=== PATIENT | female | born 1945 | race Caucasian/White ===

== ENCOUNTER 2022-07-08 09:14 | Outpatient (OUT) | payer MEDICARE, SELFPAY ==
--- NOTE | 2022-07-08 09:35 | XR_ITS ---
[place] [id number] Patient Name: ANGELA ROBB MRN: [id number] date: 1945 Sex: F Assigned Patient Location: [facility] Current Patient Location: [facility] Accession/Order Number: [id number] Exam Date: 07/08/2022 09:45 Report Date: 07/08/2022 11:05 At the request of: RADHA KNOTT Procedure: XR lumbar spine 6V w bending EXAMINATION: XR lumbar spine 6V w bending HISTORY: Spondylolisthesis Of Lumbar Region M43.16 ; follow-up low back pain COMPARISON: XR L-spine 07/05/2022, 01/14/2021 FINDINGS: BONES: Moderate left convex curvature of lumbar spine. 9 mm anterior listhesis of L4 on 5; no appreciable change during flexion and extension. Moderate degenerative facet arthropathy L4-5, L5-S1. No visible pars interarticularis defects. No compression fracture. DISC SPACES: Marked disc space collapse along right side of L2-3. PARASPINOUS: Negative. No paraspinous abnormality is seen. OTHER: Negative. IMPRESSION: 1. Multilevel degenerative changes with slight progression of anterior listhesis of L4 on 5 (currently 8-9 mm; previously 7 mm). Electronically authenticated by: JELANI FAIR Date: 07/08/2022 11:05
== END 2022-07-08 09:15 ==
LOC: RAD 09:20
PROVIDERS: PCP Nurse Practitioner; Visit Provider Nurse Practitioner
DX: M43.16 Spondylolisthesis, lumbar region (principal); M47.816 Spondylosis without myelopathy or radiculopathy, lumbar region
CPT/HCPCS: 72114

== ENCOUNTER 2022-07-29 08:55 | Outpatient (OUT) | payer MEDICARE, SELFPAY ==
--- NOTE | 2022-07-29 09:03 | XR_ITS ---
[address] [address] Patient Name: ANGELA ROBB MRN: [id number] date: 1945 Sex: F Assigned Patient Location: [facility] Current Patient Location: [facility] Accession/Order Number: [id number] Exam Date: 07/29/2022 09:10 Report Date: 07/29/2022 09:25 At the request of: RADHA KNOTT Procedure: XR chest 2V EXAMINATION: XR chest 2V HISTORY: Abnormal chest x-ray R93.89 COMPARISON: 01/19/2021 TECHNIQUE: PA and lateral FINDINGS: LUNGS: No significant pulmonary parenchymal abnormalities. VASCULATURE: No increased pulmonary vasculature. PLEURA: No pneumothorax, effusion, or pleural thickening. CARDIAC: No cardiomegaly or cardiac silhouette abnormality. MEDIASTINUM: Stable 1.8 cm density projects of the right hilumAortic atherosclerosis BONES: No fracture or visible bone lesion. Rotatory levocurvature of the lumbar spine centered at L2-L3 OTHER: Negative. IMPRESSION: Stable density projects of the right hilum, indeterminate. Possibly a calcified lymph node or prominent vessel Electronically authenticated by: BLOSSOM QUIROZ Date: 07/29/2022 09:25
== END 2022-07-29 08:56 | disposition home or self-care (01) ==
LOC: RAD 08:57
PROVIDERS: PCP Nurse Practitioner; Visit Provider Nurse Practitioner
DX: R93.89 Abnormal findings on diagnostic imaging of other specified body structures (principal)
CPT/HCPCS: 71046

== ENCOUNTER 2022-08-04 08:45 | Outpatient (OUT) | payer MEDICARE, SELFPAY ==
--- NOTE | 2022-08-04 09:25 | XR_ITS ---
[address] [address] Patient Name: ANGELA ROBB MRN: [id number] date: 1945 Sex: F Assigned Patient Location: [facility] Current Patient Location: [facility] Accession/Order Number: [id number] Exam Date: 08/04/2022 09:15 Report Date: 08/04/2022 09:48 At the request of: RADHA KNOTT Procedure: XR lumbar spine 6V w bending EXAMINATION: XR lumbar spine 6V w bending HISTORY: SPONDYLOLISTHESIS M43.10 COMPARISON: 07/08/2022 FINDINGS: BONES: 15 degrees of rotatory levoscoliosis from L1 to L4. Mild diffuse degenerative spondylosis and moderate facet osteoarthropathy. 9 mm anterolisthesis of L4 in relation L5, stable with flexion and extension DISC SPACES: Moderate to severe multilevel disc space narrowing with endplate sclerosis and vacuum disc L to L3 PARASPINOUS: Negative. No paraspinous abnormality is seen. OTHER: Negative. IMPRESSION: Levoscoliosis with mild to moderate degenerative changes Grade 2 anterolisthesis of L4 and L5 with no dynamic instability Electronically authenticated by: BLOSSOM QUIROZ Date: 08/04/2022 09:48
== END 2022-08-04 08:46 | disposition home or self-care (01) ==
LOC: RAD 08:46
PROVIDERS: PCP Nurse Practitioner; Visit Provider Nurse Practitioner
DX: M43.16 Spondylolisthesis, lumbar region (principal)
CPT/HCPCS: 72114

== ENCOUNTER 2022-08-29 07:18 | Outpatient (OUT) | payer MEDICARE, SELFPAY ==
--- NOTE | 2022-08-29 07:28 | MR_ITS ---
[address] [address] Patient Name: ANGELA ROBB MRN: [id number] date: 1945 Sex: F Assigned Patient Location: MRI Current Patient Location: MRI Accession/Order Number: [id number] Exam Date: 08/29/2022 07:45 Report Date: 08/29/2022 09:29 At the request of: RADHA KNOTT Procedure: MR lumbar spine wo con EXAMINATION: MR lumbar spine wo con HISTORY: Spondylolisthesis M43.10 ; low back pain COMPARISON: XR lumbar spine 08/04/2022 TECHNIQUE: A variety of imaging planes and parameters were utilized for visualization of suspected pathology. FINDINGS: For the purposes of numbering, sagittal T2 image # 8 extends from the T9 vertebral body superiorly to the S3 level inferiorly. PARASPINAL AREA: Normal with no visible mass. BONES: Left convex curvature of lumbar spine. 4 mm anterior listhesis of L4 on 5. No fracture or bone lesion. CORD/CAUDA EQUINA: Normal caliber, contour, and signal intensity. DISC LEVELS: T10-11: Mild central canal and moderate bilateral foramen narrowing secondary to moderate diffuse disc bulging. 12-L1: Early degenerative disc disease is present without focal protrusion or neural impingement. L1-L2: Early degenerative disc disease is present without focal protrusion or neural impingement. L2-L3: Moderate right foramen narrowing without significant central canal or left foramen narrowing. Moderate diffuse disc bulging eccentric to the right and mild right facet hypertrophy and ligamentum flavum thickening. Moderate disc height reduction. L3-L4: Early degenerative disc disease is present without focal protrusion or neural impingement. L4-L5: Moderate central canal and left foramen narrowing. Mild right foramen narrowing. Grade 1 anterolisthesis of L4 on 5 and moderate bilateral degenerative facet arthropathy and ligamentum flavum thickening. Descending L5 nerve roots appear to be compressed between the disc and facet joints and thickened ligamentum flavum bilaterally. L5-S1: Early degenerative disc disease is present without focal protrusion or neural impingement. MR/MR lumbar spine wo con IMPRESSION: 1. Multilevel mild-moderate degenerative changes, moderate scoliotic curvature, and L4-5 grade 1 anterolisthesis. 2. Impingement of the bilateral descending L5 nerve roots posterior to L4-5 secondary to disc bulging, bilateral facet hypertrophy, and ligamentum flavum thickening; likely contributing to patient's symptoms. Electronically authenticated by: JELANI FAIR Date: 08/29/2022 09:29
== END 2022-08-29 07:19 | disposition home or self-care (01) ==
LOC: MRI 07:18
PROVIDERS: PCP Nurse Practitioner; Visit Provider Nurse Practitioner
DX: M43.16 Spondylolisthesis, lumbar region (principal); M51.16 Intervertebral disc disorders with radiculopathy, lumbar region; M47.26 Other spondylosis with radiculopathy, lumbar region; M24.28 Disorder of ligament, vertebrae
CPT/HCPCS: 72148

== ENCOUNTER 2022-09-21 09:23 | Outpatient (OUT) | payer MEDICARE, SELFPAY ==
--- NOTE | 2022-09-21 | CONS_ITS ---
PROCEDURE DATE: ??09/21/2022 Outpatient procedure note, performed in the office. PROCEDURE:? Trigger point injection right adductor desiree muscle. PREOPERATIVE DIAGNOSIS:? Spasm right adductor desiree leading to pain. POSTOPERATIVE DIAGNOSIS:? Spasm right adductor desiree leading to pain. SOLUTION USED FOR INJECTION:? 2 mL of 2% lidocaine, 2 mL of 0.25% Marcaine.? No steroid was used throughout the procedure. IMMEDIATE COMPLICATIONS:? None. PROCEDURE:? After informed consent was obtained from the patient, placed in the supine position.? Skin overlying the area was prepped with alcohol.? A 25 gauge, 1 ?? needle was inserted into the substance of the right adductor desiree muscle.? Needle tip was advanced until there was a twitch response.? There was no indication of intravascular or intraneural needle tip placement.? 2 mL was injected. ?No indication of intravascular or intraneural injection was noted as well.? Post procedurally, needle was removed and she reports at least 70% reduction in her right leg pain.? YESENIA
--- NOTE | 2022-09-21 | CONS_ITS ---
CONSULTATION DATE: ??09/21/2022 TO:? Lakshmi Newell CNP CHIEF COMPLAINT:? Includes right buttock pain, hip pain, right groin pain and leg pain.? HISTORY OF PRESENT ILLNESS:? Review of systems, past medical/surgical history were obtained and documented on the health questionnaire and is available upon request. She is a 76-year-old female who reports she had had pain since February of 2022.? It occurred suddenly.? She was unable to determine what movement exacerbated her pain symptoms, but she denies any injury.? She reports the pain as being 1-7/10 pain, sharp in character, with deep soreness component.? Increased with activities such as standing, walking and performing transitioning maneuvers.? She feels most comfortable in the semi-recumbent position.? Denies any change in bowel and bladder habits or new sensorimotor changes in the lower extremities.? EXAM:? Notable for patient having no clinical radiculopathy or myelopathy involving the lower extremities.? Patient did have positive right sided FABERs sign, suggestive of right hip joint related pain clinically, severe myofascial spasm of the right adductor desiree muscle.? She also had dysesthesia and hyperesthesia overlying the distribution of the right superior gluteal nerve.? This is associated with myofascial dysfunction and spasm of the right gluteus medius as well.? IMPRESSION: Our impression is patient appears to have chronic pain secondary to multiple etiologies: 1.? Involving the right superior gluteal nerve. 2.? Right hip joint related pain, unclear etiology. 3.? Myofascial spasm of the right adductor desiree muscle. RECOMMENDATIONS:? I have recommended proceeding with trigger point injection of the right adductor desiree muscle, proceeding with a diagnostic right superior gluteal nerve injection under fluoroscopic guidance, aquatic therapy, placed her on baclofen 5 mg pills, half a pill b.i.d. and an MRI of her right hip.? On note, status post right adductor desiree trigger point injection, patient reports 70% reduction in leg pain.? The procedure was performed without the use of any corticosteroids, secondary to her glaucoma.? As part of providing excellent, safe, comprehensive care, the following was completed at our patient's visit: 1. A medication reconciliation and review to ensure accurate knowledge of current/active medications, including asking our patients to inform us about any vpma-pmp-blgehkp medications or herbal remedies/nutritional supplements/alternative remedies. 2. A review to specifically ensure our patients have had annual screening for: elevated body mass index (BMI, see intake chart for exact total), tobacco use, screening for depression, and screening for unhealthy alcohol use.? When screening is concerning, patients are provided with education and the specific recommendation to discuss the concerning health issue and treatment options with their primary care provider. YESENIA
== END 2022-09-21 09:24 | disposition home or self-care (01) ==
LOC: PM 09:24
PROVIDERS: PCP Nurse Practitioner; Visit Provider Anesthesiology Pain Medicine
DX: M62.838 Other muscle spasm (principal); G89.29 Other chronic pain; M25.551 Pain in right hip
CPT/HCPCS: 20552

== ENCOUNTER 2022-09-29 09:00 | Outpatient (OUT) | payer MEDICARE, SELFPAY ==
[2022-09-29 09:49] LABS: Thyroid Stimulating Hormone 0.357 uIU/mL (0.358-3.740)
[2022-09-29 12:03] LABS: Free T4 1.32 ng/dL (0.76-1.46)
== END 2022-09-29 09:01 | disposition home or self-care (01) ==
LOC: LAB 09:01
PROVIDERS: PCP Nurse Practitioner; Visit Provider Nurse Practitioner
DX: E03.9 Hypothyroidism, unspecified (principal)
CPT/HCPCS: 36415; 84439; 84443

== ENCOUNTER 2022-10-25 10:49 | Day surgery (SDC) | payer MEDICARE, SELFPAY ==
[2022-10-25 11:30] VITALS: BP 166/79; PULSE 64; RESP 16; TEMP 36.2; O2SAT 99
[2022-10-25 11:38] LABS: Glucometer 114 mg/dL (74-106)
[2022-10-25] MEDS: BUPIVACAINE HCL 0.25% PF 25 MG/10 ML VIAL INJ (12:27)
--- NOTE | 2022-10-25 12:40 | W.PM.PROCNOT ---
Date of procedure: 10/25/22 Pre-op diagnosis: Right gluteal neuritis Post-op diagnosis: same as pre-op Procedure: Right Superior Gluteal nerve injection, diagnostic Performed under fluoroscopic guidance Immediate complications none Anesthesia: none Solution used for injection: In each syringe, 2 milliliters 0.25% Marcaine 2.5 mL is used for injection for each side Time out process compliant After informed consent obtained patient was brought to the procedure room placed in the prone position skin overlying the area was prepped and draped in a sterile fashion using betadine. 25 gauge spinal needle Insert over each of the target areas identified in fluoroscopy corresponding needles were advanced Under fluoroscopic guidance until the target/targets encountered , no indication of intravascular or Intraneuronal needle tip placement. Solution injected .needles removed post procedurally. patient transferred to recovery room in stable condition to be discharged home after meeting criteria Anesthesia: Local Surgeon: Lalo Stubbs Condition: stable
[2022-10-25 13:39] VITALS: BP 192/87; BP 204/98; PULSE 62; PULSE 64; RESP 18; O2SAT 96; O2SAT 97
== END 2022-10-25 12:35 | disposition home or self-care (01) ==
LOC: SURGOUT 10:49
PROVIDERS: PCP Nurse Practitioner; Visit Provider Anesthesiology Pain Medicine
DX: G57.91 Unspecified mononeuropathy of right lower limb (principal); Z79.82 Long term (current) use of aspirin; Z79.899 Other long term (current) drug therapy; Z79.84 Long term (current) use of oral hypoglycemic drugs
CPT/HCPCS: 36415; 36416; 64450; 77002; 82948

== ENCOUNTER 2022-10-31 08:50 | Outpatient (OUT) | payer MEDICARE, SELFPAY ==
[2022-10-31 10:13] LABS: Free T3 1.74 pg/mL (2.18-3.98); Thyroid Stimulating Hormone 0.631 uIU/mL (0.358-3.740)
[2022-10-31 10:31] LABS: Free T4 1.27 ng/dL (0.76-1.46)
== END 2022-10-31 08:51 | disposition home or self-care (01) ==
PROVIDERS: PCP Nurse Practitioner; Visit Provider Nurse Practitioner
DX: E03.9 Hypothyroidism, unspecified (principal)
CPT/HCPCS: 36415; 84439; 84443; 84481

== ENCOUNTER 2022-11-16 09:01 | Outpatient (OUT) | payer MEDICARE, SELFPAY ==
--- NOTE | 2022-11-16 09:03 | P.CN_ITS ---
Consult Note: HPI Data of Consult Patient: known to practice within the last 3 years Requesting Physician: Cinthya Valle NP Primary Care Provider: Lakshmi Newell Consult Narrative Reason for consult: f/u Narrative: Shelley Sanchez a pleasant 76 year old female presents for evaluation of chronic right buttock and superior gluteal nerve. Recently had Right Superior Gluteal nerve injection diagnostic injection with > 80% pain relief and functional improvement ongoing. Pain today 1-2/10 in right buttock and groin. Since injection she has noticed improvement in ambulation and ability to walk further distances. cc:: CC: Cinthya Valle NP Review of Systems ROS Status of ROS 10 or more systems reviewed and unremarkable except as noted in history and below Musculoskeletal Reports: joint pain (right hip pain) PFSH PFSH Medical History Acid reflux ?K21.9 - Gastro-esophageal reflux disease without esophagitis (ICD-10) Anemia ?D64.9 - Anemia, unspecified (ICD-10) Diabetes ?E11.9 - Type 2 diabetes mellitus without complications (ICD-10) Former smoker ?Z87.891 - Personal history of nicotine dependence (ICD-10) Glaucoma ?H40.9 - Unspecified glaucoma (ICD-10) Hearing deficit ?H91.90 - Unspecified hearing loss, unspecified ear (ICD-10) Heart murmur ?R01.1 - Cardiac murmur, unspecified (ICD-10) High cholesterol ?E78.00 - Pure hypercholesterolemia, unspecified (ICD-10) Hypertension ?I10 - Essential (primary) hypertension (ICD-10) Hypothyroid ?E03.9 - Hypothyroidism, unspecified (ICD-10) Irregular heart beat ?I49.9 - Cardiac arrhythmia, unspecified (ICD-10) Low back pain ?M54.50 - Low back pain, unspecified (ICD-10) Neck pain ?M54.2 - Cervicalgia (ICD-10) Osteoarthritis ?M19.90 - Unspecified osteoarthritis, unspecified site (ICD-10) Surgical History H/O carotid endarterectomy ?Z98.890 - Other specified postprocedural states (ICD-10) H/O tubal ligation ?Z98.51 - Tubal ligation status (ICD-10) History of carpal tunnel release ?Z98.890 - Other specified postprocedural states (ICD-10) Meds Home Medications and Allergies Home Medications Medication Instructions Recorded Confirmed Type alendronate 70 mg tablet 70 mg PO QWEEK 09/21/22 10/25/22 History aspirin 81 mg capsule 81 mg PO DAILY 09/21/22 10/25/22 History atorvastatin 40 mg tablet 40 mg PO DAILY 09/21/22 10/25/22 History baclofen 5 mg tablet 5 mg PO DAILY 09/21/22 10/25/22 History carvedilol 25 mg tablet 25 mg PO BID 09/21/22 10/25/22 History duloxetine 30 mg capsule,delayed 30 mg PO DAILY 09/21/22 10/25/22 History release levothyroxine 100 mcg capsule 100 mcg PO DAILY 09/21/22 10/25/22 History losartan 100 mg tablet 100 mg PO DAILY 09/21/22 10/25/22 History meloxicam 15 mg tablet 15 mg PO DAILY 09/21/22 10/25/22 History metformin 500 mg tablet 500 mg PO BID 09/21/22 10/25/22 History omeprazole 20 mg capsule,delayed 20 mg PO DAILY 09/21/22 10/25/22 History release Allergies Allergy/AdvReac Type Severity Reaction Status Date / Time No Known Drug Allergies Allergy Verified 10/25/22 11:41 Exam Constitutional Documenting provider has reviewed patient's vital signs: yes Common normals: no apparent distress, oriented x3, healthy appearing, alert and well nourished General appearance: cooperative HENHI Common normals: normocephalic, hearing grossly normal bilaterally and moist oral mucous membranes Head and scalp: normocephalic Eye Common normals: PERRL Pupil: PERRL Neck & C-Spine Common normals: full ROM General: normal visual inspection Chest Common normals: inspection of chest normal Respiratory Common normals: normal respiratory effort, no retractions and no use of accessory muscles Back & Pelvis Pelvis: no pain with lateral compression Sacroiliac joints: SI joint(s) abnormal (pain over right superior gluteal nerve and LCIH nerve upon exam) SI joint details: tender to palpation Other: chronic right hip pain, negative thigh thrust internal and external rotation Extremity Common normals: normal to inspection and full ROM Neuro Common normals: oriented x3, CN's II-XII intact bilaterally, moves all extremities, no focal motor deficits, no sensory deficits noted, deep tendon reflexes 2+ bilaterally and gait normal Sensorium/orientation: alert Motor exam: strength 5/5 throughout and no movement abnormalities noted Psych Common normals: mental status grossly normal, thought process normal, cooperative, affect normal, speech normal and activity/motor behavior normal Speech: normal speech Thought process: normal thought process Results Additional Findings Additional findings: I have checked an [place] report on this patient today and there are no aberrancies noted in the prescribing history.?? A drug screen was completed and reviewed within the last year, and if there has not been a drug screen completed we ordered one today to monitor higher risk, state monitored pain medication use. As part of providing excellent, safe, comprehensive care, the following was completed at our patient's visit: 1. A medication reconciliation and review to ensure accurate knowledge of current/active medications, including asking our patients to inform us about any ptha-gti-mqmzjxe medications or herbal remedies/nutritional supplements/alternative remedies. 2. A review to specifically ensure our patients have had annual screening for: elevated body mass index (BMI), tobacco use, screening for depression, and screening for unhealthy alcohol use. When screening is concerning, patients are provided with education and the specific recommendation to discuss the [facility] health issue and treatment options with their primary care provider. Assessment and Plan Assessment and Plan (1) Neuritis: Assessment and Plan: right superior gluteal neuritis, well controlled since diagnostic injection. Greater than 80% pain relief and functional improvement ongoing (2) Right hip pain: Assessment and Plan: declining PT, previously ordered MRI of hip denied by insurance as she has not completed PT patient has transportation issues and is not interested in PT Plan discussed weaning mobic, patient on 15mg QD through PCP continue duloxetine through PCP f/u 3 months to evaluate and manage pain, sooner if needed
== END 2022-11-16 09:02 | disposition home or self-care (01) ==
LOC: PM 09:01
PROVIDERS: PCP Nurse Practitioner; Visit Provider Nurse Practitioner
DX: M79.2 Neuralgia and neuritis, unspecified (principal); M25.551 Pain in right hip
CPT/HCPCS: G0463

== ENCOUNTER 2022-12-15 10:58 | Outpatient (OUT) | payer MEDICARE, SELFPAY ==
--- NOTE | 2022-12-15 10:59 | MM_ITS ---
Patient Name: ANGELA ROBB MR#: [id number] : 1945 Exam Date: 12/15/2022 Ordering Doctor: GIRISH Newell CNP RADIOLOGY REPORT PROCEDURE: MM TOMOSYNTHESIS SCREENING BI COMPARISON: MG MAMM SCREEN 3D JESSE CAD, 12/09/2021. MG MAMM LT DIAG FU, 12/07/2020. MG MAMM SCREEN 3D JESSE CAD, 11/19/2020. MG MAMM LT UNI W CAD DIG, 08/06/2012. INDICATIONS: Screening Calculator Name NCI Breast Cancer Risk Assessment Tool 5 Year Breast Cancer Risk 1.50% Lifetime Breast Cancer Risk 2.90% Personal Breast Cancer No Personal Ovarian Cancer No Treatments None Family Cancers Cousin-maternal with breast cancer at age 35. LOCATION: [facility] BREAST COMPOSITION: Scattered areas fibroglandular density. FINDINGS: DIAGNOSTIC CATEGORY 2--BENIGN FINDING: RIGHT BREAST: No significant suspicious finding. Scattered benign-appearing lymph nodes are present. No significant change has occurred. LEFT BREAST: No significant suspicious finding. Stable biopsy marker clip. No significant change has occurred. RECOMMENDATIONS: ROUTINE MAMMOGRAM AND CLINICAL EVALUATION IN 12 MONTHS. PLEASE NOTE: A NORMAL MAMMOGRAM DOES NOT EXCLUDE THE POSSIBILITY OF BREAST CANCER. A CLINICALLY SUSPICIOUS PALPABLE LUMP SHOULD BE BIOPSIED. Dictated by: Johnathan Hopkins M.D. on 12/15/2022 at 12:06 Approved by: Johnathan Hopkins M.D. on 12/15/2022 at 12:17
== END 2022-12-15 10:59 | disposition home or self-care (01) ==
LOC: MAMMO 10:58
PROVIDERS: PCP Nurse Practitioner; Visit Provider Nurse Practitioner
DX: Z12.31 Encounter for screening mammogram for malignant neoplasm of breast (principal); Z80.3 Family history of malignant neoplasm of breast
CPT/HCPCS: 77063; 77067

== ENCOUNTER 2023-03-06 08:54 | Outpatient (OUT) | payer MEDICARE, SELFPAY ==
--- OUTSIDE RECORDS SUMMARY | 2023-03-06 09:00 | XMS_ITS | CCD ---
Author Name Unknown Address [address] [place] [address] Organization [facility] Care Team Providers Care Detail Technician Name Role Phone JACE CABAN Unavailable Unavailable JOSÉ LUIS HORAN Unavailable Unavailable José Luis Horan Primary Care Unavailable Eddy Rapp Attending Unavailable REQUEST, DR MUÑOZ LISTED Primary Care Unavaila ble PAY ., DR MANDUJANO Admitting Unavailable PAY ., DR MANDUJANO Consulting Unavailable PAY ., DR MANDUJANO Attending Unavailable AICHHOLZ, DERRICK BOAT OPERATOR RADHA Admitting Unavailable AICHHOLZ, DERRICK BOAT OPERATOR RADHA Primary Care Unavailable AICHHOLZ, DERRICK BOAT OPERATOR RADHA Attending Unavailable RICHIE, DR BLOSSOM Diaz Consulting Unavailable AICHHOLZ, DERRICK BOAT OPERATOR RADHA Consulting Unavailable HOY ., DR ORDONEZ Admitting Unavailable HOY ., DR ORDONEZ Primary Care Unavailable HOY ., DR ORDONEZ Consulting Unavailable HOY ., DR ORDONEZ Attending Unavailable WEST, DR BLOSSOM Diaz Consulting Unavailable AICHHOLZ, RADHA Attending Unavailable Problems Active Problems Problem Classification Problem Date Documented Da te Episodic/Chronic Abdominal pain (3 sources) Right lower quadrant pain; Translations: [RIGHT LOWER QUADRANT PAIN] Onset: 05-06-2022 Episodic Diabetes mellitus without complication (2 sources) Type 2 diabetes mellitus without complications; Translations: [TYPE 2 DM WITHOUT COMPLICATIONS] Onset: 07-06-2022 Chronic E Codes: Natural/environment (1 source) Exposure to other specified factors, initial encounter; Translations: [EXPOSURE OTHER SPEC FACTORS INITIAL] Onset: 05-09-2022 Episodic Menopausal disorders (1 source) Hormone replacement therapy; Translations: [HORMONE REPLACEMENT THERAPY] Onset: 05-09-2022 Episodic Occlusion or stenosis of precerebral arteries (1 source) Occlusion and stenosis of right carotid artery; Translations: [Occlusion and stenosis of right carotid artery] Onset: 08-01-2016 Chronic Other acquired deformities (1 source) Spondylolisthesis, lumbar region; Translations: [SPONDYLOLISTHESIS LUMBAR REGION] Onset: 07-06-2022 Episodic Other aftercare (1 source) 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 (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; Translations: [TAX CREDIT LEASING CONSULTANT CURRENT USE OF ASPIRIN] Onset: 05-09-2022 Episodic Other aftercare (1 source) Other intermediate designer (current) drug therapy; Translations: [OTH FPC CURRENT DRUG THERAPY] Onset: 05-09-2022 Episodic Other aftercare (1 source) 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 (current) use of oral hypoglycemic drugs; Translations: [TAX CREDIT LEASING CONSULTANT USE ORAL HYPOGLYCEMIC DX] Onset: 05-09-2022 Episodic Other non-traumatic joint disorders (1 source) Other specified joint disorders, right hip; Translations: [OTHER SPECIFIED JOINT D/O RT HIP] Onset: 07-06-2022 Episodic Screening and history of mental health and substance abuse codes (1 source) Personal history of nicotine dependence; Translations: [PERSONAL HISTORY OF NICOTINE DEPEND] Onset: 05-09-2022 Episodic Spondylosis; intervertebral disc disorders; other back problems (1 source) Spondylosis without myelopathy or radiculopathy, lumbar region; Translations: [SPONDYLS W/O MYELO-/RADICULOP LUMB] Onset: 07-06-2022 Chronic Sprains and strains (1 source) Strain of muscle, fascia and tendon of abdomen, initial encounter; Translations: [STRAIN MUSC FASCIA TENDON ABD INIT] Onset: 05-09-2022 Episodic Thyroid disorders (2 sources) Hypothyroidism, unspecified; Translations: [HYPOTHYROIDISM UNSPECIFIED] Onset: 07-06-2022 Chronic Unclassified (3 sources) LOW BACK PAIN, UNSPECIFIED; Translations: [LOW BACK PAIN, UNSPECIFIED] Onset: 07-06-2022 Past or Other Problems Problem Classification Problem Date Documented Da te Episodic/Chronic Other screening for suspected conditions (not mental disorders or infectious disease) (4 sources) Encounter for screening mammogram for malignant neoplasm of breast; Translations: [ENC SCR MAMMO MALIG NEOPLASM BREAST] Onset: 12-09-2021 Episodic Residual codes; unclassified (1 source) Family history of malignant neoplasm of breast; Translations: [FAMILY HX MALIG NEOPLASM OF BREAST] Onset: 12-13-2021 Episodic Unclassified (1 source) LOW BACK PAIN, UNSPECIFIED; Translations: [LOW BACK PAIN, UNSPECIFIED] Onset: 07-05-2022 Results Test Name Value Interpretation Reference Range Facility CBC AUTO DIFFon 07-05-2022 BASO # 0.0 103/ul Normal 0.0-0.1 [facility] Comment on above: Performed By: #### C MP, TSH, LIPID, FT3 #### [facility] [address] [place] [address] Dr. Ryan Martin Basophils/100 WBC (Bld) 0.3 % Normal 0.2-2.0 [facility] Comment on above: Performed By: #### C MP, TSH, LIPID, FT3 #### [facility] [address] [place] [address] Dr. Ryan Martin EO # 0.1 103/ul Normal 0.0-0.7 [facility] Comment on above: Performed By: #### C MP, TSH, LIPID, FT3 #### [facility] [address] [place] [address] Dr. Ryan Martin Eosinophils/100 WBC (Bld) 1.6 % Normal 0.9-7.0 [facility] Comment on above: Performed By: #### C MP, TSH, LIPID, FT3 #### [facility] [address] [place] [address] Dr. Ryan Martin Erythrocyte distribution width (RBC) [Ratio] 13.6 % Normal 11.0-15.0 [facility] Comment on above: Performed By: #### C MP, TSH, LIPID, FT3 #### [facility] [address] [place] [address] Dr. Ryan Martin Hematocrit (Bld) [Volume fraction] 34.7 % Critically low 36.0-48.0 [facility] Comment on above: Performed By: #### C MP, TSH, LIPID, FT3 #### [facility] [address] [place] [address] Dr. Ryan Martin Hemoglobin (Bld) [Mass/Vol] 12.1 g/dL Normal 12.0-16.0 [facility] Comment on above: Performed By: #### C MP, TSH, LIPID, FT3 #### [facility] [address] [place] [address] Dr. Ryan Martin IG # 0.02 10e3/ul Normal 0.00-0.03 [facility] Comment on above: Performed By: #### C MP, TSH, LIPID, FT3 #### [facility] [address] [address] [address] Ryan Martin IG % 0.3 % Normal 0.0-0.5 [facility] Comment on above: Performed By: #### C MP, TSH, LIPID, FT3 #### [facility] [address] [place] [address] Dr. Ryan Martin LYMPH # 1.1 103/ul Critically low 1.2-3.8 [facility] Comment on above: Performed By: #### C MP, TSH, LIPID, FT3 #### [facility] [address] [place] [address] Dr. Ryan Martin Lymphocytes/100 WBC (Bld) 14.7 % Critically low 20.5-60.0 [facility] Comment on above: Performed By: #### C MP, TSH, LIPID, FT3 #### [facility] [address] [place] [address] Dr. Ryan Martin MANUAL DIFF REQ NO Normal [facility] Comment on above: Performed By: #### C MP, TSH, LIPID, FT3 #### [facility] [address] [place] [address] Dr. Ryan Martin MCH (RBC) [Entitic mass] 31.4 pg Normal 26.7-34.0 [facility] Comment on above: Performed By: #### C MP, TSH, LIPID, FT3 #### [facility] [address] [place] [address] Dr. Ryan Martin MCHC (RBC) [Mass/Vol] 34.9 g/dL Normal 29.9-35.2 [facility] Comment on above: Performed By: #### C MP, TSH, LIPID, FT3 #### [facility] [address] [place] [address] Dr. Ryan Martin MCV (RBC) [Entitic vol] 90.1 fL Normal 81.0-99.0 [facility] Comment on above: Performed By: #### C MP, TSH, LIPID, FT3 #### [facility] [address] [place] [address] Dr. Ryan Martin MONO # 0.5 103/ul Normal 0.3-0.8 [facility] Comment on above: Performed By: #### C MP, TSH, LIPID, FT3 #### [facility] [address] [place] [address] Dr. Ryan Martin Monocytes/100 WBC (Bld) 6.4 % Normal 1.7-12.0 [facility] Comment on above: Performed By: #### C MP, TSH, LIPID, FT3 #### [facility] [address] [place] [address] Dr. Ryan Martin NEUT # 5.9 103/ul Normal 1.4-6.5 [facility] Comment on above: Performed By: #### C MP, TSH, LIPID, FT3 #### [facility] [address] [place] [address] Dr. Ryan Martin Neutrophils/100 WBC (Bld) 76.7 % Critically high 43.0-75.0 [facility] Comment on above: Performed By: #### C MP, TSH, LIPID, FT3 #### [facility] [address] [place] [address] Dr. Ryan Martin Platelet mean volume (Bld) [Entitic vol] 9.4 fL Critically low 9.5-13.5 [facility] Comment on above: Performed By: #### C MP, TSH, LIPID, FT3 #### [facility] [address] [place] [address] Dr. Ryan Martin PLT 277 103/ul Normal 150-450 [facility] Comment on above: Performed By: #### C MP, TSH, LIPID, FT3 #### [facility] [address] [place] [address] Dr. Ryan Martin RBC 3.85 106/ul Critically low 4.20-5.40 [facility] Comment on above: Performed By: #### C MP, TSH, LIPID, FT3 #### [facility] [address] [address] [address] Ryan Martin WBC 7.6 103/ul Normal 4.0-11.0 [facility] Comment on above: Performed By: #### C MP, TSH, LIPID, FT3 #### [facility] [address] [address] [address] Ryan Martin FREE T3on 07-05-2022 FREE T3 2.04 pg/mlL Critically low 2.18-3.98 [facility] Comment on above: Performed By: #### C MP, TSH, LIPID, FT3 #### [facility] [address] [address] [address] Ryan Martin FREE T4on 07-05-2022 Free T4 [Mass/Vol] 1.14 ng/dL Normal 0.76-1.46 [facility] Comment on above: Performed By: #### C MP, TSH, LIPID, FT3 #### [facility] [address] [address] [address] Ryan Martin GLYCOHEMOGLOBIN A1Con 2022 ADA RECOMMENDATION SEE BELOW Normal [facility] Comment on above: Result Comment: ADA RECOMMENDED LIMIT 4.0 - 6.0 ADA THERAPEUTIC TARGET < 7.0 ACTION SUGGESTED > 7.0 Performed By: #### A 1C #### [facility] [address] [place] [address] Dr. Ryan Martin Glucose [Mass/Vol] 105 mg/dL Normal [facility] Comment on above: Performed By: #### A 1C #### [facility] [address] [place] [address] Dr. Ryan Martin HbA1c (Bld) [Mass fraction] 5.3 % Normal 4.5-6.2 [facility] Comment on above: Performed By: #### A 1C #### [facility] [address] [place] [address] Dr. Ryan Martin LIPID PROFILEon 07-05-2022 CHOL-HDL RATIO NORM SEE BELOW Normal [facility] Comment on above: Result Comment: 3.3 - 4.4 LOW RISK 4.4 - 7.1 AVERAGE RISK 7.1 - 11.0 MODERATE RISK >11.0 HIGH RISK Performed By: #### C MP, TSH, LIPID, FT3 #### [facility] [address] [place] [address] Dr. Ryan Martin Cholesterol [Mass/Vol] 159 mg/dL Normal <=200 [facility] Comment on above: Performed By: #### C MP, TSH, LIPID, FT3 #### [facility] [address] [place] [address] Dr. Ryan Martin Cholesterol in HDL [Mass/Vol] 87 mg/dL Critically high 40-60 [facility] Comment on above: Performed By: #### C MP, TSH, LIPID, FT3 #### [facility] [address] [place] [address] Dr. Ryan Martin Cholesterol in LDL [Mass/Vol] 57.2 mg/dL Normal [facility] Comment on above: Performed By: #### C MP, TSH, LIPID, FT3 #### [facility] [address] [place] [address] Dr. Ryan Martin Cholesterol.total/Ch olesterol in HDL [Mass ratio] 1.8 {ratio} Normal [facility] Comment on above: Performed By: #### C MP, TSH, LIPID, FT3 #### [facility] [address] [place] [address] Dr. Ryan Martin HDL NORMAL > or = 60 mg/dl - LO W CARDIOVASCULAR RISK <40 mg/dl - HIGH CARDIOVASCULAR RISK Normal [facility] Comment on above: Performed By: #### C MP, TSH, LIPID, FT3 #### [facility] [address] [place] [address] Dr. Ryan Martin LDL CALC NORMAL SEE BELOW Normal [facility] Comment on above: Result Comment: <100 mg/dl OPTIMAL 100 - 129 mg/dl NEAR OR ABOVE OPTIMAL 130 - 159 mg/dl BORDERLINE HIGH 160 - 189 mg/dl HIGH >190 mg/dl VERY HIGH Performed By: #### C MP, TSH, LIPID, FT3 #### [facility] [address] [place] [address] Dr. Ryan Martin Triglyceride [Mass/Vol] 74 mg/dL Normal <=150 [facility] Comment on above: Performed By: #### C MP, TSH, LIPID, FT3 #### [facility] [address] [place] [address] Dr. Ryan Martin VLDL CALC 14.8 mg/dL Normal [facility] Comment on above: Performed By: #### C MP, TSH, LIPID, FT3 #### [facility] [address] [place] [address] Dr. Ryan Martin MICROALBUMIN, RAND URon 05 mALB <1.3 Normal <=30.0 [facility] Comment on above: Performed By: #### C MP, TSH, LIPID, FT3 #### [facility] [address] [place] [address] Dr. Ryan Martin PROF 14(COMP METB)on 023 Albumin [Mass/Vol] 4.2 g/dL Normal 3.4-5.0 [facility] Comment on above: Performed By: #### C MP, TSH, LIPID, FT3 #### [facility] [address] [place] [address] Dr. Ryan Martin Albumin/Globulin [Mass ratio] 0.9 {ratio} Normal [facility] Comment on above: Performed By: #### C MP, TSH, LIPID, FT3 #### [facility] [address] [place] [address] Dr. Ryan Martin ALP [Catalytic activity/Vol] 93 U/L Normal 46-116 [facility] Comment on above: Performed By: #### C MP, TSH, LIPID, FT3 #### [facility] [address] [place] [address] Dr. Ryan Martin ALT [Catalytic activity/Vol] 21 U/L Normal 14-59 [facility] Comment on above: Performed By: #### C MP, TSH, LIPID, FT3 #### [facility] [address] [place] [address] Dr. Ryan Martin Anion gap [Moles/Vol] 15.4 mmol/L Normal [facility] Comment on above: Performed By: #### C MP, TSH, LIPID, FT3 #### [facility] [address] [place] [address] Dr. Ryan Martin AST [Catalytic activity/Vol] 21 U/L Normal 15-37 [facility] Comment on above: Performed By: #### C MP, TSH, LIPID, FT3 #### [facility] [address] [place] [address] Dr. Ryan Martin Bilirubin [Mass/Vol] 0.7 mg/dL Normal 0.2-1.0 [facility] Comment on above: Performed By: #### C MP, TSH, LIPID, FT3 #### [facility] [address] [place] [address] Dr. Ryan Martin Calcium [Mass/Vol] 9.9 mg/dL Normal 8.5-10.1 [facility] Comment on above: Performed By: #### C MP, TSH, LIPID, FT3 #### [facility] [address] [place] [address] Dr. Ryan Martin Chloride [Moles/Vol] 101 mmol/L Normal 98-107 [facility] Comment on above: Performed By: #### C MP, TSH, LIPID, FT3 #### [facility] [address] [place] [address] Dr. Ryan Martin CO2 [Moles/Vol] 26.7 mmol/L Normal 21.0-32.0 [facility] Comment on above: Performed By: #### C MP, TSH, LIPID, FT3 #### [facility] [address] [place] [address] Dr. Ryan Martin Creatinine [Mass/Vol] 1.13 mg/dL Critically high 0.55-1.02 [facility] Comment on above: Performed By: #### C MP, TSH, LIPID, FT3 #### [facility] [address] [place] [address] Dr. Ryan Martin EGFR-AF COLOMBIAN 57 mL/min/1.73m2 Critically low >=60 [facility] Comment on above: Performed By: #### C MP, TSH, LIPID, FT3 #### [facility] [address] [address] [address] Ryan Martin EGFR-NON AF COLOMBIAN 47 mL/min/1.73m2 Critically low >=60 [facility] Comment on above: Performed By: #### C MP, TSH, LIPID, FT3 #### [facility] [address] [address] [address] Ryan Martin Globulin (S) [Mass/Vol] 4.5 g/dL Normal [facility] Comment on above: Performed By: #### C MP, TSH, LIPID, FT3 #### [facility] [address] [address] [address] Ryan Martin Glucose [Mass/Vol] 119 mg/dL Critically high 74-106 [facility] Comment on above: Performed By: #### C MP, TSH, LIPID, FT3 #### [facility] [address] [place] [address] Dr. Ryan Martin Potassium [Moles/Vol] 5.1 mmol/L Normal 3.5-5.1 [facility] Comment on above: Performed By: #### C MP, TSH, LIPID, FT3 #### [facility] [address] [address] [address] Ryan Martin Protein [Mass/Vol] 8.7 g/dL Critically high 6.4-8.2 [facility] Comment on above: Performed By: #### C MP, TSH, LIPID, FT3 #### [facility] [address] [place] [address] Dr. Ryan Martin Sodium [Moles/Vol] 138 mmol/L Normal 136-145 [facility] Comment on above: Performed By: #### C MP, TSH, LIPID, FT3 #### [facility] [address] [place] [address] Dr. Ryan Martin Urea nitrogen [Mass/Vol] 17.0 mg/dL Normal 7.0-18.0 [facility] Comment on above: Performed By: #### C MP, TSH, LIPID, FT3 #### [facility] [address] [place] [address] Dr. Ryan Martin Urea nitrogen/Creatinine [Mass ratio] 15.0 mg/mg Normal [facility] Comment on above: Performed By: #### C MP, TSH, LIPID, FT3 #### [facility] [address] [place] [address] Dr. Ryan Martin TSHon 07-05-2022 TSH 5.282 uIU/mL Critically high 0.358-3.740 [facility] Comment on above: Performed By: #### C MP, TSH, LIPID, FT3 #### [facility] [address] [place] [address] Dr. Ryan Martin UA RANDOM W/MICROSCOPICon BACTERIA TRACE Abnormal NONE SEEN [facility] Comment on above: Performed By: #### U AMIC #### [facility] [address] [place] [address] Dr. Ryan Martin Bilirubin Ql (U) Negative Normal NEGATIVE [facility] Comment on above: Performed By: #### U AMIC #### [facility] [address] [place] [address] Dr. Ryan Martin CAST NONE SEEN Normal NONE SEEN [facility] Comment on above: Performed By: #### U AMIC #### [facility] [address] [place] [address] Dr. Ryan Martin Clarity (U) CLEAR Normal CLEAR [facility] Comment on above: Performed By: #### U AMIC #### [facility] [address] [place] [address] Dr. Ryan Martin Color (U) LT. YELLOW Normal YELLOW [facility] Comment on above: Performed By: #### U AMIC #### [facility] [address] [place] [address] Dr. Ryan Martin Crystals LM Nom (Urine sed) NONE SEEN Normal NONE SEEN [facility] Comment on above: Performed By: #### U AMIC #### [facility] [address] [place] [address] Dr. Ryan Martin Epithelial cells LM Ql (Urine sed) RARE Normal NONE SEEN /RARE [facility] Comment on above: Performed By: #### U AMIC #### [facility] [address] [address] [address] Ryan Martin Glucose Ql (U) Negative Normal NEGATIVE [facility] Comment on above: Performed By: #### U AMIC #### [facility] [address] [address] [address] Ryan Martin Hemoglobin Ql (U) Negative Normal NEGATIVE [facility] Comment on above: Performed By: #### U AMIC #### [facility] [address] [address] [address] Ryan Martin Ketones Ql (U) Negative Normal NEGATIVE [facility] Comment on above: Performed By: #### U AMIC #### [facility] [address] [address] [address] Ryan Martin LEUKOCYTES TRACE Abnormal NEGATIVE [facility] Comment on above: Performed By: #### U AMIC #### [facility] [address] [place] [address] Dr. Ryan Martin MUCOUS NONE SEEN Normal NONE SEEN [facility] Comment on above: Performed By: #### U AMIC #### [facility] [address] [address] [address] Ryan Martin Nitrite Ql (U) Negative Normal NEGATIVE [facility] Comment on above: Performed By: #### U AMIC #### [facility] [address] [place] [address] Dr. Ryan Martin pH (U) 6.0 [pH] Normal 5-9 [facility] Comment on above: Performed By: #### U AMIC #### [facility] [address] [place] [address] Dr. Ryan Martin RBC 0-2 Normal 0-2 [facility] Comment on above: Performed By: #### U AMIC #### [facility] [address] [place] [address] Dr. Ryan Martin SPEC GRAVITY 1.010 Normal 1.005-<=1.025 [facility] Comment on above: Performed By: #### U AMIC #### [facility] [address] [place] [address] Dr. Ryan Martin UA PROTEIN Negative Normal NEGATIVE/ TRACE [facility] Comment on above: Performed By: #### U AMIC #### [facility] [address] [address] [address] Ryan Martin Urobilinogen Qn (U) 0.2 {Michelle'U}/dL Normal 0.2 - 1. 0 [facility] Comment on above: Performed By: #### U AMIC #### [facility] [address] [address] [address] Ryan Martin WBC 2-5 Abnormal NONE SEEN [facility] Comment on above: Performed By: #### U AMIC #### [facility] [address] [address] [address] Ryan Martin XR LSPINE 2_3 VIEWSon 2022 XR LSPINE 2_3 VIEWS EXAMINATION: XR LSPINE 2_3 VIEWS HISTORY: Low back pain COMPARISON: No relevant comparison available. FINDINGS: BONES: 8 mm anterolisthesis of L4 in relation to L5. Levocurvature with disc collapse along the right L2-L3 level, associated endplate sclerosis. Mild degenerative spondylosis. Moderate facet osteoarthropathy DISC SPACES: Normal. No significant disc height narrowing, subluxation, or endplate abnormality. PARASPINOUS: Negative. No paraspinous abnormality is seen. OTHER: Negative. IMPRESSION: Stable degenerative changes most significant right L2-L3 level Stable 8 mm anterolisthesis of L4 on L5 Electronically authenticated by: BLOSSOM QUIROZ Date: 2022-07-05 13:11 Normal [facility] MAMM SCREEN 3D JESSE CADon 12-09-2021 MG MAMM SCREEN 3D JESSE CAD Patient: SHELLEY SANCHEZ Exam Date: 12/09/2021 : 1945 Gender:F Ordering : DR JOSÉ LUIS HORAN . Admission #: [id number] Family : Order #: [id number] CLICK HERE TO VIEW EXAM RADIOLOGY REPORT PROCEDURE: MAMMOGRAM SCREENING 3D BILATERAL CAD COMPARISON: MG MAMM SCREEN 3D JESSE CAD, 11/19/2020. MG MAMM LT DIAG FU, 12/07/2020. INDICATIONS: Calculator Name NCI Breast Cancer Risk Assessment Tool 5 Year Breast Cancer Risk 1.50% Lifetime Breast Cancer Risk 3.10% Personal Breast Cancer No Personal Ovarian Cancer No Treatments None Family Cancers Cousin-maternal with breast cancer at age 35. LOCATION: [facility] BREAST COMPOSITION: Scattered areas fibroglandular density. FINDINGS: DIAGNOSTIC CATEGORY 2--BENIGN FINDING. NO CHANGE FROM COMPARISON. Scattered benign-appearing nodules are present. Scattered benign-appearing calcifications are present. Scattered benign-appearing lymph nodes are present. RIGHT BREAST: No significant suspicious finding. LEFT BREAST: No significant suspicious finding. RECOMMENDATIONS: ROUTINE MAMMOGRAM AND CLINICAL EVALUATION IN 12 MONTHS. PLEASE NOTE: A NORMAL MAMMOGRAM DOES NOT EXCLUDE THE POSSIBILITY OF BREAST CANCER. A CLINICALLY SUSPICIOUS PALPABLE LUMP SHOULD BE BIOPSIED. Dictated by: Blossom Quiroz MD on 12/09/2021 at 13:36 Approved by: Blossom Quiroz MD on 12/09/2021 at 13:38 Normal [facility] Ambulatory Clinical Summaryo n 06-30-2020 Ambulatory Clinical Summary {[id number]}CD:[id number] Normal [facility] Ambulatory Clinical Summary {[id number]}CD:[id number] Normal [facility] General Surgery Office/Clini c Noteon 06-30-2020 General Surgery Office/Clinic Note Chief Complaint post operative visit. HPI Staff 13 day post operative visit following Colonoscopy with polypectomy. Denies symptoms of abdominal pain or rectal bleeding. Taking Tylenol PRN for pain. History of Present Illness f/u after colonoscopy due to occult blood in stools; found mild diverticulosis or sigmoid colon, and small hyperplastic rectal polyp that was removed; doing well, no blood ini stools or abdominal pain. Review of Systems ROS - Provider Constitutional: no fever, no sweats, no weight loss. Eyes: no glasses, no blurred vision, no visual loss. ENMT: no dentures, no hoarseness, no swallowing difficulties, no hearing loss, no ear infection(s), no nose bleeds. Cardiovascular: normal blood pressure, no chest pain, regular heartbeat, no heart murmur. Respiratory: no shortness of breath, no cough, no asthma, no wheezing. Gastrointestinal: no nausea, no vomiting, no diarrhea, no constipation, no blood in stool, no change in bowel habits, no abdominal pain, no hepatitis. Genitourinary: no kidney stones, no urine infection, no dysuria. Musculoskeletal: mild pain, no weakness. Skin: no changing moles, no rash, no skin lumps. Neurologic: no seizures, no epilepsy, no headache. Psychiatric: no emotional or psychiatric problem. Heme/Lymph: no bleeding problems, no anemia, no blood clots, no transfusions. Allergy/Immunologic: no swollen lymph nodes/glands, no IV drug abuse. Other: Additional ROS info: Except as noted in the above Review of Systems and in the History of Present Illness, all other systems have been reviewed and are negative or noncontributory. Physical Exam Vitals & Measurements T: 36.9 ?C (Tympanic) Assessment/Plan 1. Sigmoid diverticulosis (K57.30: Diverticulosis of large intestine without perforation or abscess without bleeding) recommend high fiber diet and daily fiber supplement 2. Hyperplastic rectal polyp (K62.1: Rectal polyp) follow up colonoscopy in 10 years for screening, if able to tolerate anesthesia/procedure. Follow-up With When Contact Information SILKE RICE, NANCY Serrano Only if needed [address] [place] [address]- Additional Instructions: Problem List/Past Medical History Ongoing Cardiac murmur Carotid bruit Fecal occult blood test positive Hyperplastic rectal polyp Palpitations Positive occult stool blood test Sigmoid diverticulosis Tricuspid regurgitation Historical No qualifying data Procedure/Surgical History Carotid endarterectomy (04/07/2015), Appendectomy, Breast biopsy and related procedures, Tubal ligation. Medications alendronate 70 mg oral tablet, 70 mg= 1 tab(s), Oral, Aspirin 81 mg Tab-EC, 81 mg= 1 tab(s), Oral, Daily atorvastatin 40 mg Tab, 40 mg= 1 tab(s), Oral, Once a day (at bedtime) calcium citrate, 400 mg, Oral, BID Coreg 6.25 mg Tab, 6.25 mg= 1 tab(s), Oral, BID irbesartan 150 mg Tab, 150 mg= 1 tab(s), Oral, Daily levothyroxine 88 mcg (0.088 mg) Tab, 88 mcg= 1 tab(s), Oral, Daily metformin 500 mg Tab, 500 mg= 1 tab(s), Oral, BID Multivitamins and Minerals, 1 tab, Oral, Daily omeprazole 20 mg Cap-EC, 1 cap(s), Oral, Daily Allergies Dust (Sneezing) Social History Alcohol - Denies Alcohol Use, 03/24/2015 Substance Abuse - Denies Substance Abuse, 03/24/2015 Tobacco - Denies Tobacco Use, 03/24/2015 Former smoker, quit more than 30 days ago Tobacco Use:. Never Smokeless Tobacco Use:. Cigarettes, Stopped age 53 Years., 06/30/2020 Family History Acute myocardial infarction: Sister. Diabetes mellitus type 1: Mother and Sister. Diabetes mellitus type 2: Brother. Heart failure: Sister. Hypertension: Mother, Father, Sister and Brother. Stroke: Mother and Father. [facility] Comment on above: Result Comment: Elec tronically Signed By: SILKE RICE, Eddy Gonzalez\Date and Time Signed: 06/30/20 14:15 EDT Outside Colonoscopyon 2020 Outside Colonoscopy [id number] .00CD:127 [facility] Pathology Noteon 06-19-2020 Pathology Note [id number] .00CD:127 [facility] Lab Reportson 06-15-2020 Lab Reports [id number] .00CD:127 [facility] Pre-Certification Formon Pre-Certification Form [id number] .00CD:127 [facility] Consent for Procedure/Surger yon 05-28-2020 Consent for Procedure/Surgery [id number] .00CD:127 [facility] Provider Letter FTon 05-28 Provider Letter [facility] [place] Luis Horan, [address] [place] [address] [place] [address] Re: SHELLEY SANCHEZ Date of : 1945 Thank you for your referral of Shelley Sanchez who was seen on consultation on May 27, 2020, for positive occult stool. A colonoscopy is planned. I have enclosed my consultation report for your review. I will be happy to follow Shelley. Sincerely, Eddy Hernandez MD General Surgery [facility] Ambulatory Clinical Summaryo n 05-27-2020 Ambulatory Clinical Summary {[id number]}CD:[id number] Normal [facility] Physician Referralon 021 Physician Referral [id number] .[id number]:127 Normal [facility] Basic Metabolic Panelon Calcium mass conc 9.6 mg/dL Normal 8.2-10.2 [facility] Comment on above: Performed By: #### B MP, MG, TSH3 #### [facility] [address] Chloride molar conc 108 mmol/L Normal 95-114 [facility] Comment on above: Performed By: #### B MP, MG, TSH3 #### [facility] [address] CO2 molar conc 23.0 mmol/L Normal 22.0-30.0 [facility] Comment on above: Performed By: #### B MP, MG, TSH3 #### [facility] [address] [place] [address] [place] Creatinine mass conc 58.0322124687 mg/dL Normal [facility] Comment on above: Performed By: #### B MP, MG, TSH3 #### [facility] [address] [place] [id number] [place] Creatinine mass conc 0.81 mg/dL Normal 0.44-1.03 [facility] Comment on above: Performed By: #### B MP, MG, TSH3 #### [facility] [address] [place] [address] [place] Estimated GFR ( Delisa > 60 Normal [facility] Comment on above: Result Comment: GFR estimated reference range: According to KDOQI guidelines, <60 ml/min/1.73m2 is sufficient to diagnose a patient with chronic kidney disease. Performed By: #### B MP, MG, TSH3 #### [address] Estimated GFR (Non- Am > 60 Normal [facility] Comment on above: Performed By: #### B MP, MG, TSH3 #### [address] Glucose mass conc 143 mg/dL High 70-100 [facility] Comment on above: Result Comment: [facility] Glucose Reference Range is dependent on time and content of last meal. Glucose of more than 200 mg/dL in a nonstressed, ambulatory subject supports the diagnosis of Diabetes Mellitus. ADA recommended reference range Performed By: #### B MP, MG, TSH3 #### [address] Potassium molar conc 4.1 mmol/L Normal 3.5-5.1 [facility] Comment on above: Performed By: #### B MP, MG, TSH3 #### [address] Sodium molar conc 141 mmol/L Normal 136-146 [facility] Comment on above: Performed By: #### B MP, MG, TSH3 #### [address] Urea nitrogen mass conc 24 mg/dL High 9-23 [facility] Comment on above: Performed By: #### B MP, MG, TSH3 #### [address] Complete Blood Count Auto Di ffon 03-17-2018 Basophils #/vol (Bld) 0.0 10*3/uL Normal 0.0-0.2 [facility] Comment on above: Result Comment: PERF ORMED BY: [place] [address] PATHOLOGIST LOCK PLATER ONEL PLASENCIA M.D. Performed By: #### C BC, CK, CKMB, TROP, PT, PTT #### [address] Basophils/100 WBC (Bld) 0.5 % Normal . [facility] Comment on above: Performed By: #### C BC, CK, CKMB, TROP, PT, PTT #### [address] Eosinophils #/vol (Bld) 0.1 10*3/uL Normal 0.0-0.45 [facility] Comment on above: Performed By: #### C BC, CK, CKMB, TROP, PT, PTT #### [address] Eosinophils/100 WBC (Bld) 1.7 % Normal . [facility] Comment on above: Performed By: #### C BC, CK, CKMB, TROP, PT, PTT #### [address] Erythrocyte distribution width Ratio (RBC) 13.5 % Normal 11.9-15.3 [facility] Comment on above: Performed By: #### C BC, CK, CKMB, TROP, PT, PTT #### [address] Hematocrit Volume Fraction (Bld) 42.0 % Normal 34.0-46.4 [facility] Comment on above: Performed By: #### C BC, CK, CKMB, TROP, PT, PTT #### [address] Hemoglobin mass conc (Bld) 14.3 g/dL Normal 11.8-15.4 [facility] Comment on above: Performed By: #### C BC, CK, CKMB, TROP, PT, PTT #### [address] Lymphocytes #/vol (Bld) 2.2 10*3/uL Normal 1.00-4.8 [facility] Comment on above: Performed By: #### C BC, CK, CKMB, TROP, PT, PTT #### [address] Lymphocytes/100 WBC (Bld) 24.9 % Normal . [facility] Comment on above: Performed By: #### C BC, CK, CKMB, TROP, PT, PTT #### [facility] [address] MCH Entitic mass (RBC) 31.6 pg Normal 24.7-34.3 [facility] Comment on above: Performed By: #### C BC, CK, CKMB, TROP, PT, PTT #### [address] MCH Entitic mass (RBC) 34.1 g/dL Normal 32.0-35.0 [facility] Comment on above: Performed By: #### C BC, CK, CKMB, TROP, PT, PTT #### [address] MCV Entitic volume (RBC) 92.7 fL Normal 80-100 [facility] Comment on above: Performed By: #### C BC, CK, CKMB, TROP, PT, PTT #### [address] Monocytes #/vol (Bld) 0.9 10*3/uL High 0.0-0.8 [facility] Comment on above: Performed By: #### C BC, CK, CKMB, TROP, PT, PTT #### [address] Monocytes/100 WBC (Bld) 9.6 % Normal . [facility] Comment on above: Performed By: #### C BC, CK, CKMB, TROP, PT, PTT #### [address] Neutrophils #/vol (Bld) 5.7 10*3/uL Normal 1.8-7.7 [facility] Comment on above: Performed By: #### C BC, CK, CKMB, TROP, PT, PTT #### [address] Neutrophils/100 WBC (Bld) 63.3 % Normal . [facility] Comment on above: Performed By: #### C BC, CK, CKMB, TROP, PT, PTT #### [address] Nucleated RBC/100 WBC Ratio (Bld) 0.1 % High 0-0 [facility] Comment on above: Performed By: #### C BC, CK, CKMB, TROP, PT, PTT #### [address] Platelet mean volume Entitic volume (Bld) 8.5 fL Normal 6.3-10.7 [facility] Comment on above: Performed By: #### C BC, CK, CKMB, TROP, PT, PTT #### [address] Platelets #/vol (Bld) 258 10*3/uL Normal 150-450 [facility] Comment on above: Performed By: #### C BC, CK, CKMB, TROP, PT, PTT #### [address] RBC #/vol (Bld) 4.53 10*6/uL Normal 3.60-5.00 [facility] Comment on above: Performed By: #### C BC, CK, CKMB, TROP, PT, PTT #### [address] WBC #/vol (Bld) 9.0 10*3/uL Normal 4.5-11.0 [facility] Comment on above: Performed By: #### C BC, CK, CKMB, TROP, PT, PTT #### [address] Creatine Kinaseon 03-17-2018 CK enzyme act/vol 91 U/L Normal 22-269 [facility] Comment on above: Performed By: #### C BC, CK, CKMB, TROP, PT, PTT #### [address] Creatinine Kinase MBon 03-17 CK.MB mass conc 3.0 ng/mL High 0.00-2.50 [facility] Comment on above: Performed By: #### C BC, CK, CKMB, TROP, PT, PTT #### [facility] [address] CK.MB mass conc 2.8 ng/mL Normal 0.6-6.3 [facility] Comment on above: Performed By: #### C BC, CK, CKMB, TROP, PT, PTT #### [facility] [address] ECG 12 lead ECGon 03-17-2018 ECG 12 lead ECG [facility] [place] [address] [place] [address] Electrocardiograph Report Signed Patient: Shelley Sanchez MR#: [id number] : 1945 Acct:[id number] Age/Sex: 72 / F ADM Date: 03/16/18 Loc: ER Room: Type: [facility] ER Attending Dr: Ordering Provider: Eddy Rapp MD Date of Service: 03/16/18 ECG/ECG 12 lead ECG: DYSRHYTHMIA Copies to: Test Reason : Blood Pressure : 132/094 mmHG Vent. Rate : 153 BPM Atrial Rate : 150 BPM P-R Int : 000 ms QRS Dur : 078 ms QT Int : 284 ms P-R-T Axes : 000 059 237 degrees QTc Int : 453 ms Atrial fibrillation with rapid ventricular response Marked ST abnormality, possible inferior subendocardial injury Abnormal ECG No previous ECGs available Confirmed by EDDY RAPP MD ([id number]) on 03/17/2018 6:41:38 AM Referred By: Electronically Signed By:EDDY RAPP MD Transcribed By: MUS Dictated By: Eddy Rapp MD 03/16/18 2334 Signed By: 03/17/18 0641 Normal [facility] Magnesiumon 03-17-2018 Magnesium mass conc 1.2 mg/dL Low 1.6-2.6 [facility] Comment on above: Performed By: #### B MP, MG, TSH3 #### [address] Partial Thromboplastin Timeo n 03-17-2018 aPTT Coag time (Bld) 34.7 s Normal 23.0-35.0 [facility] Comment on above: Result Comment: PERF ORMED BY: [place] [address] PATHOLOGIST LOCK PLATER ONEL PLASENCIA M.D. Performed By: #### C BC, CK, CKMB, TROP, PT, PTT #### [address] Prothrombin Time INRon 03-17 INR Coag RelTime (PPP) 1.0 {INR} Normal [facility] Comment on above: Result Comment: INR Therapeutic Range A) Pre- and Peroperative OAT started two weeks before surgery. NOT HIP SURGERY: 1.5 - 2.5 HIP SURGERY: 2 - 3 B) Primary and secondary prevention of venous THROMBOSIS: 2 - 3 C) Active venous thrombosis, pulmonary embolism and prevention of recurrent venous thrombosis: 2 - 3 D) Prevention of arterial thromboembolism including patients with mechanical heart valves: 3 - 4.5 Performed By: #### C BC, CK, CKMB, TROP, PT, PTT #### [facility] [address] Prothrombin time (PT) Coag time (PPP) 11.0 s Normal 9.0-12.9 [facility] Comment on above: Performed By: #### C BC, CK, CKMB, TROP, PT, PTT #### [address] Thyroid Stimulating Hormoneo n 03-17-2018 Thyrotropin Qn 4.53 u[iU]/mL Normal 0.45-5.33 [facility] Comment on above: Result Comment: PERF ORMED BY: [place] [address] PATHOLOGIST LOCK PLATER ONEL PLASENCIA M.D. Performed By: #### B MP, MG, TSH3 #### [address] Troponin I(TnI)on 03-17-2018 Troponin I.cardiac mass conc ng/mL Normal 0-0.02 [facility] Comment on above: Result Comment: CRISS HI Cut off value > or equal to 0.03 ng/mL in conjunction with clinical conditions of myocardial infarction. (www.escardio.org/guidelines) PERFORMED BY: [place] [address] PATHOLOGIST LOCK PLATER ONEL PLASENCIA M.D. Performed By: #### C BC, CK, CKMB, TROP, PT, PTT #### [address] XR chest 1V portableon 03-17 XR chest 1V portable [facility] [place] [address] [place] [address] XRay Report Signed Patient: Shelley Sanchez MR#: [id number] : 1945 Acct:[id number] Age/Sex: 72 / F ADM Date: 03/16/18 Loc: ER Room: Type: [facility] ER Attending Dr: Ordering Provider: Eddy Rapp MD Date of Service: 03/17/18 XR/XR chest 1V portable: DYSRHYTHMIA Copies to: Eddy Rapp MD Single view chest COMPARISON: None HISTORY: Dysrhythmia. Borderline prominent cardiac silhouette identified. No mediastinal abnormality seen. Atherosclerosis noted. Nonspecific interstitial lung prominence is present. No pleural effusion or pneumothorax is seen. Bony structures intact. XR/XR chest 1V portable IMPRESSION: Nonspecific interstitial prominence. Impression dictated by: Raymundo Nelson M.D.03/17/2018 9:07 AM Dictation Location: [id number] Transcribed By: LUCAS 03/17/18906 Dictated By: Raymundo Nelson DO 03/17/18 0904 Signed By: 03/17/18 0907 Normal [facility] Encounters Encounter Date Encounter Type Care Provider Facility Start: 02-20-2023 End: 02-20-2023 ambulatory RADHA KNOTT Not Available Start: 07-05-2022 End: 07-06-2022 ambulatory GIRISH KNOTT Facility:[facility] Start: 05-06-2022 End: 05-06-2022 ambulatory NONE LISTED REQUEST Facility: Start: 12-09-2021 End: 12-10-[address] JOSÉ LUIS HORAN . Facility: Start: 03-17-2018 End: 03-17-2018 Emergency department patient visit José Luis Kelly Geesantos Facility:[facility] Start: 08-01-2016 End: 08-03-2016 Ambulatory JACE CABAN [facility] Payers Date Payer Category Payer Medicare [id number] 2018 Self-pay 2018 Unknown [id number] 1959 Medicare [id number] 1945 Unknown [id number] 2.16.84 [id number] 1945 Unknown [id number] 2.16.84 [id number] 1945 Unknown [id number] 2.16.84 [id number] 1945 Unknown [id number] 2.16.84 [id number] Unknown [id number] Clinical Note 07-05-2022 Note Date & Type Note Facility 07-05-2022 Note PROCEDURE: XR SACROI LIAC JOINT 3 VIEWS COMPARISON: None. HISTORY: Low back pain FINDINGS: SACRUM: No fracture, disruption of the sacral ala line, or cortical irregularity. COCCYX: No fracture or suspicious alignment. SOFT TISSUES: No widening of the sacroiliac joints. No radiopaque foreign body. OTHER: IMPRESSION: No acute abnormality Electronically authenticated by: BLOSSOM QUIROZ Date: 2022-07-05 14:21 [facility] Clinical Note 07-05-2022 Note Date & Type Note Facility 07-05-2022 Note PROCEDURE: XR HIP RT 2 3V WO PELVIS COMPARISON: None. HISTORY: Low back pain FINDINGS: BONES:No acute fracture or dislocation. Joint space narrowing. SOFT TISSUES:Negative. No visible soft tissue swelling. EFFUSION:None visible. OTHER: Negative. IMPRESSION: Joint space narrowing Electronically authenticated by: BLOSSOM QUIROZ Date: 2022-07-05 14:20 [facility] Clinical Note 05-27-2020 Note Date & Type Note Facility 05-27-2020 Note HPI Staff 74 year old female on consultation from Dr. Horan for occult positive stools. Denies visible blood in the stool, diarrhea and constipation but complains of chronic back pain. Patient has never had a colonoscopy and denies family history of colon cancer. Patient takes 81 mg aspirin daily. History of Present Illness 74 yo female with h/o DMII, htn, hypothyroidism, GERD, PVD, referred for positive fecal occult blood; denies change in bms or gross blood in stools, no abdominal complaints; no previous colonoscopy; abdominal operations significant for appendectomy and tubal ligation; on baby asa daily, no NSAIDs, no SBE prophylaxis; no fmhx of GI malignancy or IBD. Review of Systems PHQ Score Initial Depression Screen Score: 0 ROS - Provider Constitutional: no fever, no sweats, no weight loss. Eyes: yes glasses, no blurred vision, no visual loss. ENMT: no dentures, no hoarseness, no swallowing difficulties, no hearing loss, no ear infection(s), no nose bleeds. Cardiovascular: high blood pressure, no chest pain, regular heartbeat, yes heart murmur. Respiratory: no shortness of breath, no cough, no asthma, no wheezing. Gastrointestinal: no nausea, no vomiting, no diarrhea, no constipation, no blood in stool, no change in bowel habits, no abdominal pain, no hepatitis. Genitourinary: no kidney stones, no urine infection, no dysuria. Musculoskeletal: mild pain, no weakness. Skin: no changing moles, no rash, no skin lumps. Neurologic: no seizures, no epilepsy, no headache. Psychiatric: no emotional or psychiatric problem. Heme/Lymph: no bleeding problems, no anemia, no blood clots, no transfusions. Allergy/Immunologic: no swollen lymph nodes/glands, no IV drug abuse. Other: Additional ROS info: Except as noted in the above Review of Systems and in the History of Present Illness, all other systems have been reviewed and are negative or noncontributory. Physical Exam Vitals & Measurements BP: 144/78 HT: 157.5 cm HT: 157.48 cm WT: 70.3 kg WT: 70.30 kg BMI: 28.35 HEENT: normal conjunctiva, sclera clear, no scleral icterus, EOM intact, PERRLA, oral mucosa moist without lesions. Neck: trachea midline, no mass, symmetric, no thyromegaly or nodules, no adenopathy Respiratory: lungs CTA, respirations non labored. Cardiovascular: regular rate and rhythm, mild murmur, no pedal edema or varicosities. Gastrointestinal: obese, soft, non distended, no tenderness, no masses, no palpable hernias, diastasis recti no, no hepatosplenomegaly; normal bs Lymphatic: no cervical adenopathy, no axillary adenopathy, Musculoskeletal: normal gait, digits and nails without infection, nodes, cyanosis, clubbing. Skin: no rashes, no lesions, no ulcers, no subcutaneous nodules, induration. Psychiatric/Neuro: oriented to time, place, person, judgement normal, affect appropriate for age, insight intact, no focal deficits. Tests: , review of old records completed, Discussed surgical options, risks, and possible complications with patient. Assessment/Plan 1. Fecal occult blood test positive (R19.5: Other fecal abnormalities) plan colonoscopy under anesthesia, informed consent obtained. Orders: Body Mass Index (BMI) documented 3008F Follow-up No qualifying data available Problem List/Past Medical History Ongoing Cardiac murmur Carotid bruit Fecal occult blood test positive Palpitations Positive occult stool blood test Tricuspid regurgitation Historical No qualifying data Procedure/Surgical History Carotid endarterectomy (04/07/2015), Appendectomy, Breast biopsy and related procedures, Tubal ligation. Medications alendronate 70 mg oral tablet, 70 mg= 1 tab(s), Oral, Aspirin 81 mg Tab-EC, 81 mg= 1 tab(s), Oral, Daily atorvastatin 40 mg Tab, 40 mg= 1 tab(s), Oral, Once a day (at bedtime) calcium citrate, 400 mg, Oral, BID Coreg 6.25 mg Tab, 6.25 mg= 1 tab(s), Oral, BID irbesartan 150 mg Tab, 150 mg= 1 tab(s), Oral, Daily levothyroxine 88 mcg (0.088 mg) Tab, 88 mcg= 1 tab(s), Oral, Daily metformin 500 mg Tab, 500 mg= 1 tab(s), Oral, BID Multivitamins and Minerals, 1 tab, Oral, Daily omeprazole 20 mg Cap-EC, 1 cap(s), Oral, Daily Allergies Dust (Sneezing) Social History Alcohol - Denies Alcohol Use, 03/24/2015 Substance Abuse - Denies Substance Abuse, 03/24/2015 Tobacco - Denies Tobacco Use, 03/24/2015 Former smoker, quit more than 30 days ago Tobacco Use:. Never Smokeless Tobacco Use:. Cigarettes, Stopped age 53 Years., 05/27/2020 Family History Acute myocardial infarction: Sister. Diabetes mellitus type 1: Mother and Sister. Diabetes mellitus type 2: Brother. Heart failure: Sister. Hypertension: Mother, Father, Sister and Brother. Stroke: Mother and Father. [facility] Comment on above: Result Comment: Elec tronically Signed By: SILKE RICE, Eddy Gonzalez\Date and Time Signed: 05/27/20 14:32 EDT Summary Purpose Family History No Family History Records FoundNo Family History Records FoundNo Family History Records FoundNo Family History Records FoundNo Family History Records Found Advance Directives No Advanced Directives Records FoundNo Advanced Directives Records FoundNo Advanced Directives Records FoundNo Advanced Directives Records FoundNo Advanced Directives Records Found Additional Source Comments INFORMATION SOURCE (unrecogn ized section and content) DATE CREATED AUTHOR 08/02/2017 [facility] DATE CREATED AUTHOR AUTHOR'S ORGANIZ ATION 03/28/2018 [facility] DATE CREATED AUTHOR AUTHOR'S ORGANIZ ATION 07/02/2020 [facility] DATE CREATED AUTHOR AUTHOR'S ORGANIZ ATION 07/15/2022 [facility] DATE CREATED AUTHOR AUTHOR'S ORGANIZ ATION 02/20/2023 [facility] FOR RECORDS PERTAINING TO PATIENTS WHO ARE OR HAVE BEEN ENROLLED IN A CHEMICAL DEPENDENCY/SUBSTANCEABUSE PROGRAM, SOME INFORMATION MAY BE OMITTED. This clinical summary was aggregated from multiple sources. Caution should be exercised in using it in the provision of clinical care. This summary normalizes information from multiple sources, and as a consequence, information in this document may materially change the coding, format and clinical context of patient data. In addition, data may be omitted in some cases. CLINICAL DECISIONS SHOULD BE BASED ON THE PRIMARY CLINICAL RECORDS. [facility] provides no warranty or guarantee of the accuracy or completeness of information in this document.
[2023-03-06 09:29] LABS: Basophils Percent Auto 0.8 % (0.2-2.0); Eosinophils Absolute Auto 0.2 10^3/uL (0.0-0.7); Eosinophils Percent Auto 4.1 % (0.9-7.0); Hematocrit 35.3 % (36.0-48.0); Hemoglobin 11.9 g/dL (12.0-16.0); Immature Granulocytes Abs Auto 0.03 10^3/uL (0.00-0.03); Immature Granulocytes Pct Auto 0.6 % (0.0-0.5); Lymphocytes Percent Auto 20.7 % (20.5-60.0); Mean Corpuscular HGB Conc 33.7 g/dL (29.9-35.2); Mean Corpuscular Hemoglobin 30.7 pg (26.7-34.0); Mean Corpuscular Volume 91.2 fL (81.0-99.0); Mean Platelet Volume 9.9 fL (9.5-13.5); Monocytes Absolute Auto 0.5 10^3/uL (0.3-0.8); Monocytes Percent Auto 9.9 % (1.7-12.0); Neutrophils Absolute Auto 3.1 10^3/uL (1.4-6.5); Neutrophils Percent Auto 63.9 % (43.0-75.0); Platelet Count 279 10^3/uL (150-450); Red Blood Count 3.87 10^6/uL (4.20-5.40); Red Cell Distribution Width 13.7 % (11.0-15.0); White Blood Count 4.8 10^3/uL (4.0-11.0)
[2023-03-06 09:48] LABS: Bilirubin Urine SMALL (NEGATIVE); Blood Urine NEGATIVE (NEGATIVE); Clarity Urine CLEAR (CLEAR); Color Urine YELLOW (YELLOW); Glucose Urine UA NEGATIVE (NEGATIVE); Ketones Urine TRACE mg/dL (NEGATIVE); Leukocyte Esterase Urine NEGATIVE (NEGATIVE); Nitrite Urine NEGATIVE (NEGATIVE); Protein Urine NEGATIVE (NEG/TRACE); Specific Gravity Urine >=1.030 (1.005-1.025); Urine Microscopic Indicated NO; Urobilinogen Urine 0.2 EU/dL (0.2-1.0)
[2023-03-06 09:56] LABS: Creatinine Urine Random 264.08 mg/dL (20.00-300.00); Microalbumin Urine Random <1.3 mg/dL (<=30.0)
[2023-03-06 10:08] LABS: Estimated Average Glucose 105 mg/dL; Glycohemoglobin A1C 5.3 % (4.5-6.2)
[2023-03-06 11:19] LABS: Alanine Aminotransferase 19 U/L (14-59); Alkaline Phosphatase 61 U/L (46-116); Anion Gap 12.8; Aspartate Amino Transferase 15 U/L (15-37); BUN Creatinine Ratio 22.1; Bilirubin Total 0.6 mg/dL (0.2-1.0); Calcium 9.1 mg/dL (8.5-10.1); Carbon Dioxide 25.9 mmol/L (21.0-32.0); Chloride 103 mmol/L (98-107); Chol HDL Ratio 1.8; Cholesterol 149 mg/dL (<=200); Estimated GFR (African America 48 (>=60); Estimated GFR (Non-African Ame 39 (>=60); Globulin 4.1 g/dL; Glucose 129 mg/dL (74-106); HDL Cholesterol 85 mg/dL (40-60); Potassium 4.7 mmol/L (3.5-5.1); Sodium 137 mmol/L (136-145); TSH W/ REFLEX FT4 2.326 uIU/mL (0.358-3.740); Total Protein 8.1 g/dL (6.4-8.2); Triglycerides 53 mg/dL (<=150); VLDL CHOLESTEROL 10.6 mg/dL
== END 2023-03-06 08:55 | disposition home or self-care (01) ==
LOC: LAB 08:58
PROVIDERS: PCP Nurse Practitioner; Visit Provider Nurse Practitioner
DX: E61.1 Iron deficiency (principal); I10 Essential (primary) hypertension; E03.9 Hypothyroidism, unspecified; F41.9 Anxiety disorder, unspecified; E78.00 Pure hypercholesterolemia, unspecified; E11.9 Type 2 diabetes mellitus without complications
CPT/HCPCS: 36415; 80053; 80061; 81003; 82043; 82570; 83036; 84443; 85025

== ENCOUNTER 2023-04-07 09:04 | Outpatient (OUT) | payer MEDICARE, SELFPAY ==
--- OUTSIDE RECORDS SUMMARY | 2023-04-07 09:13 | XMS_ITS | CCD ---
Author Name Unknown Address [address] [place] [address] [address] [place] [id number] Organization [facility] Care Team Providers Care Radiotelegraphist Name Role Phone JACE CABAN Unavailable Unavailable JOSÉ LUIS HORAN Unavailable Unavailable José Luis Horan Primary Care Unavailable Eddy Rapp Attending Unavailable REQUEST, DR MUÑOZ LISTED Primary Care Unavaila ble PAY ., DR MANDUJANO Admitting Unavailable PAY ., DR MANDUJANO Consulting Unavailable PAY ., DR MANDUJANO Attending Unavailable AICHHOLZ, GIRISH LAKSHMI Admitting Unavailable AICHHOLZ, GIRISH LAKSHMI Primary Care Unavailable AICHHOLMarline, GIRISH GARCIA Attending Unavailable RICHIE, DR BLOSSOM Diaz Consulting Unavailable AICHHOLZ, GIRISH GARCIA Consulting Unavailable HOY ., DR ORDONEZ Admitting Unavailable HOY ., DR ORDONEZ Primary Care Unavailable HOY ., DR ORDONEZ Consulting Unavailable JAMEEL ., DR ORDONEZ Attending Unavailable RICHIE, DR BLOSSOM Diaz Consulting Unavailable Avinash Blair MD Primary Care Provider AICMARK CHICASA Attending Unavailable AICHHOLZ, LAKSHMI Attending Unavailable Medications Current Medications Medication Drug Class(es) Dates Sig (Normalized) Sig (Original) acetaminophen 325 mg oral tablet (1 source) take 1 tablet by mouth in the morning acetaminophen (Tylenol) 325 MG tablet Take 325 mg by mouth in the morning and 325 mg before bedtime. 0 Active alendronic acid 70 mg oral tablet (1 source) Bisphosphonate take 1 tablet by mouth in the morning alendronate (Fosamax) 70 MG tablet Take 70 mg by mouth every 7 (seven) days Take in the morning with a full glass of water, on an empty stomach, and do not take anything else by mouth or lie down for the next 30 min. 0 Active amLODIPine 5 mg oral tablet (1 source) Dihydropyridine Calcium Channel Mayco Start: 02-20-2023 End: 03-22-2023 take 1 tablet by mouth in the morning amLODIPine (Norvasc) 5 MG tablet Indications: Primary hypertension (CMS/HCC) Take 1 tablet (5 mg) by mouth in the morning. 30 tablet 2 02/20/2023 03/22/2023 Active aspirin 81 mg delayed release oral tablet (1 source) Platelet Aggregation Inhibitor, Nonsteroidal Anti-inflammatory Drug take 1 tablet by mouth in the morning aspirin 81 MG EC tablet Take 81 mg by mouth in the morning. 0 Active atorvastatin 40 mg oral tablet (1 source) HMG-CoA Reductase Inhibitor take 1 tablet by mouth in the morning atorvastatin (Lipitor) 40 MG tablet Take 40 mg by mouth in the morning. 0 Active baclofen 10 mg oral tablet (1 source) gamma-Aminobutyric Acid-ergic Agonist take 2 tablets by mouth at bedtime baclofen (Lioresal) 10 MG tablet Take 20 mg by mouth at bedtime 0 Active Calcium Carb-Cholecalcifero l (CALCIUM 500 +D PO) (1 source) Calcium Carb-Cholecalcifer ol (CALCIUM 500 +D PO) Take 1,000 mg by mouth 1 (one) time each day 0 Active carvedilol 25 mg oral tablet (2 sources) alpha-Adrenergic Mayco, beta-Adrenergic Mayco Start: 03-15-2023 End: 06-13-2023 take 1 tablet by mouth in the morning carvedilol (Coreg) 25 MG tablet Indications: Essential (primary) hypertension (CMS/HCC) Take 1 tablet (25 mg) by mouth in the morning and 1 tablet (25 mg) before bedtime. 180 tablet 1 03/15/2023 06/13/2023 Active DULoxetine 30 mg delayed release oral capsule (2 sources) Serotonin and Norepinephrine Reuptake Inhibitor Start: 03-15-2023 End: 06-13-2023 take 1 capsule by mouth at bedtime DULoxetine (Cymbalta) [address] capsule Indications: Anxiety disorder, unspecified Take 1 capsule (30 mg) by mouth at bedtime 90 capsule 1 03/15/2023 06/13/2023 Active ferrous sulfate 325 mg oral tablet (1 source) take 1 tablet by mouth at mealtime ferrous sulfate 325 (65 Fe) MG tablet Take 325 mg by mouth in the morning. Take with meals. 0 Active levothyroxine sodium 0.1 mg oral tablet (2 sources) l-Thyroxine Start: 03-15-2023 End: 06-13-2023 take 1 tablet by mouth in the morning levothyroxine (Synthroid, Levoxyl) 100 MCG tablet Indications: Hypothyroidism, unspecified (CMS/HCC) Take 1 tablet (100 mcg) by mouth in the morning. 90 tablet 1 03/15/2023 06/13/2023 Active losartan potassium 100 mg oral tablet (2 sources) Angiotensin 2 Receptor Mayco Start: 03-15-2023 End: 06-13-2023 take 1 tablet by mouth in the morning losartan (Cozaar) 100 MG tablet Indications: Essential (primary) hypertension (CMS/HCC) Take 1 tablet (100 mg) by mouth in the morning. 90 tablet 1 03/15/2023 06/13/2023 Active meloxicam 15 mg oral tablet (2 sources) Nonsteroidal Anti-inflammatory Drug Start: 03-15-2023 End: 06-13-2023 take 1 tablet by mouth in the morning meloxicam (Mobic) 15 MG tablet Indications: Spondylosis without myelopathy or radiculopathy, lumbosacral region Take 1 tablet (15 mg) by mouth in the morning. Take with food.. 90 tablet 1 03/15/2023 06/13/2023 Active metFORMIN hydrochloride 500 mg oral tablet (1 source) Biguanide take 1 tablet by mouth in the morning metFORMIN (Glucophage) 500 MG tablet Take 500 mg by mouth in the morning and 500 mg before bedtime. 0 Active omeprazole 20 mg delayed release oral capsule (1 source) Proton Pump Inhibitor take 1 capsule by mouth before mealtime omeprazole (PriLOSEC) [address] capsule Take 20 mg by mouth in the morning. Take before meals. Do not crush or chew.. 0 Active timolol 2.5 mg/ml ophthalmic solution (1 source) beta-Adrenergic Mayco take 1 drop(s) into the eye(s) in the morning timolol (Betimol) 0.25 % ophthalmic solution Administer 1 drop into the right eye in the morning. 0 Active Problems Active Problems Problem Classification Problem Date Documented Date Episodic/Chronic Abdominal pain (3 sources) Right lower quadrant pain; Translations: [RIGHT LOWER QUADRANT PAIN] Onset: 05-06-2022 Episodic Anxiety disorders (3 sources) Anxiety disorder; Translations: [Anxiety disorder, unspecified] Onset: 02-20-2023 03-14-2023 Chronic Diabetes mellitus without complication (3 sources) Type 2 diabetes mellitus without complications; Translations: [Type 2 diabetes mellitus] Onset: 07-06-2022 02-20-2023 Chronic Disorders of lipid metabolism (1 source) Hypercholesterolemia; Translations: [Pure hypercholesterolemia, unspecified] Onset: 02-20-2023 02-20-2023 Chronic E Codes: Natural/environment (1 source) Exposure to other specified factors, initial encounter; Translations: [EXPOSURE OTHER SPEC FACTORS INITIAL] Onset: 05-09-2022 Episodic Esophageal disorders (1 source) Gastroesophageal reflux disease; Translations: [Gastro-esophageal reflux disease without esophagitis] Onset: 02-20-2023 02-20-2023 Chronic Essential hypertension (3 sources) Essential hypertension; Translations: [Essential (primary) hypertension] Onset: 02-20-2023 03-14-2023 Chronic Menopausal disorders (1 source) Hormone replacement therapy; Translations: [HORMONE REPLACEMENT THERAPY] Onset: 05-09-2022 Episodic Nutritional deficiencies (1 source) Iron deficiency; Translations: [Iron deficiency] Onset: 02-20-2023 02-20-2023 Episodic Occlusion or stenosis of precerebral arteries (1 source) Occlusion and stenosis of right carotid artery; Translations: [Occlusion and stenosis of right carotid artery] Onset: 08-01-2016 Chronic Other acquired deformities (1 source) Spondylolisthesis, lumbar region; Translations: [SPONDYLOLISTHESIS LUMBAR REGION] Onset: 07-06-2022 Episodic Other aftercare (1 source) ad terminal makeup operator (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; Translations: [USP CURRENT USE OF ASPIRIN] Onset: 05-09-2022 Episodic Other aftercare (1 source) Other terminal operations manager (current) drug therapy; Translations: [OTH USP CURRENT DRUG THERAPY] Onset: 05-09-2022 Episodic Other aftercare (1 source) half-way (current) use of oral hypoglycemic drugs; Translations: [LONG GOODS DRIER USE ORAL HYPOGLYCEMIC DX] Onset: 05-09-2022 Episodic Other non-traumatic joint disorders (1 source) Other specified joint disorders, right hip; Translations: [OTHER SPECIFIED JOINT D/O RT HIP] Onset: 07-06-2022 Episodic Screening and history of mental health and substance abuse codes (1 source) Personal history of nicotine dependence; Translations: [PERSONAL HISTORY OF NICOTINE DEPEND] Onset: 05-09-2022 Episodic Spondylosis; intervertebral disc disorders; other back problems (2 sources) Spondylosis without myelopathy or radiculopathy, lumbar region; Translations: [Lumbosacral spondylosis without myelopathy] Onset: 07-06-2022 03-14-2023 Chronic Spondylosis; intervertebral disc disorders; other back problems (2 sources) Low back pain; Translations: [Lumbar back pain] Onset: 02-20-2023 03-15-2023 Episodic Sprains and strains (1 source) Strain of muscle, fascia and tendon of abdomen, initial encounter; Translations: [STRAIN MUSC FASCIA TENDON ABD INIT] Onset: 05-09-2022 Episodic Thyroid disorders (5 sources) Hypothyroidism, unspecified; Translations: [Hypothyroidism] Onset: 07-06-2022 03-14-2023 Chronic Unclassified (3 sources) LOW BACK PAIN, [...] 07-05-2022 BASO # 0.0 103/ul Normal 0.0-0.1 [facility] Comment on above: Performed By: #### C MP, TSH, LIPID, FT3 #### [facility] [address] [address] [address] Ryan Martin Basophils/100 WBC (Bld) 0.3 % Normal 0.2-2.0 [facility] Comment on above: Performed By: #### C MP, TSH, LIPID, FT3 #### [facility] [address] [address] [address] Ryan Martin EO # 0.1 103/ul Normal 0.0-0.7 [facility] Comment on above: Performed By: #### C MP, TSH, LIPID, FT3 #### [facility] [address] [place] [address] Dr. Ryan Martin Eosinophils/100 WBC (Bld) 1.6 % Normal 0.9-7.0 [facility] Comment on above: Performed By: #### C MP, TSH, LIPID, FT3 #### [facility] [address] [place] [address] Dr. Ryan Martin Erythrocyte distribution width (RBC) [Ratio] 13.6 % Normal 11.0-15.0 [facility] Comment on above: Performed By: #### C MP, TSH, LIPID, FT3 #### [facility] [address] [place] [address] Dr. Ryan Martin Hematocrit (Bld) [Volume fraction] 34.7 % Critically low 36.0-48.0 [facility] Comment on above: Performed By: #### C MP, TSH, LIPID, FT3 #### [facility] [address] [place] [address] Dr. Ryan Martin Hemoglobin (Bld) [Mass/Vol] 12.1 g/dL Normal 12.0-16.0 [facility] Comment on above: Performed By: #### C MP, TSH, LIPID, FT3 #### [facility] [address] [place] [address] Dr. Ryan Martin IG # 0.02 10e3/ul Normal 0.00-0.03 [facility] Comment on above: Performed By: #### C MP, TSH, LIPID, FT3 #### [facility] [address] [place] [address] Dr. Ryan Martin IG % 0.3 % Normal 0.0-0.5 [facility] Comment on above: Performed By: #### C MP, TSH, LIPID, FT3 #### [facility] [address] [place] [address] Dr. Ryan Martin LYMPH # 1.1 103/ul Critically low 1.2-3.8 [facility] Comment on above: Performed By: #### C MP, TSH, LIPID, FT3 #### [facility] [address] [place] [address] Dr. Ryan Martin Lymphocytes/100 WBC (Bld) 14.7 % Critically low 20.5-60.0 [facility] Comment on above: Performed By: #### C MP, TSH, LIPID, FT3 #### [facility] [address] [place] [address] Dr. Ryan Martin MANUAL DIFF REQ NO Normal [facility] Comment on above: Performed By: #### C MP, TSH, LIPID, FT3 #### [facility] [address] [place] [address] Dr. Ryan Martin MCH (RBC) [Entitic mass] 31.4 pg Normal 26.7-34.0 [facility] Comment on above: Performed By: #### C MP, TSH, LIPID, FT3 #### [facility] [address] [place] [address] Dr. Ryan Martin MCHC (RBC) [Mass/Vol] 34.9 g/dL Normal 29.9-35.2 [facility] Comment on above: Performed By: #### C MP, TSH, LIPID, FT3 #### [facility] [address] [place] [address] Dr. Ryan Martin MCV (RBC) [Entitic vol] 90.1 fL Normal 81.0-99.0 [facility] Comment on above: Performed By: #### C MP, TSH, LIPID, FT3 #### [facility] [address] [place] [address] Dr. Ryan Martin MONO # 0.5 103/ul Normal 0.3-0.8 [facility] Comment on above: Performed By: #### C MP, TSH, LIPID, FT3 #### [facility] [address] [place] [address] Dr. Ryan Martin Monocytes/100 WBC (Bld) 6.4 % Normal 1.7-12.0 [facility] Comment on above: Performed By: #### C MP, TSH, LIPID, FT3 #### [facility] [address] [place] [address] Dr. Ryan Martin NEUT # 5.9 103/ul Normal 1.4-6.5 [facility] Comment on above: Performed By: #### C MP, TSH, LIPID, FT3 #### [facility] [address] [place] [address] Dr. Ryan Martin Neutrophils/100 WBC (Bld) 76.7 % Critically high 43.0-75.0 [facility] Comment on above: Performed By: #### C MP, TSH, LIPID, FT3 #### [facility] [address] [place] [address] Dr. Ryan Martin Platelet mean volume (Bld) [Entitic vol] 9.4 fL Critically low 9.5-13.5 [facility] Comment on above: Performed By: #### C MP, TSH, LIPID, FT3 #### [facility] [address] [place] [address] Dr. Ryan Martin PLT 277 103/ul Normal 150-450 [facility] Comment on above: Performed By: #### C MP, TSH, LIPID, FT3 #### [facility] [address] [place] [address] Dr. Ryan Martin RBC 3.85 106/ul Critically low 4.20-5.40 [facility] Comment on above: Performed By: #### C MP, TSH, LIPID, FT3 #### [facility] [address] [place] [address] Dr. Ryan Martin WBC 7.6 103/ul Normal 4.0-11.0 [facility] Comment on above: Performed By: #### C MP, TSH, LIPID, FT3 #### [facility] [address] [place] [address] Dr. Ryan Martin FREE T3on 07-05-2022 FREE T3 2.04 pg/mlL Critically low 2.18-3.98 [facility] Comment on above: Performed By: #### C MP, TSH, LIPID, FT3 #### [facility] [address] [address] [address] Ryan Martin FREE T4on 07-05-2022 Free T4 [Mass/Vol] 1.14 ng/dL Normal 0.76-1.46 [facility] Comment on above: Performed By: #### C MP, TSH, LIPID, FT3 #### [facility] [address] [place] [address] Dr. Ryan Martin GLYCOHEMOGLOBIN A1Con 2022 ADA RECOMMENDATION SEE BELOW Normal [facility] Comment on above: Result Comment: ADA RECOMMENDED LIMIT 4.0 - 6.0 ADA THERAPEUTIC TARGET < 7.0 ACTION SUGGESTED > 7.0 Performed By: #### A 1C #### [facility] [address] [place] [address] Dr. Ryan Martin Glucose [Mass/Vol] 105 mg/dL Normal [facility] Comment on above: Performed By: #### A 1C #### [facility] [address] [place] [address] Dr. Ryan Martin HbA1c (Bld) [Mass fraction] 5.3 % Normal 4.5-6.2 [facility] Comment on above: Performed By: #### A 1C #### [facility] [address] [place] [address] Dr. Ryan Martin LIPID PROFILEon 07-05-2022 CHOL-HDL RATIO NORM SEE BELOW Normal [facility] Comment on above: Result Comment: 3.3 - 4.4 LOW RISK 4.4 - 7.1 AVERAGE RISK 7.1 - 11.0 MODERATE RISK >11.0 HIGH RISK Performed By: #### C MP, TSH, LIPID, FT3 #### [facility] [address] [place] [address] Dr. Ryan Martin Cholesterol [Mass/Vol] 159 mg/dL Normal <=200 [facility] Comment on above: Performed By: #### C MP, TSH, LIPID, FT3 #### [facility] [address] [place] [address] Dr. Ryan Martin Cholesterol in HDL [Mass/Vol] 87 mg/dL Critically high 40-60 [facility] Comment on above: Performed By: #### C MP, TSH, LIPID, FT3 #### [facility] [address] [address] [address] Ryan Martin Cholesterol in LDL [Mass/Vol] 57.2 mg/dL Normal [facility] Comment on above: Performed By: #### C MP, TSH, LIPID, FT3 #### [facility] [address] [address] [address] Ryan Martin Cholesterol.total/Ch olesterol in HDL [Mass ratio] 1.8 {ratio} Normal [facility] Comment on above: Performed By: #### C MP, TSH, LIPID, FT3 #### [facility] [address] [address] [address] Ryan Martin HDL NORMAL > or = 60 mg/dl - LO W CARDIOVASCULAR RISK <40 mg/dl - HIGH CARDIOVASCULAR RISK Normal [facility] Comment on above: Performed By: #### C MP, TSH, LIPID, FT3 #### [facility] [address] [address] [address] Ryan Martin LDL CALC NORMAL SEE BELOW Normal [facility] Comment on above: Result Comment: <100 mg/dl OPTIMAL 100 - 129 mg/dl NEAR OR ABOVE OPTIMAL 130 - 159 mg/dl BORDERLINE HIGH 160 - 189 mg/dl HIGH >190 mg/dl VERY HIGH Performed By: #### C MP, TSH, LIPID, FT3 #### [facility] [address] [address] [address] Ryan Martin Triglyceride [Mass/Vol] 74 mg/dL Normal <=150 [facility] Comment on above: Performed By: #### C MP, TSH, LIPID, FT3 #### [facility] [address] [address] [address] Ryan Martin VLDL CALC 14.8 mg/dL Normal [facility] Comment on above: Performed By: #### C MP, TSH, LIPID, FT3 #### [facility] [address] [address] [address] Ryan Martin MICROALBUMIN, RAND URon 05-3 0-2022 mALB <1.3 Normal <=30.0 [facility] Comment on above: Performed By: #### C MP, TSH, LIPID, FT3 #### [facility] [address] [address] [address] Ryan Martin PROF 14(COMP METB)on 023 Albumin [Mass/Vol] 4.2 g/dL Normal 3.4-5.0 [facility] Comment on above: Performed By: #### C MP, TSH, LIPID, FT3 #### [facility] [address] [place] [address] Dr. Ryan Martin Albumin/Globulin [Mass ratio] 0.9 {ratio} Normal [facility] Comment on above: Performed By: #### C MP, TSH, LIPID, FT3 #### [facility] [address] [place] [address] Dr. Ryan Martin ALP [Catalytic activity/Vol] 93 U/L Normal 46-116 [facility] Comment on above: Performed By: #### C MP, TSH, LIPID, FT3 #### [facility] [address] [place] [address] Dr. Ryan Martin ALT [Catalytic activity/Vol] 21 U/L Normal 14-59 [facility] Comment on above: Performed By: #### C MP, TSH, LIPID, FT3 #### [facility] [address] [place] [address] Dr. Ryan Martin Anion gap [Moles/Vol] 15.4 mmol/L Normal [facility] Comment on above: Performed By: #### C MP, TSH, LIPID, FT3 #### [facility] [address] [place] [address] Dr. Ryan Martin AST [Catalytic activity/Vol] 21 U/L Normal 15-37 [facility] Comment on above: Performed By: #### C MP, TSH, LIPID, FT3 #### [facility] [address] [place] [address] Dr. Ryan Martin Bilirubin [Mass/Vol] 0.7 mg/dL Normal 0.2-1.0 [facility] Comment on above: Performed By: #### C MP, TSH, LIPID, FT3 #### [facility] [address] [address] [address] Ryan Martin Calcium [Mass/Vol] 9.9 mg/dL Normal 8.5-10.1 [facility] Comment on above: Performed By: #### C MP, TSH, LIPID, FT3 #### [facility] [address] [place] [address] Dr. Ryan Martin Chloride [Moles/Vol] 101 mmol/L Normal 98-107 [facility] Comment on above: Performed By: #### C MP, TSH, LIPID, FT3 #### [facility] [address] [place] [address] Dr. Ryan Martin CO2 [Moles/Vol] 26.7 mmol/L Normal 21.0-32.0 [facility] Comment on above: Performed By: #### C MP, TSH, LIPID, FT3 #### [facility] [address] [place] [address] Dr. Ryan Martin Creatinine [Mass/Vol] 1.13 mg/dL Critically high 0.55-1.02 [facility] Comment on above: Performed By: #### C MP, TSH, LIPID, FT3 #### [facility] [address] [place] [address] Dr. Ryan Martin EGFR-AF PARAGUAYAN 57 mL/min/1.73m2 Critically low >=60 [facility] Comment on above: Performed By: #### C MP, TSH, LIPID, FT3 #### [facility] [address] [place] [address] Dr. Ryan Martin EGFR-NON AF PARAGUAYAN 47 mL/min/1.73m2 Critically low >=60 [facility] Comment on above: Performed By: #### C MP, TSH, LIPID, FT3 #### [facility] [address] [place] [address] Dr. Ryan Martin Globulin (S) [Mass/Vol] 4.5 g/dL Normal [facility] Comment on above: Performed By: #### C MP, TSH, LIPID, FT3 #### [facility] [address] [place] [address] Dr. Ryan Martin Glucose [Mass/Vol] 119 mg/dL Critically high 74-106 [facility] Comment on above: Performed By: #### C MP, TSH, LIPID, FT3 #### [facility] [address] [place] [address] Dr. Ryan aMrtin Potassium [Moles/Vol] 5.1 mmol/L Normal 3.5-5.1 [facility] Comment on above: Performed By: #### C MP, TSH, LIPID, FT3 #### [facility] [address] [place] [address] Dr. Ryan Martin Protein [Mass/Vol] 8.7 g/dL Critically high 6.4-8.2 [facility] Comment on above: Performed By: #### C MP, TSH, LIPID, FT3 #### [facility] [address] [place] [address] Dr. Ryan Martin Sodium [Moles/Vol] 138 mmol/L Normal 136-145 [facility] Comment on above: Performed By: #### C MP, TSH, LIPID, FT3 #### [facility] [address] [place] [address] Dr. Ryan Martin Urea nitrogen [Mass/Vol] 17.0 mg/dL Normal 7.0-18.0 [facility] Comment on above: Performed By: #### C MP, TSH, LIPID, FT3 #### [facility] [address] [place] [address] Dr. Ryan Martin Urea nitrogen/Creatinine [Mass ratio] 15.0 mg/mg Normal [facility] Comment on above: Performed By: #### C MP, TSH, LIPID, FT3 #### [facility] [address] [place] [address] Dr. Ryan Martin TSHon 07-05-2022 TSH 5.282 uIU/mL Critically high 0.358-3.740 [facility] Comment on above: Performed By: #### C MP, TSH, LIPID, FT3 #### [facility] [address] [place] [address] Dr. Ryan Martin UA RANDOM W/MICROSCOPICon BACTERIA TRACE Abnormal NONE SEEN [facility] Comment on above: Performed By: #### U AMIC #### [facility] [address] [place] [address] Dr. Ryan Martin Bilirubin Ql (U) Negative Normal NEGATIVE [facility] Comment on above: Performed By: #### U AMIC #### [facility] [address] [place] [address] Dr. Ryan Martin CAST NONE SEEN Normal NONE SEEN [facility] Comment on above: Performed By: #### U AMIC #### [facility] [address] [place] [address] Dr. Ryan Martin Clarity (U) CLEAR Normal CLEAR [facility] Comment on above: Performed By: #### U AMIC #### [facility] [address] [place] [address] Dr. Ryan Martin Color (U) LT. YELLOW Normal YELLOW [facility] Comment on above: Performed By: #### U AMIC #### [facility] [address] [place] [address] Dr. Ryan Martin Crystals LM Nom (Urine sed) NONE SEEN Normal NONE SEEN [facility] Comment on above: Performed By: #### U AMIC #### [facility] [address] [place] [address] Dr. Ryan Martin Epithelial cells LM Ql (Urine sed) RARE Normal NONE SEEN /RARE [facility] Comment on above: Performed By: #### U AMIC #### [facility] [address] [place] [address] Dr. Ryan Martin Glucose Ql (U) Negative Normal NEGATIVE [facility] Comment on above: Performed By: #### U AMIC #### [facility] [address] [place] [address] Dr. Ryan Martin Hemoglobin Ql (U) Negative Normal NEGATIVE [facility] Comment on above: Performed By: #### U AMIC #### [facility] [address] [place] [address] Dr. Ryan Martin Ketones Ql (U) Negative Normal NEGATIVE [facility] Comment on above: Performed By: #### U AMIC #### [facility] [address] [address] [address] Ryan Martin LEUKOCYTES TRACE Abnormal NEGATIVE [facility] Comment on above: Performed By: #### U AMIC #### [facility] [address] [address] [address] Ryan Martin MUCOUS NONE SEEN Normal NONE SEEN [facility] Comment on above: Performed By: #### U AMIC #### [facility] [address] [address] [address] Ryan Martin Nitrite Ql (U) Negative Normal NEGATIVE [facility] Comment on above: Performed By: #### U AMIC #### [facility] [address] [place] [address] Dr. Ryan Martin pH (U) 6.0 [pH] Normal 5-9 [facility] Comment on above: Performed By: #### U AMIC #### [facility] [address] [place] [address] Dr. Ryan Martin RBC 0-2 Normal 0-2 [facility] Comment on above: Performed By: #### U AMIC #### [facility] [address] [place] [address] Dr. Ryan Martin SPEC GRAVITY 1.010 Normal 1.005-<=1.025 [facility] Comment on above: Performed By: #### U AMIC #### [facility] [address] [place] [address] Dr. Ryan Martin UA PROTEIN Negative Normal NEGATIVE/ TRACE [facility] Comment on above: Performed By: #### U AMIC #### [facility] [address] [place] [address] Dr. Ryan Martin Urobilinogen Qn (U) 0.2 {Michelle'U}/dL Normal 0.2 - 1. 0 [facility] Comment on above: Performed By: #### U AMIC #### [facility] [address] [place] [address] Dr. Ryan Martin WBC 2-5 Abnormal NONE SEEN [facility] Comment on above: Performed By: #### U AMIC #### [facility] [address] [address] [address] Ryan Martin XR LSPINE 2_3 VIEWSon [...] BLOSSOM QUIROZ Date: 2022-07-05 13:11 Normal [facility] MAMM SCREEN 3D JESSE CADon 12-09-2021 MG MAMM SCREEN 3D JESSE CAD Patient: SHELLEY SANCHEZ Exam Date: 12/09/2021 : 1945 Gender:F Ordering : DR JOSÉ LUIS HORAN . Admission #: [id number] Family : Order #: [id number] CLICK HERE TO VIEW EXAM RADIOLOGY REPORT [...] breast cancer at age 35. LOCATION: [facility] BREAST COMPOSITION: Scattered areas fibroglandular density. [...] Quiroz MD on 12/09/2021 at 13:38 Normal [facility] Ambulatory Clinical Summaryo n 06-30-2020 Ambulatory Clinical Summary {[id number] Normal [facility] Ambulatory Clinical Summary {[id number] Normal [facility] General Surgery Office/Clini c Noteon 06-30-2020 General [...] Serrano Only if needed [address] [place] [address]- Additional Instructions: Problem List/Past Medical [...] Sister and Brother. Stroke: Mother and Father. [facility] Comment on above: Result Comment: Elec tronically Signed By: SILKE RICE, Eddy Estrada\.br\Date and Time Signed: 06/30/20 14:15 EDT Outside Colonoscopyon 2020 Outside Colonoscopy [id number] .00CD:127 [facility] Pathology Noteon 06-19-2020 Pathology Note [id number] .00CD:127 [facility] Lab Reportson 06-15-2020 Lab Reports [id number] .00CD:127 [facility] Pre-Certification Formon Pre-Certification Form [id number] .[id number]:127 [facility] Consent for Procedure/Surger yon 05-28-2020 Consent for Procedure/Surgery [id number] .[id number]:127 [facility] Provider Letter FTMCon 05-28 Provider Letter [facility] José Luis Horan, [facility] [place] [address] Re: SHELLEY SANCHEZ Date of : 1945 Thank you for your referral of Shelley Sanchez who was seen on consultation on May 27, 2020, for positive occult stool. A colonoscopy is planned. I have enclosed my consultation report for your review. I will be happy to follow Shelley. Sincerely, Eddy Hernandez MD General Surgery [facility] Ambulatory Clinical Summaryo n 05-27-2020 Ambulatory Clinical Summary {[id number]}CD:[id number] [facility] Physician Referralon 021 Physician Referral [id number] .[id number]:127 Normal [facility] Basic Metabolic Panelon 02-0 Calcium mass conc 9.6 mg/dL Normal 8.2-10.2 [facility] Comment on above: Performed By: #### B MP, MG, TSH3 #### [facility] [address] Chloride molar conc 108 mmol/L Normal 95-114 [facility] Comment on above: Performed By: #### B MP, MG, TSH3 #### [facility] [address] CO2 molar conc 23.0 mmol/L Normal 22.0-30.0 [facility] Comment on above: Performed By: #### B MP, MG, TSH3 #### [facility] [address] Creatinine mass conc 58.3959325803 mg/dL [facility] Comment on above: Performed By: #### B MP, MG, TSH3 #### [facility] [address] Creatinine mass conc 0.81 mg/dL Normal 0.44-1.03 [facility] Comment on above: Performed By: #### B MP, MG, TSH3 #### [facility] [address] Estimated GFR ( Delisa > 60 [facility] Comment on above: Result Comment: GFR estimated reference range: According to KDOQI guidelines, <60 ml/min/1.73m2 is sufficient to diagnose a patient with chronic kidney disease. Performed By: #### B MP, MG, TSH3 #### [facility] [address] Estimated GFR (Non- Am > 60 [facility] Comment on above: Performed By: #### B MP, MG, TSH3 #### [facility] [address] [id number] [place] Glucose mass conc 143 mg/dL High 70-100 [facility] Comment on above: Result Comment: [place] om Glucose Reference Range is dependent on time and content of last meal. Glucose of more than 200 mg/dL in a nonstressed, ambulatory subject supports the diagnosis of Diabetes Mellitus. ADA recommended reference range Performed By: #### B MP, MG, TSH3 #### [address] Potassium molar conc 4.1 mmol/L Normal 3.5-5.1 [facility] Comment on above: Performed By: #### B MP, MG, TSH3 #### [address] Sodium molar conc 141 mmol/L Normal 136-146 [facility] Comment on above: Performed By: #### B MP, MG, TSH3 #### [address] Urea nitrogen mass conc 24 mg/dL High 9-23 [facility] Comment on above: Performed By: #### B MP, MG, TSH3 #### [address] Complete Blood Count Auto Di ffon 03-17-2018 Basophils #/vol (Bld) 0.0 10*3/uL Normal 0.0-0.2 [facility] Comment on above: Result Comment: PERF ORMED BY: [place] [address] PATHOLOGIST CARE TRANSITION MANAGER ONEL PLASENCIA M.D. Performed By: #### C BC, CK, CKMB, TROP, PT, PTT #### [address] Basophils/100 WBC (Bld) 0.5 % Normal . [facility] Comment on above: Performed By: #### C BC, CK, CKMB, TROP, PT, PTT #### [address] Eosinophils #/vol (Bld) 0.1 10*3/uL Normal 0.0-0.45 [facility] Comment on above: Performed By: #### C BC, CK, CKMB, TROP, PT, PTT #### [address] Eosinophils/100 WBC (Bld) 1.7 % Normal . [facility] Comment on above: Performed By: #### C BC, CK, CKMB, TROP, PT, PTT #### [address] Erythrocyte distribution width Ratio (RBC) 13.5 % Normal 11.9-15.3 [facility] Comment on above: Performed By: #### C BC, CK, CKMB, TROP, PT, PTT #### [address] Hematocrit Volume Fraction (Bld) 42.0 % Normal 34.0-46.4 [facility] Comment on above: Performed By: #### C BC, CK, CKMB, TROP, PT, PTT #### [address] Hemoglobin mass conc (Bld) 14.3 g/dL Normal 11.8-15.4 [facility] Comment on above: Performed By: #### C BC, CK, CKMB, TROP, PT, PTT #### [address] Lymphocytes #/vol (Bld) 2.2 10*3/uL Normal 1.00-4.8 [facility] Comment on above: Performed By: #### C BC, CK, CKMB, TROP, PT, PTT #### [address] Lymphocytes/100 WBC (Bld) 24.9 % Normal . [facility] Comment on above: Performed By: #### C BC, CK, CKMB, TROP, PT, PTT #### [address] MCH Entitic mass (RBC) 31.6 pg Normal 24.7-34.3 [facility] Comment on above: Performed By: #### C BC, CK, CKMB, TROP, PT, PTT #### [address] MCH Entitic mass (RBC) 34.1 g/dL Normal 32.0-35.0 [facility] Comment on above: Performed By: #### C BC, CK, CKMB, TROP, PT, PTT #### [facility] [address] MCV Entitic volume (RBC) 92.7 fL Normal 80-100 [facility] Comment on above: Performed By: #### C BC, CK, CKMB, TROP, PT, PTT #### [facility] [address] Monocytes #/vol (Bld) 0.9 10*3/uL High 0.0-0.8 [facility] Comment on above: Performed By: #### C BC, CK, CKMB, TROP, PT, PTT #### [address] Monocytes/100 WBC (Bld) 9.6 % Normal . [facility] Comment on above: Performed By: #### C BC, CK, CKMB, TROP, PT, PTT #### [address] Neutrophils #/vol (Bld) 5.7 10*3/uL Normal 1.8-7.7 [facility] Comment on above: Performed By: #### C BC, CK, CKMB, TROP, PT, PTT #### [address] Neutrophils/100 WBC (Bld) 63.3 % Normal . [facility] Comment on above: Performed By: #### C BC, CK, CKMB, TROP, PT, PTT #### [address] Nucleated RBC/100 WBC Ratio (Bld) 0.1 % High 0-0 [facility] Comment on above: Performed By: #### C BC, CK, CKMB, TROP, PT, PTT #### [address] Platelet mean volume Entitic volume (Bld) 8.5 fL Normal 6.3-10.7 [facility] Comment on above: Performed By: #### C BC, CK, CKMB, TROP, PT, PTT #### [facility] [address] Platelets #/vol (Bld) 258 10*3/uL Normal 150-450 [facility] Comment on above: Performed By: #### C BC, CK, CKMB, TROP, PT, PTT #### [facility] [address] RBC #/vol (Bld) 4.53 10*6/uL Normal 3.60-5.00 [facility] Comment on above: Performed By: #### C BC, CK, CKMB, TROP, PT, PTT #### [facility] [address] WBC #/vol (Bld) 9.0 10*3/uL Normal 4.5-11.0 [facility] Comment on above: Performed By: #### C BC, CK, CKMB, TROP, PT, PTT #### [facility] [address] Creatine Kinaseon 03-17-2018 CK enzyme act/vol 91 U/L Normal 22-269 [facility] Comment on above: Performed By: #### C BC, CK, CKMB, TROP, PT, PTT #### [address] Creatinine Kinase MBon 03-17 CK.MB mass conc 3.0 ng/mL High 0.00-2.50 [facility] Comment on above: Performed By: #### C BC, CK, CKMB, TROP, PT, PTT #### [address] CK.MB mass conc 2.8 ng/mL Normal 0.6-6.3 [facility] Comment on above: Performed By: #### C BC, CK, CKMB, TROP, PT, PTT #### [address] ECG 12 lead ECGon 03-17-2018 ECG 12 lead ECG [facility] [place] [address] [place] [address] Electrocardiograph Report Signed Patient: Shelley Sanchez MR#: [id number] : 1945 Acct:[id number] Age/Sex: 72 / F ADM Date: 03/16/18 Loc: ER Room: Type: [facility] Attending Dr: Ordering Provider: Eddy Rapp MD [...] MD 03/16/18 2334 Signed By: 03/17/18 0641 [facility] Magnesiumon 03-17-2018 Magnesium mass conc 1.2 mg/dL Low 1.6-2.6 [facility] Comment on above: Performed By: #### B MP, MG, TSH3 #### [facility] [address] [place] [address] [place] Partial Thromboplastin Timeo n 03-17-2018 aPTT Coag time (Bld) 34.7 s Normal 23.0-35.0 [facility] Comment on above: Result Comment: PERF ORMED BY: [place] [address] PATHOLOGIST CARE TRANSITION MANAGER ONEL PLASENCIA M.D. Performed By: #### C BC, CK, CKMB, TROP, PT, PTT #### [facility] [address] [place] [address] [place] Prothrombin Time INRon 03-17 INR Coag RelTime (PPP) 1.0 {INR} [facility] Comment on above: Result Comment: INR [...] BC, CK, CKMB, TROP, PT, PTT #### [address] Prothrombin time (PT) Coag time (PPP) 11.0 s Normal 9.0-12.9 [facility] Comment on above: Performed By: #### C BC, CK, CKMB, TROP, PT, PTT #### [address] Thyroid Stimulating Hormoneo n 03-17-2018 Thyrotropin Qn 4.53 u[iU]/mL Normal 0.45-5.33 [facility] Comment on above: Result Comment: PERF ORMED BY: [place] [address] PATHOLOGIST CARE TRANSITION MANAGER ONEL PLASENCIA M.D. Performed By: #### B MP, MG, TSH3 #### [address] Troponin I(TnI)on 03-17-2018 Troponin I.cardiac mass conc ng/mL Normal 0-0.02 [facility] Comment on above: Result Comment: CRISS ND Cut off value > or equal to 0.03 ng/mL in conjunction with clinical conditions of myocardial infarction. ([email or web address].org/guidelines) PERFORMED BY: [place] [address] PATHOLOGIST CARE TRANSITION MANAGER ONEL PLASENCIA M.D. Performed By: #### C BC, CK, CKMB, TROP, PT, PTT #### [address] XR chest 1V portableon 03-17 XR chest 1V portable [facility] [place] [address] XRay Report Signed Patient: Shelley Sanchez MR#: [id number] : 1945 Acct:[id number] Age/Sex: 72 / F ADM Date: 03/16/18 Loc: ER Room: Type: [facility] ER Attending Dr: Ordering Provider: Eddy Rapp [...] Raymundo Nelson M.D.03/17/2018 9:07 AM Dictation Location: [id number] Transcribed By: LUCAS 03/17/18906 Dictated By: Raymundo Nelson DO 03/17/18 0904 Signed By: 03/17/18 0907 [facility] Encounters Encounter Date Encounter Type Care Provider Facility Start: 03-28-2023 End: 03-28-2023 ambulatory LAKSHMI AICHZACHERYZ Not Available Start: 03-14-2023 Refill Lakshmi Truongz 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 Phone: [facility] Comment on above: Primary hypertension (CMS/HCC) (Primary Dx); Essential (primary) hypertension (CMS/HCC); Spondylosis without myelopathy or radiculopathy, lumbosacral region; Anxiety disorder, unspecified; Hypothyroidism, unspecified (CMS/HCC); Hypothyroidism, adult (CMS/HCC); Lumbar back pain; Anxiety Start: 02-20-2023 End: 02-20-2023 ambulatory LAKSHMI AICHHOLZ Not Available Start: 07-05-2022 End: 07-06-2022 ambulatory GIRISH NEWELL Facility: Start: 05-06-2022 End: 05-06-2022 ambulatory NONE LISTED REQUEST Facility: Start: 12-09-2021 End: 12-10-[address] JOSÉ LUIS HORAN . Facility:[facility] Start: 03-17-2018 End: 03-17-2018 Emergency department patient visit José Luis Horan Facility:[facility] Start: 08-01-2016 End: 08-03-2016 Ambulatory JACE CABAN [facility] Plan of Treatment Date Care Activity Detail Author Start: 07-06-2023 Urine screening for protein Diabetes: Urine Protein Screening [facility] Start: 03-28-2023 End: 03-28-2023 Patient encounter procedure 03/28/2023 10:00 AM EST Office Visit [facility] [address] [place] [address] Lakshmi Newell, MYLENE [address] [place] [id number] [facility] Start: 10-05-2022 Hemoglobin A1c measurement Diabetes: Hemoglobin A1C [facility] Start: 12-09-1955 Glaucoma screening Diabetes: R etinopathy Screening [facility] Start: 1945 Medicare Annual Well ness (AWV) Medicare Annual Wellness (AWV) [facility] Payers Date Payer Category Payer Medicare AETNA MEDICARE A DVANTAGE AETNA MEDICARE REPLACEMENT [id number] 2021-Present [address] [place] [address] [id number] 2018 Medicare [id number] 2018 Self-pay 2018 Unknown [id number] 1959 Medicare [id number] 1945 Unknown [id number] 1945 Unknown [id number] 1945 Unknown [id number] 1945 Unknown [id number] 1945 Unknown [id number] Unknown [id number] Social History Date Type Detail Facility Start: 02-20-2023 [facility] History of tobacco use Current smoker [facility] History of tobacco use Cigarette Smoker [facility] Start: 02-20-2023 Tobacco use and exposure Smokeless t obacco non-user [facility] Start: 02-20-2023 Alcohol intake Ex-drinker (finding) [facility] Start: 02-20-2023 History of Social function [facility] Start: 02-20-2023 Tobacco use panel [facility] Start: 1945 Sex Assigned At Not on file [facility] Clinical Note 07-05-2022 Note Date & Type [...] authenticated by: BLOSSOM QUIROZ Date: 2022-07-05 14:21 [facility] Clinical Note 07-05-2022 Note Date & Type Note Facility 07-05-2022 Note PROCEDURE: XR HIP RT 2 3V WO PELVIS COMPARISON: None. HISTORY: Low back pain FINDINGS: BONES:No acute fracture or dislocation. Joint space narrowing. SOFT TISSUES:Negative. No visible soft tissue swelling. EFFUSION:None visible. OTHER: Negative. IMPRESSION: Joint space narrowing Electronically authenticated by: BLOSSOM QUIROZ Date: 2022-07-05 14:20 [facility] Clinical Note 05-27-2020 Note Date & Type [...] Sister and Brother. Stroke: Mother and Father. [facility] Comment on above: Result Comment: Elec tronically Signed By: SILKE RICE, Eddy Gonzalez\Date and Time Signed: 05/27/20 14:32 EDT Evaluation note Note Date & Type Note Facility Evaluation note Diagnosis Primary hypertension (CMS/HCC)- Primary Unspecified essential hypertension Essential (primary) hypertension (CMS/HCC) Unspecified essential hypertension Spondylosis without myelopathy or radiculopathy, lumbosacral region Anxiety disorder, unspecified Hypothyroidism, unspecified (CMS/HCC) Hypothyroidism, adult (CMS/HCC) Other specified acquired hypothyroidism Lumbar back pain Lumbago Anxiety Anxiety state, unspecified documented in this encounter [facility] Summary Purpose Family History No Family History Records FoundNo Family History Records FoundNo Family History Records FoundNo Family History Records FoundNo Family History Records Found Advance Directives No Advanced Directives Records FoundNo Advanced Directives Records FoundNo Advanced Directives Records FoundNo Advanced Directives Records FoundNo Advanced Directives Records Found Additional Source Comments INFORMATION SOURCE (unrecogn ized section and content) DATE CREATED AUTHOR 08/02/2017 [facility] DATE CREATED AUTHOR AUTHOR'S ORGANIZ ATION 03/28/2018 [facility] DATE CREATED AUTHOR AUTHOR'S ORGANIZ ATION 07/02/2020 [facility] DATE CREATED AUTHOR AUTHOR'S ORGANIZ ATION 07/15/2022 [facility] DATE CREATED AUTHOR AUTHOR'S ORGANIZ ATION 03/29/2023 [facility] EPIC Reason for Visit (unrecogniz ed section and content) Reason Comments Med Refill Care Teams (unrecognized sec tion and content) Radiotelegraphist Relationship Specialty Start Date End Date Avinash Blair MD PCP - General Family Medicine 07/29/22 FOR RECORDS PERTAINING TO PATIENTS WHO ARE [...] BE BASED ON THE PRIMARY CLINICAL RECORDS. [facility] [employer] [facility]. provides no warranty or guarantee of the accuracy or completeness of information in this document.
[2023-04-07 10:38] LABS: Calcium 9.3 mg/dL (8.5-10.1); Carbon Dioxide 28.3 mmol/L (21.0-32.0); Chloride 106 mmol/L (98-107); Estimated GFR (African America 55 (>=60); Estimated GFR (Non-African Ame 46 (>=60); Glucose 117 mg/dL (74-106); Potassium 5.3 mmol/L (3.5-5.1); Sodium 141 mmol/L (136-145)
== END 2023-04-07 09:05 | disposition home or self-care (01) ==
LOC: LAB 09:05
PROVIDERS: PCP Nurse Practitioner; Visit Provider Nurse Practitioner
DX: N18.30 Chronic kidney disease, stage 3 unspecified (principal)
CPT/HCPCS: 36415; 80048

== ENCOUNTER 2023-06-28 08:58 | Outpatient (OUT) | payer MEDICARE, SELFPAY ==
--- OUTSIDE RECORDS SUMMARY | 2023-06-28 09:22 | XMS_ITS | CCD ---
Author Organization [facility] Care Team Providers Care Icer Hand Name Role Phone JILLIANSTEPH JACE Unavailable Unavailable JOSÉ LUIS HORAN Unavailable Unavailable José Luis Horan Primary Care Unavailable Eddy Rapp Attending Unavailable REQUEST, DR MUÑOZ LISTED Primary Care Unavaila ble PAY ., DR MANDUJANO Admitting Unavailable PAY ., DR MANDUJANO Consulting Unavailable PAY ., DR MANDUJANO Attending Unavailable AICHHOLZ, TANK CAR CLEANER LAKSHMI Admitting Unavailable AICHHOLZ, TANK CAR CLEANER LAKSHMI Primary Care Unavailable AICHHOLZ, GIRISH LAKSHMI Attending Unavailable RICHIE, DR BLOSSOM Diaz Consulting Unavailable AICHHOLZ, GIRISH GARCIA Consulting Unavailable HOY ., DR ORDONEZ Admitting Unavailable HOY ., DR ORDONEZ Primary Care Unavailable HOY ., DR ORDONEZ Consulting Unavailable HOY ., DR ORDONEZ Attending Unavailable RICHIE, DR BLOSSOM Diaz Consulting Unavailable Avinash Blair MD Primary Care Provider AICHHOLZ LAKSHMI Attending Unavailable AICHHOLZ, LAKSHMI Attending Unavailable AICHHOLZ, LAKSHMI Attending Unavailable Medications [...] Onset: 07-06-2022 Episodic Other aftercare (1 source) 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; Translations: [DETENTION CURRENT USE OF ASPIRIN] Onset: 05-09-2022 Episodic Other aftercare (1 source) Other jail (current) drug therapy; Translations: [OTH DETENTION CURRENT DRUG THERAPY] Onset: 05-09-2022 Episodic Other aftercare (1 source) care home (current) use of oral hypoglycemic drugs; Translations: [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 Ryan Martin Basophils/100 WBC (Bld) 0.3 % Normal 0.2-2.0 [facility] Comment on above: Performed By: #### C MP, TSH, LIPID, FT3 #### [facility] [address] [address] [address] Ryan Martin EO # 0.1 103/ul Normal 0.0-0.7 [facility] Comment on above: Performed By: #### C MP, TSH, LIPID, FT3 #### [facility] [address] [address] [address] Ryan Martin Eosinophils/100 WBC (Bld) 1.6 % Normal 0.9-7.0 [facility] Comment on above: Performed By: #### C MP, TSH, LIPID, FT3 #### [facility] [address] [place] [address] Dr. Ryan Martin Erythrocyte distribution width (RBC) [Ratio] 13.6 % Normal 11.0-15.0 [facility] Comment on above: Performed By: #### C MP, TSH, LIPID, FT3 #### [facility] [address] [place] [address] Dr. Ryan Martin Hematocrit (Bld) [Volume fraction] 34.7 % Critically low 36.0-48.0 [facility] Comment on above: Performed By: #### C MP, TSH, LIPID, FT3 #### [facility] [address] [place] [address] Dr. Ryan Martin Hemoglobin (Bld) [Mass/Vol] 12.1 g/dL Normal 12.0-16.0 [facility] Comment on above: Performed By: #### C MP, TSH, LIPID, FT3 #### [facility] [address] [place] [address] Dr. Ryan Martin IG # 0.02 10e3/ul Normal 0.00-0.03 [facility] Comment on above: Performed By: #### C MP, TSH, LIPID, FT3 #### [facility] [address] [place] [address] Dr. Ryan Martin IG % 0.3 % Normal 0.0-0.5 [facility] Comment on above: Performed By: #### C MP, TSH, LIPID, FT3 #### [facility] [address] [place] [address] Dr. Ryan Martin LYMPH # 1.1 103/ul Critically low 1.2-3.8 [facility] Comment on above: Performed By: #### C MP, TSH, LIPID, FT3 #### [facility] [address] [place] [address] Dr. Ryan Martin Lymphocytes/100 WBC (Bld) 14.7 % Critically low 20.5-60.0 [facility] Comment on above: Performed By: #### C MP, TSH, LIPID, FT3 #### [facility] [address] [place] [address] Dr. Ryan Martin MANUAL DIFF REQ NO Normal [facility] Comment on above: Performed By: #### C MP, TSH, LIPID, FT3 #### [facility] [address] [place] [address] Dr. Ryan Martin MCH (RBC) [Entitic mass] 31.4 pg Normal 26.7-34.0 [facility] Comment on above: Performed By: #### C MP, TSH, LIPID, FT3 #### [facility] [address] [place] [address] Dr. Ryan Martin MCHC (RBC) [Mass/Vol] 34.9 g/dL Normal 29.9-35.2 [facility] Comment on above: Performed By: #### C MP, TSH, LIPID, FT3 #### [facility] [address] [place] [address] Dr. Ryan Martin MCV (RBC) [Entitic vol] 90.1 fL Normal 81.0-99.0 [facility] Comment on above: Performed By: #### C MP, TSH, LIPID, FT3 #### [facility] [address] [place] [address] Dr. Ryan Martin MONO # 0.5 103/ul Normal 0.3-0.8 [facility] Comment on above: Performed By: #### C MP, TSH, LIPID, FT3 #### [facility] [address] [place] [address] Dr. Ryan Martin Monocytes/100 WBC (Bld) 6.4 % Normal 1.7-12.0 [facility] Comment on above: Performed By: #### C MP, TSH, LIPID, FT3 #### [facility] [address] [place] [address] Dr. Ryan Martin NEUT # 5.9 103/ul Normal 1.4-6.5 [facility] Comment on above: Performed By: #### C MP, TSH, LIPID, FT3 #### [facility] [address] [place] [address] Dr. Ryan Martin Neutrophils/100 WBC (Bld) 76.7 % Critically high 43.0-75.0 [facility] Comment on above: Performed By: #### C MP, TSH, LIPID, FT3 #### [facility] [address] [place] [address] Dr. Ryan Martin Platelet mean volume (Bld) [Entitic vol] 9.4 fL Critically low 9.5-13.5 [facility] Comment on above: Performed By: #### C MP, TSH, LIPID, FT3 #### [facility] [address] [place] [address] Dr. Ryan Martin PLT 277 103/ul Normal 150-450 [facility] Comment on above: Performed By: #### C MP, TSH, LIPID, FT3 #### [facility] [address] [place] [address] Dr. Ryan Martin RBC 3.85 106/ul Critically low 4.20-5.40 [facility] Comment on above: Performed By: #### C MP, TSH, LIPID, FT3 #### [facility] [address] [place] [address] Dr. Rayn Martin WBC 7.6 103/ul Normal 4.0-11.0 [facility] Comment on above: Performed By: #### C MP, TSH, LIPID, FT3 #### [facility] [address] [place] [address] Dr. Ryan Martin FREE T3on 07-05-2022 FREE T3 2.04 pg/mlL Critically low 2.18-3.98 [facility] Comment on above: Performed By: #### C MP, TSH, LIPID, FT3 #### [facility] [address] [place], [place] [id number] Dr. Ryan Martin FREE T4on 07-05-2022 Free T4 [Mass/Vol] 1.14 ng/dL Normal 0.76-1.46 [facility] Comment on above: Performed By: #### C MP, TSH, LIPID, FT3 #### [facility] [address] [place] [address] Dr. Ryan Martin GLYCOHEMOGLOBIN A1Con 2022 ADA RECOMMENDATION SEE BELOW Normal [facility] Comment on above: Result Comment: ADA RECOMMENDED LIMIT 4.0 - 6.0 ADA THERAPEUTIC TARGET < 7.0 ACTION SUGGESTED > 7.0 Performed By: #### A 1C #### [facility] [address] [place] [address] Dr. Ryan Martin Glucose [Mass/Vol] 105 mg/dL Normal [facility] Comment on above: Performed By: #### A 1C #### [facility] [address] [place] [address] Dr. Ryan Martin HbA1c (Bld) [Mass fraction] 5.3 % Normal 4.5-6.2 [facility] Comment on above: Performed By: #### A 1C #### [facility] [address] [place] [address] Dr. Ryan Martin LIPID PROFILEon 07-05-2022 CHOL-HDL RATIO NORM SEE BELOW Normal [facility] Comment on above: Result Comment: 3.3 - 4.4 LOW RISK 4.4 - 7.1 AVERAGE RISK 7.1 - 11.0 MODERATE RISK >11.0 HIGH RISK Performed By: #### C MP, TSH, LIPID, FT3 #### [facility] [address] [place] [address] Dr. Ryan Martin Cholesterol [Mass/Vol] 159 mg/dL Normal <=200 [facility] Comment on above: Performed By: #### C MP, TSH, LIPID, FT3 #### [facility] [address] [place] [address] Dr. Ryan Martin Cholesterol in HDL [Mass/Vol] 87 mg/dL Critically high 40-60 [facility] Comment on above: Performed By: #### C MP, TSH, LIPID, FT3 #### [facility] [address] [address] [address] Ryan Martin Cholesterol in LDL [Mass/Vol] 57.2 mg/dL Normal [facility] Comment on above: Performed By: #### C MP, TSH, LIPID, FT3 #### [facility] [address] [address] [address] Ryan Martin Cholesterol.total/Ch olesterol in HDL [Mass ratio] 1.8 {ratio} Normal [facility] Comment on above: Performed By: #### C MP, TSH, LIPID, FT3 #### [facility] [address] [address] [address] Ryan Martin HDL NORMAL > or = 60 mg/dl - LO W CARDIOVASCULAR RISK <40 mg/dl - HIGH CARDIOVASCULAR RISK Normal [facility] Comment on above: Performed By: #### C MP, TSH, LIPID, FT3 #### [facility] [address] [address] [address] Ryan Martin LDL CALC NORMAL SEE BELOW Normal [facility] Comment on above: Result Comment: <100 mg/dl OPTIMAL 100 - 129 mg/dl NEAR OR ABOVE OPTIMAL 130 - 159 mg/dl BORDERLINE HIGH 160 - 189 mg/dl HIGH >190 mg/dl VERY HIGH Performed By: #### C MP, TSH, LIPID, FT3 #### [facility] [address] [address] [address] Ryan Martin Triglyceride [Mass/Vol] 74 mg/dL Normal <=150 [facility] Comment on above: Performed By: #### C MP, TSH, LIPID, FT3 #### [facility] [address] [address] [address] Ryan Martin VLDL CALC 14.8 mg/dL Normal [facility] Comment on above: Performed By: #### C MP, TSH, LIPID, FT3 #### [facility] [address] [address] [address] Ryan Martin MICROALBUMIN, RAND URon 05-3 0-2022 mALB <1.3 Normal <=30.0 [facility] Comment on above: Performed By: #### C MP, TSH, LIPID, FT3 #### [facility] [address] [place] [address] Dr. Ryan Martin PROF 14(COMP METB)on 023 Albumin [Mass/Vol] 4.2 g/dL Normal 3.4-5.0 [facility] Comment on above: Performed By: #### C MP, TSH, LIPID, FT3 #### [facility] [address] [place] [address] Dr. Ryan Martin Albumin/Globulin [Mass ratio] 0.9 {ratio} Normal [facility] Comment on above: Performed By: #### C MP, TSH, LIPID, FT3 #### [facility] [address] [place] [address] Dr. Ryan Martin ALP [Catalytic activity/Vol] 93 U/L Normal 46-116 [facility] Comment on above: Performed By: #### C MP, TSH, LIPID, FT3 #### [facility] [address] [place] [address] Dr. Ryan Martin ALT [Catalytic activity/Vol] 21 U/L Normal 14-59 [facility] Comment on above: Performed By: #### C MP, TSH, LIPID, FT3 #### [facility] [address] [place] [address] Dr. Ryan Martin Anion gap [Moles/Vol] 15.4 mmol/L Normal [facility] Comment on above: Performed By: #### C MP, TSH, LIPID, FT3 #### [facility] [address] [place] [address] Dr. Ryan Martin AST [Catalytic activity/Vol] 21 U/L Normal 15-37 [facility] Comment on above: Performed By: #### C MP, TSH, LIPID, FT3 #### [facility] [address] [place] [address] Dr. Ryan Martin Bilirubin [Mass/Vol] 0.7 mg/dL Normal 0.2-1.0 [facility] Comment on above: Performed By: #### C MP, TSH, LIPID, FT3 #### [facility] [address] [place] [address] Dr. Ryan Martin Calcium [Mass/Vol] 9.9 mg/dL Normal 8.5-10.1 [facility] Comment on above: Performed By: #### C MP, TSH, LIPID, FT3 #### [facility] [address] [address] [address] Ryan Martin Chloride [Moles/Vol] 101 mmol/L Normal 98-107 [facility] Comment on above: Performed By: #### C MP, TSH, LIPID, FT3 #### [facility] [address] [place] [address] Dr. Ryan Martin CO2 [Moles/Vol] 26.7 mmol/L Normal 21.0-32.0 [facility] Comment on above: Performed By: #### C MP, TSH, LIPID, FT3 #### [facility] [address] [place] [address] Dr. Ryan Martin Creatinine [Mass/Vol] 1.13 mg/dL Critically high 0.55-1.02 [facility] Comment on above: Performed By: #### C MP, TSH, LIPID, FT3 #### [facility] [address] [place] [address] Dr. Ryan Martin EGFR-AF MONGOLIAN 57 mL/min/1.73m2 Critically low >=60 [facility] Comment on above: Performed By: #### C MP, TSH, LIPID, FT3 #### [facility] [address] [place] [address] Dr. Ryan Martin EGFR-NON AF MONGOLIAN 47 mL/min/1.73m2 Critically low >=60 [facility] Comment on above: Performed By: #### C MP, TSH, LIPID, FT3 #### [facility] [address] [place] [address] Dr. Ryan Martin Globulin (S) [Mass/Vol] 4.5 g/dL Normal [facility] Comment on above: Performed By: #### C MP, TSH, LIPID, FT3 #### [facility] [address] [place] [address] Dr. Ryan Martin Glucose [Mass/Vol] 119 mg/dL Critically high 74-106 [facility] Comment on above: Performed By: #### C MP, TSH, LIPID, FT3 #### [facility] [address] [place] [address] Dr. Ryan Martin Potassium [Moles/Vol] 5.1 mmol/L Normal 3.5-5.1 [facility] Comment on above: Performed By: #### C MP, TSH, LIPID, FT3 #### [facility] [address] [place] [address] Dr. Ryan Martin Protein [Mass/Vol] 8.7 g/dL Critically high 6.4-8.2 [facility] Comment on above: Performed By: #### C MP, TSH, LIPID, FT3 #### [facility] [address] [place] [address] Dr. Ryan Martin Sodium [Moles/Vol] 138 mmol/L Normal 136-145 [facility] Comment on above: Performed By: #### C MP, TSH, LIPID, FT3 #### [facility] [address] [place] [address] Dr. Ryan Martin Urea nitrogen [Mass/Vol] 17.0 mg/dL Normal 7.0-18.0 [facility] Comment on above: Performed By: #### C MP, TSH, LIPID, FT3 #### [facility] [address] [place] [address] Dr. Ryan Martin Urea nitrogen/Creatinine [Mass ratio] 15.0 mg/mg Normal [facility] Comment on above: Performed By: #### C MP, TSH, LIPID, FT3 #### [facility] [address] [place] [address] Dr. Ryan Martin TSHon 07-05-2022 TSH 5.282 uIU/mL Critically high 0.358-3.740 [facility] Comment on above: Performed By: #### C MP, TSH, LIPID, FT3 #### [facility] [address] [place] [address] Dr. Ryan Martin UA RANDOM W/MICROSCOPICon BACTERIA TRACE Abnormal NONE SEEN [facility] Comment on above: Performed By: #### U AMIC #### [facility] [address] [address] [address] Ryan Martin Bilirubin Ql (U) Negative Normal NEGATIVE [facility] Comment on above: Performed By: #### U AMIC #### [facility] [address] [place] [address] Dr. Ryan Martin CAST NONE SEEN Normal NONE SEEN [facility] Comment on above: Performed By: #### U AMIC #### [facility] [address] [address] [address] Ryan Martin Clarity (U) CLEAR Normal CLEAR [facility] Comment on above: Performed By: #### U AMIC #### [facility] [address] [place] [address] Dr. Ryan Martin Color (U) LT. YELLOW Normal YELLOW [facility] Comment on above: Performed By: #### U AMIC #### [facility] [address] [place] [address] Dr. Ryan Martin Crystals LM Nom (Urine sed) NONE SEEN Normal NONE SEEN [facility] Comment on above: Performed By: #### U AMIC #### [facility] [address] [place] [address] Dr. Ryan Martin Epithelial cells LM Ql (Urine sed) RARE Normal NONE SEEN /RARE [facility] Comment on above: Performed By: #### U AMIC #### [facility] [address] [place] [address] Dr. Ryan Martin Glucose Ql (U) Negative Normal NEGATIVE [facility] Comment on above: Performed By: #### U AMIC #### [facility] [address] [address] [address] Ryan Martin Hemoglobin Ql (U) Negative Normal NEGATIVE [facility] Comment on above: Performed By: #### U AMIC #### [facility] [address] [place] [address] Dr. Ryan Martin Ketones Ql (U) Negative Normal NEGATIVE [facility] Comment on above: Performed By: #### U AMIC #### [facility] [address] [address] [address] Ryan Martin LEUKOCYTES TRACE Abnormal NEGATIVE [facility] Comment on above: Performed By: #### U AMIC #### [facility] [address] [address] [address] Ryan Martin MUCOUS NONE SEEN Normal NONE SEEN [facility] Comment on above: Performed By: #### U AMIC #### [facility] [address] [address] [address] Ryan Martin Nitrite Ql (U) Negative Normal NEGATIVE [facility] Comment on above: Performed By: #### U AMIC #### [facility] [address] [place] [address] Dr. Ryan Martin pH (U) 6.0 [pH] Normal 5-9 [facility] Comment on above: Performed By: #### U AMIC #### [facility] [address] [place] [address] Dr. Ryan Martin RBC 0-2 Normal 0-2 [facility] Comment on above: Performed By: #### U AMIC #### [facility] [address] [address] [address] Ryan Martin SPEC GRAVITY 1.010 Normal 1.005-<=1.025 [facility] Comment on above: Performed By: #### U AMIC #### [facility] [address] [place] [address] Dr. Ryan Martin UA PROTEIN Negative Normal NEGATIVE/ TRACE [facility] Comment on above: Performed By: #### U AMIC #### [facility] [address] [place] [address] Dr. Ryan Martin Urobilinogen Qn (U) 0.2 {Michelle'U}/dL Normal 0.2 - 1. 0 [facility] Comment on above: Performed By: #### U AMIC #### [facility] [address] [place] [address] Dr. Ryan Martin WBC 2-5 Abnormal NONE SEEN [facility] Comment on above: Performed By: #### U AMIC #### [facility] [address] [address] [address] Ryan Martin XR LSPINE 2_3 VIEWSon [...] BLOSSOM QUIROZ Date: 2022-07-05 13:11 Normal [facility] MAMM SCREEN 3D JESSE CADon 12-09-2021 MG MAMM SCREEN 3D JESSE CAD Patient: SHELLEY SANCHEZ Exam Date: 12/09/2021 : 1945 Gender:F Ordering : DR JOSÉ LUIS HORAN . Admission #: [id number] Family : Order #: [id number] CLICK HERE TO VIEW EXAM RADIOLOGY REPORT [...] breast cancer at age 35. LOCATION: [facility] BREAST COMPOSITION: Scattered areas fibroglandular density. [...] Quiroz MD on 12/09/2021 at 13:38 Normal [facility] Ambulatory Clinical Summaryo n 06-30-2020 Ambulatory Clinical Summary {[id number]}CD:[id number] Normal [facility] Ambulatory Clinical Summary {[id number]}CD:[id number] Normal [facility] General Surgery Office/Clini c Noteon 06-30-2020 [...] RICE, NANCY Serrano Only if needed [address] [place] [address]- Additional Instructions: Problem List/Past Medical [...] Sister and Brother. Stroke: Mother and Father. [facility] Comment on above: Result Comment: Elec tronically Signed By: SILKE RICE, Eddy Salazar.thai\Date and Time Signed: 06/30/20 14:15 EDT Outside Colonoscopyon 2020 Outside Colonoscopy [id number] .00CD:127 [facility] Pathology Noteon 06-19-2020 Pathology Note [id number] .00CD:127 [facility] Lab Reportson 06-15-2020 Lab Reports [id number] .00CD:127 [facility] Pre-Certification Formon Pre-Certification Form [id number] .00CD:127 [facility] Consent for Procedure/Surger yon 05-28-2020 Consent for Procedure/Surgery [id number] .00CD:127 [facility] Provider Letter FTon 05-28 Provider Letter [facility] [place] José Luis Horan, [facility] [place] [address] Re: SHELLEY SANCHEZ Date of : 1945 Thank you for your referral of Shelley Sanchez who was seen on consultation on May 27, 2020, for positive occult stool. A colonoscopy is planned. I have enclosed my consultation report for your review. I will be happy to follow Shelley. Sincerely, Eddy Hernandez MD General Surgery [facility] Ambulatory Clinical Summaryo n 05-27-2020 Ambulatory Clinical Summary {[id number]}CD:[id number] [facility] Physician Referralon 021 Physician Referral [id number] .[id number]:127 Normal [facility] Basic Metabolic Panelon -0 Calcium mass conc 9.6 mg/dL Normal 8.2-10.2 [facility] Comment on above: Performed By: #### B MP, MG, TSH3 #### [facility] [address] Chloride molar conc 108 mmol/L Normal 95-114 [facility] Comment on above: Performed By: #### B MP, MG, TSH3 #### [facility] [address] [id number] [facility] CO2 molar conc 23.0 mmol/L Normal 22.0-30.0 [facility] Comment on above: Performed By: #### B MP, MG, TSH3 #### [facility] [address] Creatinine mass conc 58.4587454906 mg/dL Normal [facility] Comment on above: Performed By: #### B MP, MG, TSH3 #### [facility] [address] Creatinine mass conc 0.81 mg/dL Normal 0.44-1.03 [facility] Comment on above: Performed By: #### B MP, MG, TSH3 #### [facility] [address] [id number] [facility] Estimated GFR ( Delisa > 60 [facility] Comment on above: Result Comment: GFR estimated reference range: According to KDOQI guidelines, <60 ml/min/1.73m2 is sufficient to diagnose a patient with chronic kidney disease. Performed By: #### B MP, MG, TSH3 #### [facility] [address] [id number] [place] Estimated GFR (Non- Am > 60 [facility] Comment on above: Performed By: #### B MP, MG, TSH3 #### [facility] [address] [id number] [place] Glucose mass conc 143 mg/dL High 70-100 [facility] Comment on above: Result Comment: [place] om Glucose Reference Range is dependent on time and content of last meal. Glucose of more than 200 mg/dL in a nonstressed, ambulatory subject supports the diagnosis of Diabetes Mellitus. ADA recommended reference range Performed By: #### B MP, MG, TSH3 #### [address] Potassium molar conc 4.1 mmol/L Normal 3.5-5.1 [facility] Comment on above: Performed By: #### B MP, MG, TSH3 #### [address] Sodium molar conc 141 mmol/L Normal 136-146 [facility] Comment on above: Performed By: #### B MP, MG, TSH3 #### [address] Urea nitrogen mass conc 24 mg/dL High 9-23 [facility] Comment on above: Performed By: #### B MP, MG, TSH3 #### [address] Complete Blood Count Auto Di ffon 03-17-2018 Basophils #/vol (Bld) 0.0 10*3/uL Normal 0.0-0.2 [facility] Comment on above: Result Comment: PERF ORMED BY: [place] [address] PATHOLOGIST MEDICAL SECRETARY ONEL PLASENCIA M.D. Performed By: #### C BC, CK, CKMB, TROP, PT, PTT #### [address] Basophils/100 WBC (Bld) 0.5 % Normal . [facility] Comment on above: Performed By: #### C BC, CK, CKMB, TROP, PT, PTT #### [address] Eosinophils #/vol (Bld) 0.1 10*3/uL Normal 0.0-0.45 [facility] Comment on above: Performed By: #### C BC, CK, CKMB, TROP, PT, PTT #### [place] [address] [place] Eosinophils/100 WBC (Bld) 1.7 % Normal . [facility] Comment on above: Performed By: #### C BC, CK, CKMB, TROP, PT, PTT #### [address] Erythrocyte distribution width Ratio (RBC) 13.5 % Normal 11.9-15.3 [facility] Comment on above: Performed By: #### C BC, CK, CKMB, TROP, PT, PTT #### [address] Hematocrit Volume Fraction (Bld) 42.0 % Normal 34.0-46.4 [facility] Comment on above: Performed By: #### C BC, CK, CKMB, TROP, PT, PTT #### [address] Hemoglobin mass conc (Bld) 14.3 g/dL Normal 11.8-15.4 [facility] Comment on above: Performed By: #### C BC, CK, CKMB, TROP, PT, PTT #### [address] Lymphocytes #/vol (Bld) 2.2 10*3/uL Normal 1.00-4.8 [facility] Comment on above: Performed By: #### C BC, CK, CKMB, TROP, PT, PTT #### [address] Lymphocytes/100 WBC (Bld) 24.9 % Normal . [facility] Comment on above: Performed By: #### C BC, CK, CKMB, TROP, PT, PTT #### [address] MCH Entitic mass (RBC) 31.6 pg Normal 24.7-34.3 [facility] Comment on above: Performed By: #### C BC, CK, CKMB, TROP, PT, PTT #### [address] [facility] Entitic mass (RBC) 34.1 g/dL Normal 32.0-35.0 [facility] Comment on above: Performed By: #### C BC, CK, CKMB, TROP, PT, PTT #### [address] MCV Entitic volume (RBC) 92.7 fL Normal 80-100 [facility] Comment on above: Performed By: #### C BC, CK, CKMB, TROP, PT, PTT #### [address] Monocytes #/vol (Bld) 0.9 10*3/uL High 0.0-0.8 [facility] Comment on above: Performed By: #### C BC, CK, CKMB, TROP, PT, PTT #### [address] Monocytes/100 WBC (Bld) 9.6 % Normal . [facility] Comment on above: Performed By: #### C BC, CK, CKMB, TROP, PT, PTT #### [address] Neutrophils #/vol (Bld) 5.7 10*3/uL Normal 1.8-7.7 [facility] Comment on above: Performed By: #### C BC, CK, CKMB, TROP, PT, PTT #### [address] Neutrophils/100 WBC (Bld) 63.3 % Normal . [facility] Comment on above: Performed By: #### C BC, CK, CKMB, TROP, PT, PTT #### [address] Nucleated RBC/100 WBC Ratio (Bld) 0.1 % High 0-0 [facility] Comment on above: Performed By: #### C BC, CK, CKMB, TROP, PT, PTT #### [address] Platelet mean volume Entitic volume (Bld) 8.5 fL Normal 6.3-10.7 [facility] Comment on above: Performed By: #### C BC, CK, CKMB, TROP, PT, PTT #### [facility] [address] Platelets #/vol (Bld) 258 10*3/uL Normal 150-450 [facility] Comment on above: Performed By: #### C BC, CK, CKMB, TROP, PT, PTT #### [facility] [address] RBC #/vol (Bld) 4.53 10*6/uL Normal 3.60-5.00 [facility] Comment on above: Performed By: #### C BC, CK, CKMB, TROP, PT, PTT #### [address] WBC #/vol (Bld) 9.0 10*3/uL Normal 4.5-11.[address] [facility] Comment on above: Performed By: #### C BC, CK, CKMB, TROP, PT, PTT #### [address] Creatine Kinaseon 03-17-2018 CK enzyme act/vol 91 U/L Normal 22-269 [facility] Comment on above: Performed By: #### C BC, CK, CKMB, TROP, PT, PTT #### [address] Creatinine Kinase MBon 03-17 CK.MB mass conc 3.0 ng/mL High 0.00-2.50 [facility] Comment on above: Performed By: #### C BC, CK, CKMB, TROP, PT, PTT #### [address] CK.MB mass conc 2.8 ng/mL Normal 0.6-6.3 [facility] Comment on above: Performed By: #### C BC, CK, CKMB, TROP, PT, PTT #### [address] ECG 12 lead ECGon 03-17-2018 ECG 12 lead ECG [facility] [place] [address] Electrocardiograph Report Signed Patient: Shelley Sanchez MR#: [id number] : 1945 Acct:[id number] Age/Sex: 72 / F ADM Date: 03/16/18 Loc: ER Room: Type: [facility] ER Attending Dr: Ordering Provider: [...] MD 03/16/18 2334 Signed By: 03/17/18 0641 [facility] Magnesiumon 03-17-2018 Magnesium mass conc 1.2 mg/dL Low 1.6-2.6 [facility] Comment on above: Performed By: #### B MP, MG, TSH3 #### [facility] [address] [place] [address] [place] Partial Thromboplastin Timeo n 03-17-2018 aPTT Coag time (Bld) 34.7 s Normal 23.0-35.0 [facility] Comment on above: Result Comment: PERF ORMED BY: [place] [address] PATHOLOGIST MEDICAL SECRETARY ONEL PLASENCIA M.D. Performed By: #### C BC, CK, CKMB, TROP, PT, PTT #### [facility] [address] [place] [address] [place] Prothrombin Time INRon 03-17 INR Coag RelTime (PPP) 1.0 {INR} Normal [facility] Comment on above: Result Comment: INR Therapeutic [...] BC, CK, CKMB, TROP, PT, PTT #### [address] Prothrombin time (PT) Coag time (PPP) 11.0 s Normal 9.0-12.9 [facility] Comment on above: Performed By: #### C BC, CK, CKMB, TROP, PT, PTT #### [address] Thyroid Stimulating Hormoneo n 03-17-2018 Thyrotropin Qn 4.53 u[iU]/mL Normal 0.45-5.33 [facility] Comment on above: Result Comment: PERF ORMED BY: [place] [address] PATHOLOGIST MEDICAL SECRETARY ONEL PLASENCIA M.D. Performed By: #### B MP, MG, TSH3 #### [address] Troponin I(TnI)on 03-17-2018 Troponin I.cardiac mass conc ng/mL Normal 0-0.02 [facility] Comment on above: Result Comment: [place] Cut off value > or equal to 0.03 ng/mL in conjunction with clinical conditions of myocardial infarction. (www.escardio.org/guidelines) PERFORMED BY: [place] [address] PATHOLOGIST MEDICAL SECRETARY ONEL PLASENCIA M.D. Performed By: #### C BC, CK, CKMB, TROP, PT, PTT #### [address] XR chest 1V portableon 03-17 XR chest 1V portable [facility] [address] [place] [address] XRay Report Signed Patient: Shelley Sanchez MR#: [id number] : 1945 Acct:[id number] Age/Sex: 72 / F ADM Date: 03/16/18 Loc: ER Room: Type: [facility] ER Attending Dr: Ordering Provider: Eddy Rapp [...] Raymundo Nelson M.D.03/17/2018 9:07 AM Dictation Location: [id number] Transcribed By: LUCAS 03/17/18906 Dictated By: Raymundo Nelson DO 03/17/1804 Signed By: 03/17/18 0907 [facility] Encounters Encounter Date Encounter Type Care Provider Facility Start: 06-26-2023 End: 06-26-2023 ambulatory LAKSHMI AICHHOLZ Not Available Start: 03-28-2023 End: 03-28-2023 ambulatory LAKSHMI AICHHOLZ Not Available Start: 03-14-2023 Refill Lakshmi Aichholz CANCER 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 MANAGER Work Phone: [facility] Comment on above: Primary hypertension (CMS/HCC) (Primary Dx); Essential (primary) hypertension (CMS/HCC); Spondylosis without myelopathy or radiculopathy, lumbosacral region; Anxiety disorder, unspecified; Hypothyroidism, unspecified (CMS/HCC); Hypothyroidism, adult (CMS/HCC); Lumbar back pain; Anxiety Start: 02-20-2023 End: 02-20-2023 ambulatory LAKSHMI AICHHOLZ Not Available Start: 07-05-2022 End: 07-06-2022 ambulatory [employer] LAKSHMI AICHHOLZ Facility: Start: 05-06-2022 End: 05-06-[address] NONE LISTED REQUEST Facility: Start: 12-09-2021 End: 12-10-[address] JOSÉ LUIS HORAN . Facility: Start: 03-17-2018 End: 03-17-2018 Emergency department patient visit José Luis Horan Facility:[facility] Start: 08-01-2016 End: 08-03-2016 Ambulatory JACE CABAN [facility] Plan of Treatment Date Care Activity Detail Author Start: 07-06-2023 Urine screening for protein Diabetes: Urine Protein Screening [facility] Start: 03-28-2023 End: 03-28-2023 Patient encounter procedure 03/28/2023 10:00 AM EST Office Visit [facility] [address] [place] [id number] Lakshmi Newell NP [address] [place] [id number] [facility] Start: 10-05-2022 Hemoglobin A1c measurement Diabetes: Hemoglobin A1C [facility] Start: 12-09-1955 Glaucoma screening Diabetes: R etinopathy Screening [facility] Start: 1945 Medicare Annual Well ness (AWV) Medicare Annual Wellness (AWV) [facility] Payers Date Payer Category Payer Medicare AETNA MEDICARE A DVANTAGE AETNA MEDICARE REPLACEMENT [id number] 2021-Present [address] [place] [address] [id number] 2018 Medicare [id number] 2018 Self-pay 2018 Unknown [id number] 1959 Medicare [id number] 1945 Unknown [id number] 1945 Unknown [id number] 1945 Unknown [id number] 1945 Unknown [id number] 1945 Unknown [id number] 1945 Unknown [id number] Unknown [id number] Social History Date Type Detail Facility Start: 02-20-2023 Tobacco smoking stat [facility] Ex-smoker [facility] History of tobacco use Current smoker [facility] History of tobacco use Cigarette Smoker [facility] Start: 02-20-2023 Tobacco use and exposure Smokeless t obacco non-user [facility] Start: 02-20-2023 Alcohol intake Ex-drinker (finding) [facility] Start: 02-20-2023 History of Social function [facility] Start: 02-20-2023 Tobacco use panel [facility] Start: 1945 Sex Assigned At Not on file N [facility] Clinical Note 07-05-2022 Note Date & [...] authenticated by: BLOSSOM QUIROZ Date: 2022-07-05 14:21 [facility] Clinical Note 07-05-2022 Note Date & Type Note Facility 07-05-2022 Note PROCEDURE: XR HIP RT 2 3V WO PELVIS COMPARISON: None. HISTORY: Low back pain FINDINGS: BONES:No acute fracture or dislocation. Joint space narrowing. SOFT TISSUES:Negative. No visible soft tissue swelling. EFFUSION:None visible. OTHER: Negative. IMPRESSION: Joint space narrowing Electronically authenticated by: BLOSSOM QUIROZ Date: 2022-07-05 14:20 [facility] Clinical Note 05-27-2020 Note Date & Type [...] Sister and Brother. Stroke: Mother and Father. [facility] Comment on above: Result Comment: Elec [...] section and content) DATE CREATED AUTHOR 08/02/2017 [facility] DATE CREATED AUTHOR AUTHOR'S ORGANIZ ATION 03/28/2018 [facility] DATE CREATED AUTHOR AUTHOR'S ORGANIZ ATION 07/02/2020 [facility] DATE CREATED AUTHOR AUTHOR'S ORGANIZ ATION 07/15/2022 [facility] DATE CREATED AUTHOR AUTHOR'S ORGANIZ ATION 06/27/2023 [facility] dical Specialists EPIC Reason for Visit (unrecogniz ed section and content) Reason Comments Med Refill Care Teams (unrecognized sec tion and content) Icer Hand Relationship Specialty Start Date End Date Avinash [...] BE BASED ON THE PRIMARY CLINICAL RECORDS. [employer] [facility]. provides no warranty or guarantee of the accuracy or completeness of information in this document.
[2023-06-28 10:26] LABS: BUN Creatinine Ratio 21.2; Calcium 9.6 mg/dL (8.5-10.1); Carbon Dioxide 23.9 mmol/L (21.0-32.0); Chloride 105 mmol/L (98-107); Estimated GFR (African America 54 (>=60); Estimated GFR (Non-African Ame 44 (>=60); Glucose 124 mg/dL (74-106); Potassium 4.9 mmol/L (3.5-5.1); Sodium 140 mmol/L (136-145)
[2023-06-28 10:47] LABS: Estimated Average Glucose 111 mg/dL; Glycohemoglobin A1C 5.5 % (4.5-6.2)
[2023-06-29 05:07] LABS: HCV Antibody Non Reactive (Non Reactive)
== END 2023-06-28 08:59 | disposition home or self-care (01) ==
LOC: LAB 08:59
PROVIDERS: PCP Nurse Practitioner; Visit Provider Nurse Practitioner
DX: I12.9 Hypertensive chronic kidney disease with stage 1 through stage 4 chronic kidney disease, or unspecified chronic kidney disease (principal); N18.30 Chronic kidney disease, stage 3 unspecified; E11.9 Type 2 diabetes mellitus without complications; Z11.59 Encounter for screening for other viral diseases; Z91.89 Other specified personal risk factors, not elsewhere classified
CPT/HCPCS: 36415; 80048; 83036; 86803

== ENCOUNTER 2023-10-02 08:55 | Outpatient (OUT) | payer MEDICARE, SELFPAY ==
--- NOTE | 2023-10-02 09:08 | XR_ITS ---
The [address] [address] Patient Name: ANGELA ROBB MRN: [id number] date: 1945 Sex: F Assigned Patient Location: LAB Current Patient Location: Accession/Order Number: [id number] Exam Date: 10/02/2023 09:15 Report Date: 10/03/2023 06:01 At the request of: RADHA KNOTT Procedure: XR hip LT min 2V PROCEDURE: XR hip LT min 2V HISTORY: Left Hip Pain M25.552 COMPARISON: None. FINDINGS: BONES:No fracture, acute abnormality, or significant arthropathy of the left hip joint. Irregular sclerosis of right margin of the symphysis pubis.. SOFT TISSUES:No visible soft tissue swelling. EFFUSION:None visible. OTHER: Negative. XR/XR hip LT min 2V IMPRESSION: 1. No acute bone abnormality or significant degenerative changes of the left hip joint. 2. Irregularity and sclerosis of right symphysis, incompletely evaluated on today's study. Radiographs of the pelvis recommended for further evaluation. Electronically authenticated by: JELANI FAIR Date: 10/03/2023 06:01
[2023-10-02 09:59] LABS: Anion Gap 13.7; BUN Creatinine Ratio 18.3; Calcium 9.1 mg/dL (8.5-10.1); Carbon Dioxide 24.3 mmol/L (21.0-32.0); Chloride 107 mmol/L (98-107); Estimated GFR (African America 55 (>=60); Estimated GFR (Non-African Ame 46 (>=60); Glucose 128 mg/dL (74-106); Sodium 140 mmol/L (136-145)
== END 2023-10-02 08:56 | disposition home or self-care (01) ==
LOC: LAB 08:57
PROVIDERS: PCP Nurse Practitioner; Visit Provider Nurse Practitioner
DX: E11.22 Type 2 diabetes mellitus with diabetic chronic kidney disease (principal); N18.31 Chronic kidney disease, stage 3a
CPT/HCPCS: 36415; 73502; 80048

== ENCOUNTER 2023-10-09 09:00 | Outpatient (OUT) | payer MEDICARE, SELFPAY ==
--- NOTE | 2023-10-09 | XR_ITS ---
The [address] [address] Patient Name: ANGELA ROBB MRN: [id number] date: 1945 Sex: F Assigned Patient Location: [facility] Current Patient Location: Accession/Order Number: [id number] Exam Date: 10/09/2023 09:25 Report Date: 10/10/2023 06:57 At the request of: RADHA KNOTT Procedure: XR pelvis min 3V PROCEDURE: XR pelvis min 3V HISTORY: left hip pain COMPARISON: XR hip left 10/02/2023, XR hip right 07/05/2022 FINDINGS: BONES:Fracture of the superior and inferior RIGHT pubic rami. Disruption of the symphysis pubis with 8 mm anterior offset of the right symphysis compared to the left, with adjacent bone fragments. SOFT TISSUES:No visible soft tissue swelling. EFFUSION:None visible. OTHER: Negative. XR/XR pelvis min 3V IMPRESSION: 1. History states LEFT hip pain. No appreciable acute abnormality or significant degenerative changes of the left hip. 2. Disruption of the symphysis pubis without appreciable widening of the sacroiliac joints or fracture of the posterior pelvis. 3. Fracture of the superior and inferior RIGHT pubic rami. Findings are age indeterminant, but are new compared to 07/05/2022. Sclerosis within these regions suggests subacute to chronic. Electronically authenticated by: JELANI FAIR Date: 10/10/2023 06:57
--- OUTSIDE RECORDS SUMMARY | 2023-10-09 09:08 | XMS_ITS | CCD ---
Author Organization [facility] Care Team Providers Care Ship Cleaner Name Role Phone JACE CABAN Unavailable Unavailable JOSÉ LUIS HORAN Unavailable Unavailable José Luis Horan Primary Care Unavailable Eddy Rapp Attending Unavailable REQUEST, DR TONI LISTED Primary Care Unavaila ble PAY ., DR MANDUJANO Admitting Unavailable PAY ., DR MANDUJANO Consulting Unavailable PAY ., DR MANDUJANO Attending Unavailable AICHHOLZ, GIRISH LAKSHMI Admitting Unavailable AICHHOLZ, GIRISH LAKSHMI Primary Care Unavailable AICHHOLZ, GIRISH LAKSHMI Attending Unavailable WEST, DR BLOSSOM Diaz Consulting Unavailable AICHHOLZ, GIRISH GARCIA Consulting Unavailable HOY ., DR ORDONEZ Admitting Unavailable HOY ., DR ORDONEZ Primary Care Unavailable HOY ., DR ORDONEZ Consulting Unavailable HOY ., DR ORDONEZ Attending Unavailable WEST, DR BLOSSOM Diaz Consulting Unavailable Avinash Blair MD Primary Care Provider [phone] AICHHOLZ LAKSHMI Attending Unavailable AICHHOLZ, LAKSHMI Attending [...] Onset: 07-06-2022 Episodic Other aftercare (1 source) 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; Translations: [RESIDENTIAL CURRENT USE OF ASPIRIN] Onset: 05-09-2022 Episodic Other aftercare (1 source) Other longterm (current) drug therapy; Translations: [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 Ryan Martin Basophils/100 WBC (Bld) 0.3 % Normal 0.2-2.0 [facility] Comment on above: Performed By: #### C MP, TSH, LIPID, FT3 #### [facility] [address] [address] [address] Ryan Martin EO # 0.1 103/ul Normal 0.0-0.7 [facility] Comment on above: Performed By: #### C MP, TSH, LIPID, FT3 #### [facility] [address] [place] [address] Dr. Ryan Martin Eosinophils/100 WBC (Bld) 1.6 % Normal 0.9-7.0 [facility] Comment on above: Performed By: #### C MP, TSH, LIPID, FT3 #### [facility] [address] [place] [address] Dr. Ryan Martin Erythrocyte distribution width (RBC) [Ratio] 13.6 % Normal 11.0-15.0 [facility] Comment on above: Performed By: #### C MP, TSH, LIPID, FT3 #### [facility] [address] [place] [address] Dr. Ryan Martin Hematocrit (Bld) [Volume fraction] 34.7 % Critically low 36.0-48.0 [facility] Comment on above: Performed By: #### C MP, TSH, LIPID, FT3 #### [facility] [address] [place] [address] Dr. Ryan Martin Hemoglobin (Bld) [Mass/Vol] 12.1 g/dL Normal 12.0-16.0 [facility] Comment on above: Performed By: #### C MP, TSH, LIPID, FT3 #### [facility] [address] [place] [address] Dr. Ryan Martin IG # 0.02 10e3/ul Normal 0.00-0.03 [facility] Comment on above: Performed By: #### C MP, TSH, LIPID, FT3 #### [facility] [address] [place] [address] Dr. Ryan Martin IG % 0.3 % Normal 0.0-0.5 [facility] Comment on above: Performed By: #### C MP, TSH, LIPID, FT3 #### [facility] [address] [place] [address] Dr. Ryan Martin LYMPH # 1.1 103/ul Critically low 1.2-3.8 [facility] Comment on above: Performed By: #### C MP, TSH, LIPID, FT3 #### [facility] [address] [place] [address] Dr. Ryan Martin Lymphocytes/100 WBC (Bld) 14.7 % Critically low 20.5-60.0 [facility] Comment on above: Performed By: #### C MP, TSH, LIPID, FT3 #### [facility] [address] [place] [address] Dr. Ryan Martin MANUAL DIFF REQ NO Normal [facility] Comment on above: Performed By: #### C MP, TSH, LIPID, FT3 #### [facility] [address] [place] [address] Dr. Ryan Martin MCH (RBC) [Entitic mass] 31.4 pg Normal 26.7-34.0 [facility] Comment on above: Performed By: #### C MP, TSH, LIPID, FT3 #### [facility] [address] [place] [address] Dr. Ryan Martin MCHC (RBC) [Mass/Vol] 34.9 g/dL Normal 29.9-35.2 [facility] Comment on above: Performed By: #### C MP, TSH, LIPID, FT3 #### [facility] [address] [place] [address] Dr. Ryan Martin MCV (RBC) [Entitic vol] 90.1 fL Normal 81.0-99.0 [facility] Comment on above: Performed By: #### C MP, TSH, LIPID, FT3 #### [facility] [address] [place] [address] Dr. Ryan Martin MONO # 0.5 103/ul Normal 0.3-0.8 [facility] Comment on above: Performed By: #### C MP, TSH, LIPID, FT3 #### [facility] [address] [place] [address] Dr. Ryan Martin Monocytes/100 WBC (Bld) 6.4 % Normal 1.7-12.0 [facility] Comment on above: Performed By: #### C MP, TSH, LIPID, FT3 #### [facility] [address] [place] [address] Dr. Ryan Martin NEUT # 5.9 103/ul Normal 1.4-6.5 [facility] Comment on above: Performed By: #### C MP, TSH, LIPID, FT3 #### [facility] [address] [place] [address] Dr. Ryan Martin Neutrophils/100 WBC (Bld) 76.7 % Critically high 43.0-75.0 [facility] Comment on above: Performed By: #### C MP, TSH, LIPID, FT3 #### [facility] [address] [place] [address] Dr. Ryan Martin Platelet mean volume (Bld) [Entitic vol] 9.4 fL Critically low 9.5-13.5 [facility] Comment on above: Performed By: #### C MP, TSH, LIPID, FT3 #### [facility] [address] [place] [address] Dr. Ryan Martin PLT 277 103/ul Normal 150-450 [facility] Comment on above: Performed By: #### C MP, TSH, LIPID, FT3 #### [facility] [address] [place] [address] Dr. Ryan Martin RBC 3.85 106/ul Critically low 4.20-5.40 [facility] Comment on above: Performed By: #### C MP, TSH, LIPID, FT3 #### [facility] [address] [place] [address] Dr. Ryan Martin WBC 7.6 103/ul Normal 4.0-11.0 [facility] Comment on above: Performed By: #### C MP, TSH, LIPID, FT3 #### [facility] [address] [place] [address] Dr. Ryan Martin FREE T3on 07-05-2022 FREE T3 2.04 pg/mlL Critically low 2.18-3.98 [facility] Comment on above: Performed By: #### C MP, TSH, LIPID, FT3 #### [facility] [address] [place] [address] Dr. Ryan Martin FREE T4on 07-05-2022 Free T4 [Mass/Vol] 1.14 ng/dL Normal 0.76-1.46 [facility] Comment on above: Performed By: #### C MP, TSH, LIPID, FT3 #### [facility] [address] [address] [address] Ryan Martin GLYCOHEMOGLOBIN A1Con 2022 ADA RECOMMENDATION SEE BELOW Normal [facility] Comment on above: Result Comment: ADA RECOMMENDED LIMIT 4.0 - 6.0 ADA THERAPEUTIC TARGET < 7.0 ACTION SUGGESTED > 7.0 Performed By: #### A 1C #### [facility] [address] [address] [address] Ryan Martin Glucose [Mass/Vol] 105 mg/dL Normal [facility] Comment on above: Performed By: #### A 1C #### [facility] [address] [address] [address] Ryan Martin HbA1c (Bld) [Mass fraction] 5.3 % Normal 4.5-6.2 [facility] Comment on above: Performed By: #### A 1C #### [facility] [address] [address] [address] Ryan Martin LIPID PROFILEon 07-05-2022 CHOL-HDL RATIO NORM SEE BELOW Normal [facility] Comment on above: Result Comment: 3.3 - 4.4 LOW RISK 4.4 - 7.1 AVERAGE RISK 7.1 - 11.0 MODERATE RISK >11.0 HIGH RISK Performed By: #### C MP, TSH, LIPID, FT3 #### [facility] [address] [address] [address] Ryan Martin Cholesterol [Mass/Vol] 159 mg/dL Normal <=200 [facility] Comment on above: Performed By: #### C MP, TSH, LIPID, FT3 #### [facility] [address] [address] [address] Ryan Martin Cholesterol in HDL [Mass/Vol] 87 mg/dL Critically high 40-60 [facility] Comment on above: Performed By: #### C MP, TSH, LIPID, FT3 #### [facility] [address] [address] [address] Ryan Martin Cholesterol in LDL [Mass/Vol] 57.2 mg/dL Normal [facility] Comment on above: Performed By: #### C MP, TSH, LIPID, FT3 #### [facility] [address] [address] [address] Ryan Martin Cholesterol.total/Ch olesterol in HDL [Mass ratio] 1.8 {ratio} Normal [facility] Comment on above: Performed By: #### C MP, TSH, LIPID, FT3 #### [facility] [address] [address] [address] Ryan Martin HDL NORMAL > or = 60 mg/dl - LO W CARDIOVASCULAR RISK <40 mg/dl - HIGH CARDIOVASCULAR RISK Normal [facility] Comment on above: Performed By: #### C MP, TSH, LIPID, FT3 #### [facility] [address] [place] [address] Dr. Ryan Martin LDL CALC NORMAL SEE BELOW Normal [facility] Comment on above: Result Comment: <100 mg/dl OPTIMAL 100 - 129 mg/dl NEAR OR ABOVE OPTIMAL 130 - 159 mg/dl BORDERLINE HIGH 160 - 189 mg/dl HIGH >190 mg/dl VERY HIGH Performed By: #### C MP, TSH, LIPID, FT3 #### [facility] [address] [address] [address] Ryan Martin Triglyceride [Mass/Vol] 74 mg/dL Normal <=150 [facility] Comment on above: Performed By: #### C MP, TSH, LIPID, FT3 #### [facility] [address] [address] [address] Ryan Martin VLDL CALC 14.8 mg/dL Normal [facility] Comment on above: Performed By: #### C MP, TSH, LIPID, FT3 #### [facility] [address] [place] [address] Dr. Ryan Martin MICROALBUMIN, RAND URon 05-3 0-2022 mALB <1.3 Normal <=30.0 [facility] Comment on above: Performed By: #### C MP, TSH, LIPID, FT3 #### [facility] [address] [place] [address] Dr. Ryan Martin PROF 14(COMP METB)on 023 Albumin [Mass/Vol] 4.2 g/dL Normal 3.4-5.0 [facility] Comment on above: Performed By: #### C MP, TSH, LIPID, FT3 #### [facility] [address] [place] [address] Dr. Ryan Martin Albumin/Globulin [Mass ratio] 0.9 {ratio} Normal [facility] Comment on above: Performed By: #### C MP, TSH, LIPID, FT3 #### [facility] [address] [place] [address] Dr. Ryan Martin ALP [Catalytic activity/Vol] 93 U/L Normal 46-116 [facility] Comment on above: Performed By: #### C MP, TSH, LIPID, FT3 #### [facility] [address] [place] [address] Dr. Ryan Martin ALT [Catalytic activity/Vol] 21 U/L Normal 14-59 [facility] Comment on above: Performed By: #### C MP, TSH, LIPID, FT3 #### [facility] [address] [place] [address] Dr. Ryan Martin Anion gap [Moles/Vol] 15.4 mmol/L Normal [facility] Comment on above: Performed By: #### C MP, TSH, LIPID, FT3 #### [facility] [address] [place] [address] Dr. Ryan Martin AST [Catalytic activity/Vol] 21 U/L Normal 15-37 [facility] Comment on above: Performed By: #### C MP, TSH, LIPID, FT3 #### [facility] [address] [place] [address] Dr. Ryan Martin Bilirubin [Mass/Vol] 0.7 mg/dL Normal 0.2-1.0 [facility] Comment on above: Performed By: #### C MP, TSH, LIPID, FT3 #### [facility] [address] [address] [address] Ryan Martin Calcium [Mass/Vol] 9.9 mg/dL Normal 8.5-10.1 [facility] Comment on above: Performed By: #### C MP, TSH, LIPID, FT3 #### [facility] [address] [address] [address] Ryan Martin Chloride [Moles/Vol] 101 mmol/L Normal 98-107 [facility] Comment on above: Performed By: #### C MP, TSH, LIPID, FT3 #### [facility] [address] [address] [address] Ryan Martin CO2 [Moles/Vol] 26.7 mmol/L Normal 21.0-32.0 [facility] Comment on above: Performed By: #### C MP, TSH, LIPID, FT3 #### [facility] [address] [place] [address] Dr. Ryan Martin Creatinine [Mass/Vol] 1.13 mg/dL Critically high 0.55-1.02 [facility] Comment on above: Performed By: #### C MP, TSH, LIPID, FT3 #### [facility] [address] [address] [address] Ryan Martin EGFR-AF FIJIAN 57 mL/min/1.73m2 Critically low >=60 [facility] Comment on above: Performed By: #### C MP, TSH, LIPID, FT3 #### [facility] [address] [address] [address] Ryan Martin EGFR-NON AF FIJIAN 47 mL/min/1.73m2 Critically low >=60 [facility] Comment on above: Performed By: #### C MP, TSH, LIPID, FT3 #### [facility] [address] [address] [address] Ryan Martin Globulin (S) [Mass/Vol] 4.5 g/dL Normal [facility] Comment on above: Performed By: #### C MP, TSH, LIPID, FT3 #### [facility] [address] [address] [address] Ryan Martin Glucose [Mass/Vol] 119 mg/dL Critically high 74-106 [facility] Comment on above: Performed By: #### C MP, TSH, LIPID, FT3 #### [facility] [address] [place] [address] Dr. Ryan Martin Potassium [Moles/Vol] 5.1 mmol/L Normal 3.5-5.1 [facility] Comment on above: Performed By: #### C MP, TSH, LIPID, FT3 #### [facility] [address] [place] [address] Dr. Ryan Martin Protein [Mass/Vol] 8.7 g/dL Critically high 6.4-8.2 [facility] Comment on above: Performed By: #### C MP, TSH, LIPID, FT3 #### [facility] [address] [place] [address] Dr. Ryan Martin Sodium [Moles/Vol] 138 mmol/L Normal 136-145 [facility] Comment on above: Performed By: #### C MP, TSH, LIPID, FT3 #### [facility] [address] [place] [address] Dr. Ryan Martin Urea nitrogen [Mass/Vol] 17.0 mg/dL Normal 7.0-18.0 [facility] Comment on above: Performed By: #### C MP, TSH, LIPID, FT3 #### [facility] [address] [place] [address] Dr. Ryan Martin Urea nitrogen/Creatinine [Mass ratio] 15.0 mg/mg Normal [facility] Comment on above: Performed By: #### C MP, TSH, LIPID, FT3 #### [facility] [address] [place] [address] Dr. Ryan Martin TSHon 07-05-2022 TSH 5.282 uIU/mL Critically high 0.358-3.740 [facility] Comment on above: Performed By: #### C MP, TSH, LIPID, FT3 #### [facility] [address] [place] [address] Dr. Ryan Martin UA RANDOM W/MICROSCOPICon BACTERIA TRACE Abnormal NONE SEEN [facility] Comment on above: Performed By: #### U AMIC #### [facility] [address] [address] [address] Ryan Martin Bilirubin Ql (U) Negative Normal NEGATIVE [facility] Comment on above: Performed By: #### U AMIC #### [facility] [address] [address] [address] Ryan Martin CAST NONE SEEN Normal NONE SEEN [facility] Comment on above: Performed By: #### U AMIC #### [facility] [address] [address] [address] Ryan Martin Clarity (U) CLEAR Normal CLEAR [facility] Comment on above: Performed By: #### U AMIC #### [facility] [address] [place] [address] Dr. Ryan Martin Color (U) LT. YELLOW Normal YELLOW [facility] Comment on above: Performed By: #### U AMIC #### [facility] [address] [address] [address] Ryan Martin Crystals LM Nom (Urine sed) NONE SEEN Normal NONE SEEN [facility] Comment on above: Performed By: #### U AMIC #### [facility] [address] [address] [address] Ryan Martin Epithelial cells LM Ql (Urine sed) RARE Normal NONE SEEN /RARE [facility] Comment on above: Performed By: #### U AMIC #### [facility] [address] [place] [address] Dr. Ryan Martin Glucose Ql (U) Negative Normal NEGATIVE [facility] Comment on above: Performed By: #### U AMIC #### [facility] [address] [address] [address] Ryan Martin Hemoglobin Ql (U) Negative Normal NEGATIVE [facility] Comment on above: Performed By: #### U AMIC #### [facility] [address] [address] [address] Ryan Martin Ketones Ql (U) Negative Normal NEGATIVE [facility] Comment on above: Performed By: #### U AMIC #### [facility] [address] [address] [address] Ryan Martin LEUKOCYTES TRACE Abnormal NEGATIVE [facility] Comment on above: Performed By: #### U AMIC #### [facility] [address] [address] [address] Ryan Martin MUCOUS NONE SEEN Normal NONE SEEN [facility] Comment on above: Performed By: #### U AMIC #### [facility] [address] [address] [address] Ryan Martin Nitrite Ql (U) Negative Normal NEGATIVE [facility] Comment on above: Performed By: #### U AMIC #### [facility] [address] [address] [address] Ryan Martin pH (U) 6.0 [pH] Normal 5-9 [facility] Comment on above: Performed By: #### U AMIC #### [facility] [address] [place] [address] Dr. Ryan Martin RBC 0-2 Normal 0-2 [facility] Comment on above: Performed By: #### U AMIC #### [facility] [address] [address] [address] Ryan Martin SPEC GRAVITY 1.010 Normal 1.005-<=1.025 [facility] Comment on above: Performed By: #### U AMIC #### [facility] [address] [place] [address] Dr. Ryan Martin UA PROTEIN Negative Normal NEGATIVE/ TRACE [facility] Comment on above: Performed By: #### U AMIC #### [facility] [address] [place] [address] Dr. Ryan Martin Urobilinogen Qn (U) 0.2 {Michelle'U}/dL Normal 0.2 - 1. 0 [facility] Comment on above: Performed By: #### U AMIC #### [facility] [address] [address] [address] Ryan Martin WBC 2-5 Abnormal NONE SEEN [facility] Comment on above: Performed By: #### U AMIC #### [facility] [address] [address] [address] Ryan Martin XR LSPINE 2_3 VIEWSon [...] BLOSSOM QUIROZ Date: 2022-07-05 13:11 Normal [facility] MAMM SCREEN 3D JESSE CADon 12-09-2021 MG MAMM SCREEN 3D JESSE CAD Patient: SHELLEY SANCHEZ Exam Date: 12/09/2021 : 1945 Gender:F Ordering : DR JOSÉ LUIS HORAN . Admission #: [id number] Family : Order #: [id number] CLICK HERE TO VIEW EXAM RADIOLOGY REPORT PROCEDURE: MAMMOGRAM SCREENING 3D BILATERAL CAD COMPARISON: MAMM SCREEN 3D JESSE CAD, 11/19/2020. MG MAMM LT DIAG FU, 12/07/2020. INDICATIONS: Calculator Name NCI Breast Cancer Risk Assessment Tool 5 Year Breast Cancer Risk 1.50% Lifetime Breast Cancer Risk 3.10% Personal Breast Cancer No Personal Ovarian Cancer No Treatments None Family Cancers Cousin-maternal with breast cancer at age 35. LOCATION: [facility] BREAST COMPOSITION: Scattered areas fibroglandular density. FINDINGS: [...] Quiroz MD on 12/09/2021 at 13:38 Normal [facility] Ambulatory Clinical Summaryo n 06-30-2020 Ambulatory Clinical Summary {[id number]}CD:[id number] Normal [facility] Ambulatory Clinical Summary {[id number]}CD:[id number] Normal [facility] General Surgery Office/Clini c Noteon [...] Follow-up With When Contact Information SILKE RICE, Eddy Estrada, NANCY Only if needed [address] [place] [address]- Additional Instructions: Problem List/Past Medical [...] and Brother. Stroke: Mother and Father. [facility] Comment on above: Result Comment: Elec tronically Signed By: SILKE RICE, Eddy Gonzalez\Date and Time Signed: 06/30/20 14:15 EDT Outside Colonoscopyon 2020 Outside Colonoscopy [id number] .00CD:127 [facility] Pathology Noteon 06-19-2020 Pathology Note [id number] .00CD:127 [facility] Lab Reportson 06-15-2020 Lab Reports [id number] .00CD:127 [facility] Pre-Certification Formon Pre-Certification Form [id number] .00CD:127 [facility] Consent for Procedure/Surger yon 05-28-2020 Consent for Procedure/Surgery [id number] .00CD:127 [facility] Provider Letter FTon 05-28 Provider Letter [facility] [place] Horan, [facility] [place] [address] Re: SHELLEY SANCHEZ Date of : 1945 Thank you for your referral of Shelley Sanchez who was seen on consultation on May 27, 2020, for positive occult stool. A colonoscopy is planned. I have enclosed my consultation report for your review. I will be happy to follow Shelley. Sincerely, Eddy Hernandez MD General Surgery [facility] Ambulatory Clinical Summaryo n 05-27-2020 Ambulatory Clinical Summary {[id number] [facility] Physician Referralon 021 Physician Referral [id number]:127 Normal [facility] Basic Metabolic Panelon 02-0 Calcium mass conc 9.6 mg/dL Normal 8.2-10.2 [facility] Comment on above: Performed By: #### B MP, MG, TSH3 #### [facility] [address] Chloride molar conc 108 mmol/L Normal 95-114 [facility] Comment on above: Performed By: #### B MP, MG, TSH3 #### [facility] [address] CO2 molar conc 23.0 mmol/L Normal 22.0-30.0 [facility] Comment on above: Performed By: #### B MP, MG, TSH3 #### [facility] [address] Creatinine mass conc 58.3275790988 mg/dL Normal [facility] Comment on above: Performed By: #### B MP, MG, TSH3 #### [facility] [address] Creatinine mass conc 0.81 mg/dL Normal 0.44-1.03 [facility] Comment on above: Performed By: #### B MP, MG, TSH3 #### [facility] [address] Estimated GFR ( Delisa > 60 [facility] Comment on above: Result Comment: GFR estimated reference range: According to KDOQI guidelines, <60 ml/min/1.73m2 is sufficient to diagnose a patient with chronic kidney disease. Performed By: #### B MP, MG, TSH3 #### [facility] [address] [place] [address] [place] Estimated GFR (Non- Am > 60 [facility] Comment on above: Performed By: #### B MP, MG, TSH3 #### [facility] [address] [place] [address] [place] Glucose mass conc 143 mg/dL High 70-100 [facility] Comment on above: Result Comment: [place] Glucose Reference Range is dependent on time and content of last meal. Glucose of more than 200 mg/dL in a nonstressed, ambulatory subject supports the diagnosis of Diabetes Mellitus. ADA recommended reference range Performed By: #### B MP, MG, TSH3 #### [address] Potassium molar conc 4.1 mmol/L Normal 3.5-5.1 [facility] Comment on above: Performed By: #### B MP, MG, TSH3 #### [address] Sodium molar conc 141 mmol/L Normal 136-146 [facility] Comment on above: Performed By: #### B MP, MG, TSH3 #### [address] Urea nitrogen mass conc 24 mg/dL High 9-23 [facility] Comment on above: Performed By: #### B MP, MG, TSH3 #### [address] Complete Blood Count Auto Di ffon 03-17-2018 Basophils #/vol (Bld) 0.0 10*3/uL Normal 0.0-0.2 [facility] Comment on above: Result Comment: PERF ORMED BY: [place] [address] PATHOLOGIST EXHAUST MACHINE OPERATOR ONEL PLASENCIA M.D. Performed By: #### C BC, CK, CKMB, TROP, PT, PTT #### [address] Basophils/100 WBC (Bld) 0.5 % Normal . [facility] Comment on above: Performed By: #### C BC, CK, CKMB, TROP, PT, PTT #### [place] [address] [place] Eosinophils #/vol (Bld) 0.1 10*3/uL Normal 0.0-0.45 [facility] Comment on above: Performed By: #### C BC, CK, CKMB, TROP, PT, PTT #### [place] [address] [place] Eosinophils/100 WBC (Bld) 1.7 % Normal . [facility] Comment on above: Performed By: #### C BC, CK, CKMB, TROP, PT, PTT #### [address] Erythrocyte distribution width Ratio (RBC) 13.5 % Normal 11.9-15.3 [facility] Comment on above: Performed By: #### C BC, CK, CKMB, TROP, PT, PTT #### [address] Hematocrit Volume Fraction (Bld) 42.0 % Normal 34.0-46.4 [facility] Comment on above: Performed By: #### C BC, CK, CKMB, TROP, PT, PTT #### [address] Hemoglobin mass conc (Bld) 14.3 g/dL Normal 11.8-15.4 [facility] Comment on above: Performed By: #### C BC, CK, CKMB, TROP, PT, PTT #### [address] Lymphocytes #/vol (Bld) 2.2 10*3/uL Normal 1.00-4.8 [facility] Comment on above: Performed By: #### C BC, CK, CKMB, TROP, PT, PTT #### [address] Lymphocytes/100 WBC (Bld) 24.9 % Normal . [facility] Comment on above: Performed By: #### C BC, CK, CKMB, TROP, PT, PTT #### [address] MCH Entitic mass (RBC) 31.6 pg Normal 24.7-34.3 [facility] Comment on above: Performed By: #### C BC, CK, CKMB, TROP, PT, PTT #### [address] MCH Entitic mass (RBC) 34.1 g/dL Normal 32.0-35.0 [facility] Comment on above: Performed By: #### C BC, CK, CKMB, TROP, PT, PTT #### [facility] [address] [place] [address] MCV Entitic volume (RBC) 92.7 fL Normal 80-100 [facility] Comment on above: Performed By: #### C BC, CK, CKMB, TROP, PT, PTT #### [facility] [address] Monocytes #/vol (Bld) 0.9 10*3/uL High 0.0-0.8 [facility] Comment on above: Performed By: #### C BC, CK, CKMB, TROP, PT, PTT #### [address] Monocytes/100 WBC (Bld) 9.6 % Normal . [facility] Comment on above: Performed By: #### C BC, CK, CKMB, TROP, PT, PTT #### [address] Neutrophils #/vol (Bld) 5.7 10*3/uL Normal 1.8-7.7 [facility] Comment on above: Performed By: #### C BC, CK, CKMB, TROP, PT, PTT #### [address] Neutrophils/100 WBC (Bld) 63.3 % Normal . [facility] Comment on above: Performed By: #### C BC, CK, CKMB, TROP, PT, PTT #### [address] Nucleated RBC/100 WBC Ratio (Bld) 0.1 % High 0-0 [facility] Comment on above: Performed By: #### C BC, CK, CKMB, TROP, PT, PTT #### [address] Platelet mean volume Entitic volume (Bld) 8.5 fL Normal 6.3-10.7 [facility] Comment on above: Performed By: #### C BC, CK, CKMB, TROP, PT, PTT #### [facility] [address] Platelets #/vol (Bld) 258 10*3/uL Normal 150-450 [facility] Comment on above: Performed By: #### C BC, CK, CKMB, TROP, PT, PTT #### [facility] [address] RBC #/vol (Bld) 4.53 10*6/uL Normal 3.60-5.00 [facility] Comment on above: Performed By: #### C BC, CK, CKMB, TROP, PT, PTT #### [facility] [address] WBC #/vol (Bld) 9.0 10*3/uL Normal 4.5-11.0 [facility] Comment on above: Performed By: #### C BC, CK, CKMB, TROP, PT, PTT #### [address] Creatine Kinaseon 03-17-2018 CK enzyme act/vol 91 U/L Normal 22-269 [facility] Comment on above: Performed By: #### C BC, CK, CKMB, TROP, PT, PTT #### [address] Creatinine Kinase MBon 03-17 CK.MB mass conc 3.0 ng/mL High 0.00-2.50 [facility] Comment on above: Performed By: #### C BC, CK, CKMB, TROP, PT, PTT #### [address] CK.MB mass conc 2.8 ng/mL Normal 0.6-6.3 [facility] Comment on above: Performed By: #### C BC, CK, CKMB, TROP, PT, PTT #### [address] ECG 12 lead ECGon 03-17-2018 ECG 12 lead ECG [facility] [address] [place] [address] [place] [address] Electrocardiograph Report Signed Patient: Shelley Sanchez MR#: [id number] : 1945 Acct:[id number] Age/Sex: 72 / F ADM Date: 03/16/18 Loc: ER Room: Type: [employer] Attending Dr: Ordering Provider: Eddy Rapp MD [...] MD 03/16/18 2334 Signed By: 03/17/18 0641 [facility] Magnesiumon 03-17-2018 Magnesium mass conc 1.2 mg/dL Low 1.6-2.6 [facility] Comment on above: Performed By: #### B MP, MG, TSH3 #### [facility] [address] [place] [address] [place] Partial Thromboplastin Timeo n 03-17-2018 aPTT Coag time (Bld) 34.7 s Normal 23.0-35.0 [facility] Comment on above: Result Comment: PERF ORMED BY: [place] [address] PATHOLOGIST EXHAUST MACHINE OPERATOR ONEL PLASENCIA M.D. Performed By: #### C BC, CK, CKMB, TROP, PT, PTT #### [facility] [address] [place] [address] [place] Prothrombin Time INRon 03-17 INR Coag RelTime (PPP) 1.0 {INR} Normal [facility] Comment on above: Result Comment: INR [...] BC, CK, CKMB, TROP, PT, PTT #### [address] Prothrombin time (PT) Coag time (PPP) 11.0 s Normal 9.0-12.9 [facility] Comment on above: Performed By: #### C BC, CK, CKMB, TROP, PT, PTT #### [address] Thyroid Stimulating Hormoneo n 03-17-2018 Thyrotropin Qn 4.53 u[iU]/mL Normal 0.45-5.33 [facility] Comment on above: Result Comment: PERF ORMED BY: [place] [address] PATHOLOGIST EXHAUST MACHINE OPERATOR ONEL PLASENCIA M.D. Performed By: #### B MP, MG, TSH3 #### [address] Troponin I(TnI)on 03-17-2018 Troponin I.cardiac mass conc ng/mL Normal 0-0.02 [facility] Comment on above: Result Comment: [place] Cut off value > or equal to 0.03 ng/mL in conjunction with clinical conditions of myocardial infarction. (www.escardio.org/guidelines) PERFORMED BY: [place] [address] PATHOLOGIST EXHAUST MACHINE OPERATOR ONEL PLASENCIA M.D. Performed By: #### C BC, CK, CKMB, TROP, PT, PTT #### [address] XR chest 1V portableon 03-17 XR chest 1V portable [facility] [address] [place] [address] XRay Report Signed Patient: Shelley Sanchez MR#: [id number] : 1945 Acct:[id number] Age/Sex: 72 / F ADM Date: 03/16/18 Loc: ER Room: Type: [facility] ER Attending Dr: Ordering Provider: Eddy [...] Raymundo Nelson M.D.03/17/2018 9:07 AM Dictation Location: [facility] Transcribed By: [facility] 03/17/18906 Dictated By: Raymundo Nelson DO 03/17/18903 Signed By: 03/17/18 0907 [facility] Encounters Encounter Date Encounter Type Care Provider Facility Start: 09-26-2023 End: 09-26-2023 ambulatory LAKSHMI AICHHOLZ Not Available Start: 06-26-2023 End: 06-26-2023 ambulatory LAKSHMI AICHHOLZ Not Available Start: 03-28-2023 End: 03-28-2023 ambulatory LAKSHMI AICHHOLZ Not Available Start: 03-14-2023 Refill Lakshmi Aichholz DECORATOR MANNEQUIN Work Phone: [facility] Comment on above: Primary hypertension (CMS/HCC) (Primary Dx); Essential (primary) hypertension (CMS/HCC); Spondylosis without myelopathy or radiculopathy, lumbosacral region; Anxiety disorder, unspecified; Hypothyroidism, unspecified (CMS/HCC); Hypothyroidism, adult (CMS/HCC); Lumbar back pain; Anxiety Start: 02-20-2023 End: 02-20-2023 ambulatory LAKSHMI AICHHOLZ Not Available Start: 07-05-2022 End: 07-06-2022 ambulatory [employer] LAKSHMI AICHHOLZ Facility: Start: 05-06-2022 End: 05-06-[address] MUÑOZ LISTED REQUEST Facility:[facility] Start: 12-09-2021 End: 12-10-[address] JOSÉ LUIS HORAN . Facility: Start: 03-17-2018 End: 03-17-2018 Emergency department patient visit José Luis Horan Facility:[facility] Start: 08-01-2016 End: 08-03-2016 Ambulatory JACELAZ CABAN [facility] Plan of Treatment Date Care Activity Detail Author Start: 07-06-2023 Urine screening for protein Diabetes: Urine Protein Screening [facility] Start: 03-28-2023 End: 03-28-2023 Patient encounter procedure 03/28/2023 10:00 AM EST Office Visit [facility] [address] [place] [id number] Lakshmi Newell NP [address] [place] [id number] [facility] Start: 10-05-2022 Hemoglobin A1c measurement Diabetes: Hemoglobin A1C [facility] Start: 12-09-1955 Glaucoma screening Diabetes: R etinopathy Screening [facility] Start: 1945 Medicare Annual Well ness (AWV) Medicare Annual Wellness (AWV) [facility] Payers Date Payer Category Payer Medicare AETNA MEDICARE A DVANTAGE AETNA MEDICARE REPLACEMENT [id number] 2021-Present [address] [place] [address] [id number] 2018 Medicare [id number] 2018 Self-pay 2018 Unknown [id number] 1959 Medicare [id number] 1945 Unknown [id number] 1945 Unknown [id number] 1945 Unknown [id number] 1945 Unknown [id number] 1945 Unknown [id number] 1945 Unknown [id number] 1945 Unknown [id number] Unknown [id number] Social History Date Type Detail Facility Start: 02-20-2023 Tobacco smoking stat [facility] Ex-smoker [facility] History of tobacco use Current smoker [facility] History of tobacco use Cigarette Smoker [facility] Start: 02-20-2023 Tobacco use and exposure Smokeless t obacco non-user [facility] Start: 02-20-2023 Alcohol intake Ex-drinker (finding) [facility] Start: 02-20-2023 History of Social function [facility] Start: 02-20-2023 Tobacco use panel [facility] Start: 1945 Sex Assigned At Not on file N [facility] Clinical Note 07-05-2022 Note Date & [...] authenticated by: BLOSSOM QUIROZ Date: 2022-07-05 14:21 [facility] Clinical Note 07-05-2022 Note Date & Type Note Facility 07-05-2022 Note PROCEDURE: XR HIP RT 2 3V WO PELVIS COMPARISON: None. HISTORY: Low back pain FINDINGS: BONES:No acute fracture or dislocation. Joint space narrowing. SOFT TISSUES:Negative. No visible soft tissue swelling. EFFUSION:None visible. OTHER: Negative. IMPRESSION: Joint space narrowing Electronically authenticated by: BLOSSOM QUIROZ Date: 2022-07-05 14:20 [facility] Clinical Note 05-27-2020 Note Date & Type [...] Sister and Brother. Stroke: Mother and Father. [facility] Comment on above: Result Comment: [...] section and content) DATE CREATED AUTHOR 08/02/2017 [facility] DATE CREATED AUTHOR AUTHOR'S ORGANIZ ATION 03/28/2018 [facility] DATE CREATED AUTHOR AUTHOR'S ORGANIZ ATION 07/02/2020 [facility] DATE CREATED AUTHOR AUTHOR'S ORGANIZ ATION 07/15/2022 [facility] DATE CREATED AUTHOR AUTHOR'S ORGANIZ ATION 09/27/2023 [facility] Specialists EPIC Reason for Visit (unrecogniz ed section and content) Reason Comments Med Refill Care Teams (unrecognized sec tion and content) Ship Cleaner Relationship Specialty Start Date End Date Avinash [...] BE BASED ON THE PRIMARY CLINICAL RECORDS. [employer] provides no warranty or guarantee of the accuracy or completeness of information in this document.
== END 2023-10-09 09:01 | disposition home or self-care (01) ==
LOC: RAD 09:01
PROVIDERS: PCP Nurse Practitioner; Visit Provider Nurse Practitioner
DX: M25.552 Pain in left hip (principal); S32.591A Other specified fracture of right pubis, initial encounter for closed fracture
CPT/HCPCS: 72190

== ENCOUNTER 2024-01-22 10:23 | Outpatient (OUT) | payer MEDICARE, SELFPAY ==
[2024-01-22 11:03] LABS: Basophils Percent Auto 0.5 % (0.2-2.0); Eosinophils Absolute Auto 0.2 10^3/uL (0.0-0.7); Eosinophils Percent Auto 2.2 % (0.9-7.0); Hematocrit 34.8 % (36.0-48.0); Hemoglobin 11.9 g/dL (12.0-16.0); Immature Granulocytes Abs Auto 0.03 10^3/uL (0.00-0.03); Immature Granulocytes Pct Auto 0.4 % (0.0-0.5); Lymphocytes Absolute Auto 1.3 10^3/uL (1.2-3.8); Lymphocytes Percent Auto 17.9 % (20.5-60.0); Mean Corpuscular HGB Conc 34.2 g/dL (29.9-35.2); Mean Corpuscular Hemoglobin 31.1 pg (26.7-34.0); Mean Corpuscular Volume 90.9 fL (81.0-99.0); Mean Platelet Volume 9.8 fL (9.5-13.5); Monocytes Absolute Auto 0.7 10^3/uL (0.3-0.8); Monocytes Percent Auto 9.3 % (1.7-12.0); Neutrophils Absolute Auto 5.2 10^3/uL (1.4-6.5); Neutrophils Percent Auto 69.7 % (43.0-75.0); Platelet Count 328 10^3/uL (150-450); Red Blood Count 3.83 10^6/uL (4.20-5.40); Red Cell Distribution Width 14.1 % (11.0-15.0); White Blood Count 7.4 10^3/uL (4.0-11.0)
[2024-01-22 11:21] LABS: Alanine Aminotransferase 16 U/L (14-59); Albumin Level 3.9 g/dL (3.4-5.0); Alkaline Phosphatase 86 U/L (46-116); Anion Gap 12.9; Aspartate Amino Transferase 17 U/L (15-37); BUN Creatinine Ratio 16.1; Bilirubin Total 0.6 mg/dL (0.2-1.0); Calcium 9.3 mg/dL (8.5-10.1); Carbon Dioxide 27.4 mmol/L (21.0-32.0); Chloride 107 mmol/L (98-107); Cholesterol 158 mg/dL (<=200); Estimated GFR (African America 57 (>=60 mL/min/1.73m^2); Estimated GFR (Non-African Ame 47 (>=60 mL/min/1.73m^2); Globulin 3.8 g/dL; Glucose 117 mg/dL (74-106); HDL Cholesterol 81 mg/dL (40-60); Potassium 4.3 mmol/L (3.5-5.1); Sodium 143 mmol/L (136-145); Thyroid Stimulating Hormone 0.858 uIU/mL (0.358-3.740); Total Protein 7.7 g/dL (6.4-8.2); Triglycerides 76 mg/dL (<=150); VLDL CHOLESTEROL 15.2 mg/dL
[2024-01-22 11:23] LABS: Microalbumin Urine Random <1.3 mg/dL (<=30.0)
[2024-01-22 11:42] LABS: Bilirubin Urine NEGATIVE (NEGATIVE); Blood Urine NEGATIVE (NEGATIVE); Clarity Urine CLEAR (CLEAR); Color Urine LT. YELLOW (YELLOW); Glucose Urine UA NEGATIVE (NEGATIVE); Ketones Urine NEGATIVE (NEGATIVE); Leukocyte Esterase Urine NEGATIVE (NEGATIVE); Nitrite Urine NEGATIVE (NEGATIVE); Protein Urine NEGATIVE (NEG/TRACE); Specific Gravity Urine 1.015 (1.005-1.025); Urobilinogen Urine 0.2 EU/dL (0.2-1.0); pH Urine 6.5 (5.0-9.0)
[2024-01-22 11:43] LABS: Estimated Average Glucose 114 mg/dL; Glycohemoglobin A1C 5.6 % (4.5-6.2)
[2024-01-22 11:50] LABS: Free T4 1.16 ng/dL (0.76-1.46)
[2024-01-22 12:16] LABS: Urine Microscopic Indicated NO
== END 2024-01-22 10:24 | disposition home or self-care (01) ==
LOC: LAB 10:27
PROVIDERS: PCP Nurse Practitioner; Visit Provider Nurse Practitioner
DX: K21.9 Gastro-esophageal reflux disease without esophagitis (principal); N18.31 Chronic kidney disease, stage 3a; E11.9 Type 2 diabetes mellitus without complications; E78.00 Pure hypercholesterolemia, unspecified; E03.9 Hypothyroidism, unspecified; E61.1 Iron deficiency; M81.0 Age-related osteoporosis without current pathological fracture; I12.9 Hypertensive chronic kidney disease with stage 1 through stage 4 chronic kidney disease, or unspecified chronic kidney disease
CPT/HCPCS: 36415; 80053; 80061; 81003; 82043; 82306; 82570; 83036; 83540; 84439; 84443; 85025

== ENCOUNTER 2024-11-12 09:28 | Outpatient (OUT) | payer MEDICARE, SELFPAY ==
--- OUTSIDE RECORDS SUMMARY | 2024-11-12 09:33 | XMS_ITS | Encounter Summary ---
Author Organization [facility] Address [address] [place] [address] Care Team Providers Care Mold Maker Apprentice Name Role Phone Avinash Blair MD Primary Care Provider [phone] Avinash Blair MD Primary Care Provider [phone] Lakshmi Newell SANITATION SUPERINTENDENT Unavailable [phone] Encounter Details Date Type Department Care Team (Late st Contact Info) Description 02/19/2023 Abstract [facility] [address] [place] [address] Lakshmi Newell, MYLENE [address] [place] [address] Social History Tobacco Use Types Packs/Day Years Used Date Smoking Tobacco: Former Cigarettes Tobacco Cessation:Counseling Given: Not Answered Alcohol Use Standard Drinks/Week Comments Not Currently 0 (1 standard drink = 0.6 oz pur e alcohol) Comments Unknown Sex and Gender Information Value Date Recorded Sex Assigned at Not on file Legal Sex Female 6:49 PM EDT Gender Identity Not on file Sexual Orientation Not on file documented as of this encounter Plan of Treatment Not on file documented as of this encounter Visit Diagnoses Not on filedocumented in this encounter Care Teams Mold Maker Apprentice Relationship Specialty Start Date End Date Avinash Blair MD PCP - General Family Medicine 07/29/22 03/27/23 Avinash Blair MD PCP - General Family Medicine 03/28/23 Lakshmi Newell NP Nurse Practitioner Family Medicine 03/28/23 documented as of this encounter
--- OUTSIDE RECORDS SUMMARY | 2024-11-12 09:33 | XMS_ITS | Encounter Summary ---
Author Organization [facility] Address [address] [place] [address] Care Team Providers Care Hyster Driver Name Role Phone Avinash Blair MD Primary Care Provider [phone] Lakshmi Newell NP Unavailable [phone] Encounter Details Date Type Department Care Team (Late st Contact Info) Description 08/23/2024 External Result Encounter [facility] External Department Unsolicited Lakshmi Newell NP [address] [place] [address] Social History Tobacco Use Types Packs/Day Years Used Date Smoking Tobacco: Former Cigarettes Smokeless Tobacco: Never Alcohol Use Standard Drinks/Week Comments Not Currently 0 (1 standard drink = 0.6 oz pur e alcohol) Humiliation, Afraid, Rape, and Kick questionnair e Answer Date Recorded Within the last year, have y ou been afraid of your partner or ex-partner? No 03/28/2023 Within the last year, have y ou been humiliated or emotionally abused in other ways by your partner or ex-partner? No Within the last year, have y ou been kicked, hit, slapped, or otherwise physically hurt by your partner or ex-partner? No 03/28/2023 Within the last year, have y ou been raped or forced to have any kind of sexual activity by your partner or ex-partner? No 03/28/2023 Social Connection and Isolation Panel [NHANES] A nswer Date Recorded In a typical week, how many times do you talk on the phone with family, friends, or neighbors? Once a week 03/28/2023 How often do you get together with friends or re latives? Never 03/28/2023 How often do you attend uatsdin or shinto serv ices? Never 03/28/2023 Do you belong to any clubs o r organizations such as uatsdin groups, unions, fraternal or athletic groups, or school groups? No 03/28/2023 How often do you attend meet ings of the clubs or organizations you belong to? Never 03/28/2023 Are you , , di vorced, , never , or living with a partner? 03/28/2023 AUDIT-C Answer Date Recorded Q1: How often do you have a drink containing alcohol? Never 03/28/2023 Q2: How many drinks containi ng alcohol do you have on a typical day when you are drinking? Patient does not drink Q3: How often do you have si x or more drinks on one occasion? Never 03/28/2023 Overall Financial Resource Strain (CARDIA) Answe r Date Recorded How hard is it for you to pa y for the very basics like food, housing, medical care, and heating? Somewhat hard 03/28/2023 PHQ-2 Answer Date Recorded Patient Health Questionnaire-2 Score 0 07/11/2024 [facility] - Occupational Stress Questionnaire Answer Date Recorded Do you feel stress - tense, restless, nervous, or anxious, or unable to sleep at night because your mind is troubled all the time - these days? Not at all 03/28/2023 Exercise Vital Sign Answer Date Recorde d On average, how many days pe r week do you engage in moderate to strenuous exercise (like a brisk walk)? 0 days 03/28/2023 On average, how many minutes do you engage in exercise at this level? 0 min 03/28/2023 Hunger Vital Sign Answer Date Recorded Within the past 12 months, y ou worried that your food would run out before you got the money to buy more. Sometimes true Within the past 12 months, t he food you bought just didn't last and you didn't have money to get more. Sometimes true PRAPARE - Transportation Answer Date Re corded In the past 12 months, has l ack of transportation kept you from medical appointments or from getting medications? No 03/10 In the past 12 months, has l ack of transportation kept you from meetings, work, or from getting things needed for daily living? No 03/28/2023 Housing Stability Vital Sign Answer Robert e Recorded In the last 12 months, was t here a time when you were not able to pay the mortgage or rent on time? No 03/28/2023 In the last 12 months, how many places have you lived? 1 03/28/2023 In the last 12 months, was t here a time when you did not have a steady place to sleep or slept in a senior living (including now)? No 03/28/2023 Comments Unknown Sex and Gender Information Value Date Recorded Sex Assigned at Not on file Legal Sex Female 6:49 PM EDT Gender Identity Not on file Sexual Orientation Not on file documented as of this encounter Plan of Treatment Not on file documented as of this encounter Procedures Procedure Name Priority Date/Time Associated Diagnosis Comments BI MAMMOGRAM SCREENING TOMOSYNTHESIS BILATERAL 08/23/2024 2:33 PM EDT documented in this encounter Results * Bilateral screening mammogram with tomosynthesis (08/23/2024 2:33 PM EDT) Anatomical Region Laterality Modality Breast Bilateral Mammography 08/23/2024 2:33 PM EDT Impressions 08/23/2024 2:59 PM EDT NO MAMMOGRAPHIC EVIDENCE OF MALIGNANCY. ROUTINE FOLLOW-UP IS RECOMMENDED IN ONE YEAR. RESULT CODE: 1 Negative DENSITY CODE: 2 (approximately 25-50% glandular) There are scattered areas of fibroglandular density. FOLLOW UP: 1YR The false-negative rate of mammography is approximately 10-percent. Management of a palpable abnormality must be based on clinical grounds. Patient was entered into a reminder system with a target due date for the next mammogram. Impression dictated by: Francisco Eng M.D. 08/23/2024 2:57 PM Dictation Location: [id number] Dictated By: Francisco Eng MD 08/23/24 1433 Signed By: <Electronically signed by Francisco Eng MD in OV> 08/23/24 1457 Narrative 08/23/2024 2:59 PM EDT [facility] [address] [place] [address] Mammography Report Signed Patient: Shelley Sanchez MR#: [id number] 7 : 1945 Acct:[id number] Age/Sex: 78 / F Adm Date: 08/23/24 Loc: [place] Room: Type: REG CLI Attending Dr: Lakshmi Newell Ordering Provider: MAN Decker Date of Service: 08/23/24 Procedure(s): MM screening mammo BI w/CAD Accession Number(s): ([id number]) MM/MM screening mammo BI w/CAD: SCREENING Copies to: MD Lakshmi Gillespie, MAN CLINICAL DATA: Screening for malignancy. SCREENING MAMMOGRAM - FULL FIELD DIGITAL WITH TOMOSYNTHESIS AND CAD COMPARISON:Dating back to 2011 Tomosynthesis craniocaudal and mediolateral oblique views of both breasts were obtained using low- dose digital technique. This examination was reviewed with the aid of CAD. The breast tissue is composed of scattered fibroglandular densities. There are no dominant masses, typically malignant calcifications or architectural distortion. There has been no significant interval change. MM/MM screening mammo BI w/CAD Procedure Note Radiology, Radiologist, - 08/23/2024 [facility] [place] [address] Mammography Report Signed Patient: Shelley Sanchez CMR#: [id number] 7 : 1945cct:[id number] Age/Sex: 78 / FAdm Date: 08/23/24 Loc: [place] Room:Type: REG CLI Attending Dr: Lakshmi Newell Ordering Provider: MAN Decker Date of Service: 08/23/24 Procedure(s): MM screening mammo BI w/CAD Accession Number(s): ([id number]) MM/MM screening mammo BI w/CAD:SCREENING Copies to: MD Lakshmi Gillespie, NIB ADJUSTER-C CLINICAL DATA: Screening for malignancy. SCREENING MAMMOGRAM - FULL FIELD DIGITAL WITH TOMOSYNTHESIS AND CAD COMPARISON:Dating back to 2011 Tomosynthesis craniocaudal and mediolateral oblique views of both breastswere obtained using low- dose digital technique. This examination was reviewed with the aid ofCAD. The breast tissue is composed of scattered fibroglandular densities.There are no dominant masses, typically malignant calcifications or architectural distortion. There hasbeen no significant interval change. MM/MM screening mammo BI w/CAD IMPRESSION: NO MAMMOGRAPHIC EVIDENCE OF MALIGNANCY. ROUTINE FOLLOW-UP IS RECOMMENDED IN ONE YEAR. RESULT CODE: 1 Negative DENSITY CODE: 2 (approximately 25-50% glandular) There are scattered areasof fibroglandular density. FOLLOW UP: 1YR The false-negative rate of mammography is approximately 10-percent. Management of a palpable abnormality must be based on clinical grounds. Patient was entered into a reminder system with a target due date for thenext mammogram. Impression dictated by: Francisco Eng M.D. 08/23/2024 2:57 PM Dictation Location: [facility] Dictated By: Francisco Eng MD 08/23/24 1433 Signed By: <Electronically signed by Francisco Eng MD in OV> 08/23/24 1457 Lakshmi Newell NP IMG BI PROCEDURES Final Result documented in this encounter Visit Diagnoses Not on filedocumented in this encounter Additional Health Concerns Assessment Noted Time PHQ-9 Depression Total Score: 4 07/12/19 25 11:02 AM EDT documented as of this encounter Care Teams Hyster Driver Relationship Specialty Start Date End Date Avinash Blair MD PCP - General Family Medicine 03/28/23 Lakshmi Newell NP Nurse Practitioner Family Medicine 03/28/23 documented as of this encounter
--- OUTSIDE RECORDS SUMMARY | 2024-11-12 09:33 | XMS_ITS | Encounter Summary ---
Author Organization [facility] Address [address] [facility] [place] [address] Care Team Providers Care Restaurant Shift Supervisor Name Role Phone Avinash Blair MD Primary Care Provider [phone] Lakshim Newell NP Unavailable [phone] Encounter Details Date Type Department Care Team (Late st Contact Info) Description 12/25/2023 Orders Only [facility] [address] [place] [id number] Jama Horan MD [address] [place] [phone] Social History Tobacco Use Types Packs/Day Years [...] Never 03/28/2023 How often do you attend religion or orthodox serv ices? Never 03/28/2023 Do you belong to any clubs o r organizations such as religion groups, unions, fraternal or athletic groups, or [...] Date Recorded Patient Health Questionnaire-2 Score 0 09/26/2023 [facility] - Occupational Stress [...] place to sleep or slept in a fpc (including now)? No 03/28/2023 Comments Unknown Sex and Gender Information Value Date Recorded Sex Assigned at Not on file Legal Sex Female 6:49 PM EDT Gender Identity Not on file Sexual Orientation Not on file documented as of this encounter Plan of Treatment Not on file documented as of this encounter Procedures Procedure Name Priority Date/Time Associated Diagnosis Comments DEXA BONE DENSITY Routine 12/25/2023 10:14 AM EST documented in this encounter Results * DEXA bone density (12/25/2023 10:14 AM EST) Anatomical Region Laterality Modality Body Radiographic Erin ging Jama Horan MD IMG DXA PROCEDURES Final Result documented in this encounter Visit Diagnoses Not on filedocumented in this encounter Additional Health Concerns Assessment Noted Time PHQ-9 Depression Total Score: 2 03/28/19 10:15 AM EST documented as of this encounter Care Teams Restaurant Shift Supervisor Relationship Specialty Start Date End Date Avinash Blair MD PCP - General Family Medicine 03/28/23 Lakshmi Newell NP Nurse Practitioner Family Medicine 03/28/23 documented as of this encounter
--- OUTSIDE RECORDS SUMMARY | 2024-11-12 09:33 | XMS_ITS | Clinical Summary ---
Author Organization [facility] Address [address] [place] [address] Care Team Providers Care Advertising Director Name Role Phone Jama Horan MD Primary Care Provider [phone] Allergies No known active allergies Medications levothyroxine (SYNTHROID) 88 mcg tablet Take 88 mcg by mouth once daily. 5 Active OMEPRAZOLE ORAL Take 20 mg by mouth once daily. Active atorvastatin (LIPITOR) 40 mg tabletIndications:M ixed hyperlipidemia Take 1 tablet by mouth once daily. 30 tablet 11 5 Active metFORMIN (GLUCOPHAGE) 500 mg tablet Take 500 mg by mouth twice daily with meals. Active MULTIVITAMIN ORAL Take 1 tablet by mouth once daily. Active aspirin, enteric coated (ASPIRIN, ENTERIC COATED) 81 mg EC tablet Take 81 mg by mouth once daily. Active lisinopril 2.5 mg tablet Take 2.5 mg by mouth once daily. Active alendronate (FOSAMAX) 70 mg tablet Take 70 mg by mouth once each week. Active CALCIUM CARBONATE (CALCIUM 500 ORAL) Take 1 tablet by mouth once daily. Active Active Problems No known active problems Family History Medical History Relation Comments Heart Brother 2 Hypertension Brother 3 Diabetes Brother 4 Stroke Father Coronary Artery Disease Mother Diabetes Mother Stroke Mother Diabetes Sister 5 Heart Sister 6 Hypertension Sister 7 Relation Status Comments Brother 1 Alive Brother 2 Brother 3 Brother 4 Father Mother Sister 1 Alive Sister 2 Alive Sister 3 Sister 4 Alive Sister 5 Sister 6 Sister 7 Social History Tobacco Use Types Packs/Day Years Used Date Smoking Tobacco: Former Cigarettes Q uit: 02/06/1999 Alcohol Use Standard Drinks/Week Comments No 0 (1 standard drink = 0.6 oz pur e alcohol) Comments No Sex and Gender Information Value Date Recorded Sex Assigned at Not on file Legal Sex Female 3:29 PM EST Gender Identity Not on file Sexual Orientation Not on file Last Filed Vital Signs Vital Sign Reading Time Taken Comments Blood Pressure 154/74 08/01/2016 9:39 AM EDT Pulse 89 08/01/2016 9:39 AM EDT Temperature 36.2 C (97.1 F) 02/26/2015 2:19 PM EST Respiratory Rate 16 08/01/2016 9:39 AM EDT Oxygen Saturation 97% 08/01/2016 9:39 AM EDT Inhaled Oxygen Concentration - - Weight 61.8 kg (136 lb 3.2 oz) 01/27/2016 9:18 A M EST Height 157.5 cm (5' 2 ) 02/26/2015 2:19 PM EST Body Mass Index 24.91 02/26/2015 2:19 PM EST Plan of Treatment Health Maintenance Due Date Last Done Comments Anxiety Screening 12/09/1963 Depression Screening 12/09/1963 Hepatitis C Screening 12/09/1963 DTaP,Tdap,Td Vaccine (1 - Tdap) 1964 Diabetes Screening 1990 Pneumococcal Vaccine: 50+ (1 of 1 - PCV) 12/09/1995 Shingrix Vaccine (1 of 2) 12/09/1995 Bone Density Screening 2010 RSV Vaccine (1 - 1-dose 75+ series) 2020 Advance Directive Discussion 02/07/2024 Influenza Vaccine (#1) 2024 Insurance MEDICARE Member Subscriber Plan / Payer (Ef fective 2010-Present) Name:Shelley Sanchez Member ID:[id number] Relation to Subscriber:Self Name:Shelley Sanchez Subscriber ID:[id number] Payer ID:Not on file Group ID:Not on file Type:Medicare Address: [facility] [address] Care Teams Advertising Director Relationship Specialty Start Date End Date Jama Horan MD PCP - General Family Medicine 01/06/15
--- OUTSIDE RECORDS SUMMARY | 2024-11-12 09:33 | XMS_ITS | Encounter Summary ---
Author Organization [facility] Address [address] [facility] [place] [address] Care Team Providers Care Career Representative Name Role Phone Avinash Blair MD Primary Care Provider [phone] Lakshmi Newell NP Unavailable [phone] Encounter Details Date Type Department Care Team (Late st Contact Info) Description 07/11/2024 Orders Only [facility] [address] [place] [address] Lakshmi Newell, CHILD SUPPORT SPECIALIST [address] [place] [address] Social History Tobacco Use Types Packs/Day Years [...] Never 03/28/2023 How often do you attend adventism or mu-ism serv ices? Never 03/28/2023 Do you belong to any clubs o r organizations such as adventism groups, unions, fraternal or athletic groups, or [...] Recorded Patient Health Questionnaire-2 Score 0 07/11/2024 [facility] - Occupational [...] place to sleep or slept in a skilled nursing (including now)? No 03/28/2023 Comments Unknown Sex and Gender Information Value Date Recorded Sex Assigned at Not on file Legal Sex Female 6:49 PM EDT Gender Identity Not on file Sexual Orientation Not on file documented as of this encounter Functional Status * Over the past 2 weeks, how often have you been bothered by any of the following problems? Question Answer Date of Assessment Author Little interest or pleasure in doing things Not at all 07/11/2024 11:02 AM Sunil Arauz MA Feeling down, depressed, or hopeless Not at all 07/11/2024 11:02 AM Sunil Arauz MA Patient Health Questionnaire-2 Score 0 07/11/2024 11:02 AM Magnolia Arauz MA * Question Answer Date of Assessment Author Trouble falling or staying asleep, or sleeping too much Not at all 07/11/2024 11:02 AM Amanda Gutierrez MA Feeling tired or having little energy Several days 07/11/2024 11:02 AM Sunil Arauz MA Poor appetite or overeating Several days 07/11/2024 11 :02 AM Amanda Arauz MA Feeling bad about yourself - or that you are a failure or have let yourself or your family down Several days 07/11/2024 11:02 AM Sunil Arauz MA Trouble concentrating on things, such as reading the newspaper or watching television Not at all 07/11/2024 11:02 AM EDT Sunil Diaz MA Moving or speaking so slowly that other people could have noticed? Or the opposite - being so fidgety or restless that you have been moving around a lot more than usual. Several days 07/11/2024 11:02 AM EDT Sunil Diaz MA Thoughts that you would be better off or hurting yourself in some way Not at all 07/11/2024 11:02 AM EDT Comfort Diaz MA Patient Health Questionnaire-9 Score 4 07/11/2024 11:02 AM EDT Magnolia Diaz MA * How difficult have these problems made it for you to do your work, take care of things at home, or get along with other people? Answer Date of Assessment Author Not difficult at all 07/11/2024 11:02 AM EDT Amanda West MA documented as of this encounter Plan of Treatment Not on file documented as of this encounter Procedures Procedure Name Priority Date/Time Associated Diagnosis Comments MR LUMBAR SPINE WO CONTRAST Routine 07/11/2024 3:34 PM EDT documented in this encounter Results * MR lumbar spine wo contrast (07/11/2024 3:34 PM EDT) Anatomical Region Laterality Modality Spine, L-spine Magnetic Resonan ce Lakshmi Newell NP IMG MRI PROCEDURES Final Result documented in this encounter Visit Diagnoses Not on filedocumented in this encounter Additional Health Concerns Assessment Noted Time PHQ-9 Depression Total Score: 4 07/12/19 25 11:02 AM EDT documented as of this encounter Care Teams Career Representative Relationship Specialty Start Date End Date Avinash Blair MD PCP - General Family Medicine 03/28/23 Lakshmi Newell NP Nurse Practitioner Family Medicine 03/28/23 documented as of this encounter
--- OUTSIDE RECORDS SUMMARY | 2024-11-12 09:33 | XMS_ITS | Encounter Summary ---
Author Organization [facility] Address [address] [facility] [place] [address] Care Team Providers Care Solar Sales Associate Name Role Phone Avinash Blair MD Primary Care Provider [phone] Lakshmi Newell NP Unavailable [phone] Reason for Visit * Reason Comments Med Refill Encounter Details Date Type Department Care Team (Late st Contact Info) Description 12/17/2023 Refill [facility] [address] [place] [address] Lakshmi Newell, CUSTOMER ACQUISITION MANAGER [address] [place] [address] Primary hypertension Social History Tobacco Use Types Packs/Day Years [...] Never 03/28/2023 How often do you attend anglican or anglican serv ices? Never 03/28/2023 Do you belong to any clubs o r organizations such as anglican groups, unions, fraternal or athletic groups, or [...] Recorded Patient Health Questionnaire-2 Score 0 09/26/2023 [facility] Occupat ional Health - Occupational Stress [...] place to sleep or slept in a alf (including now)? No 03/28/2023 Comments Unknown Sex and Gender Information Value Date Recorded Sex Assigned at Not on file Legal Sex Female 6:49 PM EDT Gender Identity Not on file Sexual Orientation Not on file documented as of this encounter Miscellaneous Notes * Telephone Encounter - Lakshmi Newell NP - 12/17/2023 8:03 PM EST Please make sure pt has a fu appt in the next month with me LA documented in this encounter Plan of Treatment Not on file documented as of this encounter Visit Diagnoses Diagnosis Primary hypertension Unspecified essential hypertension documented in this encounter Additional Health Concerns Assessment Noted Time PHQ-9 Depression Total Score: 2 03/28/19 10:15 AM EST documented as of this encounter Care Teams Solar Sales Associate Relationship Specialty Start Date End Date Avinash Blair MD PCP - General Family Medicine 03/28/23 Lakshmi Newell NP Nurse Practitioner Family Medicine 03/28/23 documented as of this encounter
--- OUTSIDE RECORDS SUMMARY | 2024-11-12 09:34 | XMS_ITS | Encounter Summary ---
Author Organization [facility] Address [address] [place] [address] Care Team Providers Care Examination Grader Name Role Phone Avinash Blair MD Primary Care Provider [phone] Lakshmi Newell NP Unavailable [phone] Encounter Details Date Type Department Care Team (Late st Contact Info) Description 10/10/2023 Clinisync Result Encounter [facility] External Department Unsolicited Lakshmi Newell NP [address] [place] [address] Social History Tobacco Use Types Packs/Day Years [...] How often do you attend anglican or sabianism serv ices? Never 03/28/2023 Do you belong [...] Recorded Patient Health Questionnaire-2 Score 0 09/26/2023 [facility] - Occupational Stress Questionnaire Answer Date Recorded [...] place to sleep or slept in a [facility] (including now)? No 03/28/2023 Comments Unknown Sex and Gender Information Value Date Recorded Sex Assigned at Not on file Legal Sex Female 6:49 PM EDT Gender Identity Not on file Sexual Orientation Not on file documented as of this encounter Plan of Treatment Not on file documented as of this encounter Procedures Procedure Name Priority Date/Time Associated Diagnosis Comments XR PELVIS 3+ VIEWS 10/10/2023 6: 57 AM EDT documented in this encounter Results * XR pelvis 3+ views (10/10/2023 6:57 AM EDT) Anatomical Region Laterality Modality Body, Pelvis Radiographic Erin ging 10/10/2023 6:57 AM EDT Narrative 10/10/2023 6:59 AM EDT [address] [address] XRay Report Signed Patient: SHELLEY SANCHEZ MR#: [id number] : 1945 Acct:[id number] Age/Sex: 77 / F ADM Date: 10/09/23 Loc: RAD Attending Dr: Lakshmi Newell NP Ordering Physician: Lakshmi Newell NP Date of Service: 10/09/23 Procedure(s): XR pelvis min 3V Accession Number(s): [id number] cc: Lakshmi Newell NP [address] [address] Patient Name: SHELLEY SANCHEZ MRN: [id number] date: 1945 Sex: F Assigned Patient Location: [facility] Current Patient Location: Accession/Order Number: [id number] Exam Date: 10/09/2023 09:25 Report Date: 10/10/2023 06:57 At the request of: LAKSHMI NEWELL Procedure: XR pelvis min 3V PROCEDURE: XR pelvis min 3V HISTORY: left hip pain COMPARISON: XR hip left 10/02/2023, XR hip right 07/05/2022 FINDINGS: BONES:Fracture of the superior and inferior RIGHT pubic rami. Disruption of the symphysis pubis with 8 mm anterior offset of the right symphysis compared to the left, with adjacent bone fragments. SOFT TISSUES:No visible soft tissue swelling. EFFUSION:None visible. OTHER: Negative. XR/XR pelvis min 3V IMPRESSION: 1. History states LEFT hip pain. No appreciable acute abnormality or significant degenerative changes of the left hip. 2. Disruption of the symphysis pubis without appreciable widening of the sacroiliac joints or fracture of the posterior pelvis. 3. Fracture of the superior and inferior RIGHT pubic rami. Findings are age indeterminant, but are new compared to 07/05/2022. Sclerosis within these regions suggests subacute to chronic. Electronically authenticated by: JELANI HOPKINS Date: 10/10/2023 06:57 Dictated By: Jelani Hopkins M.D. Signed By: 10/10/23 0659 DD/ 0657 TD/TT: Communications Tech: Procedure Note Radiology, Radiologist, MD - 10/10/2023 [place] [address] XRay Report Signed Patient: SHELLEY SANCHEZ CMR#: [id number] : 1945cct:[id number] Age/Sex: 77 / FADM Date: 10/09/23 Loc: [facility] Attending Dr: Lakshmi Newell NP Ordering Physician: Lakshmi Newell NP Date of Service: 10/09/23 Procedure(s): XR pelvis min 3V Accession Number(s): [id number] cc: Lakshmi Newell NP [address] [place] [address] Patient Name: SHELLEY SANCHEZ MRN: [id number] date: 1945 Sex: F Assigned Patient Location: [facility] Current Patient Location: Accession/Order Number: [id number] Exam Date: 10/09/2023 09:25 Report Date: 10/10/2023 06:57 At the request of: LAKSHMI NEWELL Procedure: XR pelvis min 3V PROCEDURE: XR pelvis min 3V HISTORY: left hip pain COMPARISON: XR hip left 10/02/2023, XR hip right 07/05/2022 FINDINGS: BONES:Fracture of the superior and inferior RIGHT pubic rami. Disruptionof the symphysis pubis with 8 mm anterior offset of the right symphysis comparedto the left, with adjacent bone fragments. SOFT TISSUES:No visible soft tissue swelling. EFFUSION:None visible. OTHER: Negative. XR/XR pelvis min 3V IMPRESSION: 1. History states LEFT hip pain. No appreciable acute abnormality or significant degenerative changes of the left hip. 2. Disruption of the symphysis pubis without appreciable widening of the sacroiliac joints or fracture of the posterior pelvis. 3. Fracture of the superior and inferior RIGHT pubic rami. Findings areage indeterminant, but are new compared to 07/05/2022. Sclerosis within these regions suggests subacute to chronic. Electronically authenticated by: JELANI HOPKINS Date: 10/10/2023 06:57 Dictated By: Jelani Hopkins M.D. Signed By:10/10/23 0659 DD/ 0657 TD/TT: Communications Tech: us Lakshmi Newell NP IMG XR PROCEDURES Final Result documented in this encounter Visit Diagnoses Not on filedocumented in this encounter Additional Health Concerns Assessment Noted Time PHQ-9 Depression Total Score: 2 03/28/19 24 10:15 AM EST documented as of this encounter Care Teams Examination Grader Relationship Specialty Start Date End Date Avinash Blair MD PCP - General Family Medicine 03/28/23 Lakshmi Newell NP Nurse Practitioner Family Medicine 03/28/23 documented as of this encounter
--- OUTSIDE RECORDS SUMMARY | 2024-11-12 09:34 | XMS_ITS | Encounter Summary ---
Author Organization [facility] Address [address] [facility] [place] [address] Care Team Providers Care Hog Cooler Name Role Phone Avinash Blair MD Primary Care Provider [phone] Lakshmi Newell NP Unavailable [phone] Encounter Details Date Type Department Care Team (Late st Contact Info) Description 10/03/2023 Orders Only [facility] [address] [place] [address] Lakshmi Newell, [facility] [address] [place] [address] Social History Tobacco Use Types Packs/Day Years [...] Never 03/28/2023 How often do you attend mu-ism or alevism serv ices? Never 03/28/2023 Do you belong to any clubs o r organizations such as mu-ism groups, unions, fraternal or athletic groups, or [...] Recorded Patient Health Questionnaire-2 Score 0 09/26/2023 [facility] - Occupational [...] Name Priority Date/Time Associated Diagnosis Comments XR HIP 2-3 VIEWS LT WO OR W PELVIS Routine 10/03/2023 11:06 AM EDT documented in this encounter Results * XR HIP 2-3 VIEWS LT WO OR W PELVIS (10/03/2023 11:06 AM EDT) Anatomical Region Laterality Modality Radiographic Erin ging Lakshmi Newell NP IMG XR PROCEDURES Final Result documented in this encounter Visit Diagnoses Not on filedocumented in this encounter Additional Health Concerns Assessment Noted Time PHQ-9 Depression Total Score: 2 03/28/19 10:15 AM EST documented as of this encounter Care Teams Hog Cooler Relationship Specialty Start Date End Date Avinash Blair MD PCP - General Family Medicine 03/28/23 Lakshmi Newell NP Nurse Practitioner Family Medicine 03/28/23 documented as of this encounter
--- OUTSIDE RECORDS SUMMARY | 2024-11-12 09:34 | XMS_ITS | Encounter Summary ---
Author Organization [facility] Address [address] [facility] [place] [address] Care Team Providers Care Production Sorter Name Role Phone Avinash Blair MD Primary Care Provider [phone] Lakshmi Newell NP Unavailable [phone] Encounter Details Date Type Department Care Team (Late st Contact Info) Description 10/10/2023 Orders Only [facility] [address] [place] [address] Lakshmi Newell, DRESSMAKING TEACHER [address] [place] [address] Social History Tobacco Use Types Packs/Day Years [...] Never 03/28/2023 How often do you attend temple or samaritan serv ices? Never 03/28/2023 Do you belong to any clubs o r organizations such as temple groups, unions, fraternal or athletic groups, or [...] Recorded Patient Health Questionnaire-2 Score 0 09/26/2023 [facility] - Occupational [...] place to sleep or slept in a intermediate (including now)? No 03/28/2023 Comments Unknown Sex and Gender Information Value Date Recorded Sex Assigned at Not on file Legal Sex Female 6:49 PM EDT Gender Identity Not on file Sexual Orientation Not on file documented as of this encounter Plan of Treatment Not on file documented as of this encounter Procedures Procedure Name Priority Date/Time Associated Diagnosis Comments XR PELVIS 3+ VIEWS Routine 10/10/2023 10:40 AM EDT documented in this encounter Results * XR pelvis 3+ views (10/10/2023 10:40 AM EDT) Anatomical Region Laterality Modality Body, Pelvis Radiographic Erin ging Lakshmi Newell DRESSMAKING TEACHER IMG XR PROCEDURES Final Result documented in this encounter Visit Diagnoses Not on filedocumented in this encounter Additional Health Concerns Assessment Noted Time PHQ-9 Depression Total Score: 2 03/28/19 10:15 AM EST documented as of this encounter Care Teams Production Sorter Relationship Specialty Start Date End Date Avinash Blair MD PCP - General Family Medicine 03/28/23 Lakshmi Newell NP Nurse Practitioner Family Medicine 03/28/23 documented as of this encounter
--- OUTSIDE RECORDS SUMMARY | 2024-11-12 09:34 | XMS_ITS | Clinical Summary ---
Author Organization [facility] Healthcare Address [address] [place] [address] Care Team Providers Care Electromechanical Technician Name Role Phone Avinash Blair MD Primary Care Provider [phone] Lakshmi Newell NP Unavailable [phone] Allergies No known active allergies Medications aspirin 81 MG EC tablet Take 81 mg by mouth in the morning. Active acetaminophen (Tylenol) 325 MG tablet Take 325 mg by mouth in the morning and 325 mg before bedtime. Active Calcium Carb-Cholecalcife rol (CALCIUM 500 +D PO) Take 1,000 mg by mouth 1 (one) time each day Active latanoprost (Xalatan) 0.005 % ophthalmic solution INSTILL 1 DROP IN BOTH EYES ONCE DAILY AT BEDTIME 4 Active timolol (Timoptic) 0.5 % ophthalmic solution INSTILL 1 DROP IN THE RIGHT EYE TWICE DAILY 4 Active Propylene Glycol (SYSTANE BALANCE OP) Administer into affected eye(s) Active Multiple Vitamin (multivitamin) capsule Take 1 capsule by mouth Daily Active FeroSul 325 (65 Fe) MG tablet Take 325 mg by mouth in the morning. Take with meals. 5 Active amLODIPine (Norvasc) 10 MG tabletIndications :Primary hypertension Take 1 tablet (10 mg) by mouth Daily 90 tablet 5 Active carvedilol (Coreg) 25 MG tabletIndications :Essential (primary) hypertension Take 1 tablet (25 mg) by mouth in the morning and 1 tablet (25 mg) before bedtime. 180 tablet 5 Active alendronate (Fosamax) 70 MG tabletIndications :Age-related osteoporosis without current pathological fracture Take 1 tablet (70 mg) by mouth every 7 (seven) days Take in the morning with a full glass of water, on an empty stomach, and do not take anything else by mouth or lie down for the next 30 min. 12 tablet 5 Active DULoxetine (Cymbalta) [address] capsuleIndication s:Anxiety disorder, unspecified Take 1 capsule (30 mg) by mouth at bedtime 90 capsule 5 Active baclofen (Lioresal) 10 MG tabletIndications :Pain of left hip Take 1 tablet (10 mg) by mouth as needed at bedtime for muscle spasms 30 tablet 1 5 Active losartan (Cozaar) 100 MG tabletIndications :Essential (primary) hypertension Take 1 tablet (100 mg) by mouth Daily 90 tablet 1 5 Active metFORMIN (Glucophage) 500 MG tabletIndications :Type 2 diabetes mellitus without complications (HCC) Take 1 tablet (500 mg) by mouth in the morning and 1 tablet (500 mg) in the evening. Take with meals. 180 tablet 1 5 Active levothyroxine (Synthroid, Levoxyl) 100 MCG tabletIndications :Hypothyroidism, unspecified Take 1 tablet (100 mcg) by mouth Daily 90 tablet 5 12/15/19 25 Active omeprazole (PriLOSEC) [address] capsuleIndication s:Gastro-esophage al reflux disease without esophagitis Take 1 capsule (20 mg) by mouth in the morning. Take before meals. 90 capsule 5 12/15/19 25 Active atorvastatin (Lipitor) 80 MG tabletIndications :Hyperlipidemia, unspecified Take 1 tablet (80 mg) by mouth at bedtime 90 tablet 5 12/16/19 25 Active Active Problems Problem Noted Date Diagnosed Date Encounter for screening mamm ogram for malignant neoplasm of breast 07/11/2024 Right carotid bruit 12/27/2023 Overview (08/27/2024): Carotid US: 08/27/24 left stenosis 50-69%, placque bilat mild to mod Age-related osteoporosis wit hout current pathological fracture 12/22/2023 Overview (09/02/2024): DEXA scan: 2017: DEXA scan 12/2016 : spine -2.2 osteopenia, left femur: -0.8 DEXA scan 09/02/24 -1.3 Assessment & Plan (07/11/2024 6:40 AM EDT): Continue with fosamax daily Order DEXA Assessment & Plan (12/27/2023 2:26 PM EST): Continue with fosamax daily Order DEXA Closed fracture of multiple pubic rami Assessment & Plan (10/25/2023 11:32 AM EDT): Continue with ortho Type 2 diabetes mellitus wit h diabetic chronic kidney disease 09/26/2023 Assessment & Plan (07/11/2024 11:20 AM EDT): Check blood sugars daily, notify if <70 or >200. Take medications (pills or insulin) as directed. Monitor for s/s of hypoglycemia (sweaty, dizziness, nausea, vomiting, or shakiness). Watch for increase in thirst, urination, or appetite. Inspect feet frequently monitoring for open wounds , and also recommend yearly eye exam. Pt should attempt to remain as physically active as chronic conditions allow, as well as trying to follow a diet low in carbohydrates, and simple sugars. Current meds: asa, arb, metformin, statin A1c: 5.7% 07/11/24 Assessment & Plan (09/26/2023 9:34 AM EDT): No med changes Pain of left hip 09/26/2023 Assessment & Plan (10/25/2023 11:32 AM EDT): Continue with ortho for upcoming injection Assessment & Plan (09/26/2023 9:33 AM EDT): Check xray Would like to trial some baclofen for this Encounter for hepatitis C vi marilou screening test for high risk patient 06/26/2023 Other specified glaucoma 06/26/2023 Assessment & Plan (06/26/2023 9:36 AM EDT): Continue with eye doctor Lumbar spondylosis 06/26/2023 Assessment & Plan (06/26/2023 9:38 AM EDT): Recommend she go back to pain mgmt, she declines states cannot afford to go to PT, does not want to go back to pain mgmt , and doesn't want to go back to see neurosurgeon either At this point I do not have a lot to offer her for her symptoms She will continue on and if she changes her mind she will call the office Overweight (BMI 25.0-29.9) 06/26/2023 Hyperkalemia 04/07/2023 Carpal tunnel syndrome of right wrist 03/28/2023 Encounter for subsequent [facility] wellness visit (AWV) in Medicare patient 03/28/2023 Assessment & Plan (07/11/2024 6:42 AM EDT): Reviewed Ht/Wt/BMI Recommend eye exam yearly Recommend dental exams twice a year Exercises is recommended most days of the week (appropriate as chronic conditions allow) Follow up yearly and prn Assessment & Plan (03/28/2023 11:11 AM EST): Reviewed Ht/Wt/BMI Recommend eye exam yearly Recommend dental exams twice a year Exercises is recommended most days of the week (appropriate as chronic conditions allow) Follow up yearly and prn Chronic kidney disease, stage 3a 03/28/2023 Assessment & Plan (07/11/2024 6:40 AM EDT): Monitor labs Control BP Assessment & Plan (12/27/2023 7:40 AM EST): Monitor labs Assessment & Plan (09/26/2023 9:32 AM EDT): Check labs Assessment & Plan (09/26/2023 9:16 AM EDT): >>ASSESSMENT AND PLAN FOR STAGE 3A CHRONIC KIDNEY DISEASE (HCC) (CMS/HCC) WRITTEN ON 03/28/2023 11:10 AM BY LAKSHMI NEWELL NP Will recheck chem 8 in a few weeks Likely related to both DM, and HTN Sister with CKD no hx of DM Reviewed which meds may influence this, she has been trying to cut back on her meloxicam Assessment & Plan (09/26/2023 9:16 AM EDT): >>ASSESSMENT AND PLAN FOR STAGE 3A CHRONIC KIDNEY DISEASE (HCC) (CMS/HCC) WRITTEN ON 06/26/2023 9:36 AM BY LAKSHMI NEWELL NP Check chem 8 HTN (hypertension) 02/20/2023 Assessment & Plan (07/11/2024 6:40 AM EDT): White coat hypertensions Please check blood pressure daily and record DASH diet Limit caffeine Take medication as directed Contact office if chest pain, pressure, dizziness, shortness of breath, swelling legs Recommend slow position changes Current meds: carvedilol, losartan, amlodipine Assessment & Plan (12/27/2023 2:12 PM EST): White coat hypertensions Please check blood pressure daily and record DASH diet Limit caffeine Take medication as directed Contact office if chest pain, pressure, dizziness, shortness of breath, swelling legs Recommend slow position changes No dose changes Assessment & Plan (10/25/2023 11:32 AM EDT): Continue current meds No changes blood pressure is significantly improved Suspect LE edema secondary to Amlodipine Assessment & Plan (09/26/2023 9:35 AM EDT): Check labs Increase amlodipine to 10mg Fu in 4 weeks Cont home blood pressure checks Assessment & Plan (06/26/2023 9:35 AM EDT): Stable at this time, no changes with meds/doses Check chem 8 Assessment & Plan (03/28/2023 11:08 AM EST): Stable on current meds, no changes Assessment & Plan (02/20/2023 9:35 AM EST): Will increase amlodipine to 5mg daily Fu in 4 weeks for recheck Gastroesophageal reflux dise ase, unspecified whether esophagitis present 02/20/2023 Assessment & Plan (07/11/2024 6:40 AM EDT): Recommendations: freq small meals, nothing to eat or drink at least 2 hours prior to bed, limit caffeine, alcohol, as well as spicy foods Meds to limit or avoid if possible: NSAIDS Elevate HOB if possible Current meds: PPI Assessment & Plan (12/27/2023 7:40 AM EST): Recommendations: freq small meals, nothing to eat or drink at least 2 hours prior to bed, limit caffeine, alcohol, as well as spicy foods Meds to limit or avoid if possible: NSAIDS Elevate HOB if possible Iron deficiency 02/20/2023 Assessment & Plan (12/27/2023 2:13 PM EST): Check labs Hypothyroidism, adult 02/20/2023 Assessment & Plan (07/11/2024 6:41 AM EDT): Currently taking levothyroxine Check labs yearly, prn dose changes, or changes in sxs Assessment & Plan (12/27/2023 7:41 AM EST): Cont thyroid replacement Check labs Assessment & Plan (09/26/2023 9:33 AM EDT): ,continue meds Assessment & Plan (03/28/2023 11:10 AM EST): stable High cholesterol 02/20/2023 Assessment & Plan (07/11/2024 6:43 AM EDT): On statin therapy Check labs yearly and prn dose changes Assessment & Plan (12/27/2023 7:42 AM EST): Continue statin Check labs Anxiety 02/20/2023 Assessment & Plan (12/27/2023 7:42 AM EST): Continue current meds Assessment & Plan (02/20/2023 9:35 AM EST): Stable on current meds Lumbar back pain 02/20/2023 Assessment & Plan (02/20/2023 9:36 AM EST): Discussed concerns with meloxicam, can take daily prn if she would like to try Resolved Problems Problem Noted Date Diagnosed Date Resolved Date Type 2 diabetes mellitus 02/20/2023 Assessment & Plan (12/27/2023 7:41 AM EST): Check blood sugars daily, notify if <70 or >200. Take medications (pills or insulin) as directed. Monitor for s/s of hypoglycemia (sweaty, dizziness, nausea, vomiting, or shakiness). Watch for increase in thirst, urination, or appetite. Inspect feet frequently monitoring for open wounds , and also recommend yearly eye exam. Pt should attempt to remain as physically active as chronic conditions allow, as well as trying to follow a diet low in carbohydrates, and simple sugars. On statin, ARB, and ASA Assessment & Plan (06/26/2023 9:36 AM EDT): Check blood sugars daily, notify if <70 or >200. Take medications (pills or insulin) as directed. Monitor for s/s of hypoglycemia (sweaty, dizziness, nausea, vomiting, or shakiness). Watch for increase in thirst, urination, or appetite. Inspect feet frequently monitoring for open wounds , and also recommend yearly eye exam. Pt should attempt to remain as physically active as chronic conditions allow, as well as trying to follow a diet low in carbohydrates, and simple sugars. Check A1c test Fu in 3 months Assessment & Plan (03/28/2023 11:10 AM EST): Check blood sugars daily, notify if <70 or >200. Take medications (pills or insulin) as directed. Monitor for s/s of hypoglycemia (sweaty, dizziness, nausea, vomiting, or shakiness). Watch for increase in thirst, urination, or appetite. Inspect feet frequently monitoring for open wounds , and also recommend yearly eye exam. Pt should attempt to remain as physically active as chronic conditions allow, as well as trying to follow a diet low in carbohydrates, and simple sugars. Reviewed a1c Assessment & Plan (02/20/2023 9:35 AM EST): Check labs Check blood sugars daily, notify if <70 or >200. Take medications (pills or insulin) as directed. Monitor for s/s of hypoglycemia (sweaty, dizziness, nausea, vomiting, or shakiness). Watch for increase in thirst, urination, or appetite. Inspect feet frequently monitoring for open wounds , and also recommend yearly eye exam. Pt should attempt to remain as physically active as chronic conditions allow, as well as trying to follow a diet low in carbohydrates, and simple sugars. Encounters Date Type Department Care Team Description 09/30/2024 Abstract [facility] [address] [address] Lakshmi Newell NP 09/16/2024 Refill [facility] [address] [facility] [address] Avinash Blair MD Hyperlipidemia, unspecified 09/13/2024 Refill [facility] [address] [place] [place] [address] Lakshmi Newell NP Hypothyroidism, unspecified ; Gastro-esophageal reflux disease without esophagitis 09/02/2024 Orders Only [facility] [address] [place] [address] Lakshmi Newell NP 08/28/2024 Refill [facility] [address] [facility] [place] [address] Lakshmi Newell NP Hyperlipidemia, unspecified 08/27/2024 External Result Encounter [facility] External Department Unsolicited Lakshmi Newell NP 08/23/2024 External Result Encounter [facility] External Department Unsolicited Lakshmi Newell NP from Last 3 Months Immunizations Immunization Administration Dates Next Due Influenza, High Dose Seasona l, Preservative Free 11/29/2023,11/11/2019,11/03/2017,10/05 Influenza, High-dose Seasona l, Quadrivalent, Preservative Free 11/29/2022,11/19/2021 Influenza, injectable, quadr ivalent, preservative free 11/13/2017 Influenza, trivalent, adjuvanted 11/06/2020,11/06 Moderna SARS-CoV-2 Vaccination 04/09/2020 Pfizer Purple Cap SARS-CoV-2 Vaccination 04/14/2020 Pneumococcal Conjugate PCV 13 01/20/2018 Pneumococcal Polysaccharide PPSV23 05/09/2017, Family History Medical History Relation Name Comments Breast cancer Cousin Heart disease Father Hypertension Father Stroke Father Diabetes Mother Heart disease Mother Hypertension Mother Stroke Mother Relation Name Status Comments Cousin Father Mother Social History Tobacco Use Types Packs/Day Years Used Date Smoking Tobacco: Former Cigarettes Smokeless Tobacco: Never Tobacco Cessation:Counseling Given: Not Answered Alcohol Use [...] Never 03/28/2023 How often do you attend scientologist or sabianism serv ices? Never 03/28/2023 Do you belong to any clubs o r organizations such as scientologist groups, unions, fraternal or athletic groups, or [...] Recorded Patient Health Questionnaire-2 Score 0 07/11/2024 [facility] - Occupational Stress [...] to sleep or slept in a senior care (including now)? No 03/28/2023 Comments Unknown Sex and Gender Information Value Date Recorded Sex Assigned at Not on file Legal Sex Female 6:49 PM EDT Gender Identity Not on file Sexual Orientation Not on file Last Filed Vital Signs Vital Sign Reading Time Taken Comments Blood Pressure 152/78 07/11/2024 10:58 AM EDT Pulse 58 07/11/2024 10:58 AM EDT Temperature 36.7 C (98.1 F) 07/11/2024 10:58 AM EDT Respiratory Rate 18 07/11/2024 10:58 AM EDT Oxygen Saturation 97% 07/11/2024 10:58 AM EDT Inhaled Oxygen Concentration - - Weight 69.5 kg (153 lb 3.2 oz) 07/11/2024 10:58 AM EDT Height 157.5 cm (5' 2 ) 12/27/2023 1:52 PM EST Body Mass Index 28.02 12/27/2023 1:52 PM EST Plan of Treatment Health Maintenance Due Date Last Done Comments Influenza Vaccine (#1) 2024 , 11/29/2022, 11/19/2021, Additional history exists Pneumococcal Vaccine: 65+ Years Completed 01/20/2018, 05/09/2017, 06/20/2016 Procedures Procedure Name Priority Date/Time Associated Diagnosis Comments SCANNED LABS Routine 09/02/2024 9:23 AM EDT SCANNED LABS Routine 09/02/2024 9:22 AM EDT VASC US CAROTID ARTERY DUPLEX BILATERAL 08/27/2024 7:52 AM EDT BI MAMMOGRAM SCREENING TOMOSYNTHESIS BILATERAL 08/23/2024 2:33 PM EDT from Last 3 Months Results * SCANNED LABS (09/02/2024 9:23 AM EDT) Only the most recent of2 resultswithin the time period is included. us Lakshmi Newell NP LAB CHG PERFORMABLES Final Resu lt * Vascular US carotid artery duplex bilateral (08/27/2024 7:52 AM EDT) Anatomical Region Laterality Modality Neck Ultrasound 08/27/2024 7:52 AM EDT Impressions 08/27/2024 7:56 AM EDT MILD TO MODERATE PLAQUE FORMATION IS NOTED BILATERAL EXTRACRANIAL CAROTID ARTERIES. MODERATE STENOSIS OF 50-69% WAS FOUND IN THE LEFT INTERNAL CAROTID ARTERY. The right carotid system was normal. Impression dictated by: Darrel Camp MD,FACS,FSVS 08/27/2024 7:53 AM Dictation Location: [place] [address] Tech: Onelia Foster Transcribed By: LUCAS 08/27/24 0753 Dictated By: Darrel Camp MD 08/27/24 0752 Signed By: <Electronically signed by Darrel Camp MD in OV> 08/27/24 0753 Narrative 08/27/2024 7:56 AM EDT [facility] [place] [address] Ultrasound Report Signed Patient: Shelley Sanchez MR#: [id number] 7 : 1945 Acct:[id number] Age/Sex: 78 / F ADM Date: 08/26/24 Loc: Room: Type: [facility] Attending Dr: Lakshmi Newell Ordering Provider: MAN Decker Date of Service: 08/26/24 US/US carotid doppler BI: E11.9, E78.00, R09.89 Copies to: MAN Decker CAROTID DUPLEX INDICATION: Right carotid bruit. PROCEDURE: Color-flow duplex scanning is used to interrogate the extracranial carotid arterial system, as well as both vertebral arteries. Both carotid bifurcations show mild to moderate heterogeneous plaque formation. The proximal right internal carotid artery shows a highest peak systolic velocity of 108 cm/s with an end-diastolic velocity of 18.9 cm/s . The mid internal carotid artery measures 108 cm/s peak systolic and 24.4 cm/s end diastolic. The distal segment measures 90.6 cm/s peak systolic with an end diastolic velocity of 23 cm/s . The velocities of the right common carotid artery are 107 cm/s peak systolic and 7.67 cm/s end- diastolic proximally and 123 cm/s peak systolic and 18.9 cm/s end diastolic distally. The peak systolic velocity ratio of the internal to the common carotid artery is 0.88. The right external carotid artery measures 125 cm/s peak systolic. The right vertebral artery is patent at 57.1 cm/s with antegrade flow. The proximal left internal carotid artery shows a highest peak systolic velocity of 329 cm/s with an end-diastolic velocity of 65.9 cm/s . The mid internal carotid artery measures 246 cm/s peak systolic and 43.3 cm/s end diastolic. The distal segment measures 73.7 cm/s peak systolic with an end diastolic velocity of 17.3 cm/s . The velocities of the left common carotid artery are 134 cm/s peak systolic and 17.3 cm/s end-diastolic proximally and 127 cm/s peak systolic and 26 cm/s end diastolic distally. The peak systolic velocity ratio of the internal to the common carotid artery is 2.59 . The left external carotid artery measures 153 cm/s peak systolic. The left vertebral artery is patent at 89.2 cm/s with antegrade flow. US/US carotid doppler BI Procedure Note Darrel Camp MD - 08/27/2024 [facility] [place] [address] Ultrasound Report Signed Patient: Shelley Sanchez CMR#: [id number] 7 : 6Acct:[id number] Age/Sex: 78 / FADM Date: 08/26/24 Loc: Room:Type: [facility] Attending Dr: Lakshmi Newell Ordering Provider: AMN Decker Date of Service: 08/26/24 US/US carotid doppler BI: E11.9, E78.00, R09.89 Copies to: MAN Decker CAROTID DUPLEX INDICATION: Right carotid bruit. PROCEDURE: Color-flow duplex scanning is used to interrogate theextracranial carotid arterial system, as well as both vertebral arteries. Both carotid bifurcationsshow mild to moderate heterogeneous plaque formation. The proximal right internal carotidartery shows a highest peak systolic velocity of 108 cm/s with an end-diastolic velocity of 18.9 cm/s. The mid internal carotid artery measures 108 cm/s peak systolic and 24.4 cm/s enddiastolic. The distal segment measures 90.6 cm/s peak systolic with an end diastolic velocity of 23 cm/s. The velocities of the right common carotid artery are 107 cm/s peak systolic and 7.67 cm/send- diastolic proximally and 123 cm/s peak systolic and 18.9 cm/s end diastolic distally. The peaksystolic velocity ratio of the internal to the common carotid artery is 0.88. The right externalcarotid artery measures 125 cm/s peak systolic. The right vertebral artery is patent at 57.1 cm/s withantegrade flow. The proximal left internal carotid artery shows a highest peak systolicvelocity of 329 cm/s with an end-diastolic velocity of 65.9 cm/s . The mid internal carotid arterymeasures 246 cm/s peak systolic and 43.3 cm/s end diastolic. The distal segment measures 73.7cm/s peak systolic with an end diastolic velocity of 17.3 cm/s . The velocities of the left commoncarotid artery are 134 cm/s peak systolic and 17.3 cm/s end-diastolic proximally and 127 cm/s peaksystolic and 26 cm/s end diastolic distally. The peak systolic velocity ratio of the internal tothe common carotid artery is 2.59 . The left external carotid artery measures 153 cm/s peaksystolic. The left vertebral artery is patent at 89.2 cm/s with antegrade flow. US/US carotid doppler BI IMPRESSION: MILD TO MODERATE PLAQUE FORMATION IS NOTED BILATERAL EXTRACRANIAL CAROTIDARTERIES. MODERATE STENOSIS OF 50-69% WAS FOUND IN THE LEFT INTERNAL CAROTID ARTERY. Theright carotid system was normal. Impression dictated by: Darrel Camp MD,FACS,FSVS 08/27/2024 7:53AM Dictation Location: [facility] Tech: Onelia Foster Transcribed By: PWS 08/27/24 0753 Dictated By: Darrel Camp MD 08/27/24 0752 Signed By: <Electronically signed by Darrel Camp MD inOV> 08/27/24 0753 Lakshmi Newell NP [facility] US PROCEDURES Final Result * Bilateral screening mammogram with tomosynthesis (08/23/2024 [...] Eng M.D. 08/23/2024 2:57 PM Dictation Location: [facility] Dictated By: Francisco Eng MD 08/23/24 1433 Signed By: <Electronically signed by Francisco Eng MD in OV> 08/23/24 1457 Narrative 08/23/2024 2:59 PM EDT [facility] [address] [place] [address] Mammography Report Signed Patient: Shelley Sanchez MR#: [id number] 7 : 1945 Acct:[id number] Age/Sex: 78 / F Adm Date: 08/23/24 Loc: [place] Room: Type: [facility] Attending Dr: Lakshmi Newell Ordering Provider: MAN Decker Date of Service: 08/23/24 Procedure(s): MM screening mammo BI w/CAD Accession Number(s): ([id number]) MM/MM screening mammo BI w/CAD: SCREENING Copies to: MD Lakshmi Gillespie NP-C CLINICAL DATA: Screening for malignancy. SCREENING MAMMOGRAM [...] mammo BI w/CAD Procedure Note Radiology, Radiologist, MD - 08/23/2024 [place] [address] Mammography Report Signed Patient: Shelley Sanchez CMR#: [id number] 7 : 6Acct:[id number] Age/Sex: 78 / FAdm Date: 08/23/24 Loc: [place] Room:Type: [facility] Attending Dr: Lakshmi Newell Ordering Provider: MAN Decker Date of Service: 08/23/24 Procedure(s): MM screening mammo BI w/CAD Accession Number(s): ([id number]) MM/MM screening mammo BI w/CAD:SCREENING Copies to: MD Lakshmi Gillespie NP-C CLINICAL DATA: Screening for malignancy. SCREENING MAMMOGRAM [...] Eng M.D. 08/23/2024 2:57 PM Dictation Location: [facility] Dictated By: Francisco Eng MD 08/23/24 1433 Signed By: <Electronically signed by Francisco Eng MD in OV> 08/23/24 1457 Lakshmi Newell NP IMG BI PROCEDURES Final Result from Last 3 Months Insurance [employer] MED[employer]ARE [employer]AGE Care Teams Electromechanical Technician Relationship Specialty Start Date End Date Avinash Blair MD PCP - General Family Medicine 03/28/23 Lakshmi Newell NP Nurse Practitioner Family Medicine 03/28/23
--- OUTSIDE RECORDS SUMMARY | 2024-11-12 09:34 | XMS_ITS | Encounter Summary ---
Author Organization [facility] Address [address] [place] [address] Care Team Providers Care Lead Pharmacy Technician Name Role Phone Avinash Blair MD Primary Care Provider [phone] Lakshmi Newell NP Unavailable [phone] Encounter Details Date Type Department Care Team (Late st Contact Info) Description 09/30/2024 Abstract [facility] [address] [facility] [place] [address] Lakshmi Newell, MYLENE [address] [place] [address] Social History Tobacco Use Types Packs/Day Years [...] Never 03/28/2023 How often do you attend restoration or sikh serv ices? Never 03/28/2023 Do you belong to any clubs o r organizations such as restoration groups, unions, fraternal or athletic groups, or [...] place to sleep or slept in a custodial (including now)? No 03/28/2023 Comments Unknown Sex [...] documented as of this encounter Care Teams Lead Pharmacy Technician Relationship Specialty Start Date End Date Avinash Blair MD PCP - General Family Medicine 03/28/23 Lakshmi Newell NP Nurse Practitioner Family Medicine 03/28/23 documented as of this encounter
--- OUTSIDE RECORDS SUMMARY | 2024-11-12 09:34 | XMS_ITS | Encounter Summary ---
Author Organization [facility] Address [address] [facility] [address] Care Team Providers Care Compositor Apprentice Name Role Phone Avinash Blair MD Primary Care Provider [phone] Lakshmi Newell NP Unavailable [phone] Encounter Details Date Type Department Care Team (Late st Contact Info) Description 09/02/2024 Orders Only [facility] [address] [place] [address] Lakshmi Newell, ROTATIONAL MOULDING OPERATOR [address] [place] [address] Social History Tobacco Use Types Packs/Day Years [...] Never 03/28/2023 How often do you attend faith or muslim serv ices? Never 03/28/2023 Do you belong to any clubs o r organizations such as faith groups, unions, fraternal or athletic groups, or [...] Recorded Patient Health Questionnaire-2 Score 0 07/11/2024 [facility] - Occupational [...] place to sleep or slept in a fdc (including now)? No 03/28/2023 Comments Unknown Sex [...] SCANNED LABS Routine 09/02/2024 9:22 AM EDT documented in this encounter Results * SCANNED LABS (09/02/2024 9:23 AM EDT) us Lakshmi Newell ROTATIONAL MOULDING OPERATOR LAB CHG PERFORMABLES Final Resu lt * SCANNED LABS (09/02/2024 9:22 AM EDT) us Lakshmi Newell ROTATIONAL MOULDING OPERATOR LAB CHG PERFORMABLES Final Resu lt documented in this encounter Visit Diagnoses Not on filedocumented in this encounter Additional Health Concerns Assessment Noted Time PHQ-9 Depression Total Score: 4 07/12/19 25 11:02 AM EDT documented as of this encounter Care Teams Compositor Apprentice Relationship Specialty Start Date End Date Avinash Blair MD PCP - General Family Medicine 03/28/23 Lakshmi Newell NP Nurse Practitioner Family Medicine 03/28/23 documented as of this encounter
--- OUTSIDE RECORDS SUMMARY | 2024-11-12 09:34 | XMS_ITS | Encounter Summary ---
Author Organization [facility] Address [address] [place] [address] Care Team Providers Care Assistant Manager/Embalmer Name Role Phone Avinash Blair MD Primary Care Provider [phone] Lakhsmi Newell NP Unavailable [phone] Encounter Details Date Type Department Care Team (Late st Contact Info) Description 10/19/2023 Orders [facility] [address] [place] [address] Lakshmi Newell, TRUCK LOADER AND UNLOADER [address] [place] [address] Social History Tobacco Use Types Packs/Day Years [...] Never 03/28/2023 How often do you attend mormon or yazdanism serv ices? Never 03/28/2023 Do you belong to any clubs o r organizations such as mormon groups, unions, fraternal or athletic groups, or [...] Recorded Patient Health Questionnaire-2 Score 0 09/26/2023 [facility] - Occupational Stress [...] place to sleep or slept in a correction (including now)? No 03/28/2023 Comments Unknown Sex [...] Diagnosis Comments XR PELVIS 3+ VIEWS Routine 10/19/2023 9:06 AM EDT documented in this encounter Results * XR pelvis 3+ views (10/19/2023 9:06 AM EDT) Anatomical Region Laterality Modality Body, Pelvis Radiographic Erin ging Lakshmi Newell TRUCK LOADER AND UNLOADER IMG XR PROCEDURES Final Result documented in this encounter Visit Diagnoses Not on filedocumented in this encounter Additional Health Concerns Assessment Noted Time PHQ-9 Depression Total Score: 2 03/28/19 10:15 AM EST documented as of this encounter Care Teams Assistant Manager/Embalmer Relationship Specialty Start Date End Date Avinash Blair MD PCP - General Family Medicine 03/28/23 Lakshmi Newell NP Nurse Practitioner Family Medicine 03/28/23 documented as of this encounter
--- OUTSIDE RECORDS SUMMARY | 2024-11-12 09:34 | XMS_ITS | Encounter Summary ---
Author Organization [facility] Address [address] [place] [address] Care Team Providers Care Utility Worker Film Processing Name Role Phone Avinash Blair MD Primary Care Provider Lakshmi Newell NP Unavailable [phone] Encounter Details Date Type Department Care Team (Late st Contact Info) Description 10/03/2023 Clinisync Result Encounter [facility] External Department Unsolicited Lakshmi Newell NP [address] [place] [address] Social History Tobacco Use Types Packs/Day Years [...] Never 03/28/2023 How often do you attend druze or yarsani serv ices? Never 03/28/2023 Do you belong to any clubs o r organizations such as druze groups, unions, fraternal or athletic groups, or [...] Recorded Patient Health Questionnaire-2 Score 0 09/26/2023 [facility] - Occupational Stress Questionnaire Answer Date Recorded [...] place to sleep or slept in a penitentiary (including now)? No 03/28/2023 Comments Unknown Sex and Gender Information Value Date Recorded Sex Assigned at Not on file Legal Sex Female 6:49 PM EDT Gender Identity Not on file Sexual Orientation Not on file documented as of this encounter Plan of Treatment Not on file documented as of this encounter Procedures Procedure Name Priority Date/Time Associated Diagnosis Comments XR HIP LT MIN 2V 10/03/2023 6:01 AM EDT documented in this encounter Results * XR HIP LT MIN 2V (10/03/2023 6:01 AM EDT) Anatomical Region Laterality Modality Other 10/03/2023 6:01 AM EDT Narrative 10/03/2023 6:03 AM EDT [address] [address] XRay Report Signed Patient: SHELLEY SANCHEZ MR#: [id number] : 1945 Acct:[id number] Age/Sex: 77 / F ADM Date: 10/02/23 Loc: LAB Attending Dr: Lakshmi Newell PULLBOAT ENGINEER Ordering Physician: Lakshmi Newell NP Date of Service: 10/02/23 Procedure(s): XR hip LT min 2V Accession Number(s): [id number] cc: Lakshmi Newell NP [address] [address] Patient Name: SHELLEY SANCHEZ MRN: [id number] date: 1945 Sex: F Assigned Patient Location: LAB Current Patient Location: Accession/Order Number: [id number] Exam Date: 10/02/2023 09:15 Report Date: 10/03/2023 06:01 At the request of: LAKSHMI NEWELL Procedure: XR hip LT min 2V PROCEDURE: XR hip LT min 2V HISTORY: Left Hip Pain M25.552 COMPARISON: None. FINDINGS: BONES:No fracture, acute abnormality, or significant arthropathy of the left hip joint. Irregular sclerosis of right margin of the symphysis pubis.. SOFT TISSUES:No visible soft tissue swelling. EFFUSION:None visible. OTHER: Negative. XR/XR hip LT min 2V IMPRESSION: 1. No acute bone abnormality or significant degenerative changes of the left hip joint. 2. Irregularity and sclerosis of right symphysis, incompletely evaluated on today's study. Radiographs of the pelvis recommended for further evaluation. Electronically authenticated by: JELANI HOPKINS Date: 10/03/2023 06:01 Dictated By: Jelani Hopkins M.D. Signed By: 10/03/23602 DD/ 0 TD/TT: [employer] Paralegal: Procedure Note Radiology, Radiologist, MD - 10/03/[address] [address] XRay Report Signed Patient: SHELLEY SANCHEZ CMR#: [id number] : 1945cct:[id number] Age/Sex: 77 / FADM Date: 10/02/23 Loc: LAB Attending Dr: Lakshmi Newell PULLBOAT ENGINEER Ordering Physician: Lakshmi Newell NP Date of Service: 10/02/23 Procedure(s): XR hip LT min 2V Accession Number(s): [id number] cc: Lakshmi Newell NP The [address] [address] Patient Name: SHELLEY SANCHEZ MRN: [id number] date: 1945 Sex: F Assigned Patient Location: LAB Current Patient Location: Accession/Order Number: [id number] Exam Date: 10/02/2023 09:15 Report Date: 10/03/2023 06:01 At the request of: LAKSHMI NEWELL Procedure: XR hip LT min 2V PROCEDURE: XR hip LT min 2V HISTORY: Left Hip Pain M25.552 COMPARISON: None. FINDINGS: BONES:No fracture, acute abnormality, or significant arthropathy of theleft hip joint. Irregular sclerosis of right margin of the symphysis pubis.. SOFT TISSUES:No visible soft tissue swelling. EFFUSION:None visible. OTHER: Negative. XR/XR hip LT min 2V IMPRESSION: 1. No acute bone abnormality or significant degenerative changes of theleft hip joint. 2. Irregularity and sclerosis of right symphysis, incompletely evaluatedon today's study. Radiographs of the pelvis recommended for furtherevaluation. Electronically authenticated by: JELANI HOPKINS Date: 10/03/2023 06:01 Dictated By: Jelani Hopkins M.D. Signed By:10/03/23602 DD/ 0 TD/TT: [employer] Paralegal: us Lakshmi Newell NP [facility] Final Result documented in this encounter Visit Diagnoses Not on filedocumented in this encounter Additional Health Concerns Assessment Noted Time PHQ-9 Depression Total Score: 2 03/28/19 10:15 AM EST documented as of this encounter Care Teams Utility Worker Film Processing Relationship Specialty Start Date End Date Avinash Blair MD PCP - General Family Medicine 03/28/23 Lakshmi Newell NP Nurse Practitioner Family Medicine 03/28/23 documented as of this encounter
--- OUTSIDE RECORDS SUMMARY | 2024-11-12 09:38 | XMS_ITS | CCD ---
Author Organization [facility] Care Team Providers Care Nut Sorter Operator Name Role Phone JACE CABAN Unavailable Unavailable JOSÉL UIS HORAN Unavailable Unavailable REQUEST, DR TONI LISTED Primary Care Unavaila ble PAY ., DR MANDUJANO Admitting Unavailable PAY ., DR MANDUJANO Consulting Unavailable PAY ., DR MANDUJANO Attending Unavailable AICHHOLZ, CHEMICAL TEST ENGINEER LAKSHMI Admitting Unavailable AICHHOLZ, GIRISH LAKSHMI Primary Care Unavailable AICJUAN FRANCISCO, GIRISH GARCIA Attending Unavailable RICHIE, DR BLOSSOM Diaz Consulting Unavailable AICHLYNDSAY, GIRISH GARCIA Consulting Unavailable JAMEEL ., DR ORDONEZ Admitting Unavailable HOY ., DR ORDONEZ Primary Care Unavailable HOY ., DR ORDONEZ Consulting Unavailable HOY ., DR ORDONEZ Attending Unavailable RICHIE, DR BLOSSOM Diaz Consulting Unavailable Avinash Blair MD Primary Care Provider Avinash Blair MD Primary Care Provider Reece CHAKRABORTY, Lakshmi Unavailable LAKSHMI NEWELL Attending Unavailable LAKSHMI NEWELL Attending Unavailable JAY GILBERT Attending Unavailable LAKSHMI NEWELL Attending Unavailable TYRON ZALDIVAR Attending Unavailable LAKSHMI NEWELL Attending Unavailable José Luis Horan MD Primary Care Provider [phone] Lakshmi Newell Attending Provider [phone] Lakshmi Newell Attending Unavailable José Luis Horan Primary Care Unavailable Lakshmi Newell Admitting Unavailable Lakshmi Newell Attending Unavailable José Luis Horan Primary Care Unavailable Lakshmi Newell Admitting Unavailable Medications Current Medications Medication Drug Class(es) Dates Sig (Normalized) Sig (Original) acetaminophen 325 mg oral tablet (20 sources) take 1 tablet by mouth in the morning acetaminophen (Tylenol) 325 MG tablet Take 325 mg by mouth in the morning and 325 mg before bedtime. Active alendronic acid 70 mg oral tablet (20 sources) Bisphosphonate Start: 12-22-2023 End: 09-10-2024 take 1 tablet by mouth in the morning alendronate (Fosamax) 70 MG tablet Indications: Age-related osteoporosis without current pathological fracture Take 1 tablet (70 mg) by mouth every 7 (seven) days Take in the morning with a full glass of water, on an empty stomach, and do not take anything else by mouth or lie down for the next 30 min. 12 tablet 06/18/2024 Active Start: 03-16-2018 take 1 tablet by jamal th every week take 1 tablet by jamal th in the morning alendronate (Fosamax) 70 MG tablet Take 70 mg by mouth every 7 (seven) days Take in the morning with a full glass of water, on an empty stomach, and do not take anything else by mouth or lie down for the next 30 min. Active amLODIPine 10 mg oral tablet (20 sources) Dihydropyridine Calcium Channel Mayco Start: 09-26-2023 End: 09-16-2024 take 1 tablet by mouth once daily amLODIPine (Norvasc) 10 MG tablet Indications: Primary hypertension Take 1 tablet (10 mg) by mouth Daily 90 tablet 06/18/2024 Active Start: 06-26-2023 End: 09-26-2023 take 1 tablet by mouth in the morning amLODIPine (Norvasc) 5 MG tablet Indications: Primary hypertension (CMS/HCC) Take 1 tablet (5 mg) by mouth in the morning. 90 tablet 1 06/26/2023 09/26/2023 Discontinued (Ineffective) Start: 02-20-2023 End: 03-22-2023 take 1 tablet by mouth in the morning amLODIPine (Norvasc) 5 MG tablet Indications: Primary hypertension (CMS/HCC) Take 1 tablet (5 mg) by mouth in the morning. 30 tablet 2 02/20/2023 03/22/2023 Active aspirin 81 mg delayed release oral tablet (20 sources) Platelet Aggregation Inhibitor, Nonsteroidal Anti-inflammatory Drug Start: 03-16-2018 take 1 tablet by mouth once daily atorvastatin 80 mg oral tablet (20 sources) HMG-CoA Reductase Inhibitor Start: 08-28-2024 End: 12-15-2024 take 1 tablet by mouth at bedtime atorvastatin (Lipitor) 80 MG tablet Indications: Hyperlipidemia, unspecified Take 1 tablet (80 mg) by mouth at bedtime 90 tablet 09/16/2024 12/15/2024 Active Start: 03-16-2018 End: 09-16-2024 take 1 tablet by mouth at bedtime atorvastatin (Lipitor) 40 MG tablet Indications: Hyperlipidemia, unspecified Take 1 tablet (40 mg) by mouth at bedtime 90 tablet 06/18/2024 08/28/2024 Discontinued (Reorder) baclofen 10 mg oral tablet (20 sources) gamma-Aminobutyric Acid-ergic Agonist Start: 09-26-2023 End: 08-10-2024 baclofen (Lioresal) 10 MG tablet Indications: Pain of left hip Take 1 tablet (10 mg) by mouth as needed at bedtime for muscle spasms 30 tablet 1 07/11/2024 Active End: 09-26-2023 take 2 tablets by mouth at bedtime baclofen (Lioresal) 10 MG tablet Take 20 mg by mouth at bedtime 09/26/2023 Discontinued (Therapy completed) Calcium Carb-Cholecalciferol (CALCIUM 500 +D PO) (20 sources) Calcium Carb-Cho lecalciferol (CALCIUM 500 +D PO) Take 1,000 mg by mouth 1 (one) time each day Active Calcium Carb-Cho lecalciferol (CALCIUM 500 +D PO) Take 1,000 mg by mouth 1 (one) time each day 0 Active calcium citrate 950 mg oral tablet (2 sources) Start: 03-16-2018 take 1 tablet by mouth twice daily carvedilol 25 mg oral tablet (20 sources) alpha-Adrenergi c Mayco, beta-Adrenergic Mayco Start: 06-26-2023 End: 09-16-2024 take 1 tablet by mouth in the morning carvedilol (Coreg) 25 MG tablet Indications: Essential (primary) hypertension Take 1 tablet (25 mg) by mouth in the morning and 1 tablet (25 mg) before bedtime. 180 tablet 06/18/2024 Active Start: 03-15-2023 End: 06-13-2023 take 1 tablet by mouth in the morning carvedilol (Coreg) 25 MG tablet Indications: Essential (primary) hypertension (CMS/HCC) Take 1 tablet (25 mg) by mouth in the morning and 1 tablet (25 mg) before bedtime. 180 tablet 1 03/15/2023 06/13/2023 Active Start: 03-16-2018 take 1 tablet by jamal twice daily dorzolamide 20 mg/ml ophthalmic solution (2 sources) Carbonic Anhydrase Inhibitor Start: 03-16-2018 take 1 drop(s) into the eye(s) three times daily DULoxetine 30 mg delayed release oral capsule (20 sources) Serotonin and Norepinephrine Reuptake Inhibitor Start: 06-26-2023 End: 09-16-2024 take 1 capsule by mouth at bedtime DULoxetine (Cymbalta) [address] capsule Indications: Anxiety disorder, unspecified Take 1 capsule (30 mg) by mouth at bedtime 90 capsule 06/18/2024 Active Start: 03-15-2023 End: 06-13-2023 take 1 capsule by mouth at bedtime DULoxetine (Cymbalta) [address] capsule Indications: Anxiety disorder, unspecified Take 1 capsule (30 mg) by mouth at bedtime 90 capsule 1 03/15/2023 06/13/2023 Active ferrous sulfate 325 mg oral tablet (20 sources) Start: 03-25-2024 take 1 tablet by mouth at mealtime FeroSul 325 (65 Fe) MG tablet Take 325 mg by mouth in the morning. Take with meals. 03/25/2024 Active Start: 10-26-2023 End: 01-24-2024 take 1 tablet by mouth at mealtime ferrous sulfate (FeroSul) 325 (65 Fe) MG tablet Indications: Iron deficiency Take 1 tablet (325 mg) by mouth in the morning. Take with meals. 90 tablet 1 10/26/2023 01/24/2024 Active latanoprost 0.05 mg/ml ophthalmic solution (20 sources) Prostaglandin Analog Start: 03-28-2023 take 1 drop(s) into the eye(s) once daily at bedtime latanoprost (Xalatan) 0.005 % ophthalmic solution INSTILL 1 DROP IN BOTH EYES ONCE DAILY AT BEDTIME 03/28/2023 Active Start: 03-16-2018 take 1 drop(s) into the eye(s) once daily in the evening levothyroxine sodium 0.1 mg oral tablet (20 sources) l-Thyroxine Start: 06-26-2023 End: 12-14-2024 take 1 tablet by mouth once daily levothyroxine (Synthroid, Levoxyl) 100 MCG tablet Indications: Hypothyroidism, unspecified Take 1 tablet (100 mcg) by mouth Daily 90 tablet 09/15/2024 12/14/2024 Active Start: 03-15-2023 End: 06-13-2023 take 1 tablet by mouth in the morning levothyroxine (Synthroid, Levoxyl) 100 MCG tablet Indications: Hypothyroidism, unspecified (CMS/HCC) Take 1 tablet (100 mcg) by mouth in the morning. 90 tablet 1 03/15/2023 06/13/2023 Active Start: 03-16-2018 take 1 capsule by [facility] once daily lisinopril 5 mg oral tablet (2 sources) Angiotensin Converting Enzyme Inhibitor Start: 03-16-2018 take 1 tablet by mouth once daily losartan potassium 100 mg oral tablet (20 sources) Angiotensin 2 Receptor Mayco Start: 06-26-2023 End: 10-09-2024 take 1 tablet by mouth once daily losartan (Cozaar) 100 MG tablet Indications: Essential (primary) hypertension Take 1 tablet (100 mg) by mouth Daily 90 tablet 1 07/11/2024 10/09/2024 Active Start: 03-15-2023 End: 06-13-2023 take 1 tablet by mouth in the morning losartan (Cozaar) 100 MG tablet Indications: Essential (primary) hypertension (CMS/HCC) Take 1 tablet (100 mg) by mouth in the morning. 90 tablet 1 03/15/2023 06/13/2023 Active meloxicam 15 mg oral tablet (20 sources) Nonsteroidal Anti-inflammatory Drug Start: 12-21-2023 End: 09-16-2024 take 1 tablet by mouth once daily as needed for pain meloxicam (Mobic) 15 MG tablet Indications: Spondylosis without myelopathy or radiculopathy, lumbosacral region Take 1 tablet (15 mg) by mouth Daily as needed for moderate pain 90 tablet 06/18/2024 09/16/2024 Active Start: 06-24-2023 End: 12-12-2023 take 1 tablet by mouth once daily as needed for pain meloxicam (Mobic) 15 MG tablet Indications: Spondylosis without myelopathy or radiculopathy, lumbosacral region Take 1 tablet (15 mg) by mouth Daily as needed for moderate pain 90 tablet 1 09/13/2023 12/12/2023 Active Start: 03-15-2023 End: 06-13-2023 take 1 tablet by mouth in the morning meloxicam (Mobic) 15 MG tablet Indications: Spondylosis without myelopathy or radiculopathy, lumbosacral region Take 1 tablet (15 mg) by mouth in the morning. Take with food.. 90 tablet 1 03/15/2023 06/13/2023 Active metFORMIN hydrochloride 500 mg oral tablet (20 sources) Biguanide Start: 03-16-2018 End: 10-09-2024 take 1 tablet by mouth in the morning metFORMIN (Glucophage) 500 MG tablet Indications: Type 2 diabetes mellitus without complications (HCC) Take 1 tablet (500 mg) by mouth in the morning and 1 tablet (500 mg) in the evening. Take with meals. 180 tablet 1 07/11/2024 10/09/2024 Active moxifloxacin 5 mg/ml ophthalmic solution (3 sources) Quinolone Antimicrobial Start: 09-21-2023 End: 09-26-2023 moxifloxacin (Vigamox) 0.5 % ophthalmic solution 09/21/2023 09/26/2023 Discontinued (Therapy completed) Multiple Vitamin (multivitamin) capsule (17 sources) take 1 capsule by mouth once daily Multiple Vitamin (multivitamin) capsule Take 1 capsule by mouth Daily Active Multivitamin Tablet (2 sources) Start: 03-16-2018 take 1 tablet by mouth once daily omeprazole 20 mg delayed release oral capsule (20 sources) Proton Pump Inhibitor Start: 03-16-2018 End: 12-14-2024 take 1 capsule by mouth before mealtime omeprazole (PriLOSEC) [address] capsule Indications: Gastro-esophageal reflux disease without esophagitis Take 1 capsule (20 mg) by mouth in the morning. Take before meals. 90 capsule 09/15/2024 12/14/2024 Active polyethylene glycol 400 4 mg/ml / propylene glycol 3 mg/ml ophthalmic solution (2 sources) Start: 03-16-2018 Propylene glycol (17 sources) Propylene Glycol (SYSTANE BALANCE OP) Administer into affected eye(s) Active 12 hr timolol 5 mg/ml ophthalmic solution (20 sources) beta-Adrenergic Mayco Start: 07-26-2023 take 1 drop(s) into the eye(s) twice daily timolol (Timoptic) 0.5 % ophthalmic solution INSTILL 1 DROP IN THE RIGHT EYE TWICE DAILY 07/26/2023 Active End: 09-26-2023 take 1 drop(s) into the eye(s) in the morning timolol (Betimol) 0.25 % ophthalmic solution Administer 1 drop into the right eye in the morning. 09/26/2023 Discontinued (Therapy completed) Completed/Discontinued Medications Medication Drug Class(es) Dates Sig (Normalized) Sig (Original) 1 ml methylPREDNISolone acetate 40 mg/ml injection (4 sources) Corticosteroid Start: End: methylPREDNISolone acetate (DEPO-Medrol) injection 40 mg Start: 10-31-2023 End: 10-31-2023 40 mg, Intra-articular, Once PRN Procedure, Starting on Mon10/31/23 at 1125, For 1 dose Problems Active Problems Problem Classification Problem Date Documented Date Episodic/Chronic Abdominal pain (3 sources) Right lower quadrant pain; Translations: [RIGHT LOWER QUADRANT PAIN] Onset: 05-06-2022 Episodic Anxiety disorders (20 sources) Anxiety disorder; Translations: [Anxiety disorder, unspecified] Onset: 02-20-2023 03-14-2023 Chronic Chronic kidney disease (20 sources) Chronic kidney disease stage 3A ; Translations: [Chronic kidney disease, stage 3a (HCC)] Onset: 03-28-2023 09-26-2023 Chronic Diabetes mellitus with complications (20 sources) Chronic kidney disease due to type 2 diabetes mellitus; Translations: [Type 2 diabetes mellitus with diabetic chronic kidney disease] Onset: 09-26-2023 09-26-2023 Chronic Disorders of lipid metabolism (20 sources) Hypercholesterolemia; Translations: [Pure hypercholesterolemia, unspecified] Onset: 02-20-2023 02-20-2023 Chronic E Codes: Natural/environment (1 source) Exposure to other specified factors, initial encounter; Translations: [EXPOSURE OTHER SPEC FACTORS INITIAL] Onset: 05-09-2022 Episodic Esophageal disorders (20 sources) Gastroesophageal reflux disease; Translations: [Gastro-esophageal reflux disease without esophagitis] Onset: 02-20-2023 02-20-2023 Chronic Essential hypertension (20 sources) Essential hypertension; Translations: [Essential (primary) hypertension] Onset: 02-20-2023 03-14-2023 Chronic Glaucoma (20 sources) Glaucoma; Translations: [Other specified glaucoma] Onset: 06-26-2023 06-26-2023 Chronic Menopausal disorders (1 source) Hormone replacement therapy; Translations: [HORMONE REPLACEMENT THERAPY] Onset: 05-09-2022 Episodic Occlusion or stenosis of precerebral arteries (1 source) Occlusion and stenosis of right carotid artery; Translations: [Occlusion and stenosis of right carotid artery] Onset: 08-01-2016 Chronic Osteoarthritis (2 sources) Arthritis of left hip; Translations: [Unilateral primary osteoarthritis, left hip] 10-31-2023 Chronic Osteoporosis (20 sources) Senile osteoporosis; Translations: [Age-related osteoporosis without current pathological fracture] Onset: 12-22-2023 12-27-2023 Chronic Other acquired deformities (1 source) Spondylolisthesis, lumbar region; Translations: [SPONDYLOLISTHESIS LUMBAR REGION] Onset: 07-06-2022 Episodic Other aftercare (1 source) terminal gauger (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; Translations: [TAPPET ADJUSTER CURRENT USE OF ASPIRIN] Onset: 05-09-2022 Episodic Other aftercare (1 source) Other terminal makeup operator (current) drug therapy; Translations: [OTH HALF-WAY CURRENT DRUG THERAPY] Onset: 05-09-2022 Episodic Other aftercare (1 source) terminal gauger (current) use of oral hypoglycemic drugs; Translations: [HALF-WAY USE ORAL HYPOGLYCEMIC DX] Onset: 05-09-2022 Episodic Other circulatory disease (1 source) Other specified symptoms and signs involving the circulatory and respiratory systems; Translations: [Other specified symptoms and signs involving the circulatory and respiratory systems] Onset: 08-26-2024 Episodic Other nervous system disorders (20 sources) Carpal tunnel syndrome of right wrist; Translations: [Carpal tunnel syndrome, right upper limb] Onset: 03-28-2023 03-28-2023 Chronic Other non-traumatic joint disorders (1 source) Other specified joint disorders, right hip; Translations: [OTHER SPECIFIED JOINT D/O RT HIP] Onset: 07-06-2022 Episodic Other screening for suspected conditions (not mental disorders or infectious disease) (12 sources) Encounter for screening mammogram for malignant neoplasm of breast; Translations: [Patient encounter status] Onset: 12-09-2021 Episodic Screening and history of mental health and substance abuse codes (1 source) Personal history of nicotine dependence; Translations: [PERSONAL HISTORY OF NICOTINE DEPEND] Onset: 05-09-2022 Episodic Spondylosis; intervertebral disc disorders; other back problems (20 sources) Spondylosis without myelopathy or radiculopathy, lumbar region; Translations: [Lumbosacral spondylosis without myelopathy] Onset: 07-06-2022 03-14-2023 Chronic Sprains and strains (3 sources) Strain of muscle, fascia and tendon of abdomen, initial encounter; Translations: [Strain of muscle of hip] Onset: 05-09-2022 10-24-2023 Episodic Thyroid disorders (20 sources) Hypothyroidism, unspecified; Translations: [Hypothyroidism] Onset: 07-06-2022 03-14-2023 Chronic Unclassified (3 sources) LOW BACK PAIN, UNSPECIFIED; Translations: [LOW BACK PAIN, UNSPECIFIED] Onset: 07-06-2022 Past or Other Problems Problem Classification Problem Date Documented Da te Episodic/Chronic Diabetes mellitus without complication (20 sources) Type 2 diabetes mellitus without complications; Translations: [Type 2 diabetes mellitus] Onset: 07-06-2022 Resolved: 04-03-2024 02-20-2023 Chronic Fluid and electrolyte disorders (20 sources) Hyperkalemia; Translations: [Hyperkalemia] Onset: 04-07-2023 04-07-2023 Episodic Immunizations and screening for infectious disease (20 sources) Patient encounter status; Translations: [Encounter for screening for other viral diseases] Onset: 06-26-2023 06-26-2023 Episodic Mood disorders (20 sources) Mood disorders Onset: 03-28-2023 Resolved: 07-11-2024 03-28-2023 Nutritional deficiencies (20 sources) Iron deficiency; Translations: [Iron deficiency] Onset: 02-20-2023 02-20-2023 Episodic Other circulatory disease (15 sources) Carotid bruit; Translations: [Other specified symptoms and signs involving the circulatory and respiratory systems] Onset: 12-27-2023 12-27-2023 Episodic Other fractures (20 sources) Fracture of multiple pubic rami; Translations: [Other specified fracture of unspecified pubis, initial encounter for closed fracture] Onset: 10-19-2023 10-19-2023 Episodic Other non-traumatic joint disorders (20 sources) Hip pain; Translations: [Pain in left hip] Onset: 09-26-2023 09-26-2023 Episodic Other nutritional; endocrine; and metabolic disorders (20 sources) Body mass index 25-29 - overweight; Translations: [Overweight] Onset: 06-26-2023 06-26-2023 Episodic Residual codes; unclassified (1 source) Family history of malignant neoplasm of breast; Translations: [FAMILY HX MALIG NEOPLASM OF BREAST] Onset: 12-13-2021 Episodic Spondylosis; intervertebral disc disorders; other back problems (20 sources) Low back pain; Translations: [Lumbar back pain] Onset: 02-20-2023 03-15-2023 Episodic Unclassified (1 source) LOW BACK PAIN, UNSPECIFIED; Translations: [LOW BACK PAIN, UNSPECIFIED] Onset: 07-05-2022 Results Test Name Value Interpretation Reference Range Facility US carotid doppler BIon 08-07 US carotid doppler BI [facility] [place] [address] Ultrasound Report Signed Patient: Shelley Sanchez MR#: [id number] 7 : 1945 Acct:[id number] Age/Sex: 78 / F ADM Date: 08/26/24 Loc: Room: Type: [facility] Attending Dr: Lakshmi Newell Ordering Provider: [...] 107 cm/s peak systolic and 7.67 cm/s end-diastolic proximally and 123 cm/s peak systolic and [...] Camp MD,FACS,FSVS 08/27/2024 7:53 AM Dictation Location: [place] [address] Tech: Onelia Foster Transcribed By: LUCAS 08/27/24 0753 Dictated By: Darrel Camp MD 08/27/24 0752 Signed By: 08/27/24 0753 Normal [facility] MM screening mammo BI w/CADo n 08-23-2024 MM screening mammo BI w/CAD [facility] [address] [place] [address] Mammography Report Signed Patient: Shelley Sanchez MR#: [id number] 7 : 1945 Acct:[id number] Age/Sex: 78 / F Adm Date: 08/23/24 Loc: [place] Room: Type: [facility] Attending Dr: Lakshmi Newell Ordering Provider: MAN Decker Date of Service: 08/23/24 Procedure(s): MM screening mammo BI w/CAD Accession Number(s): ([id number]) MM/MM screening mammo BI w/CAD: SCREENING Copies [...] Eng M.D. 08/23/2024 2:57 PM Dictation Location: [facility] Dictated By: Francisco Eng MD 08/23/24 1433 Signed By: 08/23/24 1457 Normal [facility] Mammography reportOrdered By : Francisco Eng on 08-23-2024 Diagnostic imaging study [facility] [address] [place] [address] Mammography Report Signed Patient: Shelley Sanchez MR#: [id number] : 1945 Acct:[id number] Age/Sex: 78 / F Adm Date: 5 Loc: [place] Room: Type: [facility] Attending Dr: Lakshmi Newell Ordering Provider: MAN Decker Date of Service: 08/23/24 Procedure(s): MM screening mammo BI w/CAD Accession Number(s): ([id number]) MM/MM screening mammo BI w/CAD: SCREENING Copies to: MD Lakshmi Gillespie NP-C~ CLINICAL DATA: Screening for malignancy. SCREENING MAMMOGRAM - FULL FIELD DIGITAL WITH TOMOSYNTHESIS AND CAD COMPARISON:Dating back to 2011 Tomosynthesis craniocaudal and mediolateral oblique views of both breasts were obtained using low-dose digital technique. This examination was reviewed with [...] Eng M.D. 08/23/2024 2:57 PM Dictation Location: [facility] Dictated By: Francisco Eng MD 08/23/24 1439 Signed By: 08/23/24 [facility] Work Phone: HbA1c (Bld) [Mass fraction]o n 07-11-2024 Interpretation and review of laboratory results Normal [facility] - Hematology and Cell countson 07-11-2024 HbA1c (Bld) [Mass fraction] 5.7 % [facility] ALL CBC WITH AUTO DIFFon BASOPHILS ABSOLUTE AUTO 0 [facility] Basophils/100 WBC (Bld) 0.5 % 0.2 - 2.0 % [facility] Eosinophils/100 WBC (Bld) 2.2 % 0.9 - 7.0 % [facility] Erythrocyte distribution width (RBC) [Ratio] 14.1 % 11.0 - 15.0 % [facility] Hematocrit (Bld) [Volume fraction] 34.8 % Low 36.0 - 48.0 % [facility] Hemoglobin (Bld) [Mass/Vol] 11.9 g/dL Low 12.0 - 16.0 g/dL [facility] IMMATURE GRANULOCYTES ABS AUTO 0.03 [facility] Immature granulocytes/100 WBC (Bld) 0.4 % 0.0 - 0.5 % [facility] Interpretation and review of laboratory results Abnormal [facility] LYMPHOCYTES ABSOLUTE AUTO 1.3 [facility] Lymphocytes/100 WBC (Bld) 17.9 % Low 20.5 - 60.0 % [facility] MCH (RBC) [Entitic mass] 31.1 pg 26.7 - 34.0 pg [facility] MCHC (RBC) [Mass/Vol] 34.2 g/dL 29.9 - 35.2 g/dL [facility] MCV (RBC) [Entitic vol] 90.9 fL 81.0 - 99.0 fL [facility] MONOCYTES ABSOLUTE AUTO 0.7 [facility] Monocytes/100 WBC (Bld) 9.3 % 1.7 - 12.0 % [facility] NEUTROPHILS ABSOLUTE AUTO 5.2 [facility] Neutrophils/100 WBC (Bld) 69.7 % 43.0 - 75.0 % [facility] Platelet mean volume (Bld) [Entitic vol] 9.8 fL 9.5 - 13.5 fL [facility] TBH EO # 0.2 [facility] PLT 328 [facility] RBC 3.83 Low [facility] WBC 7.4 [facility] No Panel Informationon 10-30 Tyron Zaldivar DO 11/01/2023 2:10 PM L Inj/Asp: L hip joint on 10/31/2023 11:25 AM Indications: pain and diagnostic evaluation Details: 20 G needle, ultrasound-guided anterolateral approach Medications: 40 mg methylPREDNISolone acetate 40 MG/ML Procedure, treatment alternatives, risks and benefits explained, specific risks discussed. Consent was given by the patient. [facility] ALL BASIC METABOLIC PANELon 10-02-2023 Anion gap [Moles/Vol] 13.7 mmol/L [facility] Calcium [Mass/Vol] 9.1 mg/dL 8.5 - 10. 1 mg/dL [facility] Chloride [Moles/Vol] 107 mmol/L 98 - 10 7 mmol/L [facility] CO2 [Moles/Vol] 24.3 mmol/L 21.0 - 32.0 mmol/L [facility] Creatinine [Mass/Vol] 1.15 mg/dL High 0.55 - 1.02 mg/dL [facility] GFR/1.73 sq M.predicted CKD-EPI (S/P/Bld) [Vol rate/Area] 55 Low 60 - PINF [facility] Glucose [Mass/Vol] 128 mg/dL High 74 - 106 mg/dL [facility] Interpretation and review of laboratory results Abnormal [facility] Potassium [Moles/Vol] 5.0 mmol/L 3.5 - 5.1 mmol/L [facility] Sodium [Moles/Vol] 140 mmol/L 136 - 145 mmol/L [facility] TBH EGFR-NON AF COMORAN 46 Low 60 - PINF [facility] Urea nitrogen [Mass/Vol] 21.0 mg/dL High 7.0 - 18.0 mg/dL [facility] Urea nitrogen/Creatinine [Mass ratio] 18.3 mg/mg [facility] [facility] CBC AUTO DIFFon 07-05-2022 BASO # 0.0 103/ul Normal 0.0-0.1 [facility] Comment on above: Performed By: #### C MP, TSH, LIPID, FT3 #### [facility] [address] [place] [address] Dr. Ryan Martin Basophils/100 WBC (Bld) 0.3 % Normal 0.2-2.0 [facility] Comment on above: Performed By: #### C MP, TSH, LIPID, FT3 #### [facility] [address] [address] [address] Ryan Martin EO # 0.1 103/ul Normal 0.0-0.7 [facility] Comment on above: Performed By: #### C MP, TSH, LIPID, FT3 #### [facility] [address] [address] [address] Ryan Martin Eosinophils/100 WBC (Bld) 1.6 % Normal 0.9-7.0 [facility] Comment on above: Performed By: #### C MP, TSH, LIPID, FT3 #### [facility] [address] [place] [address] Dr. Ryan Martin Erythrocyte distribution width (RBC) [Ratio] 13.6 % Normal 11.0-15.0 [facility] Comment on above: Performed By: #### C MP, TSH, LIPID, FT3 #### [facility] [address] [place] [address] Dr. Ryan Martin Hematocrit (Bld) [Volume fraction] 34.7 % Critically low 36.0-48.0 [facility] Comment on above: Performed By: #### C MP, TSH, LIPID, FT3 #### [facility] [address] [place] [address] Dr. Ryan Martin Hemoglobin (Bld) [Mass/Vol] 12.1 g/dL Normal 12.0-16.0 [facility] Comment on above: Performed By: #### C MP, TSH, LIPID, FT3 #### [facility] [address] [place] [address] Dr. Ryan Martin IG # 0.02 10e3/ul Normal 0.00-0.03 [facility] Comment on above: Performed By: #### C MP, TSH, LIPID, FT3 #### [facility] [address] [place] [address] Dr. Ryan Martin IG % 0.3 % Normal 0.0-0.5 [facility] Comment on above: Performed By: #### C MP, TSH, LIPID, FT3 #### [facility] [address] [place] [address] Dr. Ryan Martin LYMPH # 1.1 103/ul Critically low 1.2-3.8 [facility] Comment on above: Performed By: #### C MP, TSH, LIPID, FT3 #### [facility] [address] [place] [address] Dr. Ryan Martin Lymphocytes/100 WBC (Bld) 14.7 % Critically low 20.5-60.0 [facility] Comment on above: Performed By: #### C MP, TSH, LIPID, FT3 #### [facility] [address] [place] [address] Dr. Ryan Martin MANUAL DIFF REQ NO Normal [facility] Comment on above: Performed By: #### C MP, TSH, LIPID, FT3 #### [facility] [address] [place] [address] Dr. Ryan Martin MCH (RBC) [Entitic mass] 31.4 pg Normal 26.7-34.0 [facility] Comment on above: Performed By: #### C MP, TSH, LIPID, FT3 #### [facility] [address] [place] [address] Dr. Ryan Martin MCHC (RBC) [Mass/Vol] 34.9 g/dL Normal 29.9-35.2 [facility] Comment on above: Performed By: #### C MP, TSH, LIPID, FT3 #### [facility] [address] [place] [address] Dr. Ryan Martin MCV (RBC) [Entitic vol] 90.1 fL Normal 81.0-99.0 [facility] Comment on above: Performed By: #### C MP, TSH, LIPID, FT3 #### [facility] [address] [place] [address] Dr. Ryan Martin MONO # 0.5 103/ul Normal 0.3-0.8 [facility] Comment on above: Performed By: #### C MP, TSH, LIPID, FT3 #### [facility] [address] [place] [address] Dr. Ryan Martin Monocytes/100 WBC (Bld) 6.4 % Normal 1.7-12.0 [facility] Comment on above: Performed By: #### C MP, TSH, LIPID, FT3 #### [facility] [address] [place] [address] Dr. Ryan Martin NEUT # 5.9 103/ul Normal 1.4-6.5 [facility] Comment on above: Performed By: #### C MP, TSH, LIPID, FT3 #### [facility] [address] [place] [address] Dr. Ryan Martin Neutrophils/100 WBC (Bld) 76.7 % Critically high 43.0-75.0 [facility] Comment on above: Performed By: #### C MP, TSH, LIPID, FT3 #### [facility] [address] [address] [address] Ryan Martin Platelet mean volume (Bld) [Entitic vol] 9.4 fL Critically low 9.5-13.5 [facility] Comment on above: Performed By: #### C MP, TSH, LIPID, FT3 #### [facility] [address] [address] [address] Ryan Martin PLT 277 103/ul Normal 150-450 [facility] Comment on above: Performed By: #### C MP, TSH, LIPID, FT3 #### [facility] [address] [place] [address] Dr. Ryan Martin RBC 3.85 106/ul Critically low 4.20-5.40 [facility] Comment on above: Performed By: #### C MP, TSH, LIPID, FT3 #### [facility] [address] [address] [address] Ryan Martin WBC 7.6 103/ul Normal 4.0-11.0 [facility] Comment on above: Performed By: #### C MP, TSH, LIPID, FT3 #### [facility] [address] [place] [address] Dr. Ryan Martin FREE T3on 07-05-2022 FREE T3 2.04 pg/mlL Critically low 2.18-3.98 [facility] Comment on above: Performed By: #### C MP, TSH, LIPID, FT3 #### [facility] [address] [place] [address] Dr. Ryan Martin FREE T4on 07-05-2022 Free T4 [Mass/Vol] 1.14 ng/dL Normal 0.76-1.46 [facility] Comment on above: Performed By: #### C MP, TSH, LIPID, FT3 #### [facility] [address] [place] [address] Dr. Ryan Martin GLYCOHEMOGLOBIN A1Con 2022 ADA RECOMMENDATION SEE BELOW Normal [facility] Comment on above: Result Comment: ADA RECOMMENDED LIMIT 4.0 - 6.0 ADA THERAPEUTIC TARGET < 7.0 ACTION SUGGESTED > 7.0 Performed By: #### A 1C #### [facility] [address] [place] [address] Dr. Ryan Martin Glucose [Mass/Vol] 105 mg/dL Normal [facility] Comment on above: Performed By: #### A 1C #### [facility] [address] [place] [address] Dr. Ryan Martin HbA1c (Bld) [Mass fraction] 5.3 % Normal 4.5-6.2 [facility] Comment on above: Performed By: #### A 1C #### [facility] [address] [place] [address] Dr. Ryan Martin LIPID PROFILEon 07-05-2022 CHOL-HDL RATIO NORM SEE BELOW Normal [facility] Comment on above: Result Comment: 3.3 - 4.4 LOW RISK 4.4 - 7.1 AVERAGE RISK 7.1 - 11.0 MODERATE RISK >11.0 HIGH RISK Performed By: #### C MP, TSH, LIPID, FT3 #### [facility] [address] [place] [address] Dr. Ryan Martin Cholesterol [Mass/Vol] 159 mg/dL Normal <=200 [facility] Comment on above: Performed By: #### C MP, TSH, LIPID, FT3 #### [facility] [address] [place] [address] Dr. Ryan Martin Cholesterol in HDL [Mass/Vol] 87 mg/dL Critically high 40-60 [facility] Comment on above: Performed By: #### C MP, TSH, LIPID, FT3 #### [facility] [address] [place] [address] Dr. Ryan Martin Cholesterol in LDL [Mass/Vol] 57.2 mg/dL Normal [facility] Comment on above: Performed By: #### C MP, TSH, LIPID, FT3 #### [facility] [address] [place] [address] Dr. Ryan Martin Cholesterol.total/Ch olesterol in HDL [Mass ratio] 1.8 {ratio} Normal [facility] Comment on above: Performed By: #### C MP, TSH, LIPID, FT3 #### [facility] [address] [address] [address] Ryan Martin HDL NORMAL > or = 60 mg/dl - LO W CARDIOVASCULAR RISK <40 mg/dl - HIGH CARDIOVASCULAR RISK Normal [facility] Comment on above: Performed By: #### C MP, TSH, LIPID, FT3 #### [facility] [address] [address] [address] Ryan Martin LDL CALC NORMAL SEE BELOW Normal [facility] Comment on above: Result Comment: <100 mg/dl OPTIMAL 100 - 129 mg/dl NEAR OR ABOVE OPTIMAL 130 - 159 mg/dl BORDERLINE HIGH 160 - 189 mg/dl HIGH >190 mg/dl VERY HIGH Performed By: #### C MP, TSH, LIPID, FT3 #### [facility] [address] [address] [address] Ryan Martin Triglyceride [Mass/Vol] 74 mg/dL Normal <=150 [facility] Comment on above: Performed By: #### C MP, TSH, LIPID, FT3 #### [facility] [address] [place] [address] Dr. Ryan Martin VLDL CALC 14.8 mg/dL Normal [facility] Comment on above: Performed By: #### C MP, TSH, LIPID, FT3 #### [facility] [address] [place] [address] Dr. Ryan Martin MICROALBUMIN, RAND URon 06-08 mALB <1.3 Normal <=30.0 [facility] Comment on above: Performed By: #### C MP, TSH, LIPID, FT3 #### [facility] [address] [place] [address] Dr. Ryan Martin PROF 14(COMP METB)on 023 Albumin [Mass/Vol] 4.2 g/dL Normal 3.4-5.0 [facility] Comment on above: Performed By: #### C MP, TSH, LIPID, FT3 #### [facility] [address] [address] [address] Ryan Martin Albumin/Globulin [Mass ratio] 0.9 {ratio} Normal [facility] Comment on above: Performed By: #### C MP, TSH, LIPID, FT3 #### [facility] [address] [address] [address] Ryan Martin ALP [Catalytic activity/Vol] 93 U/L Normal 46-116 [facility] Comment on above: Performed By: #### C MP, TSH, LIPID, FT3 #### [facility] [address] [address] [address] Ryan Martin ALT [Catalytic activity/Vol] 21 U/L Normal 14-59 [facility] Comment on above: Performed By: #### C MP, TSH, LIPID, FT3 #### [facility] [address] [place] [address] Dr. Ryan Martin Anion gap [Moles/Vol] 15.4 mmol/L Normal [facility] Comment on above: Performed By: #### C MP, TSH, LIPID, FT3 #### [facility] [address] [address] [address] Ryan Martin AST [Catalytic activity/Vol] 21 U/L Normal 15-37 [facility] Comment on above: Performed By: #### C MP, TSH, LIPID, FT3 #### [facility] [address] [address] [address] Ryan Martin Bilirubin [Mass/Vol] 0.7 mg/dL Normal 0.2-1.0 [facility] Comment on above: Performed By: #### C MP, TSH, LIPID, FT3 #### [facility] [address] [address] [address] Ryan Martin Calcium [Mass/Vol] 9.9 mg/dL Normal 8.5-10.1 [facility] Comment on above: Performed By: #### C MP, TSH, LIPID, FT3 #### [facility] [address] [address] [address] Ryan Martin Chloride [Moles/Vol] 101 mmol/L Normal 98-107 [facility] Comment on above: Performed By: #### C MP, TSH, LIPID, FT3 #### [facility] [address] [place] [address] Dr. Ryan Martin CO2 [Moles/Vol] 26.7 mmol/L Normal 21.0-32.0 [facility] Comment on above: Performed By: #### C MP, TSH, LIPID, FT3 #### [facility] [address] [place] [address] Dr. Ryan Martin Creatinine [Mass/Vol] 1.13 mg/dL Critically high 0.55-1.02 [facility] Comment on above: Performed By: #### C MP, TSH, LIPID, FT3 #### [facility] [address] [place] [address] Dr. Ryan Martin EGFR-AF COMORAN 57 mL/min/1.73m2 Critically low >=60 [facility] Comment on above: Performed By: #### C MP, TSH, LIPID, FT3 #### [facility] [address] [place] [address] Dr. Ryan Martin EGFR-NON AF COMORAN 47 mL/min/1.73m2 Critically low >=60 [facility] Comment on above: Performed By: #### C MP, TSH, LIPID, FT3 #### [facility] [address] [place] [address] Dr. Ryan Martin Globulin (S) [Mass/Vol] 4.5 g/dL Normal [facility] Comment on above: Performed By: #### C MP, TSH, LIPID, FT3 #### [facility] [address] [place] [address] Dr. Ryan Martin Glucose [Mass/Vol] 119 mg/dL Critically high 74-106 [facility] Comment on above: Performed By: #### C MP, TSH, LIPID, FT3 #### [facility] [address] [place] [address] Dr. Ryan Martin Potassium [Moles/Vol] 5.1 mmol/L Normal 3.5-5.1 [facility] Comment on above: Performed By: #### C MP, TSH, LIPID, FT3 #### [facility] [address] [place] [address] Dr. Ryan Martin Protein [Mass/Vol] 8.7 g/dL Critically high 6.4-8.2 [facility] Comment on above: Performed By: #### C MP, TSH, LIPID, FT3 #### [facility] [address] [place] [address] Dr. Ryan Martin Sodium [Moles/Vol] 138 mmol/L Normal 136-145 [facility] Comment on above: Performed By: #### C MP, TSH, LIPID, FT3 #### [facility] [address] [place] [address] Dr. Ryan Martin Urea nitrogen [Mass/Vol] 17.0 mg/dL Normal 7.0-18.0 [facility] Comment on above: Performed By: #### C MP, TSH, LIPID, FT3 #### [facility] [address] [place] [address] Dr. Ryan Martin Urea nitrogen/Creatinine [Mass ratio] 15.0 mg/mg Normal [facility] Comment on above: Performed By: #### C MP, TSH, LIPID, FT3 #### [facility] [address] [place] [address] Dr. Ryan Martin TSHon 07-05-2022 TSH 5.282 uIU/mL Critically high 0.358-3.740 [facility] Comment on above: Performed By: #### C MP, TSH, LIPID, FT3 #### [facility] [address] [place] [address] Dr. Ryan Martin UA RANDOM W/MICROSCOPICon BACTERIA TRACE Abnormal NONE SEEN [facility] Comment on above: Performed By: #### U AMIC #### [facility] [address] [place] [address] Dr. Ryan Martin Bilirubin Ql (U) Negative Normal NEGATIVE [facility] Comment on above: Performed By: #### U AMIC #### [facility] [address] [place] [address] Dr. Ryan Martin CAST NONE SEEN Normal NONE SEEN [facility] Comment on above: Performed By: #### U AMIC #### [facility] [address] [place] [address] Dr. Ryan Martin Clarity (U) CLEAR Normal CLEAR [facility] Comment on above: Performed By: #### U AMIC #### [facility] [address] [place] [address] Dr. Ryan Martin Color (U) LT. YELLOW Normal YELLOW [facility] Comment on above: Performed By: #### U AMIC #### [facility] [address] [place] [address] Dr. Ryan Martin Crystals LM Nom (Urine sed) NONE SEEN Normal NONE SEEN [facility] Comment on above: Performed By: #### U AMIC #### [facility] [address] [place] [address] Dr. Ryan Martin Epithelial cells LM Ql (Urine sed) RARE Normal NONE SEEN /RARE [facility] Comment on above: Performed By: #### U AMIC #### [facility] [address] [place] [address] Dr. Ryan Martin Glucose Ql (U) Negative Normal NEGATIVE [facility] Comment on above: Performed By: #### U AMIC #### [facility] [address] [place] [address] Dr. Ryan Martin Hemoglobin Ql (U) Negative Normal NEGATIVE [facility] Comment on above: Performed By: #### U AMIC #### [facility] [address] [place] [address] Dr. Ryan Martin Ketones Ql (U) Negative Normal NEGATIVE [facility] Comment on above: Performed By: #### U AMIC #### [facility] [address] [place] [address] Dr. Ryan Martin LEUKOCYTES TRACE Abnormal NEGATIVE [facility] Comment on above: Performed By: #### U AMIC #### [facility] [address] [place] [address] Dr. Ryan Martin MUCOUS NONE SEEN Normal NONE SEEN [facility] Comment on above: Performed By: #### U AMIC #### [facility] [address] [address] [address] Ryan Martin Nitrite Ql (U) Negative Normal NEGATIVE [facility] Comment on above: Performed By: #### U AMIC #### [facility] [address] [place] [address] Dr. Ryan Martin pH (U) 6.0 [pH] Normal 5-9 [facility] Comment on above: Performed By: #### U AMIC #### [facility] [address] [place] [address] Dr. Ryan Martin RBC 0-2 Normal 0-2 [facility] Comment on above: Performed By: #### U AMIC #### [facility] [address] [place] [address] Dr. Ryan Martin SPEC GRAVITY 1.010 Normal 1.005-<=1.025 [facility] Comment on above: Performed By: #### U AMIC #### [facility] [address] [address] [address] Ryan Martin UA PROTEIN Negative Normal NEGATIVE/ TRACE [facility] Comment on above: Performed By: #### U AMIC #### [facility] [address] [place] [address] Dr. Ryan Martin Urobilinogen Qn (U) 0.2 {Michelle'U}/dL Normal 0.2 - 1. 0 [facility] Comment on above: Performed By: #### U AMIC #### [facility] [address] [address] [address] Ryan Martin WBC 2-5 Abnormal NONE SEEN [facility] Comment on above: Performed By: #### U AMIC #### [facility] [address] [place] [address] Dr. Ryan Martin XR LSPINE 2_3 VIEWSon 2022 XR LSPINE 2_3 VIEWS EXAMINATION: XR LSPI NE 2_3 VIEWS HISTORY: Low back pain COMPARISON: [...] by: BLOSSOM QUIROZ Date: 2022-07-05 13:11 Normal [facility] MAMM SCREEN 3D JESSE CADon 12-09-2021 MG MAMM SCREEN 3D JESSE CAD Patient: SHELLEY SANCHEZ Exam Date: 12/09/2021 : 1945 Gender:F Ordering : DR JOSÉ LUIS HORAN . Admission #: [id number] Family : Order #: [id number] CLICK HERE TO VIEW EXAM RADIOLOGY REPORT [...] breast cancer at age 35. LOCATION: [facility] BREAST COMPOSITION: Scattered areas fibroglandular density. [...] Quiroz MD on 12/09/2021 at 13:38 Normal [facility] Ambulatory Clinical Summaryo n 06-30-2020 Ambulatory Clinical Summary {[id number] Normal [facility] Ambulatory Clinical Summary {[id number]}CD:[id number] Normal [facility] General Surgery Office/Clini c Noteon 06-30-2020 General [...] Follow-up With When Contact Information SILKE RICE, Doug Estrada, NANCY Only if needed [address] [place] [address]- Additional Instructions: Problem List/Past Medical [...] Sister and Brother. Stroke: Mother and Father. Normal [facility] Comment on above: Result Comment: Elec tronically Signed By: Doug HERNANDEZ MD\.br\Date and Time Signed: 06/30/20 14:15 EDT Outside Colonoscopyon 2020 Outside Colonoscopy [id number] 0CD:127 [facility] Pathology Noteon 06-19-2020 Pathology Note [id number] 0CD:127 [facility] Lab Reportson 06-15-2020 Lab Reports [id number] 0CD:127 [facility] Pre-Certification Formon Pre-Certification Form [id number] 0CD:127 [facility] Consent for Procedure/Surger yon 05-28-2020 Consent for Procedure/Surgery [id number] 0CD:127 [facility] Provider Letter FTMCon 05-28 Provider Letter [facility] José Luis Horan, [employer] [place] [address] Re: SHELLEY SANCHEZ Date of : 1945 Thank you for your referral of Shelley Sanchez who was seen on consultation on May 27, 2020, for positive occult stool. A colonoscopy is planned. I have enclosed my consultation report for your review. I will be happy to follow Shelley. Sincerely, Doug Hernandez MD General Surgery [facility] Ambulatory Clinical Summaryo n 05-27-2020 Ambulatory Clinical Summary {[id number] }CD:[id number] [facility] Physician Referralon 021 Physician Referral [id number] 0CD:127 [facility] Vital Signs Date Time Vital Sign Value Performing Clinician Hyacinth acevedoy 07-11-2024 10:58-0400 Body mass index (BMI) [Ratio] 28.02 kg/m2 Lakshmi Newell NP Work Phone: [facility] 07-11-2024 10:58-0400 Body temperature 98.1 [degF] Lakshmi Gabrielaholz [employer] Work Phone: [facility] 07-11-2024 10:58-0400 Body weight 69.49 kg Lakshmi Mikehholz [employer] Work Phone: [facility] 07-11-2024 10:58-0400 Diastolic blood pressure 78 mm[Hg] Lakshmi Aichholz [employer] Work Phone: [facility] 07-11-2024 10:58-0400 Heart rate 58 /min Lakshmi Aichholz [employer] Work Phone: [facility] 07-11-2024 10:58-0400 Respiratory rate 18 /min Lakshmi Aichholz [employer] Work Phone: [facility] 07-11-2024 10:58-0400 SaO2% (BldA) [Mass fraction] 97 % Lakshmi Mikehholz [employer] Work Phone: [facility] 07-11-2024 10:58-0400 Systolic blood pressure 152 mm[Hg] Lakshmi Mikehholz [employer] Work Phone: [facility] 12-27-2023 14:07-0500 Diastolic blood pressure 72 mm[Hg] Lakshmi Aichholz [employer] Work Phone: [facility] 12-27-2023 14:07-0500 Systolic blood pressure 160 mm[Hg] Lakshmi Mikehholz [employer] Work Phone: [facility] 12-27-2023 13:52-0500 Body height 157.5 cm Lakshmi Aichholz [employer] Work Phone: [facility] 12-27-2023 13:52-0500 Body mass index (BMI) [Ratio] 27.95 kg/m2 Lakshmi Aichholz [employer] Work Phone: [facility] 12-27-2023 13:52-0500 Body temperature 97.59 [degF] Lakshmi Aichholz [employer] Work Phone: [facility] 12-27-2023 13:52-0500 Body weight 69.31 kg Lakshmi Gabrielaholz [employer] Work Phone: [facility] 12-27-2023 13:52-0500 Heart rate 74 /min Lakshmi Aichholz [employer] Work Phone: [facility] 12-27-2023 13:52-0500 Respiratory rate 22 /min Lakshmi Aichholz [employer] Work Phone: [facility] Healthcare 12-27-2023 13:52-0500 SaO2% (BldA) [Mass fraction] 99 % Lakshmi Aichholz [employer] Work Phone: [facility] 10-25-2023 10:50-0400 Body height 157.5 cm Lakshmi Aichholz [employer] Work Phone: [facility] 10-25-2023 10:50-0400 Body mass index (BMI) [Ratio] 28.09 kg/m2 Lakshmi Aichholz [employer] Work Phone: [facility] 10-25-2023 10:50-0400 Body temperature 98.1 [degF] Lakshmi Aichholz [employer] Work Phone: [facility] 10-25-2023 10:50-0400 Body weight 69.67 kg Lakshmi Aichholz [employer] Work Phone: [facility] 10-25-2023 10:50-0400 Diastolic blood pressure 72 mm[Hg] Lakshmi Aichholz [employer] Work Phone: [facility] 10-25-2023 10:50-0400 Heart rate 68 /min Lakshmi Aichholz [employer] Work Phone: [facility] 10-25-2023 10:50-0400 Respiratory rate 19 /min Lakshmi Aichholz [employer] Work Phone: [facility] 10-25-2023 10:50-0400 SaO2% (BldA) [Mass fraction] 96 % Lakshmi Aichholz [employer] Work Phone: [facility] 10-25-2023 10:50-0400 Systolic blood pressure 136 mm[Hg] Lakshmi Gabrielaholz [employer] Work Phone: [facility] 09-26-2023 08:55-0400 Body height 157.5 cm Lakshmi Aichholz [employer] Work Phone: [facility] 09-26-2023 08:55-0400 Body mass index (BMI) [Ratio] 28.9 kg/m2 Lakshmi Aichholz [employer] Work Phone: [facility] 09-26-2023 08:55-0400 Body temperature 97.59 [degF] Lakshmi Aichholz [employer] Work Phone: [facility] 09-26-2023 08:55-0400 Body weight 71.67 kg Lakshmi Aichholz [employer] Work Phone: [facility] 09-26-2023 08:55-0400 Diastolic blood pressure 78 mm[Hg] Lakshmi Aichholz [employer] Work Phone: [facility] 09-26-2023 08:55-0400 Heart rate 63 /min Lakshmi Aichholz [employer] Work Phone: [facility] 09-26-2023 08:55-0400 Respiratory rate 18 /min Lakshmi Aichholz [employer] Work Phone: [facility] 09-26-2023 08:55-0400 SaO2% (BldA) [Mass fraction] 99 % Lakshmi Mikehholz [employer] Work Phone: [facility] 09-26-2023 08:55-0400 Systolic blood pressure 170 mm[Hg] Lakshmi Aichholz [employer] Work Phone: [facility] Healthcare Encounters Encounter Date Encounter Type Care Provider Facility Start: 09-16-2024 End: 09-16-2024 Refill Avinash Blair MD Work Phone: [facility] Comment on above: Hyperlipidemia, unsp ecified Start: 09-13-2024 End: 09-15-2024 Refill Lakshmi Aichholz [employer] Work Phone: [facility] Comment on above: Hypothyroidism, unsp ecified ; Gastro-esophageal reflux disease without esophagitis Start: 08-28-2024 End: 08-28-2024 Refill Lakshmi Newell NP Work Phone: [facility] Comment on above: Hyperlipidemia, unsp ecified Start: 08-26-2024 End: 08-26-2024 Patient encounter procedure Lakshmi Newell NP-C -Ultrasound [facility] Work Phone: Start: 08-26-2024 End: 08-26-2024 ambulatory José Luis Horan MD Work Phone: [facility] Work Phone: Start: 08-23-2024 End: 08-23-2024 Patient encounter procedure Lakshmi Newell NP-[facility] Work Phone: Start: 08-23-2024 End: 08-23-2024 ambulatory Jos éLuis Horan MD Work Phone: [facility] Work Phone: Start: 07-11-2024 End: 07-11-2024 Bamboo flowsheet Lakshmi Newell NP Work Phone: [facility] Start: 07-11-2024 End: 07-11-2024 Bamboo flowsheet Lakshmi Newell NP Work Phone: [facility] Start: 07-11-2024 End: 07-11-2024 Patient encounter procedure Lakshmi Newell NP Work Phone: [facility] Comment on above: Encounter for subseq uent annual wellness visit (AWV) in Medicare patient (Primary Dx); Primary hypertension (CMS/HCC); Gastroesophageal reflux disease, unspecified whether esophagitis present; Chronic kidney disease, stage 3a (HCC) (CMS/HCC); Age-related osteoporosis without current pathological fracture (CMS/HCC); Hypothyroidism, adult (CMS/HCC); Type 2 diabetes mellitus with stage 3 chronic kidney disease, without long-term current use of insulin, unspecified whether stage 3a or 3b CKD (HCC) (CMS/HCC); High cholesterol (CMS/HCC); Pain of left hip; Essential (primary) hypertension (CMS/HCC); Type 2 diabetes mellitus without complications; Encounter for screening mammogram for malignant neoplasm of breast Start: 07-11-2024 End: 07-11-2024 ambulatory LAKSHMI NEWELL Not Available Start: 06-18-2024 End: 06-18-2024 Refill Lakshmi Newell [employer] Work Phone: [facility] Comment on above: Primary hypertension (CMS/HCC); Essential (primary) hypertension (CMS/HCC); Hyperlipidemia, unspecified (CMS/HCC); Age-related osteoporosis without current pathological fracture (CMS/HCC); Anxiety disorder, unspecified; Hypothyroidism, unspecified; Spondylosis without myelopathy or radiculopathy, lumbosacral region; Gastro-esophageal reflux disease without esophagitis Start: 03-20-2024 End: 03-20-2024 Refill Lakshmi Newell [employer] Work Phone: [facility] Comment on above: Primary hypertension (CMS/HCC); Age-related osteoporosis without current pathological fracture (CMS/HCC); Gastro-esophageal reflux disease without esophagitis; Spondylosis without myelopathy or radiculopathy, lumbosacral region; Hypothyroidism, unspecified (CMS/HCC); Anxiety disorder, unspecified; Essential (primary) hypertension (CMS/HCC) Start: 01-22-2024 End: 01-22-2024 Clinisync Result Encounter Lakshmi Newell NP Work Phone: [facility] External Department Unsolicited Start: 01-22-2024 End: 01-22-2024 Clinisync Result Encounter Lakshmi Newell NP Work Phone: [facility] External Department Unsolicited Start: 12-27-2023 End: 12-27-2023 Bamboo flowsheet Lakshmi Newell [employer] Work Phone: [facility] Start: 12-27-2023 End: 12-27-2023 Bamboo flowsheet Lakshmi Newell [employer] Work Phone: [facility] Start: 12-27-2023 End: 12-27-2023 ambulatory LAKSHMI GABRIELAHOLZ Not Available Start: 12-27-2023 End: 12-27-2023 Office outpatient visit 25 minutes Lakshmi Newell [employer] Work Phone: [facility] Comment on above: Primary hypertension (CMS/HCC) (Primary Dx); Gastroesophageal reflux disease, unspecified whether esophagitis present; Chronic kidney disease, stage 3a (HCC) (CMS/HCC); Type 2 diabetes mellitus without complication, without long-term current use of insulin (CMS/HCC); Hypothyroidism, adult (CMS/HCC); High cholesterol (CMS/HCC); Anxiety; Iron deficiency; Age-related osteoporosis without current pathological fracture ([facility]); Right carotid bruit Start: 12-21-2023 End: 12-22-2023 Refill Lakshmi Reece [employer] Work Phone: [facility] Comment on above: Age-related osteopor osis without current pathological fracture ([facility]/HCC) Start: 12-18-2023 End: 12-18-2023 Refill Lakshmi Reece [employer] Work Phone: [facility] Comment on above: Pain of left hip Start: 12-11-2023 End: 12-11-2023 Refill Lakshmi Reece [employer] Work Phone: [facility] Comment on above: Hyperlipidemia, unsp ecified (CMS/HCC); Type 2 diabetes mellitus without complications ([facility]/HCC); Gastro-esophageal reflux disease without esophagitis Start: 10-31-2023 End: 10-31-2023 Bamboo flowsheet Jay Gilbert [employer] Work Phone: [facility] Start: 10-31-2023 End: 10-31-2023 Bamboo flowsheet Jay Gilbert [employer] Work Phone: [facility] Start: 10-31-2023 End: 10-31-2023 Office outpatient visit 25 minutes Tyron Zaldivar DO Work Phone: [facility] Comment on above: Left hip pain (Prima ry Dx); Arthritis of left hip Start: 10-31-2023 End: 10-31-2023 ambulatory TYRON ZALDIVAR Not Available Start: 10-25-2023 End: 10-26-2023 Refill Lakshmi Newell [employer] Work Phone: [facility] Comment on above: Iron deficiency Start: 10-25-2023 End: 10-25-2023 Telephone encounter Jay Gilbert [employer] Work Phone: [facility] Start: 10-25-2023 End: 10-25-2023 Office outpatient visit 15 minutes Laksmhi Newell [employer] Work Phone: [facility] Comment on above: Primary hypertension (CMS/HCC) (Primary Dx); Chronic kidney disease, stage 3a (HCC) (CMS/HCC); 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, subsequent encounter; Pain of left hip; Overweight (BMI 25.0-29.9) Start: 10-25-2023 End: 10-25-2023 ambulatory LAKSHMI NEWELL Not Available Start: 10-24-2023 End: 10-24-2023 Bamboo flowsheet Jay Gilbert [employer] Work Phone: [facility] Start: 10-24-2023 End: 10-24-2023 Bamboo flowsheet Jay Gilbert [employer] Work Phone: [facility] Start: 10-24-2023 End: 10-24-2023 Office outpatient new 30 minutes Jay Gilbert [employer] Work Phone: [facility] Comment on above: Hip strain, left, in itial encounter (Primary Dx); Fracture of multiple pubic rami, right, sequela; Left hip pain Start: 10-24-2023 End: 10-24-2023 ambulatory JAY GILBERT Not Available Start: 10-19-2023 End: 10-19-2023 Orders Only Lakshmi Newell [employer] Work Phone: [facility] Comment on above: Closed fracture of m ultiple rami of right pubis, initial encounter (CMS/HCC) (Primary Dx) Start: 10-03-2023 End: 10-03-2023 Orders Only Lakshmi Newell [employer] Work Phone: [facility] Comment on above: Pain of left hip (Pr imary Dx) Start: 10-02-2023 End: 10-02-2023 Clinisync Result Encounter Lakshmi Newell [employer] Work Phone: [facility] External Department Unsolicited Start: 10-02-2023 End: 10-02-2023 Clinisync Result Encounter Lakshmi Newell [employer] Work Phone: [facility] External Department Unsolicited Start: 09-26-2023 End: 09-26-2023 Bamboo flowsheet Lakshmi Newell [employer] Work Phone: [facility] Start: 09-26-2023 End: 09-26-2023 Bamboo flowsheet Lakshmi Newell [employer] Work Phone: [facility] Start: 09-26-2023 End: 09-26-2023 Office outpatient visit 25 minutes Lakshmi Newell [employer] Work Phone: [facility] Comment on above: Primary hypertension (CMS/HCC) (Primary Dx); 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); Chronic kidney disease, stage 3a (HCC) (CMS/HCC); Hypothyroidism, adult (CMS/HCC); Pain of left hip Start: 09-26-2023 End: 09-26-2023 ambulatory LAKSHMI REECE Not Available Start: 03-28-2023 Patient encounter procedure Lakshmi Newell [employer] Work Phone: [facility] Healthcare Start: 03-14-2023 Refill Lakshmi Newell [employer] Work Phone: [facility] Comment on above: Primary hypertension (CMS/HCC) (Primary Dx); Essential (primary) hypertension (CMS/HCC); Spondylosis without myelopathy or radiculopathy, lumbosacral region; Anxiety disorder, unspecified; Hypothyroidism, unspecified (CMS/HCC); Hypothyroidism, adult (CMS/[facility]); Lumbar back pain; Anxiety Start: 07-05-2022 End: 07-06-2022 ambulatory GIRISH NEWELL Facility: Start: 05-06-2022 End: 05-06-2022 ambulatory NONE LISTED REQUEST Facility:[facility] Start: 12-09-2021 End: 12-10-[address] JOSÉ LUIS HORAN . Facility:[facility] Start: 08-01-2016 End: 08-03-2016 Ambulatory JACE CABAN [facility] Procedures Date Procedure Procedure Detail Performing Clinician Start: 08-23-2024 Dual energy X-ray absorptiometry José Luis Horan MD Work Phone: Start: 08-23-2024 Screening mammograph y of bilateral breasts José Luis Horan MD Work Phone: Start: 07-11-2024 Hemoglobin glycosylated a1c Lakshmi Newell NP Work Phone: Start: 01-22-2024 ALL CBC WITH AUTO DIFF Lakshmi Newell [employer] Work Phone: Start: 10-31-2023 Arthrocentesis aspir &/inj major jt/bursa w/us Tyron Zaldivar DO Work Phone: Start: 10-02-2023 ALL BASIC METABOLIC PANEL Lakshmi Newell NP Work Phone: Plan of Treatment Date Care Activity Detail Author Start: 07-14-2025 End: 07-14-2025 Patient encounter procedure 07/14/2025 10:30 AM EDT Office Visit [facility] [address] [place] [id number] Lakshmi Newell NP [address] [place] [id number] [facility] Start: 07-11-2025 Medicare Annual Wellness (AWV) Medicare Annual Wellness (AWV) [facility] Start: 01-21-2025 Urine screening for protein Diabetes: Urine Protein Screening [facility] Start: 01-10-2025 Hemoglobin A1c measurement Diabetes: Hemoglobin A1C [facility] Start: 10-29-2024 End: 08-28-2025 Alanine aminotransferase [Enzymatic activity/volume] in Serum or Plasma ALT Lab Routine Hyperlipidemia, unspecified Expected: 10/29/2024 (Approximate), Expires: 08/28/2025 [facility] Comment on above: Expected: 10/29/2024 (Approximate), Expi res: 08/28/2025 Start: 10-29-2024 End: 08-28-2025 Aspartate aminotransferase [Enzymatic activity/volume] in Serum or Plasma AST Lab Routine Hyperlipidemia, unspecified Expected: 10/29/2024 (Approximate), Expires: 08/28/2025 [facility] Comment on above: Expected: 10/29/2024 (Approximate), Expi res: 08/28/2025 Start: 10-29-2024 End: 08-28-2025 Lipid 1996 panel - Serum or Plasma Lipid panel Lab Routine Hyperlipidemia, unspecified Expected: 10/29/2024 (Approximate), Expires: 08/28/2025 [facility] Work Phone: Comment on above: Expected: 10/29/2024 (Approximate), Expi res: 08/28/2025 Start: 10-15-2024 End: 10-15-2024 Patient encounter procedure 10/15/2024 11:00 AM EDT Office Visit [facility] [address] [place] [address] Lakshmi Newell NP [address] [place] [address] [facility] Start: 10-07-2024 Influenza vaccination Influenza Vaccine (#1) [facility] Start: 08-26-2024 Doppler ultrasonography of bilateral carotid arteries US carotid doppler BI [facility] Start: 08-26-2024 US.doppler Carotid arteries - bilateral [facility] Start: 08-08-2024 End: 08-08-2024 Patient encounter procedure 08/08/2024 10:00 AM EDT Procedure Visit [facility] [address] [place] [address] Lakshmi Newell NP [address] [place] [address] [facility] Start: 07-22-2024 Hemoglobin A1c measurement Diabetes: Hemoglobin A1C [facility] Start: 07-11-2024 End: 07-11-2025 Basic metabolic 1998 panel - Serum or Plasma Basic metabolic panel Lab Routine Primary hypertension (CMS/HCC) Type 2 diabetes mellitus with stage 3 chronic kidney disease, without long-term current use of insulin, unspecified whether stage 3a or 3b CKD (HCC) (CMS/HCC) Expected: 07/11/2024 (Approximate), Expires: 07/11/2025 [facility] Work Phone: Comment on above: Expected: 07/11/2024 (Approximate), Expi res: 07/11/2025 Start: 07-11-2024 End: 09-10-2025 MG Breast - bilateral Screening Bilateral screening mammogram Imaging Routine Encounter for screening mammogram for malignant neoplasm of breast Expected: 07/11/2024 (Approximate), Expires: 09/10/2025 [facility] Comment on above: Expected: 07/11/2024 (Approximate), Expi res: 09/10/2025 Start: 07-11-2024 End: 07-11-2024 Patient encounter procedure [facility] Comment on above: Encounter for subsequent annual wellness visit (AWV) in Medicare patient (Primary Dx); Primary hypertension (CMS/HCC); Gastroesophageal reflux disease, unspecified whether esophagitis present; Chronic kidney disease, stage 3a (HCC) (CMS/HCC); Age-related osteoporosis without current pathological fracture (CMS/HCC); Hypothyroidism, adult (CMS/HCC); Type 2 diabetes mellitus with stage 3 chronic kidney disease, without long-term current use of insulin, unspecified whether stage 3a or 3b CKD (HCC) (CMS/HCC); High cholesterol ([facility]/HCC) Start: 07-07-2024 Glaucoma screening Diabetes: Retinopathy Screening [facility] Start: 04-03-2024 End: 04-03-2024 Patient encounter procedure 04/03/2024 4:30 PM EST Office Visit [facility] [address] [place] [address] Lakshmi Newell NP [address] [place] [address] [facility] Start: 03-28-2024 Medicare Annual Wellness (AWV) Medicare Annual Wellness (AWV) [facility] Start: 03-06-2024 Urine screening for protein Diabetes: Urine Protein Screening [facility] Start: 12-29-2023 Hemoglobin A1c measurement Diabetes: Hemoglobin A1C [facility] Start: 12-27-2023 End: 12-26-2024 25-hydroxyvitamin D3 [Mass/volume] in Serum or Plasma Vitamin D 25 hydroxy Lab Routine Age-related osteoporosis without current pathological fracture ([facility]/HCC) Expected: 12/27/2023 (Approximate), Expires: 12/26/2024 [facility] Comment on above: Expected: 12/27/2023 (Approximate), Expi res: 12/26/2024 Start: 12-27-2023 End: 12-26-2024 CBC W Auto Differential panel - Blood CBC and differential Lab Routine Gastroesophageal reflux disease, unspecified whether esophagitis present Expected: 12/27/2023 (Approximate), Expires: 12/26/2024 [facility] Work Phone: Comment on above: Expected: 12/27/2023 (Approximate), Expi res: 12/26/2024 Start: 12-27-2023 End: 12-26-2024 Comprehensive metabolic 2000 panel - Serum or Plasma Comprehensive metabolic panel Lab Routine Primary hypertension (CMS/HCC) Gastroesophageal reflux disease, unspecified whether esophagitis present Chronic kidney disease, stage 3a (HCC) (CMS/HCC) Type 2 diabetes mellitus without complication, without long-term current use of insulin (CMS/HCC) High cholesterol (CMS/HCC) Expected: 12/27/2023 (Approximate), Expires: 12/26/2024 [facility] Comment on above: Expected: 12/27/2023 (Approximate), Expi res: 12/26/2024 Start: 12-27-2023 End: 12-26-2024 DXA Skeletal system Views for bone density DEXA bone density Imaging Routine Age-related osteoporosis without current pathological fracture (CMS/HCC) Expected: 12/27/2023 (Approximate), Expires: 12/26/2024 [facility] Comment on above: Expected: 12/27/2023 (Approximate), Expi res: 12/26/2024 Start: 12-27-2023 End: 12-26-2024 Hemoglobin A1c/Hemoglobin.total in Blood Hemoglobin A1c Lab Routine Type 2 diabetes mellitus without complication, without long-term current use of insulin (CMS/HCC) Expected: 12/27/2023 (Approximate), Expires: 12/26/2024 [facility] Comment on above: Expected: 12/27/2023 (Approximate), Expi res: 12/26/2024 Start: 12-27-2023 End: 12-26-2024 Iron and Iron binding capacity panel - Serum or Plasma Iron level Lab Routine Iron deficiency Expected: 12/27/2023 (Approximate), Expires: 12/26/2024 [facility] Comment on above: Expected: 12/27/2023 (Approximate), Expi res: 12/26/2024 Start: 12-27-2023 End: 12-26-2024 Lipid 1996 panel - Serum or Plasma Lipid panel Lab Routine Type 2 diabetes mellitus without complication, without long-term current use of insulin (CMS/HCC) High cholesterol (CMS/HCC) Expected: 12/27/2023 (Approximate), Expires: 12/26/2024 [facility] Comment on above: Expected: 12/27/2023 (Approximate), Expi res: 12/26/2024 Start: 12-27-2023 End: 12-26-2024 Microalbumin/Creatinine panel in random Urine Microalbumin / creatinine, urine ratio Lab Routine Primary hypertension (CMS/HCC) Chronic kidney disease, stage 3a (HCC) (CMS/HCC) Type 2 diabetes mellitus without complication, without long-term current use of insulin (CMS/HCC) Expected: 12/27/2023 (Approximate), Expires: 12/26/2024 [facility] Comment on above: Expected: 12/27/2023 (Approximate), Expi res: 12/26/2024 Start: 12-27-2023 End: 12-26-2024 Thyrotropin [Units/volume] in Serum or Plasma TSH Lab Routine Hypothyroidism, adult (CMS/HCC) Expected: 12/27/2023 (Approximate), Expires: 12/26/2024 [facility] Comment on above: Expected: 12/27/2023 (Approximate), Expi res: 12/26/2024 Start: 12-27-2023 End: 12-26-2024 Thyroxine (T4) free [Mass/volume] in Serum or Plasma T4, free Lab Routine Hypothyroidism, adult (CMS/HCC) Expected: 12/27/2023 (Approximate), Expires: 12/26/2024 [facility] Comment on above: Expected: 12/27/2023 (Approximate), Expi res: 12/26/2024 Start: 12-27-2023 End: 12-26-2024 Urinalysis complete panel - Urine Urinalysis with reflex microscopic (clean catch) Lab Routine Primary hypertension (CMS/HCC) Chronic kidney disease, stage 3a (HCC) (CMS/HCC) Type 2 diabetes mellitus without complication, without long-term current use of insulin (CMS/HCC) Expected: 12/27/2023 (Approximate), Expires: 12/26/2024 [facility] Comment on above: Expected: 12/27/2023 (Approximate), Expi res: 12/26/2024 Start: 12-27-2023 End: 12-26-2024 US.doppler Carotid arteries - bilateral Vascular US carotid artery duplex bilateral Imaging Routine Primary hypertension (CMS/HCC) Type 2 diabetes mellitus without complication, without long-term current use of insulin (CMS/HCC) High cholesterol (CMS/HCC) Right carotid bruit Expected: 12/27/2023, Expires: 12/26/2024 [facility] Comment on above: Expected: 12/27/2023, Expires: Start: 12-27-2023 End: 12-27-2023 Patient encounter procedure 12/27/2023 1:40 PM EST [facility] Visit [facility] [address] [place] [address] Lakshmi Newell NP [address] [place] [address] [facility] Start: 12-14-2023 End: 12-14-2023 Patient encounter procedure 12/14/2023 9:00 AM EST Office Visit [facility] [address] [place] [address] Lakshmi Newell NP [address] [place] [id number] [facility] Start: 12-07-2023 Influenza vaccination Influenza Vaccine (#1) [facility] Comment on above: Postponed from 10/08/2023 (Patient Does Not Have Time) Start: 10-31-2023 End: 10-31-2023 Patient encounter procedure [facility] Comment on above: Arrived Start: 10-25-2023 End: 10-25-2023 Patient encounter procedure 10/25/2023 9:40 AM EDT Office Visit [facility] [address] [place] [address] Lakshmi Newell NP [address] [place] [id number] [facility] Start: 10-24-2023 End: 10-24-2023 Patient encounter procedure 10/24/2023 1:00 PM EDT Office Visit [facility] [address] [facility] [address] [place] [phone] Jay Gilbert, [employer] [address], [place] [id number] Arrived [facility] Comment on above: Arrived Start: 10-08-2023 Influenza vaccination Influenza Vaccine (#1) [facility] Start: 10-03-2023 End: 10-02-2024 XR Pelvis 3 Views XR pelvis 3+ views Imaging Routine Pain of left hip Expected: 10/03/2023 (Approximate), Expires: 10/02/2024 [facility] Work Phone: Comment on above: Expected: 10/03/2023 (Approximate), Expi res: 10/02/2024 Start: 09-26-2023 End: 09-25-2024 Basic metabolic 1998 panel - Serum or Plasma Basic metabolic panel Lab Routine 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) Chronic kidney disease, stage 3a (HCC) (CMS/HCC) Expected: 09/26/2023 (Approximate), Expires: 09/25/2024 [facility] Work Phone: Comment on above: Expected: 09/26/2023 (Approximate), Expi res: 09/25/2024 Start: 09-26-2023 End: 09-25-2024 XR Hip - left 3 Views XR hip left 2 or 3 views Imaging Routine Pain of left hip Expected: 09/26/2023, Expires: 09/25/2024 [facility] Comment on above: Expected: 09/26/2023, Expires: Start: 09-26-2023 End: 09-26-2023 Patient encounter procedure 09/26/2023 9:00 AM EDT Office Visit [facility] [address] [place] [address] Lakshmi Newell, MYLENE [address] [place] [address] 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); Chronic kidney disease, stage 3a (HCC) (CMS/HCC) [facility] Comment on above: Type 2 diabetes mellitus with diabetic c hronic kidney disease (HCC) (CMS/HCC); Chronic kidney disease, stage 3a (HCC) (CMS/HCC) Start: 07-06-2023 Urine screening for protein Diabetes: Urine Protein Screening [facility] Start: 03-28-2023 End: 03-28-2023 Patient encounter procedure 03/28/2023 10:00 AM EST Office Visit [facility] [address] [place] [address] Lakshmi Newell, [employer] [address] [place] [address] [facility] Start: 10-05-2022 Hemoglobin A1c measurement Diabetes: Hemoglobin A1C [facility] Start: 12-09-1955 Glaucoma screening Diabetes: Retinopathy Screening [facility] Start: 1945 Medicare Annual Wellness (AWV) Medicare Annual Wellness (AWV) [facility] Immunizations Immunization Date Immunization Notes Care Provider Fa cility 11-29-2023 influenza, high dose seasonal, preservative-free Lakshmi Aichholz [employer] Work Phone: [facility] 11-29-2023 influenza virus vacc ine, unspecified formulation Lakshmi Aichholz [employer] Work Phone: [facility] 11-29-2022 Influenza, High-dose Seasonal, Quadrivalent, Preservative Free Lakshmi Aichholz [employer] Work Phone: [facility] 11-29-2022 influenza virus vacc ine, unspecified formulation Lakshmi Aichholz [employer] Work Phone: [facility] 11-19-2021 Influenza, High-dose Seasonal, Quadrivalent, Preservative Free Lakshmi Aichholz [employer] Work Phone: [facility] 11-06-2020 Seasonal trivalent influenza vaccine, adjuvanted, preservative free Lakshmi Aichholz [employer] Work Phone: [facility] 04-14-2020 Pfizer Purple Cap SARS-CoV-2 Vaccination Lakshmi Aichholz [employer] Work Phone: [facility] 04-09-2020 Moderna SARS-CoV-2 Vaccination Lakshmi Aichholz [employer] Work Phone: [facility] 11-21-2019 Seasonal trivalent influenza vaccine, adjuvanted, preservative free Lakshmi Aichholz [employer] Work Phone: [facility] 11-11-2019 influenza, high dose seasonal, preservative-free Lakshmi Aichholz [employer] Work Phone: [facility] 01-20-2018 pneumococcal conjuga te vaccine, 13 valent Lakshmi Aichholz [employer] Work Phone: [facility] 11-13-2017 influenza, injectabl e, quadrivalent, preservative free Lakshmi Aichholz [employer] Work Phone: [facility] 11-03-2017 influenza, high dose seasonal, preservative-free Lakshmi Aichholz [employer] Work Phone: [facility] 05-09-2017 pneumococcal polysaccharide vaccine, 23 valent Lakshmi Aichholz [employer] Work Phone: [facility] 06-20-2016 pneumococcal polysaccharide vaccine, 23 valent Lakshmi Aichholz [employer] Work Phone: [facility] 10-06-2015 influenza, high dose seasonal, preservative-free Lakshmi Aichholz [employer] Work Phone: [facility] Healthcare Payers Date Payer Category Payer Self-pay 2021 Medicaid AETNA MEDICARE A DVANTAGE [id number] 2021 Medicare AETNA MEDICARE A DVANTAGE AETNA MEDICARE REPLACEMENT [id number] 2021-Present [address] [place] [address] [id number] 1959 Medicare [id number] 1945 Unknown [id number] 1945 Unknown [id number] 1945 Unknown [id number] 1945 Unknown [id number] 1945 Unknown [id number] 1945 Unknown [id number] 1945 Unknown [id number] 1945 Unknown [id number] 1945 Unknown [id number] Medicare Medicare [id number] Medicare Medicare Outpatient [id number] Unknown [id number] Unknown [id number] Social History Date Type Detail Facility Start: 02-20-2023 Tobacco smoking stat [facility] Ex-smoker [facility] History of tobacco use Current smoker [facility] History of tobacco use Cigarette Smoker [facility] Start: 02-20-2023 Tobacco use and exposure Smokeless tobacco non-user [facility] Start: 02-20-2023 End: 07-11-2024 Alcohol intake Ex-drinker (finding) [facility] Start: 02-20-2023 End: 03-28-2023 History of Social function [facility] Start: 02-20-2023 End: 03-28-2023 Tobacco use panel [facility] Start: 1945 Sex Assigned At Not on file [facility] Within the last year , have you been afraid of your partner or ex-partner? No [facility] Are you now , , , , never or living with a partner? [facility] How often to you hav e a drink containing alcohol? Never [facility] How many standard drinks containing alcohol do you have on a typical day? Patient does not drink [facility] How hard is it for y ou to pay for the very basics like food, housing, medical care, and heating Somewhat hard [facility] Do you feel stress - tense, restless, nervous, or anxious, or unable to sleep at night because your mind is troubled all the time - these days [OSQ] Not at all [facility] (I/We) worried wheth er (my/our) food would run out before (I/we) got money to buy more. Sometimes true [facility] Start: 03-16-2018 Tobacco smoking stat us [facility] Never smoked tobacco (finding) [facility] Sex Female (finding) [facility] Start: 1945 Sex Assigned At Female F [facility] Functional Status Date Assessment Result Facility 07-11-2024 Patient Health [facility] ionnaire 2 item (PHQ-2) [Reported] [facility] 07-11-2024 How difficult have t hese problems made it for you to do your work, take care of things at home, or get along with other people? Not difficult at all 07/11/2024 11:02 AM PJ [facility]ITT Not difficult at all [facility] Clinical Notes 05-27-2020 to 07-11-2024 Lakshmi Newell NP - 07/11/2024 11:00 AM Laxmi Newell NP - 07/11/2024 6:43 AM Laxmi Newell NP - 07/11/2024 6:42 AM Laxmi Newell NP - 07/11/2024 6:42 AM EDTPatient Instructions Note Date & Type Note Facility 07-11-2024 History of Present illness Narrative Images from the original note were not included. Shelley Sanchez is a 78 y.o. female presents with chief complaint of Medicare Annual Wellness Visit Initial HPI: Diet:variety, not a lot of veggies, Activity:push mower, no organized exercised Mental Health Concerns: none Falls in the last year:no Still driving: yes Do you pay your bills: yes Any hearing problems: hearing aids Any Vision problems: had cataracts removed Any Hospitalizations in the last year: no Specialist: eye, HCPOA/Living Will: yes Concerns: Hypertension This is a chronic problem. The problem is unchanged. The problem is uncontrolled. Pertinent negatives include no blurred vision, chest pain, headaches, palpitations, peripheral edema, PND or shortness of breath. There are no associated agents to hypertension. Risk factors for coronary artery disease include dyslipidemia and sedentary lifestyle. Past treatments include beta blockers, calcium channel blockers and angiotensin blockers. The current treatment provides moderate improvement. There are no compliance problems. There is no history of CAD/VT, heart failure or PVD. Identifiable causes of hypertension include a thyroid problem. Thyroid Problem Presents for follow-up visit. Symptoms include fatigue. Patient reports no anxiety, constipation, depressed mood, diarrhea, hair loss, heat intolerance, hoarse voice, palpitations, tremors, weight gain or weight loss. The symptoms have been stable. There is no history of heart failure. SUBJECTIVE: MEDICATIONS: Current Outpatient Medications Medication Instructions acetaminophen (TYLENOL) 325 mg, 2 times daily alendronate (FOSAMAX) 70 mg, Oral, Every 7 days, Take in the morning with a full glass of water, on an empty stomach, and do not take anything else by mouth or lie down for the next 30 min. amLODIPine (NORVASC) 10 mg, Oral, Daily aspirin 81 mg, Daily atorvastatin (LIPITOR) 40 mg, Oral, Nightly baclofen (LIORESAL) 10 mg, Oral, Nightly PRN Calcium Carb-Cholecalciferol (CALCIUM 500 +D PO) 1,000 mg, Daily carvedilol (COREG) 25 mg, Oral, 2 times daily DULoxetine (CYMBALTA) 30 mg, Oral, Nightly FeroSul 325 mg, Daily with breakfast latanoprost (Xalatan) 0.005 % ophthalmic solution INSTILL 1 DROP IN BOTH EYES ONCE DAILY AT BEDTIME levothyroxine (SYNTHROID, LEVOXYL) 100 mcg, Oral, Daily losartan (COZAAR) 100 mg, Oral, Daily meloxicam (MOBIC) 15 mg, Oral, Daily PRN metFORMIN (GLUCOPHAGE) 500 mg, Oral, 2 times daily with meals Multiple Vitamin (multivitamin) capsule 1 capsule, Daily omeprazole (PRILOSEC) 20 mg, Oral, Daily before breakfast Propylene Glycol (SYSTANE BALANCE OP) Administer into affected eye(s) timolol (Timoptic) 0.5 % ophthalmic solution INSTILL 1 DROP IN THE RIGHT EYE TWICE DAILY ALLERGIES: No Known Allergies REVIEW OF SYMPTOMS: Review of Systems Constitutional: Positive for fatigue. Negative for appetite change, chills, fever, weight gain and weight loss. HENT: Negative for congestion, ear pain, hoarse voice and sore throat. Eyes: Negative for blurred vision, pain, discharge, redness and visual disturbance. Respiratory: Negative for cough, shortness of breath and wheezing. Cardiovascular: Negative for chest pain, palpitations, leg swelling and PND. Gastrointestinal: Negative for abdominal pain, blood in stool, constipation, diarrhea, nausea and vomiting. Genitourinary: Negative for difficulty urinating, dysuria and frequency. Musculoskeletal: Positive for arthralgias. Negative for back pain, joint swelling and myalgias. Skin: Negative for rash and wound. Neurological: Negative for dizziness, tremors, seizures, syncope and headaches. Psychiatric/Behavioral: Negative for behavioral problems, self-injury and suicidal ideas. The patient is not nervous/anxious. Hematological: Does not bruise/bleed easily. Endocrine: Negative for heat intolerance, polydipsia, polyphagia and polyuria. Allergic/Immunologic: Negative for environmental allergies and food allergies. PAST MEDICAL HISTORY Past Medical History: Diagnosis Date Abnormal chest x-ray Anxiety 02/20/2023 Diverticulosis Gastroesophageal reflux disease, unspecified whether esophagitis present 02/20/2023 Glaucoma ([facility]) Hearing decreased High cholesterol ([facility]) 02/20/2023 HTN (hypertension) ([facility]) 02/20/2023 Hypothyroidism, adult ([facility]) 02/20/2023 Iron deficiency 02/20/2023 Lumbar back pain 02/20/2023 Osteoporosis (CMS/HCC) Spondylolisthesis Spondylolisthesis of lumbar region Spondylosis, lumbosacral Type 2 diabetes mellitus (CMS/HCC) 02/20/2023 Past Surgical History: Procedure Laterality Date CAROTID ENDARTERECTOMY CARPAL TUNNEL RELEASE Right 03/26/2018 Dr. Zaldivar GLAUCOMA SURGERY TUBAL LIGATION family history includes Breast cancer in her cousin; Diabetes in her mother; Heart disease in her father and mother; Hypertension in her father and mother; Stroke in her father and mother. OBJECTIVE: Visit Vitals BP 152/78 (BP Location: Left arm, Patient Position: Sitting, BP Cuff Size: Adult long) Pulse 58 Temp 98.1 F (Temporal) Resp 18 Wt 153 lb 3.2 oz SpO2 97% BMI 28.02 kg/m Smoking Status Former BSA 1.74 m Physical Exam Vitals and nursing note reviewed. Constitutional: General: She is not in acute distress. Appearance: Normal appearance. HENT: Head: Normocephalic and atraumatic. Right Ear: External ear normal. Left Ear: External ear normal. Nose: Nose normal. Mouth/Throat: Mouth: Mucous membranes are moist. Eyes: Extraocular Movements: Extraocular movements intact. Conjunctiva/sclera: Conjunctivae normal. Neck: Vascular: Carotid bruit (right) present. Cardiovascular: Rate and Rhythm: Normal rate and regular rhythm. Pulses: Normal pulses. Heart sounds: Normal heart sounds. Pulmonary: Effort: Pulmonary effort is normal. Breath sounds: Normal breath sounds. Abdominal: General: Bowel sounds are normal. There is no distension. Palpations: Abdomen is soft. There is no mass. Tenderness: There is no abdominal tenderness. Musculoskeletal: General: Normal range of motion. Cervical back: Normal range of motion and neck supple. Right lower leg: No edema. Left lower leg: No edema. Skin: General: Skin is warm and dry. Capillary Refill: Capillary refill takes 2 to 3 seconds. Findings: No rash. Neurological: General: No focal deficit present. Mental Status: She is alert and oriented to person, place, and time. Psychiatric: Mood and Affect: Mood normal. Behavior: Behavior normal. Thought Content: Thought content normal. Judgment: Judgment normal. ASSESSMENT AND PLAN: No follow-ups on file. Problem List Items Addressed This Visit HTN (hypertension) (CMS/HCC) White coat hypertensions Please check blood pressure daily and record DASH diet Limit caffeine Take medication as directed Contact office if chest pain, pressure, dizziness, shortness of breath, swelling legs Recommend slow position changes Current meds: carvedilol, losartan, amlodipine Relevant Orders Basic metabolic panel Gastroesophageal reflux disease, unspecified whether esophagitis present Recommendations: freq small meals, nothing to eat or drink at least 2 hours prior to bed, limit caffeine, alcohol, as well as spicy foods Meds to limit or avoid if possible: NSAIDS Elevate HOB if possible Current meds: PPI Hypothyroidism, adult ([facility]) Currently taking levothyroxine Check labs yearly, prn dose changes, or changes in sxs High cholesterol ([facility]) On statin therapy Check labs yearly and prn dose changes Encounter for subsequent annual wellness visit (AWV) in Medicare patient - Primary Reviewed Ht/Wt/BMI Recommend eye exam yearly Recommend dental exams twice a year Exercises is recommended most days of the week (appropriate as chronic conditions allow) Follow up yearly and prn Chronic kidney disease, stage 3a ([facility]) ([facility]) Monitor labs Control BP Type 2 diabetes mellitus with diabetic chronic kidney disease ([facility]) Check blood sugars daily, notify if <70 [...] asa, arb, metformin, statin A1c: 5.7% 07/11/24 Relevant Orders POCT glycosylated hemoglobin (Hb A1C) docked device (Completed) Basic metabolic panel Pain of left hip Relevant Medications baclofen (Lioresal) 10 MG tablet Age-related osteoporosis without current pathological fracture ([facility]) Continue with fosamax daily Order DEXA Encounter for screening mammogram for malignant neoplasm of breast Relevant Orders Bilateral screening mammogram Other Visit Diagnoses Essential (primary) hypertension ([facility]) Relevant Medications losartan (Cozaar) 100 MG tablet Type 2 diabetes mellitus without complications Relevant Medications metFORMIN (Glucophage) 500 MG tablet Associated Problem(s): High cholesterol ([facility]) On statin therapy Check labs yearly and prn dose changes Associated Problem(s): Encounter for subsequent annual wellness visit (AWV) in Medicare patient Reviewed Ht/Wt/BMI Recommend eye exam yearly Recommend dental exams twice a year Exercises is recommended most days of the week (appropriate as chronic conditions allow) Follow up yearly and prn Associated Problem(s): Type 2 diabetes mellitus with diabetic chronic kidney disease ([facility]) Check blood sugars daily, notify if <70 [...] asa, arb, metformin, statin A1c: 5.7% 07/11/24 Associated Problem(s): Hypothyroidism, adult ([facility]) Currently taking levothyroxine Check labs yearly, prn dose changes, or changes in sxs Associated Problem(s): Age-related osteoporosis without current pathological fracture ([facility]) Continue with fosamax daily Order DEXA Associated Problem(s): Chronic kidney disease, stage 3a (HCC) ([facility]) Monitor labs Control BP Associated Problem(s): Gastroesophageal reflux disease, unspecified whether esophagitis present Recommendations: freq small meals, nothing to eat or drink at least 2 hours prior to bed, limit caffeine, alcohol, as well as spicy foods Meds to limit or avoid if possible: NSAIDS Elevate HOB if possible Current meds: PPI Associated Problem(s): HTN (hypertension) ([facility]) White coat hypertensions Please check blood pressure daily and record DASH diet Limit caffeine Take medication as directed Contact office if chest pain, pressure, dizziness, shortness of breath, swelling legs Recommend slow position changes Current meds: carvedilol, losartan, amlodipine documented in this encounter [facility] 07-11-2024 Instructions Lakshmi Newell NP - 07/11/2024 11:00 AM EDT I will fax order for mammogram, bone density test and US carotid arteries to [facility], they should call you to schedule. If no call in 2 weeks call me Get labs completed: not fasting documented in this encounter [facility] 12-27-2023 History of Present illness Narrative Associated Problem(s): Iron deficiency Check labs Associated Problem(s): Age-related osteoporosis without current pathological fracture ([facility]) Continue with fosamax daily Order DEXA Pt is having sinus troubles; states she can't breath, nose is stuffed up, runny nose, drainage, congestion, sob, clearing her throat, wheezing a bit. Left leg/thigh pain- pt states she wonders if her pelvic bone on the left side was broken as well Images from the original note were not included. Shelley Sanchez is a 78 y.o. female presents with chief complaint of left pelvic pain and Hypertension HPI: Hypertension This is a chronic problem. The current episode started more than 1 year ago. The problem is unchanged. The problem is uncontrolled. Pertinent negatives include no chest pain, headaches, palpitations, peripheral edema (ankles bilat better in am, worse as day goes) or shortness of breath. There are no associated agents to hypertension. Risk factors for coronary artery disease include diabetes mellitus, dyslipidemia and sedentary lifestyle. Past treatments include beta blockers, calcium channel blockers and angiotensin blockers. The current treatment provides significant improvement. There are no compliance problems. Hypertensive end-organ damage includes kidney disease. There is no history of CAD/VT, CVA or heart failure. Anxiety Presents for follow-up visit. Symptoms include excessive worry, irritability and restlessness. Patient reports no chest pain, decreased concentration, depressed mood, dizziness, nausea, palpitations, panic, shortness of breath or suicidal ideas. Symptoms occur most days. The severity of symptoms is mild. The quality of sleep is good. Compliance with medications is 76-100%. GERD She reports no abdominal pain, no chest pain, no coughing, no heartburn, no nausea, no sore throat, no water brash or no wheezing. This is a chronic problem. The current episode started more than 1 year ago. The problem occurs occasionally. Pertinent negatives include no anemia, fatigue, orthopnea or weight loss. There are no known risk factors. She has tried a PPI for the symptoms. The treatment provided significant relief. Diabetes She presents for her follow-up diabetic visit. She has type 2 diabetes mellitus. Her disease course has been stable. There are no hypoglycemic associated symptoms. Pertinent negatives for hypoglycemia include no dizziness, headaches, seizures or tremors. Associated symptoms include polyuria. Pertinent negatives for diabetes include no chest pain, no fatigue, no foot paresthesias, no foot ulcerations, no polydipsia, no polyphagia and no weight loss. There are no hypoglycemic complications. Symptoms are stable. Pertinent negatives for diabetic complications include no CVA, nephropathy or peripheral neuropathy. Risk factors for coronary artery disease include diabetes mellitus, dyslipidemia, hypertension and sedentary lifestyle. Current diabetic treatment includes oral agent (monotherapy). She is compliant with treatment all of the time. Her overall blood glucose range is 90-110 mg/dl. An CATHERINE inhibitor/angiotensin II receptor mayco is being taken. She does not see a brokerage coordinator.Eye exam is current. SUBJECTIVE: MEDICATIONS: Current Outpatient Medications Medication Instructions acetaminophen (TYLENOL) 325 mg, 2 times daily alendronate (FOSAMAX) 70 mg, Oral, Every 7 days, Take in the morning with a full glass of water, on an empty stomach, and do not take anything else by mouth or lie down for the next 30 min. amLODIPine (NORVASC) 10 mg, Oral, Daily aspirin 81 mg, Daily atorvastatin (LIPITOR) 40 mg, Oral, Nightly baclofen (LIORESAL) 10 mg, Oral, Nightly PRN Calcium Carb-Cholecalciferol (CALCIUM 500 +D PO) 1,000 mg, Daily carvedilol (COREG) 25 mg, Oral, 2 times daily DULoxetine (CYMBALTA) 30 mg, Oral, Nightly ferrous sulfate (FEROSUL) 325 mg, Oral, Daily with breakfast latanoprost (Xalatan) 0.005 % ophthalmic solution INSTILL 1 DROP IN BOTH EYES ONCE DAILY AT BEDTIME levothyroxine (SYNTHROID, LEVOXYL) 100 mcg, Oral, Daily losartan (COZAAR) 100 mg, Oral, Daily meloxicam (MOBIC) 15 mg, Daily PRN metFORMIN (GLUCOPHAGE) 500 mg, Oral, 2 times daily with meals Multiple Vitamin (multivitamin) capsule 1 capsule, Daily omeprazole (PRILOSEC) 20 mg, Oral, Daily before breakfast Propylene Glycol (SYSTANE BALANCE OP) Administer into affected eye(s) timolol (Timoptic) 0.5 % ophthalmic solution INSTILL 1 DROP IN THE RIGHT EYE TWICE DAILY ALLERGIES: No Known Allergies REVIEW OF SYMPTOMS: Review of Systems Constitutional: Positive for irritability. Negative for appetite change, chills, fatigue, fever and weight loss. HENT: Negative for congestion, ear pain and sore throat. Eyes: Negative for pain, discharge, redness and visual disturbance. Respiratory: Negative for cough, shortness of breath and wheezing. Cardiovascular: Negative for chest pain, palpitations and leg swelling. Gastrointestinal: Negative for abdominal pain, blood in stool, constipation, diarrhea, heartburn, nausea and vomiting. Genitourinary: Negative for difficulty urinating, dysuria and frequency. Musculoskeletal: Positive for arthralgias. Negative for back pain, joint swelling and myalgias. Skin: Negative for rash and wound. Neurological: Negative for dizziness, tremors, seizures, syncope and headaches. Psychiatric/Behavioral: Negative for behavioral problems, decreased concentration, self-injury and suicidal ideas. Hematological: Does not bruise/bleed easily. Endocrine: Positive for polyuria. Negative for polydipsia and polyphagia. Allergic/Immunologic: Negative for environmental allergies and food allergies. PAST MEDICAL HISTORY Past Medical History: Diagnosis Date Abnormal chest x-ray Anxiety 02/20/2023 Diverticulosis Gastroesophageal reflux disease, unspecified whether esophagitis present 02/20/2023 Glaucoma ([facility]) Hearing decreased High cholesterol ([facility]) 02/20/2023 HTN (hypertension) ([facility]) 02/20/2023 Hypothyroidism, adult ([facility]) 02/20/2023 Iron deficiency 02/20/2023 Lumbar back pain 02/20/2023 Osteoporosis ([facility]) Spondylolisthesis Spondylolisthesis of lumbar region Spondylosis, lumbosacral Type 2 diabetes mellitus ([facility]) 02/20/2023 Past Surgical History: Procedure Laterality Date CAROTID ENDARTERECTOMY CARPAL TUNNEL RELEASE Right 03/26/2018 Dr. Zaldivar GLAUCOMA SURGERY TUBAL LIGATION family history includes Breast cancer in her cousin; Diabetes in her mother; Heart disease in her father and mother; Hypertension in her father and mother; Stroke in her father and mother. OBJECTIVE: Visit Vitals BP 160/72 (BP Location: Left arm, Patient Position: Sitting, BP Cuff Size: Adult long) Pulse 74 Temp 97.6 F (Temporal) Resp 22 Ht 5' 2 Wt 152 lb 12.8 oz SpO2 99% BMI 27.95 kg/m Smoking Status Former BSA 1.74 m Physical Exam Vitals and nursing note reviewed. Constitutional: General: She is not in acute distress. Appearance: Normal appearance. HENT: Head: Normocephalic and atraumatic. Right Ear: External ear normal. Left Ear: External ear normal. Nose: Nose normal. Mouth/Throat: Mouth: Mucous membranes are moist. Eyes: Extraocular Movements: Extraocular movements intact. Conjunctiva/sclera: Conjunctivae normal. Neck: Vascular: Carotid bruit (bruit right, neg left) present. Cardiovascular: Rate and Rhythm: Normal rate and regular rhythm. Pulses: Normal pulses. Heart sounds: Normal heart sounds. Pulmonary: Effort: Pulmonary effort is normal. Breath sounds: Normal breath sounds. Abdominal: General: Bowel sounds are normal. There is no distension. Palpations: Abdomen is soft. There is no mass. Tenderness: There is no abdominal tenderness. Musculoskeletal: General: Normal range of motion. Cervical back: Normal range of motion and neck supple. Right lower leg: Edema present. Left lower leg: Edema present. Comments: Trace pedal Lymphadenopathy: Cervical: No cervical adenopathy. Skin: General: Skin is warm and dry. Capillary Refill: Capillary refill takes 2 to 3 seconds. Findings: No rash. Neurological: General: No focal deficit present. Mental Status: She is alert and oriented to person, place, and time. Psychiatric: Mood and Affect: Mood normal. Behavior: Behavior normal. Thought Content: Thought content normal. Judgment: Judgment normal. ASSESSMENT AND PLAN: Follow up in about 3 months (around 03/28/2024) for Recheck. Problem List Items Addressed This Visit HTN (hypertension) ([facility]) - Primary White coat hypertensions Please check blood pressure daily and record DASH diet Limit caffeine Take medication as directed Contact office if chest pain, pressure, dizziness, shortness of breath, swelling legs Recommend slow position changes No dose changes Relevant Orders Comprehensive metabolic panel Urinalysis with reflex microscopic (clean catch) Microalbumin / creatinine, urine ratio Vascular US carotid artery duplex bilateral Gastroesophageal reflux disease, unspecified whether esophagitis present Recommendations: freq small meals, nothing to eat or drink at least 2 hours prior to bed, limit caffeine, alcohol, as well as spicy foods Meds to limit or avoid if possible: NSAIDS Elevate HOB if possible Relevant Orders CBC and differential Comprehensive metabolic panel Type 2 diabetes mellitus ([facility]) Check blood sugars daily, notify if <70 [...] simple sugars. On statin, ARB, and ASA Relevant Orders Comprehensive metabolic panel Lipid panel Urinalysis with reflex microscopic (clean catch) Microalbumin / creatinine, urine ratio Vascular US carotid artery duplex bilateral Hemoglobin A1c Iron deficiency Check labs Relevant Orders Iron level Hypothyroidism, adult (CMS/HCC) Cont thyroid replacement Check labs Relevant Orders TSH T4, free High cholesterol (CMS/HCC) Continue statin Check labs Relevant Orders Comprehensive metabolic panel Lipid panel Vascular US carotid artery duplex bilateral Anxiety Continue current meds Chronic kidney disease, stage 3a (HCC) (CMS/HCC) Monitor labs Relevant Orders Comprehensive metabolic panel Urinalysis with reflex microscopic (clean catch) Microalbumin / creatinine, urine ratio Age-related osteoporosis without current pathological fracture (CMS/HCC) Continue with fosamax daily Order DEXA Relevant Orders Vitamin D 25 hydroxy DEXA bone density Right carotid bruit Relevant Orders Vascular US carotid artery duplex bilateral Associated Problem(s): Anxiety Continue current meds Associated Problem(s): High cholesterol (CMS/HCC) Continue statin Check labs Associated Problem(s): Hypothyroidism, adult (CMS/HCC) Cont thyroid replacement Check labs Associated Problem(s): Type 2 diabetes mellitus ([facility]) Check blood sugars daily, notify if <70 [...] simple sugars. On statin, ARB, and ASA Associated Problem(s): Chronic kidney disease, stage 3a (HCC) ([facility]) Monitor labs Associated Problem(s): Gastroesophageal reflux disease, unspecified whether esophagitis present Recommendations: freq small meals, nothing to eat or drink at least 2 hours prior to bed, limit caffeine, alcohol, as well as spicy foods Meds to limit or avoid if possible: NSAIDS Elevate HOB if possible Associated Problem(s): HTN (hypertension) ([facility]) White coat hypertensions Please check blood pressure daily and record DASH diet Limit caffeine Take medication as directed Contact office if chest pain, pressure, dizziness, shortness of breath, swelling legs Recommend slow position changes No dose changes documented in this encounter [facility] 12-27-2023 Instructions Lakshmi Newell NP - 12/27/2023 1:40 PM EST Order bone density test and US carotid arteries, The [facility] should call you Continue all meds Labs are due AFTER 12/29/23 documented in this encounter [facility] 10-31-2023 History of Present illness Narrative Associated Order(s): L Inj/Asp: L hip joint Post-Procedure Diagnose(s): Arthritis of left hip Images from the original note were not included. NAME: Shelley Sanchez : 1945 HISTORY OF PRESENT ILLNESS: Shelley Sanchez is an 77 y.o. @ female. Here for USG injection LT hip - hx glaucoma, has been approved by patient's eye doctor. B/L hip pain x 7 months (03/2023). NKI. Denies any falls. Tx by PCP with XR and baclofen. LT>RT Walking with a walker. Denies any pain in RT hip. Pain only in LT hip. Has pain anterior in groin and lateral hip. Will have pain in LT buttocks after standing for too long. Taking meloxicam when it is bad enough. Taking TYL prn. Denies N/T. Pain increases with raising leg up. Denies popping/grinding. Denies giving out. Unable to lay on LT side. Prior tx: PCP, baclofen, XR pelvis [facility] 10/09/23 (pushed through pacs), walker, meloxicam, TYL PAST MEDICAL HISTORY: Past Medical History: Diagnosis Date Abnormal chest x-ray Anxiety 02/20/2023 Diverticulosis Gastroesophageal reflux disease, unspecified whether esophagitis present 02/20/2023 Glaucoma (CMS/HCC) Hearing decreased High cholesterol (CMS/HCC) 02/20/2023 HTN (hypertension) (CMS/HCC) 02/20/2023 Hypothyroidism, adult (CMS/HCC) 02/20/2023 Iron deficiency 02/20/2023 Lumbar back pain 02/20/2023 Osteoporosis (CMS/HCC) Spondylolisthesis Spondylolisthesis of lumbar region Spondylosis, lumbosacral Type 2 diabetes mellitus (CMS/HCC) 02/20/2023 PAST SURGICAL HISTORY: Past Surgical History: Procedure Laterality Date CAROTID ENDARTERECTOMY CARPAL TUNNEL RELEASE Right 03/26/2018 Dr. Zaldivar GLAUCOMA SURGERY TUBAL LIGATION ALLERGIES: No Known Allergies HOME MEDICATIONS: Current Outpatient Medications Medication Instructions acetaminophen (TYLENOL) 325 mg, Oral, 2 times daily alendronate (FOSAMAX) 70 mg, Oral, Every 7 days, Take in the morning with a full glass of water, on an empty stomach, and do not take anything else by mouth or lie down for the next 30 min. amLODIPine (NORVASC) 10 mg, Oral, Daily aspirin 81 mg, Oral, Daily atorvastatin (LIPITOR) 40 mg, Oral, Nightly baclofen (LIORESAL) 10 mg, Oral, Nightly PRN Calcium Carb-Cholecalciferol (CALCIUM 500 +D PO) 1,000 mg, Oral, Daily carvedilol (COREG) 25 mg, Oral, 2 times daily DULoxetine (CYMBALTA) 30 mg, Oral, Nightly ferrous sulfate (FEROSUL) 325 mg, Oral, Daily with breakfast latanoprost (Xalatan) 0.005 % ophthalmic solution INSTILL 1 DROP IN BOTH EYES ONCE DAILY AT BEDTIME levothyroxine (SYNTHROID, LEVOXYL) 100 mcg, Oral, Daily losartan (COZAAR) 100 mg, Oral, Daily meloxicam (MOBIC) 15 mg, Oral, Daily PRN metFORMIN (GLUCOPHAGE) 500 mg, Oral, 2 times daily with meals Multiple Vitamin (multivitamin) capsule 1 capsule, Oral, Daily omeprazole (PRILOSEC) 20 mg, Oral, Daily before breakfast Propylene Glycol (SYSTANE BALANCE OP) Ophthalmic timolol (Timoptic) 0.5 % ophthalmic solution INSTILL 1 DROP IN THE RIGHT EYE TWICE DAILY Vitals: There is no height or weight on file to calculate BMI. PHYSICAL EXAM: LEFT HIP Using tri- walker Tenderness lateral and anterior Restricted ROM IMAGING: XR pelvis 3+ [place] [address] XRay Report Signed Patient: SHELLEY SANCHEZ MR#: [id number] : 1945 Acct:[id number] Age/Sex: 77 / F ADM Date: 10/09/23 Loc: RAD Attending Dr: Lakshmi Newell NP Ordering Physician: Lakshmi Newell NP Date of Service: 10/09/23 Procedure(s): XR pelvis min 3V Accession Number(s): [id number] cc: Lakshmi Newell NP [place] [id number] Patient Name: SHELLEY SANCHEZ MRN: [id number] date: 1945 Sex: F Assigned Patient Location: [facility] Current Patient Location: Accession/Order Number: [id number] Exam Date: 10/09/2023 09:25 Report Date: 10/10/2023 [...] suggests subacute to chronic. Electronically authenticated by: JOHNATHAN HOPKINS Date: 10/10/2023 06:57 Dictated By: Johnathan Hopkins M.D. Signed By: 10/10/23 0659 DD/ 0657 TD/TT: Audio Visual Secretary: Adalid Inj/Asp: L hip joint on 10/31/2023 11:25 AM Indications: pain and diagnostic evaluation Details: 20 G needle, ultrasound-guided anterolateral approach Medications: 40 mg methylPREDNISolone acetate 40 MG/ML Procedure, treatment alternatives, risks and benefits explained, specific risks discussed. Consent was given by the patient. ASSESSMENT: ICD-10-CM 1. Left hip pain M25.552 2. Arthritis of left hip M16.12 L Inj/Asp: L hip joint PLAN: I reviewed xray findings with the patient and discussed treatment options, answered questions. I discussed with the patient the option of an USG LEFT hip injection. I advised the patient of risks associated with an injection including a reaction to medication, infection, failure to improve and possible worsening. The patient demonstrated understanding. With the patient supine, the LEFT hip was steriley prepped with isopropyl alcohol. The isopropyl alcohol was allowed to dry. The ultrasound was utilized to identify the anatomy of the hip joint. The femoral neck and femoral shaft and femoral head were well visualized. A plan was established that avoided neurovascular structures. A 20-gauge spinal needle was then inserted under ultrasound guidance towards the head neck junction. The needle was seen to enter the joint just below the head neck junction. An image was captured verifying proper placement of the needle. 40mg of Depo-Medrol was injected into the joint under ultrasound guidance. The needle was then removed and a Band-aid was applied. Follow up as needed. Dr. Zaldivar obtained history and examined the patient, I am acting as scribe for Dr. Zaldivar/real Zaldivar D.O. documented in this encounter [facility] 10-25-2023 History of Present illness Narrative Associated Problem(s): Pain of left hip Continue with ortho for upcoming injection Associated Problem(s): Closed fracture of multiple pubic rami (HCC) (CMS/HCC) Continue with ortho Associated Problem(s): HTN (hypertension) (CMS/HCC) Continue current meds No changes blood pressure is significantly improved Suspect LE edema secondary to Amlodipine Left leg/hip pain-some days the pain almost takes her breath and she can not get up Legs/ankles/feet swelling-right side more than left Images from the original note were not included. Shelley Sanchez is a 77 y.o. female presents with chief complaint of No chief complaint on file. HPI: Here for a recheck of left hip pain and to review her xray She has seen ortho, and it is felt that the fracture is not acute, she is going to be having an injection to the left hip on 10/31/23. She does also have a concern about her legs swelling R>L. She denies any chest pain/pressure. No calf pain, no fever or chills, she does say that they have started to improve on their own. She denies high sodium diet, no dyspnea. She does report that she recently was push mowing her yard and the swelling started after that, denies any right hip pain or ankle and knee pain on the right. Hypertension This is a chronic problem. The current episode started more than 1 year ago. The problem has been gradually improving since onset. The problem is controlled. Associated symptoms include anxiety. Pertinent negatives include no chest pain, headaches, palpitations or shortness of breath. Risk factors for coronary artery disease include sedentary lifestyle. Past treatments include calcium channel blockers, angiotensin blockers and beta blockers. The current treatment provides significant improvement. There are no compliance problems. Hypertensive end-organ damage includes kidney disease. SUBJECTIVE: MEDICATIONS: Current Outpatient Medications Medication Instructions acetaminophen (TYLENOL) 325 mg, Oral, 2 times daily alendronate (FOSAMAX) 70 mg, Oral, Every 7 days, Take in the morning with a full glass of water, on an empty stomach, and do not take anything else by mouth or lie down for the next 30 min. amLODIPine (NORVASC) 10 mg, Oral, Daily aspirin 81 mg, Oral, Daily atorvastatin (LIPITOR) 40 mg, Oral, Nightly baclofen (LIORESAL) 10 mg, Oral, Nightly PRN Calcium Carb-Cholecalciferol (CALCIUM 500 +D PO) 1,000 mg, Oral, Daily carvedilol (COREG) 25 mg, Oral, 2 times daily DULoxetine (CYMBALTA) 30 mg, Oral, Nightly ferrous sulfate 325 mg, Oral, Daily with breakfast latanoprost (Xalatan) 0.005 % ophthalmic solution INSTILL 1 DROP IN BOTH EYES ONCE DAILY AT BEDTIME levothyroxine (SYNTHROID, LEVOXYL) 100 mcg, Oral, Daily losartan (COZAAR) 100 mg, Oral, Daily meloxicam (MOBIC) 15 mg, Oral, Daily PRN metFORMIN (GLUCOPHAGE) 500 mg, Oral, 2 times daily with meals omeprazole (PRILOSEC) 20 mg, Oral, Daily before breakfast timolol (Timoptic) 0.5 % ophthalmic solution INSTILL 1 DROP IN THE RIGHT EYE TWICE DAILY ALLERGIES: No Known Allergies REVIEW OF SYMPTOMS: Review of Systems Constitutional: Negative for appetite change, chills and fever. HENT: Negative for congestion, ear pain and sore throat. Eyes: Negative for pain, discharge, redness and visual disturbance. Respiratory: Negative for cough, shortness of breath and wheezing. Cardiovascular: Positive for leg swelling. Negative for chest pain and palpitations. Gastrointestinal: Negative for abdominal pain, blood in stool, constipation, diarrhea, nausea and vomiting. Genitourinary: Negative for difficulty urinating, dysuria and frequency. Musculoskeletal: Positive for arthralgias. Negative for back pain, joint swelling and myalgias. Skin: Negative for rash and wound. Neurological: Negative for dizziness, tremors, seizures, syncope and headaches. Psychiatric/Behavioral: Negative for behavioral problems, self-injury and suicidal ideas. The patient is not nervous/anxious. Hematological: Does not bruise/bleed easily. Endocrine: Negative for polydipsia, polyphagia and polyuria. Allergic/Immunologic: Negative for environmental allergies and food allergies. PAST MEDICAL HISTORY Past Medical History: Diagnosis Date Abnormal chest x-ray Anxiety 02/20/2023 Diverticulosis Gastroesophageal reflux disease, unspecified whether esophagitis present 02/20/2023 Glaucoma ([facility]) Hearing decreased High cholesterol ([facility]) 02/20/2023 HTN (hypertension) ([facility]) 02/20/2023 Hypothyroidism, adult ([facility]) 02/20/2023 Iron deficiency 02/20/2023 Lumbar back pain 02/20/2023 Osteoporosis ([facility]) Spondylolisthesis Spondylolisthesis of lumbar region Spondylosis, lumbosacral Type 2 diabetes mellitus ([facility]) 02/20/2023 Past Surgical History: Procedure Laterality Date CAROTID ENDARTERECTOMY CARPAL TUNNEL RELEASE Right 03/26/2018 Dr. Zaldivar GLAUCOMA SURGERY TUBAL LIGATION family history includes Breast cancer in her cousin; Diabetes in her mother; Heart disease in her father and mother; Hypertension in her father and mother; Stroke in her father and mother. OBJECTIVE: Visit Vitals BP 136/72 (BP Location: Left arm, Patient Position: Sitting, BP Cuff Size: Adult long) Pulse 68 Temp 98.1 F (Temporal) Resp 19 Ht 5' 2 Wt 153 lb 9.6 oz SpO2 96% BMI 28.09 kg/m Smoking Status Former BSA 1.75 m Physical Exam Vitals and nursing note reviewed. Constitutional: General: She is not in acute distress. Appearance: Normal appearance. HENT: Head: Normocephalic and atraumatic. Right Ear: External ear normal. Left Ear: External ear normal. Nose: Nose normal. Mouth/Throat: Mouth: Mucous membranes are moist. Eyes: Extraocular Movements: Extraocular movements intact. Conjunctiva/sclera: Conjunctivae normal. Cardiovascular: Rate and Rhythm: Normal rate and regular rhythm. Pulses: Normal pulses. Heart sounds: Normal heart sounds. Pulmonary: Effort: Pulmonary effort is normal. Breath sounds: Normal breath sounds. Musculoskeletal: Cervical back: Normal range of motion and neck supple. Right lower leg: Edema present. Left lower leg: Edema present. Comments: Mild swelling lower pretibial/and pedal on the right LE, minimal LLE +STS to right lateral malleolar region, no laxity or pain with inversion or eversion Calf is soft no pain. No erythema noted Skin: General: Skin is warm and dry. Capillary Refill: Capillary refill takes 2 to 3 seconds. Findings: No rash. Neurological: General: No focal deficit present. Mental Status: She is alert and oriented to person, place, and time. Psychiatric: Mood and Affect: Mood normal. Behavior: Behavior normal. Thought Content: Thought content normal. Judgment: Judgment normal. ASSESSMENT AND PLAN: No follow-ups on file. Problem List Items Addressed This Visit HTN (hypertension) (CMS/HCC) Continue current meds No changes blood pressure is significantly improved Suspect LE edema secondary to Amlodipine Overweight (BMI 25.0-29.9) Chronic kidney disease, stage 3a (HCC) (CMS/HCC) - Primary Pain of left hip Continue with ortho for upcoming injection Closed fracture of multiple pubic rami (HCC) ([facility]) Continue with ortho documented in this encounter [facility] 10-25-2023 Telephone encounter Note I called patients [facility] as patient is seen there for glaucoma. I did receive permission for left hip IA injection with 40mg of DepoMedrol. We will call to have patient scheduled with Dr. Zaldivar for injection. [facility] Work Phone: 10-25-2023 Miscellaneous Notes I called patients [facility] as patient is seen there for glaucoma. I did receive permission for left hip IA injection with 40mg of DepoMedrol. We will call to have patient scheduled with Dr. Zaldivar for injection. documented in this encounter [facility] 10-24-2023 History of Present illness Narrative Images from the original note were not included. NAME: Shelley Sanchez : 1945 HISTORY OF PRESENT ILLNESS: Shelley Sanchez is an 77 y.o. @ female. Lakshmi Newell referral. RT hip pain x 7 months. NKI. Denies any falls. Tx by PCP with XR and baclofen. Walking with a walker. Denies pain for a while on the RT side. Notes all her pain is LT sided. Pain LT sided, anterior and lateral. Worse with raising leg. Taking TYL and meloxicam. Denies N/T. Admits swelling B/L lower legs. Denies giving out. Does not wake at HS. Prior tx: PCP, baclofen, XR pelvis [facility] 10/09/23 (pushed through pacs) PAST MEDICAL HISTORY: Past Medical History: Diagnosis Date Abnormal chest x-ray Anxiety 02/20/2023 Diverticulosis Gastroesophageal reflux disease, unspecified whether esophagitis present 02/20/2023 Glaucoma ([facility]) Hearing decreased High cholesterol ([facility]) 02/20/2023 HTN (hypertension) ([facility]) 02/20/2023 Hypothyroidism, adult ([facility]) 02/20/2023 Iron deficiency 02/20/2023 Lumbar back pain 02/20/2023 Osteoporosis ([facility]) Spondylolisthesis Spondylolisthesis of lumbar region Spondylosis, lumbosacral Type 2 diabetes mellitus ([facility]) 02/20/2023 PAST SURGICAL HISTORY: Past Surgical History: Procedure Laterality Date CAROTID ENDARTERECTOMY CARPAL TUNNEL RELEASE Right 03/26/2018 Dr. Zaldivar GLAUCOMA SURGERY TUBAL LIGATION ALLERGIES: No Known Allergies HOME MEDICATIONS: Current Outpatient Medications Medication Instructions acetaminophen (TYLENOL) 325 mg, Oral, 2 times daily alendronate (FOSAMAX) 70 mg, Oral, Every 7 days, Take in the morning with a full glass of water, on an empty stomach, and do not take anything else by mouth or lie down for the next 30 min. amLODIPine (NORVASC) 10 mg, Oral, Daily aspirin 81 mg, Oral, Daily atorvastatin (LIPITOR) 40 mg, Oral, Nightly baclofen (LIORESAL) 10 mg, Oral, Nightly PRN Calcium Carb-Cholecalciferol (CALCIUM 500 +D PO) 1,000 mg, Oral, Daily carvedilol (COREG) 25 mg, Oral, 2 times daily DULoxetine (CYMBALTA) 30 mg, Oral, Nightly ferrous sulfate 325 mg, Oral, Daily with breakfast latanoprost (Xalatan) 0.005 % ophthalmic solution INSTILL 1 DROP IN BOTH EYES ONCE DAILY AT BEDTIME levothyroxine (SYNTHROID, LEVOXYL) 100 mcg, Oral, Daily losartan (COZAAR) 100 mg, Oral, Daily meloxicam (MOBIC) 15 mg, Oral, Daily PRN metFORMIN (GLUCOPHAGE) 500 mg, Oral, 2 times daily with meals omeprazole (PRILOSEC) 20 mg, Oral, Daily before breakfast timolol (Timoptic) 0.5 % ophthalmic solution INSTILL 1 DROP IN THE RIGHT EYE TWICE DAILY Vitals: There is no height or weight on file to calculate BMI. PHYSICAL EXAM: Right Hip Exam Tenderness The patient is experiencing no tenderness. Left Hip Exam Tenderness The patient is experiencing tenderness in the anterior and lateral. Range of Motion External rotation: 40 Internal rotation: 30 Muscle Strength Abduction: 4/5 Adduction: 4/5 Flexion: 4/5 Tests EVONNE: positive Other Sensation: normal Pulse: present IMAGING: XR pelvis 3+ views The [address] [address] XRay Report Signed Patient: SHELLEY SANCHEZ MR#: [id number] : 1945 Acct:[id number] Age/Sex: 77 / F ADM Date: 10/09/23 Loc: RAD Attending Dr: Lakshmi Newell NP Ordering Physician: Lakshmi Newell NP Date of Service: 10/09/23 Procedure(s): XR pelvis min 3V Accession Number(s): [id number] cc: Lakshmi Newell NP [place] [id number] Patient Name: SHELLEY SANCHEZ MRN: [id number] date: 1945 Sex: F Assigned Patient Location: [facility] Current Patient Location: Accession/Order Number: [id number] Exam Date: 10/09/2023 09:25 Report Date: 10/10/2023 [...] suggests subacute to chronic. Electronically authenticated by: JOHNATHAN HOPKINS Date: 10/10/2023 06:57 Dictated By: Johnathan Hopkins M.D. Signed By: 10/10/23 0659 DD/ TD/TT: Audio Visual Secretary: Procedures ASSESSMENT: ICD-10-CM 1. Hip strain, left, initial encounter S76.012A 2. Fracture of multiple pubic rami, right, sequela S32.591S 3. Left hip pain M25.552 PLAN: I reviewed xray findings with the patient and discussed treatment options, answered questions. I recommend that patient have IA injection of left hip as she is having anterior hip pain. I also recommend patient have repeat xray in 1 month for RCK of right pubic rami fracture but I suspect this is chronic. We will get approval for IA injection of left hip from patients account retention representative and call to schedule if approved. Consider MRI of left hip if she is unable to have IA injection. Questions answered in laymen terms at the bedside. The diagnosis, home exercise plan and any ongoing restrictions/ recommendations reviewed. If unable to be reached in office, I recommend evaluation at nearest Emergency Room if any symptoms worsened or new symptoms develop for requiring urgent evaluation. Jay Gilbert APRN-GIRISH documented in this encounter [facility] 09-26-2023 History of Present illness Narrative Associated Problem(s): HTN (hypertension) (CMS/HCC) Check labs Increase amlodipine to 10mg Fu in 4 weeks Cont home blood pressure checks Associated Problem(s): 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) No med changes Associated Problem(s): Pain of left hip Check xray Would like to trial some baclofen for this Associated Problem(s): Hypothyroidism, adult ([facility]/HCC) ,continue meds Associated Problem(s): Chronic kidney disease, stage 3a (HCC) (CMS/[facility]) Check labs Pt is currently struggling with left leg/hip- she states that she does not have pain unless she puts weight on it but she thinks it is her arthritis. She does struggle walking and doing many activities such as gardening. Pt has cataract surgery in November. Pt states the other day she noticed she was wheezing and had sob. Images from the original note were not included. Shelley Sanchez is a 77 y.o. female presents with chief complaint of No chief complaint on file. HPI: Hypertension This is a chronic problem. The current episode started more than 1 year ago. The problem is unchanged. The problem is resistant. Associated symptoms include anxiety and shortness of breath. Pertinent negatives include no chest pain, headaches, orthopnea, palpitations or peripheral edema. There are no associated agents to hypertension. Risk factors for coronary artery disease include diabetes mellitus, dyslipidemia and post-menopausal state. Past treatments include beta blockers, calcium channel blockers and angiotensin blockers. The current treatment provides moderate improvement. There are no compliance problems. Diabetes She presents for her follow-up diabetic visit. She has type 2 diabetes mellitus. Her disease course has been stable. Hypoglycemia symptoms include nervousness/anxiousness. Pertinent negatives for hypoglycemia include no dizziness, headaches, seizures or tremors. Pertinent negatives for diabetes include no chest pain, no foot paresthesias, no polydipsia, no polyphagia and no polyuria. There are no hypoglycemic complications. Symptoms are stable. There are no diabetic complications. Risk factors for coronary artery disease include diabetes mellitus, dyslipidemia and hypertension. Current diabetic treatment includes oral agent (dual therapy). Her overall blood glucose range is 90-110 mg/dl. An CATHERINE inhibitor/angiotensin II receptor mayco is being taken. Eye exam is current. Anxiety Presents for follow-up visit. Symptoms include nervous/anxious behavior and shortness of breath. Patient reports no chest pain, decreased concentration, depressed mood, dizziness, excessive worry, irritability, nausea, palpitations or suicidal ideas. Symptoms occur most days. The severity of symptoms is moderate. The quality of sleep is good. Compliance with medications is 76-100%. Hip Pain The incident occurred more than 1 week ago. There was no injury mechanism. The pain is present in the left hip. The quality of the pain is described as aching and stabbing. The pain is moderate. The pain has been Constant since onset. Associated symptoms include an inability to bear weight. Pertinent negatives include no numbness or tingling. She reports no foreign bodies present. The symptoms are aggravated by weight bearing. She has tried NSAIDs and acetaminophen for the symptoms. The treatment provided mild relief. SUBJECTIVE: MEDICATIONS: Current Outpatient Medications Medication Instructions acetaminophen (TYLENOL) 325 mg, Oral, 2 times daily alendronate (FOSAMAX) 70 mg, Oral, Every 7 days, Take in the morning with a full glass of water, on an empty stomach, and do not take anything else by mouth or lie down for the next 30 min. amLODIPine (NORVASC) 10 mg, Oral, Daily aspirin 81 mg, Oral, Daily atorvastatin (LIPITOR) 40 mg, Oral, Nightly baclofen (LIORESAL) 10 mg, Oral, Nightly PRN Calcium Carb-Cholecalciferol (CALCIUM 500 +D PO) 1,000 mg, Oral, Daily carvedilol (COREG) 25 mg, Oral, 2 times daily DULoxetine (CYMBALTA) 30 mg, Oral, Nightly ferrous sulfate 325 mg, Oral, Daily with breakfast latanoprost (Xalatan) 0.005 % ophthalmic solution INSTILL 1 DROP IN BOTH EYES ONCE DAILY AT BEDTIME levothyroxine (SYNTHROID, LEVOXYL) 100 mcg, Oral, Daily losartan (COZAAR) 100 mg, Oral, Daily meloxicam (MOBIC) 15 mg, Oral, Daily PRN metFORMIN (GLUCOPHAGE) 500 mg, Oral, 2 times daily with meals omeprazole (PRILOSEC) 20 mg, Oral, Daily before breakfast timolol (Timoptic) 0.5 % ophthalmic solution INSTILL 1 DROP IN THE RIGHT EYE TWICE DAILY ALLERGIES: No Known Allergies REVIEW OF SYMPTOMS: Review of Systems Constitutional: Negative for appetite change, chills, fever and irritability. HENT: Negative for congestion, ear pain and sore throat. Eyes: Negative for pain, discharge, redness and visual disturbance. Respiratory: Positive for shortness of breath. Negative for cough and wheezing. Cardiovascular: Negative for chest pain, palpitations, orthopnea and leg swelling. Gastrointestinal: Negative for abdominal pain, blood in stool, constipation, diarrhea, nausea and vomiting. Genitourinary: Negative for difficulty urinating, dysuria and frequency. Musculoskeletal: Positive for arthralgias. Negative for back pain, joint swelling and myalgias. Skin: Negative for rash and wound. Neurological: Negative for dizziness, tingling, tremors, seizures, syncope, numbness and headaches. Psychiatric/Behavioral: Negative for behavioral problems, decreased concentration, self-injury and suicidal ideas. The patient is nervous/anxious. Hematological: Does not bruise/bleed easily. Endocrine: Negative for polydipsia, polyphagia and polyuria. Allergic/Immunologic: Negative for environmental allergies and food allergies. PAST MEDICAL HISTORY Past Medical History: Diagnosis Date Abnormal chest x-ray Anxiety 02/20/2023 Diverticulosis Gastroesophageal reflux disease, unspecified whether esophagitis present 02/20/2023 Glaucoma ([facility]) Hearing decreased High cholesterol ([facility]) 02/20/2023 HTN (hypertension) ([facility]) 02/20/2023 Hypothyroidism, adult ([facility]) 02/20/2023 Iron deficiency 02/20/2023 Lumbar back pain 02/20/2023 Osteoporosis ([facility]) Spondylolisthesis Spondylolisthesis of lumbar region Spondylosis, lumbosacral Type 2 diabetes mellitus ([facility]) 02/20/2023 Past Surgical History: Procedure Laterality Date CAROTID ENDARTERECTOMY CARPAL TUNNEL RELEASE Right 03/26/2018 Dr. Zaldivar GLAUCOMA SURGERY TUBAL LIGATION family history includes Breast cancer in her cousin; Diabetes in her mother; Heart disease in her father and mother; Hypertension in her father and mother; Stroke in her father and mother. OBJECTIVE: Visit Vitals BP 170/78 (BP Location: Left arm, Patient Position: Sitting, BP Cuff Size: Adult long) Pulse 63 Temp 97.6 F (Temporal) Resp 18 Ht 5' 2 Wt 158 lb SpO2 99% BMI 28.90 kg/m Smoking Status Former BSA 1.77 m Physical Exam Vitals and nursing note reviewed. Constitutional: General: She is not in acute distress. Appearance: Normal appearance. HENT: Head: Normocephalic and atraumatic. Right Ear: External ear normal. Left Ear: External ear normal. Nose: Nose normal. Mouth/Throat: Mouth: Mucous membranes are moist. Eyes: Extraocular Movements: Extraocular movements intact. Conjunctiva/sclera: Conjunctivae normal. Neck: Vascular: No carotid bruit. Cardiovascular: Rate and Rhythm: Normal rate and regular rhythm. Pulses: Normal pulses. Heart sounds: Normal heart sounds. Pulmonary: Effort: Pulmonary effort is normal. Breath sounds: Normal breath sounds. Abdominal: General: Bowel sounds are normal. There is no distension. Palpations: Abdomen is soft. There is no mass. Tenderness: There is no abdominal tenderness. Musculoskeletal: Cervical back: Normal range of motion and neck supple. Right lower leg: No edema. Left lower leg: No edema. Comments: No tenderness to the left hip, mild pain with internal and external rotation of the hip Lymphadenopathy: Cervical: No cervical adenopathy. Skin: General: Skin is warm and dry. Capillary Refill: Capillary refill takes 2 to 3 seconds. Findings: No rash. Neurological: General: No focal deficit present. Mental Status: She is alert and oriented to person, place, and time. Psychiatric: Mood and Affect: Mood normal. Behavior: Behavior normal. Thought Content: Thought content normal. Judgment: Judgment normal. ASSESSMENT AND PLAN: No follow-ups on file. Problem List Items Addressed This Visit HTN (hypertension) ([facility]) - Primary Check labs Increase amlodipine to 10mg Fu in 4 weeks Cont home blood pressure checks Relevant Medications amLODIPine (Norvasc) 10 MG tablet Hypothyroidism, adult (CMS/HCC) ,continue meds Chronic kidney disease, stage 3a (HCC) (CMS/HCC) Check labs Relevant Orders Basic metabolic panel 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) No med changes Relevant Orders Basic metabolic panel Pain of left hip Check xray Would like to trial some baclofen for this Relevant Medications baclofen (Lioresal) 10 MG tablet Other Relevant Orders XR hip left 2 or 3 views documented in this encounter [facility] 07-05-2022 Note PROCEDURE: XR SACROI LIAC JOINT 3 VIEWS COMPARISON: None. HISTORY: Low back pain FINDINGS: SACRUM: No fracture, disruption of the sacral ala line, or cortical irregularity. COCCYX: No fracture or suspicious alignment. SOFT TISSUES: No widening of the sacroiliac joints. No radiopaque foreign body. OTHER: IMPRESSION: No acute abnormality Electronically authenticated by: BLOSSOM QUIROZ Date: 2022-07-05 14:21 [facility] 07-05-2022 Note PROCEDURE: XR HIP RT 2 3V WO PELVIS COMPARISON: None. HISTORY: Low back pain FINDINGS: BONES:No acute fracture or dislocation. Joint space narrowing. SOFT TISSUES:Negative. No visible soft tissue swelling. EFFUSION:None visible. OTHER: Negative. IMPRESSION: Joint space narrowing Electronically authenticated by: BLOSSOM QUIROZ Date: 2022-07-05 14:20 [facility] 05-27-2020 Note HPI Staff 74 year old [...] Sister and Brother. Stroke: Mother and Father. [facility] Comment on above: Result Comment: Elec tronically Signed By: SILKE RICE, Doug Gonzalez\Date and Time Signed: 05/27/20 14:32 EDT Evaluation note Diagnosis Primary hypertension (CMS/HCC)- Primary Unspecified essential hypertension Essential (primary) hypertension (CMS/HCC) Unspecified essential hypertension Spondylosis without myelopathy or radiculopathy, lumbosacral region Anxiety disorder, unspecified Hypothyroidism, unspecified (CMS/HCC) Hypothyroidism, adult (CMS/HCC) Other specified acquired hypothyroidism Lumbar back pain Lumbago Anxiety Anxiety state, unspecified [facility] Diagnosis Primary hypertension (CMS/HCC)- Primary Unspecified essential hypertension Gastroesophageal reflux disease, unspecified whether esophagitis present Type 2 diabetes mellitus without complication, without long-term current use of insulin (CMS/HCC) Iron deficiency Disorders of iron metabolism Hypothyroidism, adult ([facility]/HCC) Other specified acquired hypothyroidism High cholesterol (CMS/HCC) Pure hypercholesterolemia Anxiety Anxiety state, unspecified Encounter for subsequent annual wellness visit (AWV) in Medicare patient- Primary Stage 3 chronic kidney disease, unspecified whether stage 3a or 3b CKD (HCC) (CMS/HCC) Primary hypertension (CMS/HCC) Unspecified essential hypertension Type 2 diabetes mellitus without complication, without long-term current use of insulin (CMS/HCC) Hypothyroidism, adult ([facility]/HCC) Other specified acquired hypothyroidism Routine general medical examination at health care facility Routine general medical examination at a health care facility Lumbar spondylosis- Primary Lumbosacral spondylosis without myelopathy Hypothyroidism, unspecified (CMS/HCC) Essential (primary) hypertension ([facility]/HCC) Unspecified essential hypertension Anxiety disorder, unspecified Primary hypertension ([facility]/HCC) Unspecified essential hypertension Stage 3 chronic kidney disease, unspecified whether stage 3a or 3b CKD (HCC) ([facility]) Type 2 diabetes mellitus without complication, without long-term current use of insulin ([facility]) Encounter for hepatitis C virus screening test for high risk patient Other specified glaucoma, unspecified laterality (CMS/[facility]) Overweight (BMI 25.0-29.9) Overweight Primary hypertension (CMS/HCC)- Primary Unspecified essential hypertension Type 2 diabetes mellitus with diabetic chronic kidney disease (CMS/HCC) Chronic kidney disease, stage 3a (HCC) (CMS/HCC) Hypothyroidism, adult ([facility]/HCC) Other specified acquired hypothyroidism Pain of left hip Primary hypertension (CMS/HCC)- Primary Unspecified essential hypertension Chronic kidney disease, stage 3a (HCC) ([facility]/HCC) 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, subsequent encounter Pain of left hip Overweight (BMI 25.0-29.9) Overweight Hyperlipidemia, unspecified (CMS/HCC) Type 2 diabetes mellitus without complications ([facility]/HCC) Gastro-esophageal reflux disease without esophagitis [facility] Diagnosis Primary hypertension (CMS/HCC)- Primary Unspecified essential hypertension Gastroesophageal reflux disease, unspecified whether esophagitis present Type 2 diabetes mellitus without complication, without long-term current use of insulin (CMS/HCC) Iron deficiency Disorders of iron metabolism Hypothyroidism, adult ([facility]/HCC) Other specified acquired hypothyroidism High cholesterol (CMS/HCC) Pure hypercholesterolemia Anxiety Anxiety state, unspecified Encounter for subsequent annual wellness visit (AWV) in Medicare patient- Primary Stage 3 chronic kidney disease, unspecified whether stage 3a or 3b CKD (HCC) ([facility]/HCC) Primary hypertension ([facility]/HCC) Unspecified essential hypertension Type 2 diabetes mellitus without complication, without long-term current use of insulin (CMS/[facility]) Hypothyroidism, adult ([facility]/HCC) Other specified acquired hypothyroidism Routine general medical examination at health care facility Routine general medical examination at a health care facility Lumbar spondylosis- Primary Lumbosacral spondylosis without myelopathy Hypothyroidism, unspecified (CMS/HCC) Essential (primary) hypertension (CMS/HCC) Unspecified essential hypertension Anxiety disorder, unspecified Primary hypertension (CMS/HCC) Unspecified essential hypertension Stage 3 chronic kidney disease, unspecified whether stage 3a or 3b CKD (HCC) ([facility]/HCC) Type 2 diabetes mellitus without complication, without long-term current use of insulin ([facility]) Encounter for hepatitis C virus screening test for high risk patient Other specified glaucoma, unspecified laterality ([facility]) Overweight (BMI 25.0-29.9) Overweight Primary hypertension (CMS/HCC)- Primary Unspecified essential hypertension Type 2 diabetes mellitus with diabetic chronic kidney disease (CMS/HCC) Chronic kidney disease, stage 3a (HCC) (CMS/HCC) Hypothyroidism, adult ([facility]) Other specified acquired hypothyroidism Pain of left hip Primary hypertension (CMS/HCC)- Primary Unspecified essential hypertension Chronic kidney disease, stage 3a (HCC) (CMS/HCC) 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, subsequent encounter Pain of left hip Overweight (BMI 25.0-29.9) Overweight Pain of left hip [facility] Diagnosis Primary hypertension (CMS/HCC)- Primary Unspecified essential hypertension Gastroesophageal reflux disease, unspecified whether esophagitis present Type 2 diabetes mellitus without complication, without long-term current use of insulin ([facility]/HCC) Iron deficiency Disorders of iron metabolism Hypothyroidism, adult (CMS/HCC) Other specified acquired hypothyroidism High cholesterol (CMS/HCC) Pure hypercholesterolemia Anxiety Anxiety state, unspecified Encounter for subsequent annual wellness visit (AWV) in Medicare patient- Primary Stage 3 chronic kidney disease, unspecified whether stage 3a or 3b CKD (HCC) ([facility]) Primary hypertension (CMS/HCC) Unspecified essential hypertension Type 2 diabetes mellitus without complication, without long-term current use of insulin ([facility]) Hypothyroidism, adult ([facility]) Other specified acquired hypothyroidism Routine general medical examination at health care facility Routine general medical examination at a health care facility Lumbar spondylosis- Primary Lumbosacral spondylosis without myelopathy Hypothyroidism, unspecified ([facility]) Essential (primary) hypertension ([facility]) Unspecified essential hypertension Anxiety disorder, unspecified Primary hypertension ([facility]/HCC) Unspecified essential hypertension Stage 3 chronic kidney disease, unspecified whether stage 3a or 3b CKD (HCC) ([facility]) Type 2 diabetes mellitus without complication, without long-term current use of insulin ([facility]) Encounter for hepatitis C virus screening test for high risk patient Other specified glaucoma, unspecified laterality ([facility]) Overweight (BMI 25.0-29.9) Overweight Primary hypertension ([facility])- Primary Unspecified essential hypertension Type 2 diabetes mellitus with diabetic chronic kidney disease ([facility]) Chronic kidney disease, stage 3a (HCC) ([facility]) Hypothyroidism, adult ([facility]) Other specified acquired hypothyroidism Pain of left hip Primary hypertension ([facility]/HCC)- Primary Unspecified essential hypertension Chronic kidney disease, stage 3a (HCC) ([facility]) 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, subsequent encounter Pain of left hip Overweight (BMI 25.0-29.9) Overweight Primary hypertension ([facility])- Primary Unspecified essential hypertension Gastroesophageal reflux disease, unspecified whether esophagitis present Chronic kidney disease, stage 3a (HCC) ([facility]) Type 2 diabetes mellitus without complication, without long-term current use of insulin ([facility]) Hypothyroidism, adult ([facility]) Other specified acquired hypothyroidism High cholesterol ([facility]) Pure hypercholesterolemia Anxiety Anxiety state, unspecified Iron deficiency Disorders of iron metabolism Age-related osteoporosis without current pathological fracture ([facility]) Right carotid bruit [facility] Diagnosis Primary hypertension ([facility])- Primary Unspecified essential hypertension Gastroesophageal reflux disease, unspecified whether esophagitis present Type 2 diabetes mellitus without complication, without long-term current use of insulin ([facility]) Iron deficiency Disorders of iron metabolism Hypothyroidism, adult ([facility]) Other specified acquired hypothyroidism High cholesterol ([facility]) Pure hypercholesterolemia Anxiety Anxiety state, unspecified Encounter for subsequent annual wellness visit (AWV) in Medicare patient- Primary Stage 3 chronic kidney disease, unspecified whether stage 3a or 3b CKD (HCC) ([facility]) Primary hypertension ([facility]) Unspecified essential hypertension Type 2 diabetes mellitus without complication, without long-term current use of insulin ([facility]) Hypothyroidism, adult ([facility]) Other specified acquired hypothyroidism Routine general medical examination at health care facility Routine general medical examination at a health care facility Lumbar spondylosis- Primary Lumbosacral spondylosis without myelopathy Hypothyroidism, unspecified ([facility]) Essential (primary) hypertension ([facility]) Unspecified essential hypertension Anxiety disorder, unspecified Primary hypertension ([facility]/HCC) Unspecified essential hypertension Stage 3 chronic kidney disease, unspecified whether stage 3a or 3b CKD (HCC) ([facility]) Type 2 diabetes mellitus without complication, without long-term current use of insulin ([facility]) Encounter for hepatitis C virus screening test for high risk patient Other specified glaucoma, unspecified laterality ([facility]) Overweight (BMI 25.0-29.9) Overweight Primary hypertension ([facility])- Primary Unspecified essential hypertension Type 2 diabetes mellitus with diabetic chronic kidney disease ([facility]) Chronic kidney disease, stage 3a (HCC) ([facility]/HCC) Hypothyroidism, adult ([facility]) Other specified acquired hypothyroidism Pain of left hip Primary hypertension ([facility])- Primary Unspecified essential hypertension Chronic kidney disease, stage 3a (HCC) ([facility]) 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, subsequent encounter Pain of left hip Overweight (BMI 25.0-29.9) Overweight Age-related osteoporosis without current pathological fracture ([facility]) Primary hypertension ([facility])- Primary Unspecified essential hypertension Gastroesophageal reflux disease, unspecified whether esophagitis present Chronic kidney disease, stage 3a (HCC) ([facility]) Type 2 diabetes mellitus without complication, without long-term current use of insulin ([facility]) Hypothyroidism, adult ([facility]) Other specified acquired hypothyroidism High cholesterol ([facility]) Pure hypercholesterolemia Anxiety Anxiety state, unspecified Iron deficiency Disorders of iron metabolism Age-related osteoporosis without current pathological fracture ([facility]) Right carotid bruit documented in this encounter [facility]Evaluation note* Diagnosis Closed fracture of multiple rami of right pubis, initial encounter ([facility])- Primary documented in this encounter [facility]* Diagnosis Hip strain, left, initial encounter- Primary Fracture of multiple pubic rami, right, sequela Left hip pain Pain in joint, pelvic region and thigh documented in this encounter [facility]* Diagnosis Primary hypertension (CMS/HCC)- Primary Unspecified essential hypertension Chronic kidney disease, stage 3a (HCC) (CMS/HCC) 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, subsequent encounter Pain of left hip Overweight (BMI 25.0-29.9) Overweight documented in this encounter [facility]* Diagnosis Primary hypertension (CMS/HCC)- Primary Unspecified essential hypertension 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) Chronic kidney disease, stage 3a (HCC) (CMS/HCC) Hypothyroidism, adult ([facility]) Other specified acquired hypothyroidism Pain of left hip documented in this encounter [facility]* Diagnosis Pain of left hip- Primary documented in this encounter [facility]* Diagnosis Iron deficiency Disorders of iron metabolism documented in this encounter [facility]* Diagnosis Left hip pain- Primary Pain in joint, pelvic region and thigh Arthritis of left hip documented in this encounter [facility]* Diagnosis Primary hypertension (CMS/HCC)- Primary Unspecified essential hypertension Gastroesophageal reflux disease, unspecified whether esophagitis present Type 2 diabetes mellitus without complication, without long-term current use of insulin (CMS/HCC) Iron deficiency Disorders of iron metabolism Hypothyroidism, adult ([facility]/HCC) Other specified acquired hypothyroidism High cholesterol (CMS/HCC) Pure hypercholesterolemia Anxiety Anxiety state, unspecified Encounter for subsequent annual wellness visit (AWV) in Medicare patient- Primary Stage 3 chronic kidney disease, unspecified whether stage 3a or 3b CKD (HCC) ([facility]/HCC) Primary hypertension (CMS/HCC) Unspecified essential hypertension Type 2 diabetes mellitus without complication, without long-term current use of insulin (CMS/HCC) Hypothyroidism, adult ([facility]/HCC) Other specified acquired hypothyroidism Routine general medical examination at health care facility Routine general medical examination at a health care facility Lumbar spondylosis- Primary Lumbosacral spondylosis without myelopathy Hypothyroidism, unspecified (CMS/HCC) Essential (primary) hypertension (CMS/HCC) Unspecified essential hypertension Anxiety disorder, unspecified Primary hypertension (CMS/HCC) Unspecified essential hypertension Stage 3 chronic kidney disease, unspecified whether stage 3a or 3b CKD (HCC) ([facility]) Type 2 diabetes mellitus without complication, without long-term current use of insulin (CMS/HCC) Encounter for hepatitis C virus screening test for high risk patient Other specified glaucoma, unspecified laterality (CMS/HCC) Overweight (BMI 25.0-29.9) Overweight Primary hypertension (CMS/HCC)- Primary Unspecified essential hypertension Type 2 diabetes mellitus with diabetic chronic kidney disease (CMS/HCC) Chronic kidney disease, stage 3a (HCC) (CMS/HCC) Hypothyroidism, adult (CMS/HCC) Other specified acquired hypothyroidism Pain of left hip Primary hypertension (CMS/HCC)- Primary Unspecified essential hypertension Chronic kidney disease, stage 3a (HCC) (CMS/HCC) 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, subsequent encounter Pain of left hip Overweight (BMI 25.0-29.9) Overweight Primary hypertension (CMS/HCC)- Primary Unspecified essential hypertension Gastroesophageal reflux disease, unspecified whether esophagitis present Chronic kidney disease, stage 3a (HCC) (CMS/HCC) Type 2 diabetes mellitus without complication, without long-term current use of insulin (CMS/HCC) Hypothyroidism, adult ([facility]/HCC) Other specified acquired hypothyroidism High cholesterol (CMS/HCC) Pure hypercholesterolemia Anxiety Anxiety state, unspecified Iron deficiency Disorders of iron metabolism Age-related osteoporosis without current pathological fracture (CMS/HCC) Right carotid bruit Primary hypertension (CMS/HCC) Unspecified essential hypertension Age-related osteoporosis without current pathological fracture (CMS/HCC) Gastro-esophageal reflux disease without esophagitis Spondylosis without myelopathy or radiculopathy, lumbosacral region Hypothyroidism, unspecified (CMS/HCC) Anxiety disorder, unspecified Essential (primary) hypertension (CMS/HCC) Unspecified essential hypertension documented in this encounter [facility]* Diagnosis Primary hypertension (CMS/HCC)- Primary Unspecified essential hypertension Gastroesophageal reflux disease, unspecified whether esophagitis present Type 2 diabetes mellitus without complication, without long-term current use of insulin Iron deficiency Disorders of iron metabolism Hypothyroidism, adult (CMS/HCC) Other specified acquired hypothyroidism High cholesterol (CMS/HCC) Pure hypercholesterolemia Anxiety Anxiety state, unspecified Encounter for subsequent annual wellness visit (AWV) in Medicare patient- Primary Stage 3 chronic kidney disease, unspecified whether stage 3a or 3b CKD (HCC) (CMS/HCC) Primary hypertension (CMS/HCC) Unspecified essential hypertension Type 2 diabetes mellitus without complication, without long-term current use of insulin Hypothyroidism, adult (CMS/HCC) Other specified acquired hypothyroidism Routine general medical examination at health care facility Routine general medical examination at a health care facility Lumbar spondylosis- Primary Lumbosacral spondylosis without myelopathy Hypothyroidism, unspecified Essential (primary) hypertension ([facility]/HCC) Unspecified essential hypertension Anxiety disorder, unspecified Primary hypertension ([facility]/HCC) Unspecified essential hypertension Stage 3 chronic kidney disease, unspecified whether stage 3a or 3b CKD (HCC) ([facility]) Type 2 diabetes mellitus without complication, without long-term current use of insulin Encounter for hepatitis C virus screening test for high risk patient Other specified glaucoma, unspecified laterality ([facility]) Overweight (BMI 25.0-29.9) Overweight Primary hypertension ([facility]/HCC)- Primary Unspecified essential hypertension Type 2 diabetes mellitus with diabetic chronic kidney disease ([facility]) Chronic kidney disease, stage 3a (HCC) ([facility]) Hypothyroidism, adult ([facility]) Other specified acquired hypothyroidism Pain of left hip Primary hypertension ([facility]/HCC)- Primary Unspecified essential hypertension Chronic kidney disease, stage 3a (HCC) ([facility]) 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, subsequent encounter Pain of left hip Overweight (BMI 25.0-29.9) Overweight Primary hypertension ([facility]/HCC)- Primary Unspecified essential hypertension Gastroesophageal reflux disease, unspecified whether esophagitis present Chronic kidney disease, stage 3a (HCC) ([facility]) Type 2 diabetes mellitus without complication, without long-term current use of insulin Hypothyroidism, adult ([facility]) Other specified acquired hypothyroidism High cholesterol ([facility]) Pure hypercholesterolemia Anxiety Anxiety state, unspecified Iron deficiency Disorders of iron metabolism Age-related osteoporosis without current pathological fracture ([facility]) Right carotid bruit Primary hypertension ([facility]/HCC) Unspecified essential hypertension Essential (primary) hypertension ([facility]/HCC) Unspecified essential hypertension Hyperlipidemia, unspecified ([facility]) Age-related osteoporosis without current pathological fracture ([facility]) Anxiety disorder, unspecified Hypothyroidism, unspecified Spondylosis without myelopathy or radiculopathy, lumbosacral region Gastro-esophageal reflux disease without esophagitis documented in this encounter [facility]Evaluation note* Diagnosis Primary hypertension ([facility]/HCC)- Primary Unspecified essential hypertension Gastroesophageal reflux disease, unspecified whether esophagitis present Type 2 diabetes mellitus without complication, without long-term current use of insulin Iron deficiency Disorders of iron metabolism Hypothyroidism, adult (CMS/HCC) Other specified acquired hypothyroidism High cholesterol (CMS/HCC) Pure hypercholesterolemia Anxiety Anxiety state, unspecified Encounter for subsequent annual wellness visit (AWV) in Medicare patient- Primary Stage 3 chronic kidney disease, unspecified whether stage 3a or 3b CKD (HCC) ([facility]/HCC) Primary hypertension ([facility]/HCC) Unspecified essential hypertension Type 2 diabetes mellitus without complication, without long-term current use of insulin Hypothyroidism, adult ([facility]) Other specified acquired hypothyroidism Routine general medical examination at health care facility Routine general medical examination at a health care facility Lumbar spondylosis- Primary Lumbosacral spondylosis without myelopathy Hypothyroidism, unspecified Essential (primary) hypertension (CMS/HCC) Unspecified essential hypertension Anxiety disorder, unspecified Primary hypertension ([facility]/HCC) Unspecified essential hypertension Stage 3 chronic kidney disease, unspecified whether stage 3a or 3b CKD (HCC) ([facility]) Type 2 diabetes mellitus without complication, without long-term current use of insulin Encounter for hepatitis C virus screening test for high risk patient Other specified glaucoma, unspecified laterality ([facility]) Overweight (BMI 25.0-29.9) Overweight Primary hypertension ([facility]/HCC)- Primary Unspecified essential hypertension Type 2 diabetes mellitus with diabetic chronic kidney disease (CMS/HCC) Chronic kidney disease, stage 3a (HCC) ([facility]/HCC) Hypothyroidism, adult ([facility]) Other specified acquired hypothyroidism Pain of left hip Primary hypertension (CMS/HCC)- Primary Unspecified essential hypertension Chronic kidney disease, stage 3a (HCC) (CMS/HCC) 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, subsequent encounter Pain of left hip Overweight (BMI 25.0-29.9) Overweight Primary hypertension ([facility]/HCC)- Primary Unspecified essential hypertension Gastroesophageal reflux disease, unspecified whether esophagitis present Chronic kidney disease, stage 3a (HCC) ([facility]) Type 2 diabetes mellitus without complication, without long-term current use of insulin Hypothyroidism, adult ([facility]) Other specified acquired hypothyroidism High cholesterol ([facility]/HCC) Pure hypercholesterolemia Anxiety Anxiety state, unspecified Iron deficiency Disorders of iron metabolism Age-related osteoporosis without current pathological fracture ([facility]) Right carotid bruit Encounter for subsequent annual wellness visit (AWV) in Medicare patient- Primary Primary hypertension ([facility]) Unspecified essential hypertension Gastroesophageal reflux disease, unspecified whether esophagitis present Chronic kidney disease, stage 3a (HCC) (CMS/HCC) Age-related osteoporosis without current pathological fracture (CMS/HCC) Hypothyroidism, adult (CMS/HCC) Other specified acquired hypothyroidism Type 2 diabetes mellitus with stage 3 chronic kidney disease, without long-term current use of insulin, unspecified whether stage 3a or 3b CKD (HCC) (CMS/HCC) High cholesterol (CMS/HCC) Pure hypercholesterolemia Pain of left hip Essential (primary) hypertension (CMS/HCC) Unspecified essential hypertension Encounter for screening mammogram for malignant neoplasm of breast documented in this encounter [facility] HealthcareEvaluation noteNo assessment information availableBer[facility] Work [facility]: Evaluation note* Diagnosis Primary hypertension- Primary Unspecified essential hypertension Gastroesophageal reflux disease, unspecified whether esophagitis present Type 2 diabetes mellitus without complication, without long-term current use of insulin (HCC) Iron deficiency Disorders of iron metabolism Hypothyroidism, adult Other specified acquired hypothyroidism High cholesterol Pure hypercholesterolemia Anxiety Anxiety state, unspecified Encounter for subsequent annual wellness visit (AWV) in Medicare patient- Primary Stage 3 chronic kidney disease, unspecified whether stage 3a or 3b CKD (CMS-HCC) Primary hypertension Unspecified essential hypertension Type 2 diabetes mellitus without complication, without long-term current use of insulin (HCC) Hypothyroidism, adult Other specified acquired hypothyroidism Routine general medical examination at health care facility Routine general medical examination at a health care facility Lumbar spondylosis- Primary Lumbosacral spondylosis without myelopathy Hypothyroidism, unspecified Essential (primary) hypertension Unspecified essential hypertension Anxiety disorder, unspecified Primary hypertension Unspecified essential hypertension Stage 3 chronic kidney disease, unspecified whether stage 3a or 3b CKD (CMS-HCC) Type 2 diabetes mellitus without complication, without long-term current use of insulin (HCC) Encounter for hepatitis C virus screening test for high risk patient Other specified glaucoma, unspecified laterality Overweight (BMI 25.0-29.9) Overweight Primary hypertension- Primary Unspecified essential hypertension Type 2 diabetes mellitus with diabetic chronic kidney disease (HCC) Chronic kidney disease, stage 3a (CMS-HCC) Hypothyroidism, adult Other specified acquired hypothyroidism Pain of left hip Primary hypertension- Primary Unspecified essential hypertension Chronic kidney disease, stage 3a (CMS-HCC) 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, subsequent encounter Pain of left hip Overweight (BMI 25.0-29.9) Overweight Primary hypertension- Primary Unspecified essential hypertension Gastroesophageal reflux disease, unspecified whether esophagitis present Chronic kidney disease, stage 3a (CMS-HCC) Type 2 diabetes mellitus without complication, without long-term current use of insulin (HCC) Hypothyroidism, adult Other specified acquired hypothyroidism High cholesterol Pure hypercholesterolemia Anxiety Anxiety state, unspecified Iron deficiency Disorders of iron metabolism Age-related osteoporosis without current pathological fracture Right carotid bruit Encounter for subsequent annual wellness visit (AWV) in Medicare patient- Primary Primary hypertension Unspecified essential hypertension Gastroesophageal reflux disease, unspecified whether esophagitis present Chronic kidney disease, stage 3a ([facility]-HCC) Age-related osteoporosis without current pathological fracture Hypothyroidism, adult Other specified acquired hypothyroidism Type 2 diabetes mellitus with stage 3 chronic kidney disease, without long-term current use of insulin, unspecified whether stage 3a or 3b CKD (HCC) High cholesterol Pure hypercholesterolemia Pain of left hip Essential (primary) hypertension Unspecified essential hypertension Encounter for screening mammogram for malignant neoplasm of breast Hyperlipidemia, unspecified documented in this encounter [facility]* Diagnosis Primary hypertension- Primary Unspecified essential hypertension Gastroesophageal reflux disease, unspecified whether esophagitis present Type 2 diabetes mellitus without complication, without long-term current use of insulin ([facility]) Iron deficiency Disorders of iron metabolism Hypothyroidism, adult Other specified acquired hypothyroidism High cholesterol Pure hypercholesterolemia Anxiety Anxiety state, unspecified Encounter for subsequent annual wellness visit (AWV) in Medicare patient- Primary Stage 3 chronic kidney disease, unspecified whether stage 3a or 3b CKD ([facility]-HCC) Primary hypertension Unspecified essential hypertension Type 2 diabetes mellitus without complication, without long-term current use of insulin (HCC) Hypothyroidism, adult Other specified acquired hypothyroidism Routine general medical examination at health care facility Routine general medical examination at a health care facility Lumbar spondylosis- Primary Lumbosacral spondylosis without myelopathy Hypothyroidism, unspecified Essential (primary) hypertension Unspecified essential hypertension Anxiety disorder, unspecified Primary hypertension Unspecified essential hypertension Stage 3 chronic kidney disease, unspecified whether stage 3a or 3b CKD ([facility]-HCC) Type 2 diabetes mellitus without complication, without long-term current use of insulin (HCC) Encounter for hepatitis C virus screening test for high risk patient Other specified glaucoma, unspecified laterality Overweight (BMI 25.0-29.9) Overweight Primary hypertension- Primary Unspecified essential hypertension Type 2 diabetes mellitus with diabetic chronic kidney disease (HCC) Chronic kidney disease, stage 3a ([facility]-HCC) Hypothyroidism, adult Other specified acquired hypothyroidism Pain of left hip Primary hypertension- Primary Unspecified essential hypertension Chronic kidney disease, stage 3a (CMS-HCC) 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, subsequent encounter Pain of left hip Overweight (BMI 25.0-29.9) Overweight Primary hypertension- Primary Unspecified essential hypertension Gastroesophageal reflux disease, unspecified whether esophagitis present Chronic kidney disease, stage 3a ([facility]) Type 2 diabetes mellitus without complication, without long-term current use of insulin (HCC) Hypothyroidism, adult Other specified acquired hypothyroidism High cholesterol Pure hypercholesterolemia Anxiety Anxiety state, unspecified Iron deficiency Disorders of iron metabolism Age-related osteoporosis without current pathological fracture Right carotid bruit Encounter for subsequent annual wellness visit (AWV) in Medicare patient- Primary Primary hypertension Unspecified essential hypertension Gastroesophageal reflux disease, unspecified whether esophagitis present Chronic kidney disease, stage 3a ([facility]) Age-related osteoporosis without current pathological fracture Hypothyroidism, adult Other specified acquired hypothyroidism Type 2 diabetes mellitus with stage 3 chronic kidney disease, without long-term current use of insulin, unspecified whether stage 3a or 3b CKD (HCC) High cholesterol Pure hypercholesterolemia Pain of left hip Essential (primary) hypertension Unspecified essential hypertension Encounter for screening mammogram for malignant neoplasm of breast Hypothyroidism, unspecified Gastro-esophageal reflux disease without esophagitis documented in this encounter [facility] HealthcareEvaluation note* Diagnosis Primary hypertension- Primary Unspecified essential hypertension Gastroesophageal reflux disease, unspecified whether esophagitis present Type 2 diabetes mellitus without complication, without long-term current use of insulin ([facility]) Iron deficiency Disorders of iron metabolism Hypothyroidism, adult Other specified acquired hypothyroidism High cholesterol Pure hypercholesterolemia Anxiety Anxiety state, unspecified Encounter for subsequent annual wellness visit (AWV) in Medicare patient- Primary Stage 3 chronic kidney disease, unspecified whether stage 3a or 3b CKD ([facility]) Primary hypertension Unspecified essential hypertension Type 2 diabetes mellitus without complication, without long-term current use of insulin ([facility]) Hypothyroidism, adult Other specified acquired hypothyroidism Routine general medical examination at health care facility Routine general medical examination at a health care facility Lumbar spondylosis- Primary Lumbosacral spondylosis without myelopathy Hypothyroidism, unspecified Essential (primary) hypertension Unspecified essential hypertension Anxiety disorder, unspecified Primary hypertension Unspecified essential hypertension Stage 3 chronic kidney disease, unspecified whether stage 3a or 3b CKD ([facility]) Type 2 diabetes mellitus without complication, without long-term current use of insulin ([facility]) Encounter for hepatitis C virus screening test for high risk patient Other specified glaucoma, unspecified laterality Overweight (BMI 25.0-29.9) Overweight Primary hypertension- Primary Unspecified essential hypertension Type 2 diabetes mellitus with diabetic chronic kidney disease (HCC) Chronic kidney disease, stage 3a ([facility]) Hypothyroidism, adult Other specified acquired hypothyroidism Pain of left hip Primary hypertension- Primary Unspecified essential hypertension Chronic kidney disease, stage 3a ([facility]) 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, subsequent encounter Pain of left hip Overweight (BMI 25.0-29.9) Overweight Primary hypertension- Primary Unspecified essential hypertension Gastroesophageal reflux disease, unspecified whether esophagitis present Chronic kidney disease, stage 3a ([facility]) Type 2 diabetes mellitus without complication, without long-term current use of insulin ([facility]) Hypothyroidism, adult Other specified acquired hypothyroidism High cholesterol Pure hypercholesterolemia Anxiety Anxiety state, unspecified Iron deficiency Disorders of iron metabolism Age-related osteoporosis without current pathological fracture Right carotid bruit Encounter for subsequent annual wellness visit (AWV) in Medicare patient- Primary Primary hypertension Unspecified essential hypertension Gastroesophageal reflux disease, unspecified whether esophagitis present Chronic kidney disease, stage 3a ([facility]) Age-related osteoporosis without current pathological fracture Hypothyroidism, adult Other specified acquired hypothyroidism Type 2 diabetes mellitus with stage 3 chronic kidney disease, without long-term current use of insulin, unspecified whether stage 3a or 3b CKD ([facility]) High cholesterol Pure hypercholesterolemia Pain of left hip Essential (primary) hypertension Unspecified essential hypertension Encounter for screening mammogram for malignant neoplasm of breast Hyperlipidemia, unspecified documented in this encounter [facility] for referral (narrative)* Consultation (Routine) - Pending Review Specialty Diagnoses / Procedures Referred By Nataliya maloney Referred To Contact Orthopaedic Surgery Diagnoses Closed fracture of multiple rami of right pubis, initial encounter ([facility]) Lakshmi Newell NP [address] [place] [address] Deepika Donald NP [address] [facility] [address] [place] [address] Referral ID Status Reason Start Date Expiration Date Visits Requested Visits Authorized [id number] Pending Review Specialty Services Required 10/19/2023 04/16/2024 1 1 [facility] referral (narrative)No reason for referral information [facility] Phone: Summary Purpose Family History Relationship Condition Age at Onset Recorded Date/T michael father Unknown mother Unknown Advance Directives Advance Directive Response Recorded Date/ Time Advance Directives No March 17, 2018 1:17am Reason for Referral Specialty Diagnoses / Procedures Referred By Contac t Referred To Contact Orthopaedic Surgery Diagnoses Arthritis of left hip Procedures L Inj/Asp: L hip joint Tyron Zaldivar, DO [address] [facility] [address] [place] [address] Referral ID Status Reason Start Date Expiration Date Visits Re quested Visits Authorized [id number] Closed 10/31/2023 04/28/2024 1 1 Chief Complaint and Reason for Visit Chief Complaint Admit Date Z12.31 M81.0 August 23, 2024 12:2 4pm Chief Complaint Admit Date Z12.31 M81.0 August 23, 2024 12:2 4pm I10 E11.9 E78.00 R09.89 August 26, 2024 10:57am Additional Source Comments INFORMATION SOURCE (unrecogn ized section and content) DATE CREATED AUTHOR 08/02/2017 [facility] DATE CREATED AUTHOR AUTHOR'S ORGANIZ ATION 07/02/2020 [facility] DATE CREATED AUTHOR AUTHOR'S ORGANIZ ATION 07/15/2022 [facility] DATE CREATED AUTHOR AUTHOR'S ORGANIZ ATION 07/12/2024 [facility] DATE CREATED AUTHOR AUTHOR'S ORGANIZ ATION 08/30/2024 [facility] Reason for Visit (unrecogniz ed section and content) Reason Comments Med Refill Reason Comments left pelvic pain Hypertension Reason Comments Pain Reason Comments Pain Reason Comments Medicare Annual Wellness Visit Initial Reason Onset Date Comments Med Refill 09/16/2024 Care Teams (unrecognized sec tion and content) Nut Sorter Operator Relationship Specialty Start Date End Date Avinash Blair MD PCP - General Family Medicine 07/29/22 [employer] Operator Relationship Specialty Start Date End Date Avinash Blair MD [address] [place] [address] PCP - General Family Medicine 03/28/23 Lakshmi Newell NP [address] [place] [address] Nurse Practitioner Family Medicine 03/28/23 Nut Sorter Operator Relationship Specialty Start Date End Date Avinash Blair MD [address] [place] [address] PCP - General Family Medicine 03/28/23 Lakshmi Newell NP [address] [place] [address] Nurse Practitioner Family Medicine 03/28/23 Nut Sorter Operator Relationship Specialty Start Date End Date Avinash Blair MD [address] [place] [address] PCP - General Family Medicine 03/28/23 Lakshmi Newell NP [address] [place] [address] Nurse Practitioner Family Medicine 03/28/23 Nut Sorter Operator Relationship Specialty Start Date End Date Avinash Blair MD [address] [place] [address] PCP - General Family Medicine 03/28/23 Lakshmi Newell NP [address] [place] [address] Nurse Practitioner Family Medicine 03/28/23 Nut Sorter Operator Relationship Specialty Start Date End Date Avinash Blair MD [address] [place] [phone] PCP - General Family Medicine 03/28/23 Lakshmi Newell NP [address] [place] [address] Nurse Practitioner Family Medicine 03/28/23 Nut Sorter Operator Relationship Specialty Start Date End Date Avinash Blair MD [address] [place] [address] PCP - General Family Medicine 03/28/23 Lakshmi Newell NP [address] [place] [address] Nurse Practitioner Family Medicine 03/28/23 Nut Sorter Operator Relationship Specialty Start Date End Date Avinash Blair MD [address] [place] [address] PCP - General Family Medicine 03/28/23 Lakshmi Newell NP [address] [place] [address] Nurse Practitioner Family Medicine 03/28/23 Nut Sorter Operator Relationship Specialty Start Date End Date Avinash Blair MD [address] [place] [address] PCP - General Family Medicine 03/28/23 Lakshmi Newell NP [address] [place] [address] Nurse Practitioner Family Medicine 03/28/23 Nut Sorter Operator Relationship Specialty Start Date End Date Avinash Blair MD [address] [place] [address] PCP - General Family Medicine 03/28/23 Lakshmi Newell NP [address] [place] [address] Nurse Practitioner Family Medicine 03/28/23 Nut Sorter Operator Relationship Specialty Start Date End Date Avinash Blair MD [address] [place] [address] PCP - General Family Medicine 03/28/23 Lakshmi Newell NP [address] [place] [address] Nurse Practitioner Family Medicine 03/28/23 Nut Sorter Operator Relationship Specialty Start Date End Date Avinash Blair MD [address] [place] [address] PCP - General Family Medicine 03/28/23 Lakshmi Newell NP [address] [place] [address] Nurse Practitioner Family Medicine 03/28/23 Nut Sorter Operator Relationship Specialty Start Date End Date Avinash Blair MD [address] [place] [address] PCP - General Family Medicine 03/28/23 Lakshmi Newell NP [address] [place] [address] Nurse Practitioner Family Medicine 03/28/23 Nut Sorter Operator Relationship Specialty Start Date End Date Avinash Blair MD [address] [place] [address] PCP - General Family Medicine 03/28/23 Lakshmi Newell NP [address] [place] [address] Nurse Practitioner Family Medicine 03/28/23 Nut Sorter Operator Relationship Specialty Start Date End Date Avinash Blair MD [address] [place] [phone] PCP - General Family Medicine 03/28/23 Lakshmi Newell NP [address] [place] [address] Nurse Practitioner Family Medicine 03/28/23 Nut Sorter Operator Relationship Specialty Start Date End Date Avinash Blair MD [address] [place] [address] PCP - General Family Medicine 03/28/23 Lakshmi Newell NP [address] [place] [address] Nurse Practitioner Family Medicine 03/28/23 Nut Sorter Operator Relationship Specialty Start Date End Date Avinash Blair MD [address] [place] [address] PCP - General Family Medicine 03/28/23 Lakshmi Newell NP [address] [place] [address] Nurse Practitioner Family Medicine 03/28/23 Nut Sorter Operator Relationship Specialty Start Date End Date Avinash Blair MD [address] [place] [address] PCP - General Family Medicine 03/28/23 Lakshmi Newell NP [address] [place] [address] Nurse Practitioner Family Medicine 03/28/23 Nut Sorter Operator Relationship Specialty Start Date End Date Avinash Blair MD [address] [place] [address] PCP - General Family Medicine 03/28/23 Lakshmi Newell NP [address] [place] [address] Nurse Practitioner Family Medicine 03/28/23 Nut Sorter Operator Relationship Specialty Start Date End Date Avinash Blair MD [address] [place] [address] PCP - General Family Medicine 03/28/23 Lakshmi Newell NP [address] [place] [address] Nurse Practitioner Family Medicine 03/28/23 Team Status: Active Member Role Status Dates José Luis Horan MD Primary Care Provider Active Team Status: Inactive Member Role Status Dates José Luis Horan MD Primary Care Provider Active Start: August 23, 2024 End: August 23, 2024 Lakshmi Newell Attending Provider Active Start: August 23, 2024 End: August 23, 2024 Team Status: Inactive Member Role Status Dates José Luis Horan MD Primary Care Provider Active Start: August 26, 2024 End: August 26, 2024 Lakshmi Newell Attending Provider Active Start: August 26, 2024 End: August 26, 2024 Nut Sorter Operator Relationship Specialty Start Date End Date Avinash Blair MD [address] [place] [address] PCP - General Family Medicine 03/28/23 Lakshmi Newell NP [address] [place] [address] Nurse Practitioner Family Medicine 03/28/23 Nut Sorter Operator Relationship Specialty Start Date End Date Avinash Blair MD [address] [place] [phone] PCP - General Family Medicine 03/28/23 Lakshmi Newell NP [address] [place] [address] Nurse Practitioner Family Medicine 03/28/23 Goals (unrecognized section and content) Goals may be documented in a n alternate sectionGoals may be documented in an alternate section FOR RECORDS PERTAINING TO PATIENTS WHO ARE [...] BE BASED ON THE PRIMARY CLINICAL RECORDS. [facility]. provides no warranty or guarantee of the accuracy or completeness of information in this document.
[2024-11-12 10:18] LABS: Alanine Aminotransferase 14 U/L (14-59); Aspartate Amino Transferase 17 U/L (15-37); Cholesterol 126 mg/dL (<=200); HDL Cholesterol 63 mg/dL (40-60); Triglycerides 74 mg/dL (<=150); VLDL CHOLESTEROL 14.8 mg/dL
== END 2024-11-12 09:29 | disposition home or self-care (01) ==
PROVIDERS: PCP Nurse Practitioner; Visit Provider Nurse Practitioner
DX: E78.5 Hyperlipidemia, unspecified (principal)
CPT/HCPCS: 36415; 80061; 84450; 84460